=== PATIENT | female | born 1965 | race Caucasian/White ===

== ENCOUNTER → 2017-06-21 11:17 | Outpatient (CLI) | payer OTHER, SELFPAY ==
--- NOTE | 2017-06-21 11:26 | RAD_ITS ---
STUDY: X-RAY CHEST REASON FOR EXAM: Female, 52 years old. Cough TECHNIQUE: PA and lateral views of the chest. COMPARISON: Prior study of 05/06/2013 FINDINGS: The lungs are clear and expanded. There is no demonstrated pleural abnormality. Normal size heart. Normal mediastinum and deysi. Normal visualized pulmonary arteries. Normal visualized aortic arch and descending thoracic aorta. There are diffuse degenerative changes of the visualized thoracic spine. There is a fusion plate overlying the visualized lower cervical region. There is no demonstrated abnormality of the visualized soft tissue structures of the upper abdomen. RAD/Chest PA and Lateral IMPRESSION: Degenerative changes of the thoracic spine. Fusion plate seen overlying the visualized lower cervical region. No acute cardiopulmonary disease process is seen. Electronically Signed: Adam Wong MD at 16:59 EST , Service support ,
== END ==
PROVIDERS: Family Provider Family Medicine; PCP Family Medicine; Visit Provider Family Medicine
DX: J18.9 Pneumonia, unspecified organism (principal)
CPT/HCPCS: 71046

== ENCOUNTER 2018-05-29 09:57 | Inpatient (IN) | payer MEDICAID, SELFPAY ==
[2018-05-29] VITALS (30 sets, daily range): BP systolic 107–158; BP diastolic 67–111; PULSE 47–131; RESP 14–37; TEMP 36.3–36.9; O2SAT 85–99; BMI 42.9; BMI 41.3
--- NOTE | 2018-05-29 10:23 | EKG12_ITS ---
Test Reason : Blood Pressure : / mmHG Vent. Rate : 118 BPM Atrial Rate : 118 BPM P-R Int : 132 ms QRS Dur : 090 ms QT Int : 332 ms P-R-T Axes : 050 044 000 degrees QTc Int : 465 ms Sinus tachycardia Nonspecific ST abnormality Abnormal ECG Confirmed by NICOLE RAMIREZ, ELKIN ([id number]), advertising editor STACI JOSHUA ([id number]) on 06/02/2018 10:29:20 AM Referred By: BRITTANY/ELIAS Confirmed By:ELKIN RIVERA MD
[2018-05-29 10:35] LABS: Absolute Neutrophil Count 4.4 X10^3/uL (2.0-7.7); Basophil# 0.02 X10^3/uL; Basophil% 0.3 % (0-1); Eosinophil# 0.19 X10^3/uL; Eosinophils% 3.1 % (0-5); Hematocrit 38.7 % (37-47); Hemoglobin 11.4 g/dl (12.0-15.0); Lymphocyte % 16.1 % (19-41); Mean Corp Hgb Conc 29.5 g/gl (32-36); Mean Corpuscular Hgb 23.1 pg (27.0-32.0); Mean Corpuscular Volume 78.3 fL (81-99); Mean Platelet Vol. 9.8 fl (6.2-12.0); Monocyte# 0.64 X10^3/uL; Monocyte% 10.3 % (0-10); Neutrophil # 4.36 X10^3/uL (2.7-7.7); POSITIVE COUNT NO; POSITIVE DIFFERENTIAL NO; POSITIVE MORPHOLOGY NO; Platelet Count 259 K/mm3 (150-450); RBC Distribution Width CV 17.2 % (11.6-14.6); Red Blood Count 4.94 M/mm3 (4.2-5.4); White Blood Count 6.2 K/mm3 (4.4-11.0)
[2018-05-29] MEDS: 0.9% Normal Saline 1,000 ML 999 ML IV (10:38)
--- NOTE | 2018-05-29 10:43 | RAD_ITS ---
STUDY: X-RAY CHEST REASON FOR EXAM: Female, 53 years old. Flulike symptoms. Hypoxia. TECHNIQUE: Single AP portable view of the chest. COMPARISON: Comparison is made with prior study dated June 21, 2017. FINDINGS: EKG electrodes are seen. The lungs are clear and expanded. There is no demonstrated pleural abnormality. Normal size heart. Normal mediastinum and deysi. Normal visualized pulmonary arteries. Normal visualized aortic arch and descending thoracic aorta. There are degenerative changes of the visualized thoracic spine. Prior fusion of the lower cervical spine. Normal visualized ribs, clavicles, and shoulders. There is no demonstrated abnormality of the visualized soft tissue structures of the upper abdomen. RAD/Chest 1 View (Portable) IMPRESSION: No acute abnormality is seen. Electronically Signed: Marko Hoffman MD at 11:27 EST , Service support ,
[2018-05-29 10:46] LABS: Partial Thromboplast Time 23.8 Seconds (24.1-36.2); Prothrombin Time (Protime)PT. 12.8 SECONDS (11.7-14.9)
[2018-05-29 10:56] LABS: ALB/GLOB Ratio 0.6 RATIO (0.9-2.4); AST(SGOT) 17 U/L (15-37); Alanine Aminotransfer ALT/SGPT 18 U/L (13-56); Albumin, Serum 2.8 g/dL (3.2-5.0); Alkaline Phosphatase 87 U/L (45-117); Anion Gap 8 (5-15); BUN 9 mg/dL (7-18); BUN/Creat Ratio 10.7 RATIO (10-20); Calcium,Total 8.3 mg/dL (8.5-10.1); Chloride 107 mmol/L (98-107); Creatinine, Serum 0.84 mg/dL (0.55-1.02); EST Glomerular Filtration Rate 75 mL/min (>60); Est Glom Filt Rate - Afr Amer 91 mL/min (>60); Estimated Creatinine Clearance 59.12 ml/min; Globulin 4.6 g/dL (2.2-4.2); Glucose 118 mg/dL (74-106); Potassium 3.2 mmol/L (3.5-5.1); Protein, Total 7.4 g/dL (6.4-8.2); Sodium Level 140 mmol/L (136-145)
[2018-05-29 11:05] LABS: Lactic Acid 1.4 mmol/L (0.4-2.0)
--- NOTE | 2018-05-29 11:17 | CT_ITS ---
STUDY: CTA CHEST REASON FOR EXAM: Female, 53 years old. Cough and hypoxia. Weakness. RADIATION DOSAGE (If Supplied By Facility): CTDIvol = ( 13.28 ) mGy, DLP = ( 644.68 ) mGycm TECHNIQUE: The examination was performed with the intravenous administration of 100mL ml of Isovue 370 contrast material. Post-processing of the angiographic images was performed, with multiplanar reformation and 3D reconstruction. Individualized dose optimization techniques were used for this CT. COMPARISON: Comparison is made with prior chest radiograph done earlier today. FINDINGS: Small bilateral axillary lymph nodes. There are multiple bilateral intraluminal filling defects involving the right and left pulmonary arteries as well as the interlobar arteries as well as multiple peripheral branches in keeping with extensive pulmonary emboli. Normal thoracic aorta and visualized great vessels. There is no demonstrated aortic dissection. Normal heart and pericardium. Normal mediastinum. Normal hilar regions. Normal visualized trachea and bronchi. The lungs are well expanded. Normal pulmonary parenchyma. Normal pleura. Normal chest wall structures. Normal osseous structures. Diffuse fatty infiltration of the liver. Calcified granuloma along the posterior aspect of the right lobe of the liver. Small bilateral hernia. CT/CTA Chest W/WO Contrast IMPRESSION: Extensive bilateral pulmonary embolism. N.B. : The above information has been verbally conveyed by Marko Hoffman MD to Lennox Singer MD, on 05/29/2018 12:55:22 (ET). Electronically Signed: Marko Hoffman MD at 12:57 EST , Service support ,
--- NOTE | 2018-05-29 11:53 | ED.RN ---
pt ambulates to BSC. pt weak, pale, and diaphoretic with ambulation to BSC. pt became nauseated and felt like she was going to passout. this rn called for a second rn. the bed repositioned by [facility] to move pt from BSC to bed. emotional support and cool rags applied to pt head and neck. notified.
--- NOTE | 2018-05-29 12:00 | ED.RN ---
pt to weak to ambulate to BSC. bed moreno only for today.
[2018-05-29 12:10] LABS: Bacteria 0 SEEN /hpf (None Seen); Mucous, Urine 0 SEEN /hpf (<or=2+); White Blood Cells 0 SEEN /hpf (0-5)
[2018-05-29 12:24] LABS: Color, Urine Yellow (Yellow); Glucose, Dipstick Normal (Normal); Ketone-Dipstick 15 mg/dl (Negative); Leukocyte Esterase-Dipstick Negative /ul (Negative); Nitrite-Dipstick Negative (Negative); Occult Blood-Urine 150 /ul (Negative); Protein-Dipstick 30 mg/dl (Negative); Urine Bilirubin Dipstick Negative (Negative); Urine Clarity Sl. Cloudy (Clear); Urine Urobilinogen Normal (Normal)
[2018-05-29 13:00] LABS: Red Blood Cells-Urine 0-5 SEEN /hpf (0-5); Squamous Epithelial Cells - UA 0-5 SEEN /hpf (5-10)
[2018-05-29] MEDS: Heparin Injection (Vial) 5,000 UNIT/ML VIAL 8000 UNIT IV (13:08)
[2018-05-29] MEDS: HEPARIN/D5w 25,000 UNITS 25,000 UNITS/250 ML IV.SOLN. 15 UNITS IV (13:09)
--- NOTE | 2018-05-29 13:14 | ECHOD_ITS ---
Reason For Study: Saddle pulm embolus Procedure This was a 2D Doppler, Color Flow transthoracic echocardiogram. Exam performed portable in ICU/CCU. Left Ventricle Mild concentric left ventricular hypertrophy. The estimated ejection fraction is 75 %. Stage 1 diastolic dysfunction. No regional wall motion abnormalities noted. Right Ventricle Severely dilated right ventricle. RV apical strain possibly c/w acute pulmonary embolism. Mild to moderate global right ventricular systolic dysfunction. Atria Normal left atrium. Normal right atrium. Normal atrial septum. Mitral Valve The mitral valve is structurally normal. No prolapse or stenosis seen. Trivial mitral valve insufficiency. Tricuspid Valve Normal tricuspid valve. Mild (1+) tricuspid valve insufficiency. Right ventricular systolic pressure estimated to be 48 mmHg. Moderate pulmonary hypertension. Aortic Valve Normal aortic valve. Trisinus/trileaflet aortic valve. Pulmonic Valve Normal pulmonic valve. Great Vessels Normal aortic root. Normal arch. Normal inferior vena cava. Inferior vena cava collapse with sniff. Pericardium/Pleural No pericardial effusion. MMode/2D Measurements & Calculations LVIDd: 3.5 cm IVSd: 1.3 cm Ao root diam: 3.6 cm LVIDs: 2.2 cm LVPWd: 1.2 cm RVDd: 3.8 cm FS: 35.2 % LAV(MOD-bp): 19.8 ml LA A4 area: 10.2 cm2 LA dimension(2D): 2.6 cm LAV(MOD-bp) Indexed: 9.9 ml/m2 LAV(MOD-sp2): 20.4 ml LAV(MOD-sp4): 19.2 ml RA A4 area: 14.6 cm2 Doppler Measurements & Calculations MV E max kranthi: 60.9 cm/sec Lat Peak E' Kranthi: 8.0 cm/sec Med Peak E' Kranthi: 5.6 cm/sec MV A max kranthi: 70.0 cm/sec E/E' lat: 7.7 E/E' med: 11.0 MV E/A: 0.87 Ao V2 max: 133.8 cm/sec LV V1 max: 96.1 cm/sec PA V2 max: 71.4 cm/sec Ao max P.2 mmHg LV V1 max P.7 mmHg TR max kranthi: 326.9 cm/sec TR max P.7 mmHg Interpretation Summary The estimated ejection fraction is 75 %. Stage 1 diastolic dysfunction. Severely dilated right ventricle. RV apical strain possibly c/w acute pulmonary embolism. Mild to moderate global right ventricular systolic dysfunction. Trivial mitral valve insufficiency. Mild (1+) tricuspid valve insufficiency. Right ventricular systolic pressure estimated to be 48 mmHg. Moderate pulmonary hypertension. There is no comparison study available. Ordering Physician: Lennox Singer Referring Physician: Chavez Coughlin Performed By: Ana Mccarty RDCS
--- NOTE | 2018-05-29 13:22 | ED.DCSUM_ITS ---
- ER Visit Summary Date of Service: 05/29/18 Chief Complaint: Shortness of breath, dyspnea exertion, cough fever with chills. History of Present Illness: The patient is a 53 F who presents with a history of symptoms that started approximately 1 month ago. She now presents with fever, myalgias, arthralgias and cough. She denies headache, photophobia, neck pain or neck stiffness. She does report palpitations. She denies chest pain. She states she cannot walk from room to room without becoming short of breath. There is no known history of coronary disease. She denies orthopnea, PND or pedal edema. She denies any GI or symptoms. Physical Examination: Physical exam is marked for tachycardia, tachypnea and hypoxia with a pulse ox of 85% on room air. She appears ill. She is pale in appearance. Head is atraumatic normocephalic. Pupils are equal round reactive. Extraocular muscles are intact. Conjunctive is pink. Or dysphasia. Trachea is midline. There is no stridor with auscultation of the neck. Heart is rapid and regular without murmur, gallop or rub. S1 and S2 are normal. Lungs are clear to auscultation with good movement of air bilaterally. Abdomen is soft nontender. There is no CVA tenderness noted. There is no asymmetry, swelling, discoloration, leg vein distention, palpable cords or tenderness along the distribution of the deep venous system. Patient is alert and oriented ?3. Motor is 5 over 5. Sensory is intact. DTRs are symmetric with no clonus or Babinski sign. Cranial 2 through 12 are intact. Cerebellar testing is normal. Test Results: EKG reveals a sinus tachycardia with a ventricular rate of 118. She is nonseptic ST-T wave changes noted. Portable chest x-ray reveals no acute pulmonary process. Cardiac silhouette normal. Mediastinum normal. White count is normal. There is mild anemia with an H&H 11.4 and hematocrit 38. Basic metabolic unremarkable. Coags normal. Lactate normal 1.4. Albumin is low at 2.8. Influenza is negative. Emergency Department Course and Treatment: IV was established. She was placed on oxygen. She was treated for pneumonia with IV antibiotics. Because her chest x-ray was negative a CTA was obtained to determine if she has a pulmonary embolus or a non-visible pneumonia. Patient has significant multilobar bilateral pulmonary embolus with high clot burden. Treatment Plan: CTA to evaluate for pulmonary mass. Nurse informed when she attempted to stand became pale hypotensive and was medically unstable. Disposition: Admit ICU stat echo to evaluate for right heart strain and if patient candidate for IV thrombolytic Impression: 1. Respiratory failure with hypoxia 2. Bilateral significant pulmonary embolus with hemodynamic instability 3. Anemia This note was generated with [employer] dictation software. It may contain incorrect words, spelling, and punctuation that were not noted in review of the chart prior to signing ED Disposition - Plan for ED Patient: Referrals: Chavez Coughlin DO [Primary Care Provider] -
--- NOTE | 2018-05-29 13:25 | HP.PCM_ITS ---
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 SOB - ongoing for months The patient is a 53 year old F with past medical history of anxiety/depression, on Lexapro, menorrhagia secondary to uterine fibroids, on oral contraceptive pills comes in with complaints of shortness of breath ongoing since March, after . She also developed cough that has been ongoing for about 1 week. Admits to some fever and chills. Her cough is nonproductive. Denied any lower extremity swelling. Admits to cramps in the lower extremity. In the ED, her temperature was 98.4F, heart rate was 112, worsened with any mov ement, blood pressure 139/90, respiratory rate was 20, she was 85% on room air. Her hemoglobin was 11.4, WBC count was 6.2, platelet 259, sodium was 140, potassium 3.2, chloride 107, bicarbonate 25, BUN 9, creatinine 0.84, glucose was 118, lactic acid 1.4, troponin was 0.089. EKG showed normal sinus rhythm, tachycardia ,no acute ST changes. Past Medical History Past Medical History (Chronic Problems): Chronic Problems Morbid obesity (Chronic) Dysfunctional or functional uterine hemorrhage (Chronic) Uterine fibroid (Chronic) Allergies Penicillins [PCN] Allergy (Verified 05/29/18 09:59) Hives Home Medications: Ambulatory Orders Medication Instructions Recorded Escitalopram Oxalate 5 mg PO QHS 05/29/18 Naproxen Sodium [Aleve] 440 mg PO PRN PRN 05/29/18 Norgestrel-Ethinyl Estradiol 1 tab PO DAILY 05/29/18 [Cryselle-28 Tablet] Omeprazole [Prilosec] 20 mg PO DAILY 05/29/18 Surgical History: - - C-sections Psychiatric History: No pertinent psych hx [employer] History: dysfunctional uterine bld, uterine fibroids Lives: Spouse/ Significant Other, With Family Smoking Status: Never smoker Tobacco Use: Non-smoker Alcohol: None Drugs: None - *Family History Maternal History Items: No pertinent history Paternal History Items: No pertinent history Review of Systems Constitutional: Reports: Anorexia, Chills, Fever, Malaise, Weakness, Fatigue. Denies: Weight Change Eyes: Denies: Blurred vision, Cataracts, Conjunctivae Inflammation, Pain, Redness HEENT: Denies: Difficulty Hearing, Difficulty Swallowing, Head Aches, Hearing Changes, Nasal bleeding, Nasal Congestion, Sinus Congestion, Sinus Drainage, Sore Throat Cardiovascular: Denies: Chest Pain, Palpitations Respiratory: Denies: Cough, Shortness of breath at rest, Sputum production Gastrointestinal: Denies: Abdominal Pain, Nausea, Vomiting Genitourinary: Denies: Dysuria, Frequency, Incontinence Musculoskeletal: Denies: Joint Pain, Joint stiffness, Joint swelling, Joint Tenderness Skin: Denies: Rash, Wounds Neurological: Denies: Difficulty swallowing, Focal weakness, Numbness, Tingling Psychiatric: Denies: Anxiety, Depression, Homicidal Ideations, Suicidal Ideations Hematologic/ Lymphatic: Denies: Easy Bruising, Easy Bleeding VTE Information - Inpt Only VTE Present on Admission: Yes VTE Pharm Prophylaxis ordered?: Yes Patient Problems: Active and Suspected Problems Pulmonary embolism (Acute) - Physical Exam General: Alert, Oriented x3, Cooperative, - - In mild to moderate respiratory distress, 3 L of oxygen, obese HEENT: Atraumatic, PERRLA, EOMI, Normocephalic Oral: Moist Mucosa Neck: Supple, No JVD, Negative Carotid Bruits Lungs: Clear to auscultation, Normal air movement Cardiovascular: Regular rate, Regular Rhythm, Normal S1, Normal S2, No murmurs Abdomen: Bowel Sounds Present, Soft, Non Tender, Non-Distended, No Hepato- splenomegaly, Obese Extremities: No edema Skin: No rashes, No breakdown Musculoskeletal: No Tenderness to Palpation of Joints or Extremities Lymphatic: No Cervical, Supraclavicular, or Inguinal Adenopathy Neurological: Cranial nerves II-XII grossly intact, Neuro grossly intact Psych/Mental Status: Normal Affect, Appropriate Vital Signs Temp Pulse Resp BP Pulse Ox 97.8 F 111 H 21 H 120/89 H 96 05/29/18 12:00 05/29/18 12:00 05/29/18 12:00 05/29/18 12:00 05/29/18 12:00 Oxygen Flow Rate (L/min) 2 Oxygen Delivery Method Nasal Cannula Weight: 103 kg Body Mass Index (BMI) 42.9 Microbiology Past 72 Hours 05/29/18 10:39 Influenza Types A,B Direct FA (BRIT) - Final Mucosa - Nasopharyngeal Laboratory Tests Past 24 Hrs 05/29/18 05/29/18 05/29/18 10:15 10:15 10:15 WBC 6.2 RBC 4.94 Hgb 11.4 L Hct 38.7 MCV 78.3 L MCH 23.1 L MCHC 29.5 L RDW 17.2 H RDW Differential 49.0 H Plt Count 259 MPV 9.8 Immature Gran % (Auto) 0.200 Neut % (Auto) 70.0 Lymph % (Auto) 16.1 L [place] % (Auto) 10.3 H Eos % (Auto) 3.1 Baso % (Auto) 0.3 Absolute Neuts (auto) 4.4 Absolute Lymphs (auto) 1.00 Total Counted Not Reportable PT 12.8 INR 1.0 APTT 23.8 L Sodium 140 Potassium 3.2 L Chloride 107 Carbon Dioxide 25.0 Anion Gap 8 BUN 9 Creatinine 0.84 Estim Creat Clear Calc 59.12 Est GFR (MDRD) Af Amer 91 Est GFR (MDRD) Non-Af 75 BUN/Creatinine Ratio 10.7 Glucose 118 H Lactic Acid Calcium 8.3 L Total Bilirubin 0.30 AST 17 ALT 18 Alkaline Phosphatase 87 Troponin I B-Natriuretic Peptide Total Protein 7.4 Albumin 2.8 L Globulin 4.6 H Albumin/Globulin Ratio 0.6 L Urine Color Urine Clarity Urine pH Ur Specific [place] Urine Protein Urine Glucose (UA) Urine Ketones Urine Occult Blood Urine Nitrite Urine Bilirubin Urine Urobilinogen Ur Leukocyte Esterase Urine RBC Urine WBC Ur Squamous Epith Cells Urine Bacteria Urine Mucus 05/29/18 05/29/18 05/29/18 10:15 10:15 10:15 WBC RBC Hgb Hct MCV MCH MCHC RDW RDW Differential Plt Count MPV Immature Gran % (Auto) Neut % (Auto) Lymph % (Auto) [place] % (Auto) Eos % (Auto) Baso % (Auto) Absolute Neuts (auto) Absolute Lymphs (auto) Total Counted PT INR APTT Sodium Potassium Chloride Carbon Dioxide Anion Gap BUN Creatinine Estim Creat Clear Calc Est GFR (MDRD) Af Amer Est GFR (MDRD) Non-Af BUN/Creatinine Ratio Glucose Lactic Acid 1.4 Calcium Total Bilirubin AST ALT Alkaline Phosphatase Troponin I Pending B-Natriuretic Peptide Pending Total Protein Albumin Globulin Albumin/Globulin Ratio Urine Color Urine Clarity Urine pH Ur Specific [place] Urine Protein Urine Glucose (UA) Urine Ketones Urine Occult Blood Urine Nitrite Urine Bilirubin Urine Urobilinogen Ur Leukocyte Esterase Urine RBC Urine WBC Ur Squamous Epith Cells Urine Bacteria Urine Mucus 05/29/18 12:00 WBC RBC Hgb Hct MCV MCH MCHC RDW RDW Differential Plt Count MPV Immature Gran % (Auto) Neut % (Auto) Lymph % (Auto) [place] % (Auto) Eos % (Auto) Baso % (Auto) Absolute Neuts (auto) Absolute Lymphs (auto) Total Counted PT INR APTT Sodium Potassium Chloride Carbon Dioxide Anion Gap BUN Creatinine Estim Creat Clear Calc Est GFR (MDRD) Af Amer Est GFR (MDRD) Non-Af BUN/Creatinine Ratio Glucose Lactic Acid Calcium Total Bilirubin AST ALT Alkaline Phosphatase Troponin I B-Natriuretic Peptide Total Protein Albumin Globulin Albumin/Globulin Ratio Urine Color Yellow Urine Clarity Sl. Cloudy Urine pH 8.0 Ur Specific [place] 1.010 Urine Protein 30 H Urine Glucose (UA) Normal Urine Ketones 15 H Urine Occult Blood 150 H Urine Nitrite Negative Urine Bilirubin Negative Urine Urobilinogen Normal Ur Leukocyte Esterase Negative Urine RBC 0-5 SEEN Urine WBC 0 SEEN Ur Squamous Epith Cells 0-5 SEEN Urine Bacteria 0 SEEN Urine Mucus 0 SEEN Assessment/Plan All Active Problems Pulmonary embolism (Acute) Influenza and pneumonia (Acute) 53 year old F with past medical history of anxiety/depression, on Lexapro, menorrhagia secondary to uterine fibroids, on oral contraceptive pills comes in with complaints of shortness of breath ongoing since after [place], nonproductive cough of one-week duration. 1. Acute extensive PE with hypoxia/acute DVT of the right distal femoral, popliteal and gastrocnemius veins Likely etiology for this PE is secondary to hormonal therapy, started on heparin drip, contraceptives have been stopped Stable vitals, EKG shows tachycardia. Doppler ultrasound of the lower extremity showed acute DVT of the right distal femoral vein as well as right popliteal and gastrocnemius veins. No DVT on the left. Plan: Admit to ICU, continue on gentle IV fluids, 2D echo, heparin drip, continue per protocol, maintenance of way supervisor consult, continue to wean off oxygen Patient may likely be discharged home with oxygen looking at the extent of clot burden. Patient may be transitioned to one of the novel anticoagulants later if she continues to remain stable 2. Menorrhagia secondary to uterine fibroids, was on oral contraceptives, stopped, patient is due to her period within a week, Will likely have profuse bleeding considering that she is now on anticoagulation, Discussed with Dr. Barbour, she would be consulted, would consider putting patient on IUD 3. Anxiety/depression, on Lexapro, continue same 4. GERD, on PPI 5. DVT PPx- on Heparin drip 6. GI prophylaxis-on PPI Code Visit Inpatient E&M: 81529 Init Hosp L3
--- NOTE | 2018-05-29 14:54 | VDLE_ITS ---
Reason For Study: PE RIGHT LEFT CFV is compressible, spontaneous, competent CFV is compressible, spontaneous, competent, and demonstrates pulsatile venous flow. and demonstrates pulsatile venous flow. T/P Trunk is compressible. FV is compressible, spontaneous, competent PTV is compressible. and demonstrates pulsatile venous flow. RT PerV is compressible. POP V is compressible, spontaneous, GSV is normal. competent and demonstrates pulsatile venous Prox and Mid FV are compressible, flow. spontaneous, competent and demonstrate T/P Trunk is compressible. pulsatile venous flow. PTV is compressible. Distal FV is dilated and noncompressible with LT PerV is compressible. no flow. GSV is normal. Pop V is dilated and noncompressible with decreasead flow. Gastroc V are dilated and noncompressible. Procedure Exam performed portable in ICU/CCU. The exam was diagnostic. A preliminary report was called and/or faxed to the pt's RN. Interpretation Summary Acute deep venous right distal femoral vein Acute deep venous thormbosis right popliteal and gastrocnemius veins. No evidence for acute deep venous thrombosis left lower extremity. Patent and compressible bilateral great saphenous veins Pulsitile venous flow noted bilaterally consistent with proximal venous hypertension--clinical correlation would be appropriate. Ordering Physician: Modesta Cleaning Performed By: Jw Wahl RVStacey
--- NOTE | 2018-05-29 15:14 | PCM.CON.CC ---
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 on 05/29/2018 secondary to shortness of breath. Patient states her symptoms began approximately 1 month ago with increased shortness of breath on exertion. Patient had denied any headache, photophobia, neck stiffness or chest pain. Patient did have some palpitations, especially with ambulation. Over the last week, patient had subjective fevers, myalgias, arthralgias and a nonproductive cough. Patient denied any lower extremity edema, dysuria, constipation. On the day of presentation, patient was supposed to be seen by her primary care physician. However, this morning she started to have a sensation I was floating out of my body. Patient states that she was unable to rise from a sitting position and was short of breath at rest. On presentation to the emergency room, patient was noted to have a saturation of 85%. Patient was also noted to be tachycardic, tachypneic and pale in appearance. No stridor was noted. Patient did not have any lower extremity edema, but a CTA of the chest showed a saddle pulmonary emboli. Patient was placed on supplemental oxygen, given IV antibiotics for reported pneumonia and initiated on anticoagulation. In the intensive care unit, patient reports subjective improvement in overall condition. Patient remains tachycardic at 118 bpm. Patient states she believes the supplemental oxygen is helping. Patient has no focal neurologic deficits at this time. Patient reports she does have a history of miscarriages in the past. Patient denies a family history of hypercoagulable state. Patient has never had a previous blood clot. Patient is on hormonal therapy secondary to dysfunctional uterine bleeding associated with fibroids. Patient states she has discussed with her air analysis technician about possible hysterectomy. 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 Patient Problems: Active and Suspected Problems Pulmonary embolism (Acute) Objective: CT scan of the chest was personally reviewed showing bilateral pulmonary emboli. There are no emphysematous changes or mediastinal lymphadenopathy appreciated. Patient does have some areas of possible bronchiectasis in the right lower lobe. - Physical Exam General: Alert, Oriented x3, Cooperative, - - Conversational dyspnea. Morbidly obese. HEENT: Atraumatic, PERRLA, EOMI, Normocephalic, - - No scleral icterus or injection noted. Oral: No Gingival or Mucosal Lesions/ Ulcerations, Dry Mucosa Neck: Supple, No Nodes, Trachea Midline, JVD, Right Lungs: No rhonchi, No wheeze, No rales, Diminished, - - Symmetric expansion. No dullness to percussion. Cardiovascular: Normal S1, Normal S2, No murmurs, No rub noted, No Gallop, Tachycardic Abdomen: Bowel Sounds Present, Soft, Non Tender, Non-Distended, Obese Extremities: No clubbing, No cyanosis, No edema, Capillary Refill Less than 3 Seconds Skin: No rashes, No breakdown Musculoskeletal: No Tenderness to Palpation of Joints or Extremities, No Muscle Wasting Lymphatic: No Cervical, Supraclavicular, or Inguinal Adenopathy Neurological: Cranial nerves II-XII grossly intact, Neuro grossly intact, Motor Exam 5/5 strength throughout Psych/Mental Status: Alert and oriented to time, place, person, mood and affect Vital Signs Temp Pulse Resp BP Pulse Ox 36.3 C L 118 H 26 H 134/87 H 99 05/29/18 14:57 05/29/18 15:00 05/29/18 15:00 05/29/18 15:00 05/29/18 15:00 Oxygen Flow Rate (L/min) 5 Oxygen Delivery Method Nasal Cannula Weight: 99.1 kg Body Mass Index (BMI) 41.3 Microbiology Past 72 Hours 05/29/18 10:39 Influenza Types A,B Direct FA (BRIT) - Final Mucosa - Nasopharyngeal Laboratory Tests Past 24 Hrs 05/29/18 05/29/18 05/29/18 10:15 10:15 10:15 WBC 6.2 RBC 4.94 Hgb 11.4 L Hct 38.7 MCV 78.3 L MCH 23.1 L MCHC 29.5 L RDW 17.2 H RDW Differential 49.0 H Plt Count 259 MPV 9.8 Immature Gran % (Auto) 0.200 Neut % (Auto) 70.0 Lymph % (Auto) 16.1 L [place] % (Auto) 10.3 H Eos % (Auto) 3.1 Baso % (Auto) 0.3 Absolute Neuts (auto) 4.4 Absolute Lymphs (auto) 1.00 Total Counted Not Reportable PT 12.8 INR 1.0 APTT 23.8 L Sodium 140 Potassium 3.2 L Chloride 107 Carbon Dioxide 25.0 Anion Gap 8 BUN 9 Creatinine 0.84 Estim Creat Clear Calc 59.12 Est GFR (MDRD) Af Amer 91 Est GFR (MDRD) Non-Af 75 BUN/Creatinine Ratio 10.7 Glucose 118 H Lactic Acid Calcium 8.3 L Total Bilirubin 0.30 AST 17 ALT 18 Alkaline Phosphatase 87 Troponin I B-Natriuretic Peptide Total Protein 7.4 Albumin 2.8 L Globulin 4.6 H Albumin/Globulin Ratio 0.6 L Urine Color Urine Clarity Urine pH Ur Specific [place] Urine Protein Urine Glucose (UA) Urine Ketones Urine Occult Blood Urine Nitrite Urine Bilirubin Urine Urobilinogen Ur Leukocyte Esterase Urine RBC Urine WBC Ur Squamous Epith Cells Urine Bacteria Urine Mucus 05/29/18 05/29/18 05/29/18 10:15 10:15 10:15 WBC RBC Hgb Hct MCV MCH MCHC RDW RDW Differential Plt Count MPV Immature Gran % (Auto) Neut % (Auto) Lymph % (Auto) [place] % (Auto) Eos % (Auto) Baso % (Auto) Absolute Neuts (auto) Absolute Lymphs (auto) Total Counted PT INR APTT Sodium Potassium Chloride Carbon Dioxide Anion Gap BUN Creatinine Estim Creat Clear Calc Est GFR (MDRD) Af Amer Est GFR (MDRD) Non-Af BUN/Creatinine Ratio Glucose Lactic Acid 1.4 Calcium Total Bilirubin AST ALT Alkaline Phosphatase Troponin I 0.089 H B-Natriuretic Peptide Pending Total Protein Albumin Globulin Albumin/Globulin Ratio Urine Color Urine Clarity Urine pH Ur Specific [place] Urine Protein Urine Glucose (UA) Urine Ketones Urine Occult Blood Urine Nitrite Urine Bilirubin Urine Urobilinogen Ur Leukocyte Esterase Urine RBC Urine WBC Ur Squamous Epith Cells Urine Bacteria Urine Mucus 05/29/18 12:00 WBC RBC Hgb Hct MCV MCH MCHC RDW RDW Differential Plt Count MPV Immature Gran % (Auto) Neut % (Auto) Lymph % (Auto) [place] % (Auto) Eos % (Auto) Baso % (Auto) Absolute Neuts (auto) Absolute Lymphs (auto) Total Counted PT INR APTT Sodium Potassium Chloride Carbon Dioxide Anion Gap BUN Creatinine Estim Creat Clear Calc Est GFR (MDRD) Af Amer Est GFR (MDRD) Non-Af BUN/Creatinine Ratio Glucose Lactic Acid Calcium Total Bilirubin AST ALT Alkaline Phosphatase Troponin I B-Natriuretic Peptide Total Protein Albumin Globulin Albumin/Globulin Ratio Urine Color Yellow Urine Clarity Sl. Cloudy Urine pH 8.0 Ur Specific [place] 1.010 Urine Protein 30 H Urine Glucose (UA) Normal Urine Ketones 15 H Urine Occult Blood 150 H Urine Nitrite Negative Urine Bilirubin Negative Urine Urobilinogen Normal Ur Leukocyte Esterase Negative Urine RBC 0-5 SEEN Urine WBC 0 SEEN Ur Squamous Epith Cells 0-5 SEEN Urine Bacteria 0 SEEN Urine Mucus 0 SEEN Clinical Impression(s) from Imaging Studies Chest X-Ray 05/29/18 10:43 IMPRESSION: No acute abnormality is seen. Electronically Signed: Marko Hoffman MD at 11:27 EST , Service support , Chest CTA 05/29/18 11:17 IMPRESSION: Extensive bilateral pulmonary embolism. N.B. : The above information has been verbally conveyed by Marko Hoffman MD to Lennox Singer MD, on 05/29/2018 12:55:22 (ET). Electronically Signed: Marko Hoffman MD at 12:57 EST , Service support , ADDENDUM: 05/29/18 1305 IMPRESSION: Extensive bilateral pulmonary embolism. N.B. : The above information has been verbally conveyed by Marko Hoffman MD to Lennox Singer MD, on 05/29/2018 12:55:22 (ET). Electronically Signed: Marko Hoffman MD at 12:57 EST , Service support , Assessment/Plan Active and Suspected Problems Pulmonary embolism (Acute) RECOMMENDATIONS: 1. Obtain echocardiogram for evaluation of right heart strain 2. Heparin drip per protocol 3. Wean oxygen as tolerated 4. Discontinue hormonal therapy 5. No indication for antibiotic or steroid therapy IMPRESSIONS: 1. Acute cor pulmonale secondary to saddle pulmonary embolism Patient appears to have submassive physiology. Echocardiogram has been ordered. Patient is still significantly tachycardic at this time, but saturating well on 5 L nasal cannula. Patient has been initiated on a heparin drip. Will monitor for any signs or symptoms of bleeding. Hormonal therapy should be discontinued. Possible transition to 10 a inhibitor in the next 24-48 hours. Patient does not have any infiltrates suggestive of infection on CT scan, so antibiotics or steroids are likely not indicated. Patient will likely require a walking oximetry prior to discharge. 2. Uterine fibroids/morbid obesity/history of neck surgery Complicates care, management, recovery and prognosis. We will need to monitor patient closely given history of uterine fibroids. Gynecology has been consulted. Code Visit Inpatient E&M: 58199 Init Hosp L3
--- NOTE | 2018-05-29 15:21 | CON.PCM_ITS ---
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 Patient states her symptoms began approximately 1 month ago with increased shortness of breath on exertion. Patient had denied any headache, photophobia, neck stiffness or chest pain. Patient did have some palpitations, especially with ambulation. Over the last week, patient had subjective fevers, myalgias, arthralgias and a nonproductive cough. Patient denied any lower extremity edema, dysuria, constipation. On the day of presentation, patient was supposed to be seen by her primary care physician. However, this morning she started to have a sensation I was floating out of my body. Patient states that she was unable to rise from a sitting position and was short of breath at rest. On presentation to the emergency room, patient was noted to have a saturation of 85%. Patient was also noted to be tachycardic, tachypneic and pale in appearance. No stridor was noted. Patient did not have any lower extremity edema, but a CTA of the chest showed a saddle pulmonary emboli. Patient was placed on supplemental oxygen, given IV antibiotics for reported pneumonia and initiated on anticoagulation. In the intensive care unit, patient reports subjective improvement in overall condition. Patient remains tachycardic at 118 bpm. Patient states she believes the supplemental oxygen is helping. Patient has no focal neurologic deficits at this time. Patient reports she does have a history of miscarriages in the past. Patient denies a family history of hypercoagulable state. Patient has never had a previous blood clot. Patient is on hormonal therapy secondary to dysfunctional uterine bleeding associated with fibroids. Patient states she has discussed with her restaurant worker about possible hysterectomy. 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 Patient Problems: Active and Suspected Problems Pulmonary embolism (Acute) Objective: CT scan of the chest was personally reviewed showing bilateral pulmonary emboli. There are no emphysematous changes or mediastinal lymphadenopathy appreciated. Patient does have some areas of possible bronchiectasis in the right lower lobe. - Physical Exam General: Alert, Oriented x3, Cooperative, - - Conversational dyspnea. Morbidly obese. HEENT: Atraumatic, PERRLA, EOMI, Normocephalic, - - No scleral icterus or injection noted. Oral: No Gingival or Mucosal Lesions/ Ulcerations, Dry Mucosa Neck: Supple, No Nodes, Trachea Midline, JVD, Right Lungs: No rhonchi, No wheeze, No rales, Diminished, - - Symmetric expansion. No dullness to percussion. Cardiovascular: Normal S1, Normal S2, No murmurs, No rub noted, No Gallop, Tachycardic Abdomen: Bowel Sounds Present, Soft, Non Tender, Non-Distended, Obese Extremities: No clubbing, No cyanosis, No edema, Capillary Refill Less than 3 Seconds Skin: No rashes, No breakdown Musculoskeletal: No Tenderness to Palpation of Joints or Extremities, No Muscle Wasting Lymphatic: No Cervical, Supraclavicular, or Inguinal Adenopathy Neurological: Cranial nerves II-XII grossly intact, Neuro grossly intact, Motor Exam 5/5 strength throughout Psych/Mental Status: Alert and oriented to time, place, person, mood and affect Vital Signs Temp Pulse Resp BP Pulse Ox 36.3 C L 118 H 26 H 134/87 H 99 05/29/18 14:57 05/29/18 15:00 05/29/18 15:00 05/29/18 15:00 05/29/18 15:00 Oxygen Flow Rate (L/min) 5 Oxygen Delivery Method Nasal Cannula Weight: 99.1 kg Body Mass Index (BMI) 41.3 Microbiology Past 72 Hours 05/29/18 10:39 Influenza Types A,B Direct FA (BRIT) - Final Mucosa - Nasopharyngeal Laboratory Tests Past 24 Hrs 05/29/18 05/29/18 05/29/18 10:15 10:15 10:15 WBC 6.2 RBC 4.94 Hgb 11.4 L Hct 38.7 MCV 78.3 L MCH 23.1 L MCHC 29.5 L RDW 17.2 H RDW Differential 49.0 H Plt Count 259 MPV 9.8 Immature Gran % (Auto) 0.200 Neut % (Auto) 70.0 Lymph % (Auto) 16.1 L [place] % (Auto) 10.3 H Eos % (Auto) 3.1 Baso % (Auto) 0.3 Absolute Neuts (auto) 4.4 Absolute Lymphs (auto) 1.00 Total Counted Not Reportable PT 12.8 INR 1.0 APTT 23.8 L Sodium 140 Potassium 3.2 L Chloride 107 Carbon Dioxide 25.0 Anion Gap 8 BUN 9 Creatinine 0.84 Estim Creat Clear Calc 59.12 Est GFR (MDRD) Af Amer 91 Est GFR (MDRD) Non-Af 75 BUN/Creatinine Ratio 10.7 Glucose 118 H Lactic Acid Calcium 8.3 L Total Bilirubin 0.30 AST 17 ALT 18 Alkaline Phosphatase 87 Troponin I B-Natriuretic Peptide Total Protein 7.4 Albumin 2.8 L Globulin 4.6 H Albumin/Globulin Ratio 0.6 L Urine Color Urine Clarity Urine pH Ur Specific [place] Urine Protein Urine Glucose (UA) Urine Ketones Urine Occult Blood Urine Nitrite Urine Bilirubin Urine Urobilinogen Ur Leukocyte Esterase Urine RBC Urine WBC Ur Squamous Epith Cells Urine Bacteria Urine Mucus 05/29/18 05/29/18 05/29/18 10:15 10:15 10:15 WBC RBC Hgb Hct MCV MCH MCHC RDW RDW Differential Plt Count MPV Immature Gran % (Auto) Neut % (Auto) Lymph % (Auto) [place] % (Auto) Eos % (Auto) Baso % (Auto) Absolute Neuts (auto) Absolute Lymphs (auto) Total Counted PT INR APTT Sodium Potassium Chloride Carbon Dioxide Anion Gap BUN Creatinine Estim Creat Clear Calc Est GFR (MDRD) Af Amer Est GFR (MDRD) Non-Af BUN/Creatinine Ratio Glucose Lactic Acid 1.4 Calcium Total Bilirubin AST ALT Alkaline Phosphatase Troponin I 0.089 H B-Natriuretic Peptide Pending Total Protein Albumin Globulin Albumin/Globulin Ratio Urine Color Urine Clarity Urine pH Ur Specific [place] Urine Protein Urine Glucose (UA) Urine Ketones Urine Occult Blood Urine Nitrite Urine Bilirubin Urine Urobilinogen Ur Leukocyte Esterase Urine RBC Urine WBC Ur Squamous Epith Cells Urine Bacteria Urine Mucus 05/29/18 12:00 WBC RBC Hgb Hct MCV MCH MCHC RDW RDW Differential Plt Count MPV Immature Gran % (Auto) Neut % (Auto) Lymph % (Auto) [place] % (Auto) Eos % (Auto) Baso % (Auto) Absolute Neuts (auto) Absolute Lymphs (auto) Total Counted PT INR APTT Sodium Potassium Chloride Carbon Dioxide Anion Gap BUN Creatinine Estim Creat Clear Calc Est GFR (MDRD) Af Amer Est GFR (MDRD) Non-Af BUN/Creatinine Ratio Glucose Lactic Acid Calcium Total Bilirubin AST ALT Alkaline Phosphatase Troponin I B-Natriuretic Peptide Total Protein Albumin Globulin Albumin/Globulin Ratio Urine Color Yellow Urine Clarity Sl. Cloudy Urine pH 8.0 Ur Specific [place] 1.010 Urine Protein 30 H Urine Glucose (UA) Normal Urine Ketones 15 H Urine Occult Blood 150 H Urine Nitrite Negative Urine Bilirubin Negative Urine Urobilinogen Normal Ur Leukocyte Esterase Negative Urine RBC 0-5 SEEN Urine WBC 0 SEEN Ur Squamous Epith Cells 0-5 SEEN Urine Bacteria 0 SEEN Urine Mucus 0 SEEN Clinical Impression(s) from Imaging Studies Chest X-Ray 05/29/18 10:43 IMPRESSION: No acute abnormality is seen. Electronically Signed: Marko Hoffman MD at 11:27 EST , Service support , Chest CTA 05/29/18 11:17 IMPRESSION: Extensive bilateral pulmonary embolism. N.B. : The above information has been verbally conveyed by Marko Hoffman MD to Lennox Singer MD, on 05/29/2018 12:55:22 (ET). Electronically Signed: Marko Hoffman MD at 12:57 EST , Service support , ADDENDUM: 05/29/18 1305 IMPRESSION: Extensive bilateral pulmonary embolism. N.B. : The above information has been verbally conveyed by Marko Hoffman MD to Lennox Singer MD, on 05/29/2018 12:55:22 (ET). Electronically Signed: Marko Hoffman MD at 12:57 EST , Service support , Assessment/Plan Active and Suspected Problems Pulmonary embolism (Acute) RECOMMENDATIONS: 1. Obtain echocardiogram for evaluation of right heart strain 2. Heparin drip per protocol 3. Wean oxygen as tolerated 4. Discontinue hormonal therapy 5. No indication for antibiotic or steroid therapy IMPRESSIONS: 1. Acute cor pulmonale secondary to saddle pulmonary embolism Patient appears to have submassive physiology. Echocardiogram has been ordered. Patient is still significantly tachycardic at this time, but saturating well on 5 L nasal cannula. Patient has been initiated on a heparin drip. Will monitor for any signs or symptoms of bleeding. Hormonal therapy should be discontinued. Possible transition to 10 a inhibitor in the next 24-48 hours. Patient does not have any infiltrates suggestive of infection on CT scan, so antibiotics or steroids are likely not indicated. Patient will likely require a walking oximetry prior to discharge. 2. Uterine fibroids/morbid obesity/history of neck surgery Complicates care, management, recovery and prognosis. We will need to monitor patient closely given history of uterine fibroids. Gynecology has been consulted. Code Visit Inpatient E&M: 99820 Init Hosp L3
--- NOTE | 2018-05-29 15:30 | NURSING ---
VDU in progress
[2018-05-29 16:09] LABS: BNP,B-Type NATRIURETIC PEPTIDE 16.6 pg/mL (0-100)
[2018-05-29] MEDS: 0.9% Normal Saline 1,000 ML 100 ML IV (17:02)
--- NOTE | 2018-05-29 17:10 | EKG12_ITS ---
Test Reason : CHEST PAIN Blood Pressure : / mmHG Vent. Rate : 123 BPM Atrial Rate : 123 BPM P-R Int : 126 ms QRS Dur : 084 ms QT Int : 332 ms P-R-T Axes : 050 046 -11 degrees QTc Int : 475 ms Sinus tachycardia Low voltage QRS ST & T wave abnormality, consider inferior ischemia Abnormal ECG When compared with ECG of 29-MAY-2018 10:34, MANUAL COMPARISON REQUIRED, DATA IS UNCONFIRMED Confirmed by NICOLE RAMIREZ, ELKIN ([id number]), dictionary editor STACI JOSHUA ([id number]) on 06/06/2018 9:45:53 AM Referred By: ALEXEY Confirmed By:ELKIN RIVERA MD
--- NOTE | 2018-05-29 17:15 | NURSING ---
Pt w/ onset of CP describing as sharp pins and needles 8/10 intensity upon laying in trendelenburg position to boost pt in bed. Episode lasted <5 minutes and resolved after sitting up in high fowlers. EKG completed. Dr. Hurst notified of events. Troponins ordered. Pt with unchanged oxygen requirements during event; tachycardic without arrhythmias.
[2018-05-29 19:12] LABS: Partial Thromboplast Time 57.6 Seconds (24.1-36.2)
[2018-05-29] MEDS: Acetaminophen 325 MG Tablet 650 MG PO (21:00)
[2018-05-29] MEDS: 0.9% NaCl Peripheral Flush Adult/Peds IV ×2 (21:01→21:03)
[2018-05-29] MEDS: Escitalopram Oxalate 10 MG Tablet 5 MG PO (21:01)
[2018-05-30] VITALS (33 sets, daily range): BP systolic 61–143; BP diastolic 35–94; PULSE 77–119; RESP 18–33; TEMP 36.9–37.8; O2SAT 90–99
[2018-05-30] MEDS: proMETHazine 25 MG/ML Syringe 6.25 MG IV (00:30)
[2018-05-30] MEDS: 0.9% NaCl Peripheral Flush Adult/Peds IV ×4 (00:41→21:26)
[2018-05-30 01:05] LABS: Partial Thromboplast Time 66.1 Seconds (24.1-36.2)
--- NOTE | 2018-05-30 01:55 | NURSING ---
Pt. calling out that her legs are restless and having pain/cramping in both legs. This RN came out to the desk to page Dr. Waite for orders. Once order received then pt. yelling from room that she is going to vomit. This RN ran in the room, pt. dawkins/ashen in color, diaphoretic, dry heaving and eventually did have small emesis. Pt. very anxious stating that she is dizzy and just doesn't feel right. Dr. Waite repaged to come see pt.
[2018-05-30] MEDS: oxyCODONE 5 MG Tablet PO (02:32)
[2018-05-30] MEDS: proCHLORPERazine 10 MG/2 ML Vial IV (02:32)
[2018-05-30] MEDS: 0.9% Normal Saline 1,000 ML 100 ML IV (02:43)
[2018-05-30 02:46] LABS: Hematocrit 32.6 % (37-47); Hemoglobin 9.7 g/dl (12.0-15.0); Mean Corp Hgb Conc 29.8 g/gl (32-36); Mean Corpuscular Hgb 23.4 pg (27.0-32.0); Mean Corpuscular Volume 78.6 fL (81-99); Mean Platelet Vol. 9.6 fl (6.2-12.0); Platelet Count 252 K/mm3 (150-450); RBC Distribution Width CV 17.4 % (11.6-14.6); RBC Distribution Width SD 49.8 fl (35.1-43.9); Red Blood Count 4.15 M/mm3 (4.2-5.4); White Blood Count 10.2 K/mm3 (4.4-11.0)
[2018-05-30 02:47] LABS: Scan Indicated on CBC? Y/N NO
[2018-05-30 02:56] LABS: International Normalized Ratio 1.1; Prothrombin Time (Protime)PT. 14.2 SECONDS (11.7-14.9)
[2018-05-30 02:58] LABS: Anion Gap 11 (5-15); BUN 8 mg/dL (7-18); BUN/Creat Ratio 10.4 RATIO (10-20); Calcium,Total 7.5 mg/dL (8.5-10.1); Chloride 109 mmol/L (98-107); Creatinine, Serum 0.77 mg/dL (0.55-1.02); EST Glomerular Filtration Rate 84 mL/min (>60); Est Glom Filt Rate - Afr Amer 101 mL/min (>60); Estimated Creatinine Clearance 64.49 ml/min; Glucose 146 mg/dL (74-106); Potassium 2.9 mmol/L (3.5-5.1); Sodium Level 141 mmol/L (136-145)
--- NOTE | 2018-05-30 03:31 | RAD_ITS ---
STUDY: X-RAY - ABDOMEN/PELVIS REASON FOR EXAM: Female, 53 years old. Abdominal pain. TECHNIQUE: Two AP supine views of the abdomen and pelvis. COMPARISON: None. FINDINGS: Normal visualized lung bases. There is a moderate amount of colonic fecal material. The visualized liver, spleen and kidneys are grossly normal in size and morphology. There are calcified phleboliths in the pelvis. A tiny catheter is seen within the mid pelvis. Normal visualized osseous structures. RAD/Abdomen Single View (Portable) IMPRESSION: Moderate amount of fecal material is seen in the colon. Electronically Signed: Marko Hoffman MD at 10:18 EST , Service support ,
[2018-05-30] MEDS: Potassium Chloride 10mEq/100mL 10 MEQ/100 ML IV.SOLN. 100 MEQ IV BOLUS ×4 (04:05→09:24)
--- NOTE | 2018-05-30 04:35 | NURSING ---
Pt. again feels hot, dizzy, is diaphoretic and now hypotensive. Had a small emesis. Dr. Pino paged to come to bedside. Dr. Hurst also called and orders received.
[2018-05-30] MEDS: Lactated Ringers 1,000 ML 999 ML IV (05:00)
[2018-05-30] MEDS: HEPARIN/D5w 25,000 UNITS 25,000 UNITS/250 ML IV.SOLN. 15 UNITS IV ×2 (05:03→22:01)
--- NOTE | 2018-05-30 06:38 | PCM.PN.INT ---
Subjective: Patient with multiple episodes of diaphoresis, abdominal pain and hypotension overnight. These were had resolved spontaneously. KUB was completed overnight. Patient was ordered 1 L of LR with improvement in blood pressure and resolution of abdominal pain. No bleeding has been reported. Patient's oxygenation has remained relatively stable. Objective: KUB shows significant amount of stool and no free air. General: Alert, Oriented x3, Cooperative, No apparent distress, - - Morbidly obese. Speaking in full sentences. HEENT: Atraumatic, PERRLA, EOMI, Normocephalic, - - No scleral icterus or injection noted. Oral: Moist Mucosa, No Gingival or Mucosal Lesions/ Ulcerations Neck: Supple, No JVD, No Nodes, Trachea Midline Lungs: No rhonchi, No wheeze, No rales, Diminished Cardiovascular: Regular Rhythm, Normal S1, Normal S2, No murmurs, No rub noted, No Gallop, Tachycardic Abdomen: Bowel Sounds Present, Soft, Tender - Periumbilical without radiation. No rebound or guarding noted. Extremities: No clubbing, No cyanosis, Edema - Trace lower extremity Skin: No rashes, No breakdown Musculoskeletal: No Tenderness to Palpation of Joints or Extremities Lymphatic: No Cervical, Supraclavicular, or Inguinal Adenopathy Neurological: Cranial nerves II-XII grossly intact, Neuro grossly intact, Motor Exam 5/5 strength throughout Psych/Mental Status: Alert and oriented to time, place, person, mood and affect Vital Signs Temp Pulse Resp BP Pulse Ox 37.3 C 99 24 H 104/74 99 05/30/18 06:00 05/30/18 06:00 05/30/18 06:00 05/30/18 06:00 05/30/18 06:00 Oxygen Flow Rate (L/min) 2 Oxygen Delivery Method Nasal Cannula Weight: 100.5 kg Body Mass Index (BMI) 41.3 Intake and Output for Last 24 Hours 05/28/18 05/29/18 05/30/18 23:59 23:59 23:59 Intake Total 1155 / 1155 1109.3 / 1109.3 Output Total 300 / 300 750 / 750 Balance 855 / 855 359.3 / 359.3 Labs (Last 48 Hours) 05/29/18 05/29/18 05/29/18 10:15 10:15 10:15 WBC 6.2 RBC 4.94 Hgb 11.4 L Hct 38.7 MCV 78.3 L MCH 23.1 L MCHC 29.5 L RDW 17.2 H RDW Differential 49.0 H Plt Count 259 MPV 9.8 Immature Gran % (Auto) 0.200 Neut % (Auto) 70.0 Lymph % (Auto) 16.1 L Ogle % (Auto) 10.3 H Eos % (Auto) 3.1 Baso % (Auto) 0.3 Absolute Neuts (auto) 4.4 Absolute Lymphs (auto) 1.00 Total Counted Not Reportable PT 12.8 INR 1.0 APTT 23.8 L Sodium 140 Potassium 3.2 L Chloride 107 Carbon Dioxide 25.0 Anion Gap 8 BUN 9 Creatinine 0.84 Estim Creat Clear Calc 59.12 Est GFR (MDRD) Af Amer 91 Est GFR (MDRD) Non-Af 75 BUN/Creatinine Ratio 10.7 Glucose 118 H Lactic Acid Calcium 8.3 L Total Bilirubin 0.30 AST 17 ALT 18 Alkaline Phosphatase 87 Troponin I B-Natriuretic Peptide Total Protein 7.4 Albumin 2.8 L Globulin 4.6 H Albumin/Globulin Ratio 0.6 L Urine Color Urine Clarity Urine pH Ur Specific [place] Urine Protein Urine Glucose (UA) Urine Ketones Urine Occult Blood Urine Nitrite Urine Bilirubin Urine Urobilinogen Ur Leukocyte Esterase Urine RBC Urine WBC Ur Squamous Epith Cells Urine Bacteria Urine Mucus 05/29/18 05/29/18 05/29/18 10:15 10:15 10:15 WBC RBC Hgb Hct MCV MCH MCHC RDW RDW Differential Plt Count MPV Immature Gran % (Auto) Neut % (Auto) Lymph % (Auto) Ogle % (Auto) Eos % (Auto) Baso % (Auto) Absolute Neuts (auto) Absolute Lymphs (auto) Total Counted PT INR APTT Sodium Potassium Chloride Carbon Dioxide Anion Gap BUN Creatinine Estim Creat Clear Calc Est GFR (MDRD) Af Amer Est GFR (MDRD) Non-Af BUN/Creatinine Ratio Glucose Lactic Acid 1.4 Calcium Total Bilirubin AST ALT Alkaline Phosphatase Troponin I 0.089 H B-Natriuretic Peptide 16.6 Total Protein Albumin Globulin Albumin/Globulin Ratio Urine Color Urine Clarity Urine pH Ur Specific [place] Urine Protein Urine Glucose (UA) Urine Ketones Urine Occult Blood Urine Nitrite Urine Bilirubin Urine Urobilinogen Ur Leukocyte Esterase Urine RBC Urine WBC Ur Squamous Epith Cells Urine Bacteria Urine Mucus 02/07/19 02/07/19 02/07/19 12:00 17:45 18:50 WBC RBC Hgb Hct MCV MCH MCHC RDW RDW Differential Plt Count MPV Immature Gran % (Auto) Neut % (Auto) Lymph % (Auto) Ogle % (Auto) Eos % (Auto) Baso % (Auto) Absolute Neuts (auto) Absolute Lymphs (auto) Total Counted PT INR APTT 57.6 H Sodium Potassium Chloride Carbon Dioxide Anion Gap BUN Creatinine Estim Creat Clear Calc Est GFR (MDRD) Af Amer Est GFR (MDRD) Non-Af BUN/Creatinine Ratio Glucose Lactic Acid Calcium Total Bilirubin AST ALT Alkaline Phosphatase Troponin I 0.572 H B-Natriuretic Peptide Total Protein Albumin Globulin Albumin/Globulin Ratio Urine Color Yellow Urine Clarity Sl. Cloudy Urine pH 8.0 Ur Specific [place] 1.010 Urine Protein 30 H Urine Glucose (UA) Normal Urine Ketones 15 H Urine Occult Blood 150 H Urine Nitrite Negative Urine Bilirubin Negative Urine Urobilinogen Normal Ur Leukocyte Esterase Negative Urine RBC 0-5 SEEN Urine WBC 0 SEEN Ur Squamous Epith Cells 0-5 SEEN Urine Bacteria 0 SEEN Urine Mucus 0 SEEN 05/29/18 05/30/18 05/30/18 20:55 00:40 00:40 WBC RBC Hgb Hct MCV MCH MCHC RDW RDW Differential Plt Count MPV Immature Gran % (Auto) Neut % (Auto) Lymph % (Auto) Ogle % (Auto) Eos % (Auto) Baso % (Auto) Absolute Neuts (auto) Absolute Lymphs (auto) Total Counted PT INR APTT 66.1 H Sodium Potassium Chloride Carbon Dioxide Anion Gap BUN Creatinine Estim Creat Clear Calc Est GFR (MDRD) Af Amer Est GFR (MDRD) Non-Af BUN/Creatinine Ratio Glucose Lactic Acid Calcium Total Bilirubin AST ALT Alkaline Phosphatase Troponin I 0.486 H 0.288 H B-Natriuretic Peptide Total Protein Albumin Globulin Albumin/Globulin Ratio Urine Color Urine Clarity Urine pH Ur Specific [place] Urine Protein Urine Glucose (UA) Urine Ketones Urine Occult Blood Urine Nitrite Urine Bilirubin Urine Urobilinogen Ur Leukocyte Esterase Urine RBC Urine WBC Ur Squamous Epith Cells Urine Bacteria Urine Mucus 05/30/18 05/30/18 05/30/18 02:30 02:30 02:30 WBC 10.2 RBC 4.15 L Hgb 9.7 L Hct 32.6 L MCV 78.6 L MCH 23.4 L MCHC 29.8 L RDW 17.4 H RDW Differential 49.8 H Plt Count 252 MPV 9.6 Immature Gran % (Auto) Neut % (Auto) Lymph % (Auto) Ogle % (Auto) Eos % (Auto) Baso % (Auto) Absolute Neuts (auto) Absolute Lymphs (auto) Total Counted PT 14.2 INR 1.1 APTT Sodium 141 Potassium 2.9 L Chloride 109 H Carbon Dioxide 21.0 Anion Gap 11 BUN 8 Creatinine 0.77 Estim Creat Clear Calc 64.49 Est GFR (MDRD) Af Amer 101 Est GFR (MDRD) Non-Af 84 BUN/Creatinine Ratio 10.4 Glucose 146 H Lactic Acid Calcium 7.5 L Total Bilirubin AST ALT Alkaline Phosphatase Troponin I B-Natriuretic Peptide Total Protein Albumin Globulin Albumin/Globulin Ratio Urine Color Urine Clarity Urine pH Ur Specific [place] Urine Protein Urine Glucose (UA) Urine Ketones Urine Occult Blood Urine Nitrite Urine Bilirubin Urine Urobilinogen Ur Leukocyte Esterase Urine RBC Urine WBC Ur Squamous Epith Cells Urine Bacteria Urine Mucus 05/30/18 02:30 WBC RBC Hgb Hct MCV MCH MCHC RDW RDW Differential Plt Count MPV Immature Gran % (Auto) Neut % (Auto) Lymph % (Auto) Ogle % (Auto) Eos % (Auto) Baso % (Auto) Absolute Neuts (auto) Absolute Lymphs (auto) Total Counted PT INR APTT Sodium Potassium Chloride Carbon Dioxide Anion Gap BUN Creatinine Estim Creat Clear Calc Est GFR (MDRD) Af Amer Est GFR (MDRD) Non-Af BUN/Creatinine Ratio Glucose Lactic Acid Calcium Total Bilirubin AST ALT Alkaline Phosphatase Troponin I B-Natriuretic Peptide Pending Total Protein Albumin Globulin Albumin/Globulin Ratio Urine Color Urine Clarity Urine pH Ur Specific [place] Urine Protein Urine Glucose (UA) Urine Ketones Urine Occult Blood Urine Nitrite Urine Bilirubin Urine Urobilinogen Ur Leukocyte Esterase Urine RBC Urine WBC Ur Squamous Epith Cells Urine Bacteria Urine Mucus Microbiology 05/29/18 10:39 Mucosa - Nasopharyngeal Influenza Types A,B Direct FA (BRIT) - Final Clinical Impression(s) from Imaging Studies Chest X-Ray 05/29/18 10:43 IMPRESSION: No acute abnormality is seen. Electronically Signed: Marko Hoffman MD at 11:27 EST , Service support , Chest CTA 05/29/18 11:17 IMPRESSION: Extensive bilateral pulmonary embolism. N.B. : The above information has been verbally conveyed by Marko Hoffman MD to Lennox Singer MD, on 05/29/2018 12:55:22 (ET). Electronically Signed: Marko Hoffman MD at 12:57 EST , Service support , ADDENDUM: 05/29/18 1305 IMPRESSION: Extensive bilateral pulmonary embolism. N.B. : The above information has been verbally conveyed by Marko Hoffman MD to Lennox Singer MD, on 05/29/2018 12:55:22 (ET). Electronically Signed: Marko Hoffman MD at 12:57 EST , Service support , Medical Necessity - Tobacco Use Smoking Status: Never smoker Tobacco Use: Non-smoker Assessment/Plan All Active Problems Pulmonary embolism (Acute) Influenza and pneumonia (Acute) RECOMMENDATIONS: 1. Await echocardiogram for evaluation of right heart strain 2. Heparin drip per protocol 3. Wean oxygen as tolerated 4. Fluid boluses as necessary 5. No indication for antibiotic or steroid therapy 6. Initiate TPA if hemodynamic collapse, continue to monitor in intensive care IMPRESSIONS: 1. Acute cor pulmonale secondary to saddle pulmonary embolism Patient appears to have submassive physiology. Echocardiogram has been ordered. Patient's overnight events may be secondary to RV strain. Echocardiogram has not been completed at this time. Some concern the periumbilical pain may be secondary to uterine bleeding with fibroids. No vaginal bleeding has been appreciated, but hemoglobin is down slightly. Continue to monitor in the intensive care unit. Possible need for TPA if patient suffers hemodynamic collapse. 2. Uterine fibroids/morbid obesity/history of neck surgery/hypokalemia/constipation Complicates care, management, recovery and prognosis. We will need to monitor patient closely given history of uterine fibroids. Potassium repletion has been ordered. Stool softener will be ordered. Code Visit Inpatient E&M: 31418 Subs Hosp L3
--- NOTE | 2018-05-30 06:43 | PN_ITS ---
Subjective: Patient with multiple episodes of diaphoresis, abdominal pain and hypotension overnight. These were had resolved spontaneously. KUB was completed overnight. Patient was ordered 1 L of LR with improvement in blood pressure and resolution of abdominal pain. No bleeding has been reported. Patient's oxygenation has remained relatively stable. Objective: KUB shows significant amount of stool and no free air. General: Alert, Oriented x3, Cooperative, No apparent distress, - - Morbidly obese. Speaking in full sentences. HEENT: Atraumatic, PERRLA, EOMI, Normocephalic, - - No scleral icterus or injection noted. Oral: Moist Mucosa, No Gingival or Mucosal Lesions/ Ulcerations Neck: Supple, No JVD, No Nodes, Trachea Midline Lungs: No rhonchi, No wheeze, No rales, Diminished Cardiovascular: Regular Rhythm, Normal S1, Normal S2, No murmurs, No rub noted, No Gallop, Tachycardic Abdomen: Bowel Sounds Present, Soft, Tender - Periumbilical without radiation. No rebound or guarding noted. Extremities: No clubbing, No cyanosis, Edema - Trace lower extremity Skin: No rashes, No breakdown Musculoskeletal: No Tenderness to Palpation of Joints or Extremities Lymphatic: No Cervical, Supraclavicular, or Inguinal Adenopathy Neurological: Cranial nerves II-XII grossly intact, Neuro grossly intact, Motor Exam 5/5 strength throughout Psych/Mental Status: Alert and oriented to time, place, person, mood and affect Vital Signs Temp Pulse Resp BP Pulse Ox 37.3 C 99 24 H 104/74 99 05/30/18 06:00 05/30/18 06:00 05/30/18 06:00 05/30/18 06:00 05/30/18 06:00 Oxygen Flow Rate (L/min) 2 Oxygen Delivery Method Nasal Cannula Weight: 100.5 kg Body Mass Index (BMI) 41.3 Intake and Output for Last 24 Hours 05/28/18 05/29/18 05/30/18 23:59 23:59 23:59 Intake Total 1155 / 1155 1109.3 / 1109.3 Output Total 300 / 300 750 / 750 Balance 855 / 855 359.3 / 359.3 Labs (Last 48 Hours) 05/29/18 05/29/18 05/29/18 10:15 10:15 10:15 WBC 6.2 RBC 4.94 Hgb 11.4 L Hct 38.7 MCV 78.3 L MCH 23.1 L MCHC 29.5 L RDW 17.2 H RDW Differential 49.0 H Plt Count 259 MPV 9.8 Immature Gran % (Auto) 0.200 Neut % (Auto) 70.0 Lymph % (Auto) 16.[address] % (Auto) 10.3 H Eos % (Auto) 3.1 Baso % (Auto) 0.3 Absolute Neuts (auto) 4.4 Absolute Lymphs (auto) 1.00 Total Counted Not Reportable PT 12.8 INR 1.0 APTT 23.8 L Sodium 140 Potassium 3.2 L Chloride 107 Carbon Dioxide 25.0 Anion Gap 8 BUN 9 Creatinine 0.84 Estim Creat Clear Calc 59.12 Est GFR (MDRD) Af Amer 91 Est GFR (MDRD) Non-Af 75 BUN/Creatinine Ratio 10.7 Glucose 118 H Lactic Acid Calcium 8.3 L Total Bilirubin 0.30 AST 17 ALT 18 Alkaline Phosphatase 87 Troponin I B-Natriuretic Peptide Total Protein 7.4 Albumin 2.8 L Globulin 4.6 H Albumin/Globulin Ratio 0.6 L Urine Color Urine Clarity Urine pH Ur Specific [place] Urine Protein Urine Glucose (UA) Urine Ketones Urine Occult Blood Urine Nitrite Urine Bilirubin Urine Urobilinogen Ur Leukocyte Esterase Urine RBC Urine WBC Ur Squamous Epith Cells Urine Bacteria Urine Mucus 05/29/18 05/29/18 05/29/18 10:15 10:15 10:15 WBC RBC Hgb Hct MCV MCH MCHC RDW RDW Differential Plt Count MPV Immature Gran % (Auto) Neut % (Auto) Lymph % (Auto) Lane % (Auto) Eos % (Auto) Baso % (Auto) Absolute Neuts (auto) Absolute Lymphs (auto) Total Counted PT INR APTT Sodium Potassium Chloride Carbon Dioxide Anion Gap BUN Creatinine Estim Creat Clear Calc Est GFR (MDRD) Af Amer Est GFR (MDRD) Non-Af BUN/Creatinine Ratio Glucose Lactic Acid 1.4 Calcium Total Bilirubin AST ALT Alkaline Phosphatase Troponin I 0.089 H B-Natriuretic Peptide 16.6 Total Protein Albumin Globulin Albumin/Globulin Ratio Urine Color Urine Clarity Urine pH Ur Specific [place] Urine Protein Urine Glucose (UA) Urine Ketones Urine Occult Blood Urine Nitrite Urine Bilirubin Urine Urobilinogen Ur Leukocyte Esterase Urine RBC Urine WBC Ur Squamous Epith Cells Urine Bacteria Urine Mucus 02/07/19 02/07/19 02/07/19 12:00 17:45 18:50 WBC RBC Hgb Hct MCV MCH MCHC RDW RDW Differential Plt Count MPV Immature Gran % (Auto) Neut % (Auto) Lymph % (Auto) Lane % (Auto) Eos % (Auto) Baso % (Auto) Absolute Neuts (auto) Absolute Lymphs (auto) Total Counted PT INR APTT 57.6 H Sodium Potassium Chloride Carbon Dioxide Anion Gap BUN Creatinine Estim Creat Clear Calc Est GFR (MDRD) Af Amer Est GFR (MDRD) Non-Af BUN/Creatinine Ratio Glucose Lactic Acid Calcium Total Bilirubin AST ALT Alkaline Phosphatase Troponin I 0.572 H B-Natriuretic Peptide Total Protein Albumin Globulin Albumin/Globulin Ratio Urine Color Yellow Urine Clarity Sl. Cloudy Urine pH 8.0 Ur Specific [place] 1.010 Urine Protein 30 H Urine Glucose (UA) Normal Urine Ketones 15 H Urine Occult Blood 150 H Urine Nitrite Negative Urine Bilirubin Negative Urine Urobilinogen Normal Ur Leukocyte Esterase Negative Urine RBC 0-5 SEEN Urine WBC 0 SEEN Ur Squamous Epith Cells 0-5 SEEN Urine Bacteria 0 SEEN Urine Mucus 0 SEEN 05/29/18 05/30/18 05/30/18 20:55 00:40 00:40 WBC RBC Hgb Hct MCV MCH MCHC RDW RDW Differential Plt Count MPV Immature Gran % (Auto) Neut % (Auto) Lymph % (Auto) Lane % (Auto) Eos % (Auto) Baso % (Auto) Absolute Neuts (auto) Absolute Lymphs (auto) Total Counted PT INR APTT 66.1 H Sodium Potassium Chloride Carbon Dioxide Anion Gap BUN Creatinine Estim Creat Clear Calc Est GFR (MDRD) Af Amer Est GFR (MDRD) Non-Af BUN/Creatinine Ratio Glucose Lactic Acid Calcium Total Bilirubin AST ALT Alkaline Phosphatase Troponin I 0.486 H 0.288 H B-Natriuretic Peptide Total Protein Albumin Globulin Albumin/Globulin Ratio Urine Color Urine Clarity Urine pH Ur Specific [place] Urine Protein Urine Glucose (UA) Urine Ketones Urine Occult Blood Urine Nitrite Urine Bilirubin Urine Urobilinogen Ur Leukocyte Esterase Urine RBC Urine WBC Ur Squamous Epith Cells Urine Bacteria Urine Mucus 05/30/18 05/30/18 05/30/18 02:30 02:30 02:30 WBC 10.2 RBC 4.15 L Hgb 9.7 L Hct 32.6 L MCV 78.6 L MCH 23.4 L MCHC 29.8 L RDW 17.4 H RDW Differential 49.8 H Plt Count 252 MPV 9.6 Immature Gran % (Auto) Neut % (Auto) Lymph % (Auto) Lane % (Auto) Eos % (Auto) Baso % (Auto) Absolute Neuts (auto) Absolute Lymphs (auto) Total Counted PT 14.2 INR 1.1 APTT Sodium 141 Potassium 2.9 L Chloride 109 H Carbon Dioxide 21.0 Anion Gap 11 BUN 8 Creatinine 0.77 Estim Creat Clear Calc 64.49 Est GFR (MDRD) Af Amer 101 Est GFR (MDRD) Non-Af 84 BUN/Creatinine Ratio 10.4 Glucose 146 H Lactic Acid Calcium 7.5 L Total Bilirubin AST ALT Alkaline Phosphatase Troponin I B-Natriuretic Peptide Total Protein Albumin Globulin Albumin/Globulin Ratio Urine Color Urine Clarity Urine pH Ur Specific [place] Urine Protein Urine Glucose (UA) Urine Ketones Urine Occult Blood Urine Nitrite Urine Bilirubin Urine Urobilinogen Ur Leukocyte Esterase Urine RBC Urine WBC Ur Squamous Epith Cells Urine Bacteria Urine Mucus 05/30/18 02:30 WBC RBC Hgb Hct MCV MCH MCHC RDW RDW Differential Plt Count MPV Immature Gran % (Auto) Neut % (Auto) Lymph % (Auto) Lane % (Auto) Eos % (Auto) Baso % (Auto) Absolute Neuts (auto) Absolute Lymphs (auto) Total Counted PT INR APTT Sodium Potassium Chloride Carbon Dioxide Anion Gap BUN Creatinine Estim Creat Clear Calc Est GFR (MDRD) Af Amer Est GFR (MDRD) Non-Af BUN/Creatinine Ratio Glucose Lactic Acid Calcium Total Bilirubin AST ALT Alkaline Phosphatase Troponin I B-Natriuretic Peptide Pending Total Protein Albumin Globulin Albumin/Globulin Ratio Urine Color Urine Clarity Urine pH Ur Specific [place] Urine Protein Urine Glucose (UA) Urine Ketones Urine Occult Blood Urine Nitrite Urine Bilirubin Urine Urobilinogen Ur Leukocyte Esterase Urine RBC Urine WBC Ur Squamous Epith Cells Urine Bacteria Urine Mucus Microbiology 05/29/18 10:39 Mucosa - Nasopharyngeal Influenza Types A,B Direct FA (BRIT) - Final Clinical Impression(s) from Imaging Studies Chest X-Ray 05/29/18 10:43 IMPRESSION: No acute abnormality is seen. Electronically Signed: Marko Hoffman MD at 11:27 EST , Service support , Chest CTA 05/29/18 11:17 IMPRESSION: Extensive bilateral pulmonary embolism. N.B. : The above information has been verbally conveyed by Marko Hoffman MD to Lennox Singer MD, on 05/29/2018 12:55:22 (ET). Electronically Signed: Marko Hoffman MD at 12:57 EST , Service support , ADDENDUM: 05/29/18 1305 IMPRESSION: Extensive bilateral pulmonary embolism. N.B. : The above information has been verbally conveyed by Marko Hoffman MD to Lennox Singer MD, on 05/29/2018 12:55:22 (ET). Electronically Signed: Marko Hoffman MD at 12:57 EST , Service support , Medical Necessity - Tobacco Use Smoking Status: Never smoker Tobacco Use: Non-smoker Assessment/Plan All Active Problems Pulmonary embolism (Acute) Influenza and pneumonia (Acute) RECOMMENDATIONS: 1. Await echocardiogram for evaluation of right heart strain 2. Heparin drip per protocol 3. Wean oxygen as tolerated 4. Fluid boluses as necessary 5. No indication for antibiotic or steroid therapy 6. Initiate TPA if hemodynamic collapse, continue to monitor in intensive care IMPRESSIONS: 1. Acute cor pulmonale secondary to saddle pulmonary embolism Patient appears to have submassive physiology. Echocardiogram has been ordered. Patient's overnight events may be secondary to RV strain. Echocardiogram has not been completed at this time. Some concern the periumbilical pain may be secondary to uterine bleeding with fibroids. No vaginal bleeding has been appreciated, but hemoglobin is down slightly. Continue to monitor in the intensive care unit. Possible need for TPA if patient suffers hemodynamic collapse. 2. Uterine fibroids/morbid obesity/history of neck surgery/hypokalemia/constipation Complicates care, management, recovery and prognosis. We will need to monitor patient closely given history of uterine fibroids. Potassium repletion has been ordered. Stool softener will be ordered. Code Visit Inpatient E&M: 08331 Subs Hosp L3
--- NOTE | 2018-05-30 07:12 | CPS ---
PATIENT WEANED TO 1 LPM.
[2018-05-30 07:18] LABS: Partial Thromboplast Time 61.7 Seconds (24.1-36.2)
--- NOTE | 2018-05-30 08:12 | PCM.CONS.B ---
- Consult Date of Consult: 05/30/18 REASON FOR CONSULT: Uterine fibroids. h/o menorrhagia. Dilma Coleman is a 53 year old female 4 0 3 0 4, admitted through [facility] ED for shortness of breath and dyspnea on exertion, cough, fever and chills. She states a 1 mo h/o evolving symptoms. She was unable to walk from room to room without SOB. She was tachycardic and hypoxic in the ED and studies revealed extensive bilateral pulmonary embolic, and extensive DVT involving R distal femoral vein, popliteal vein, gastrocnemius veins. CXR was negative. She was admitted to the ICU for IV heparin drip and supportive care. She denies vaginal bleeding at present. Had some severe abdominal pain last night and KUB showed stool. She is due to have ECHO today Reports poor sleep last night with having episodes of hot flushes, kicking off covers, then nauseated with hypotension ensuing. Nurse reports patient ashen dawkins with episodes. ALLERGIES: Penicillins and Hives and/or rash MEDICATIONS HISTORY: Current medications 1. Cryselle (28) 0.3 mg-30 mcg tablet, 1 po daily (Discontinued) 2. Lexapro 5 mg po daily 3. Prilosec 20 mg po daily REVIEW OF SYSTEMS: GENERAL - Denies fever, or chills SKIN - Denies rash, new skin lesions, or change in moles EYES - Denies visual changes EARS - Denies difficulty hearing NOSE - Denies nasal congestion or bleeding MOUTH - Denies sore throat or difficulty swallowing NECK - Denies pain or swelling RESPIRATORY - short of breath , for last month or so, worsening CARDIOVASCULAR - palpitations but no chest pain GASTROINTESTINAL - Denies nausea, vomiting, diarrhea, constipation GENITOURINARY - painful menses MUSCULOSKELETAL - muscle achiness NEUROLOGICAL - Denies localized numbness or weakness PSYCHIATRIC - hx of anxiety , depression ENDOCRINE - Denies heat or cold intolerance, weight loss or gain HEMATO-IMMUNOLOGIC - Denies excesive bleeding with cuts PAST HISTORY: Breast/Ovarian/Colon Cancers - Maternal Grandmother had Maternal Grandfather had Breast Cancer and Maternal Grandmother had Maternal Grandfather had Colon Cancer Infections - Chicken pox and TONSILLITIS Illnesses - none Accidents - None History of Abnormal PAPS - Denies Hospitalizations - Childbirth SURGICAL HISTORY: 1. C/S X4 2. T and A, 1981 3. Neck fusion, 2014 MENSTRUAL HISTORY: LMP Known?- DefiniteAmount/Duration - 3 days, Regularity - Regular, Frequency - monthly days, LMP - 11/14/17, Age Onset Menarche - 15 PAST PREGNANCIES: Total Pregnancies - 7; Full Term Pregnancies - 4; Premature - 0; Abortions, Induced - 1; Abortions, Spontaneous - 2; Ectopics - 0; Multiple Births - 0; Living Children - 4 FAMILY HISTORY: Father - Type 2 Diabetes; Father - Age 65, Heart Attack; Mother - Type 2 Diabetes; Mother - Hypertension; Maternal Grandparent - Carcinoma of breast; SOCIAL HISTORY: Alcohol Use - None Smoking - denies smoking Diet - low fat, moderate and balanced diet Lifestyle - high stress lifestyle Exercise - none Seat Belt Use - always Employer - Homemaker, in college Illicit Drug Use - denies use of street drugs Sexual Activity - Spouse-Sig Other Name - KALANI Spouse-Sig Other Occupation - [employer] Children Name(s) - DANNY, WYATT, TRISH, MIKHAIL Control - Vasectomy PHYSICAL EXAMINATION Temp 99.1 degrees BP 109/71 Pulse 100 RR 22 O2 sat on 1 liter N.C. 91%. CONSTITUTIONAL - well nourished, obese, fatigued appearing and O2 nasal canula in place Drowses off with discussion HEENT - Normocephalic, atraumatic, sclerae anicteric. EOMI. NECK - no nuchal rigidity EXTREMITIES - no edema and no deformities NEUROLOGICAL - cranial nerves 2-12 intact PSYCHIATRIC - alert, oriented to time, place, and person and mood appropriate ASSESSMENT: 1. Pulmonary Embolism With Acute Cor Pulmonale 2. Adjustment Disorder With Mixed Anxiety And Depressed Mood 3. Leiomyoma of uterus, unspecified 4. Excessive bleeding in the premenopausal period 5. Dysmenorrhea, Unspecified PLAN BY DIAGNOSIS: 1.Pulmonary Embolism With Acute Cor Pulmonale OCP discontinued. Heparin drip ICU inpatient. halfway anticoagulant planned ECHO as planned and continued management per hospitalists and ICU intensivists 2. Dysmenorrhea, Unspecified, Excessive bleeding in the premenopausal period, Irregular menstruation, unspecified, Leiomyoma of uterus and unspecified Discussed options for therapy with Dilma but discussion is limited by her ability to remain awake and focused for discussion. Advised again that she can no longer continue the OCP due to DVT/PE . She may consider: Mirena IUD (preferred), Aygestin 5 mg po daily, Depo Provera SC dose q 3 months, to avoid IM injection with anticoagulation. Risks of systemic progesterone would be more than risks associated with IUD.-- these side effects include but are not limited to : worsening lipid profile, increased dysphoria and abdominal bloating. Advised an additional option is just observation of cycle. She may already be postmenopausal by her age.. BUT she will likely have at least one withdrawal bleed due to the recent discontinuation of the OCP Blood transfusion may be needed if heavy bleeding, anemia. We have reviewed these options for treatment (as well as hysterectomy) over the last few years at office visits, so this is information she has heard prior to today. She had declined IUD , Depo Provera and Nexplanon with discussions since 2016. Dilma was unable to focus due to current fatigue and medical condition. Dilma may not be able to tolerate an IUD insertion at this stage of hospital stay with pulmonary embolism. Consider insertion either later during this hospital stay or as an outpatient ( Pelvic exam bed would be needed as well as ability to lie flat.) IF she is unable to tolerate IUD insertion now, I would recommend the lower dose Aygestin 5 mg po daily rather than Depo Provera as fewer systemic side effects likely with lower dose progesterone. Advised Dilma that future treatment could still include hysterectomy vs expectant management . Once menopausal, likely fibroids will involute and no longer be an issue. 2. Pulmonary Embolism With Acute Cor Pulmonale OCP discontinued. Heparin drip, ICU inpatient. ad terminal makeup operator anticoagulant planned ECHO as planned and continued management per hospitalists and ICU intensivists 3. Adjustment Disorder With Mixed Anxiety And Depressed Mood Continue Lexapro Will attempt further discussion later in the day. Unable to engage in discussion this am. Fatigue
--- NOTE | 2018-05-30 09:19 | CPS ---
PATIENT INCREASED TO 2 LPM VIA NURSING DUE TO LOW SP02 ON 1LPM.
[2018-05-30 09:36] LABS: BNP,B-Type NATRIURETIC PEPTIDE 199.8 pg/mL (0-100)
--- NOTE | 2018-05-30 10:46 | CASEMGMT ---
RN CM Assessment Presentation: Pulmonary Embolism, hypoxia Intro role of CM and purpose of RN CM assessment to , pt and daughter. 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 They are concerned with weakness and debility because she was inactive prior to admission due to feeling weak and short of breath. RN CM provided emotional support and let them know PT/OT will work with pt when appropriate PCP: Dr. Chavez Coughlin Specialists: Dr. Barbour Preferred Pharmacy: [facility] Insurance: [employer] Prescription Benefit: yes. Per [facility] formulary- Eliquis and Xarelto are both preferred medications. LNOK: . Living Arrangements: Lives in two story home with . Pt is independent, does not require assistance when feeling well. Independent in ADL's. Transportation: Pt drives, but family can assist if needed. DME/HHC: none DC PLAN: Anticipate home. PT/OT evaluations pending. Family is open to Home Care/Outpt PT if recommended. Dona ASTORGAN RN ACM
[2018-05-30] MEDS: Pantoprazole Sodium 20 MG Tablet PO (11:49)
[2018-05-30] MEDS: Senna Tablet 1 TABLET PO ×2 (11:49→21:26)
[2018-05-30 13:22] LABS: Partial Thromboplast Time 71.6 Seconds (24.1-36.2)
--- NOTE | 2018-05-30 14:46 | PCM.PROGNOTE ---
Patient Problems: Active and Suspected Problems Pulmonary embolism (Acute) Subjective: Chief complaint: Follow-up after admission for extensive bilateral pulmonary emboli, acute DVT of the right femoral vein, right popliteal and gastrocnemius vein, menorrhagia, acute blood loss anemia and borderline elevated troponin. Patient seen and examined. No acute events overnight. Her breathing is improving but still labored. Denied any chest pain or palpitation. She is feeling very weak and tired. At this time, she denied any more vaginal bleeding. 100, blood pressure is borderline, pulse ox is 98% on 2 L. - Physical Exam General: Alert, Oriented x3, Cooperative, - - Short of breath. HEENT: Atraumatic, PERRLA, EOMI, Normocephalic Oral: Moist Mucosa, No Gingival or Mucosal Lesions/ Ulcerations Neck: Supple, No JVD, Negative Carotid Bruits, Trachea Midline, Thyroid Normal Size and Texture Lungs: Clear to auscultation, No rhonchi, No wheeze, No rales, Diminished Cardiovascular: Regular rate, Regular Rhythm, Normal S1, Normal S2, PMI Normal, Tachycardic Abdomen: Bowel Sounds Present, Soft, Non Tender, Non-Distended, No Hepato-splenomegaly, Obese Extremities: No clubbing, No cyanosis, No edema Skin: No rashes, No breakdown Lymphatic: No Cervical, Supraclavicular, or Inguinal Adenopathy Neurological: Cranial nerves II-XII grossly intact, Motor Exam 5/5 strength throughout Psych/Mental Status: Normal Affect, Appropriate, Alert and oriented to time, place, person, mood and affect Vital Signs Temp Pulse Resp BP Pulse Ox 99.0 F 100 25 H 106/70 98 05/30/18 12:00 05/30/18 12:00 05/30/18 12:00 05/30/18 12:00 05/30/18 12:00 Oxygen Flow Rate (L/min) 2 Oxygen Delivery Method Nasal Cannula Weight: 221 lb 9.033 oz Body Mass Index (BMI) 41.3 Intake and Output for Last 24 Hours 05/28/18 05/29/18 05/30/18 23:59 23:59 23:59 Intake Total 1155 / 1155 1109.3 / 1109.3 Output Total 300 / 300 750 / 750 Balance 855 / 855 359.3 / 359.3 Microbiology Past 72 Hours 05/29/18 12:00 Urine Culture - Preliminary Urine, Clean Catch Mixed Gram Positive Organisms 05/29/18 10:39 Influenza Types A,B Direct FA (BRIT) - Final Mucosa - Nasopharyngeal Laboratory Tests Past 24 Hrs 05/29/18 05/29/18 05/29/18 10:15 17:45 18:50 WBC RBC Hgb Hct MCV MCH MCHC RDW RDW Differential Plt Count MPV PT INR APTT 57.6 H Sodium Potassium Chloride Carbon Dioxide Anion Gap BUN Creatinine Estim Creat Clear Calc Est GFR (MDRD) Af Amer Est GFR (MDRD) Non-Af BUN/Creatinine Ratio Glucose Calcium Troponin I 0.572 H B-Natriuretic Peptide 16.6 05/29/18 05/30/18 05/30/18 20:55 00:40 00:40 WBC RBC Hgb Hct MCV MCH MCHC RDW RDW Differential Plt Count MPV PT INR APTT 66.1 H Sodium Potassium Chloride Carbon Dioxide Anion Gap BUN Creatinine Estim Creat Clear Calc Est GFR (MDRD) Af Amer Est GFR (MDRD) Non-Af BUN/Creatinine Ratio Glucose Calcium Troponin I 0.486 H 0.288 H B-Natriuretic Peptide 05/30/18 05/30/18 05/30/18 02:30 02:30 02:30 WBC 10.2 RBC 4.15 L Hgb 9.7 L Hct 32.6 L MCV 78.6 L MCH 23.4 L MCHC 29.8 L RDW 17.4 H RDW Differential 49.8 H Plt Count 252 MPV 9.6 PT 14.2 INR 1.1 APTT Sodium 141 Potassium 2.9 L Chloride 109 H Carbon Dioxide 21.0 Anion Gap 11 BUN 8 Creatinine 0.77 Estim Creat Clear Calc 64.49 Est GFR (MDRD) Af Amer 101 Est GFR (MDRD) Non-Af 84 BUN/Creatinine Ratio 10.4 Glucose 146 H Calcium 7.5 L Troponin I B-Natriuretic Peptide 05/30/18 05/30/18 05/30/18 02:30 06:55 12:55 WBC RBC Hgb Hct MCV MCH MCHC RDW RDW Differential Plt Count MPV PT INR APTT 61.7 H 71.6 H Sodium Potassium Chloride Carbon Dioxide Anion Gap BUN Creatinine Estim Creat Clear Calc Est GFR (MDRD) Af Amer Est GFR (MDRD) Non-Af BUN/Creatinine Ratio Glucose Calcium Troponin I B-Natriuretic Peptide 199.8 H Clinical Impression(s) from Imaging Studies Chest X-Ray 05/29/18 10:43 IMPRESSION: No acute abnormality is seen. Electronically Signed: Marko Hoffman MD at 11:27 EST , Service support , Chest CTA 05/29/18 11:17 IMPRESSION: Extensive bilateral pulmonary embolism. N.B. : The above information has been verbally conveyed by Marko Hoffman MD to Lennox Singer MD, on 05/29/2018 12:55:22 (ET). Electronically Signed: Marko Hoffman MD at 12:57 EST , Service support , ADDENDUM: 05/29/18 1305 IMPRESSION: Extensive bilateral pulmonary embolism. N.B. : The above information has been verbally conveyed by Marko Hoffman MD to Lennox Singer MD, on 05/29/2018 12:55:22 (ET). Electronically Signed: Marko Hoffman MD at 12:57 EST , Service support , KUB X-Ray 05/30/18 03:31 IMPRESSION: Moderate amount of fecal material is seen in the colon. Electronically Signed: Marko Hoffman MD at 10:18 EST , Service support , Medical Necessity - Tobacco Use Smoking Status: Never smoker Tobacco Use: Non-smoker Assessment/Plan All Active Problems Pulmonary embolism (Acute) This is a 53 years old female patient presented to the emergency room because of exertional shortness of breath and cough, found to have extensive bilateral pulmonary emboli as well as acute DVT of the right lower extremity, anemia in context of history of dysfunctional uterine bleeding due to fibroids. #1 extensive bilateral pulmonary emboli: CTA chest reviewed. She is on IV heparin drip. This is attributed to hormonal therapy as patient has been on estrogen/progesterone hormonal treatment for dysfunctional uterine bleeding due to fibroids. At this time, patient is slightly tachycardic, blood pressure is borderline, pulse ox is 98% on 2 L. Plan to continue same treatment. #2 acute DVT of the right femoral vein/right popliteal and gastrocnemius vein: Again, she is on IV heparin drip. It is likely due to hormonal therapy as mentioned above. Plan as above. #3 acute blood loss anemia: Secondary to dysfunctional uterine bleeding and hemorrhoids. At this time, patient denied any active bleeding. Today's hemoglobin is 9.7 g considered. Platelet, INR and PT are normal. STAGING TECHNICIAN consulted. #4 dysfunctional uterine bleeding menorrhagia: Patient has been on hormonal therapy, which is held now. No active bleeding at this time. STAGING TECHNICIAN on the case. #5 borderline elevated troponin: Probably due to right heart strain secondary to extensive bilateral PEs. EKG revealed no acute ischemic changes. 2D echocardiogram showed ejection fraction of 75%, moderate pulmonary hypertension. #6 hypokalemia: On replacement, plan to check serum magnesium, repeat BMP tomorrow morning. #7 DVT prophylaxis: SCDs. This note was generated with [employer] dictation software. It may contain incorrect words, spelling, and punctuation that were not noted in checking the note before signing. Code Visit Inpatient E&M: 26666 Subs Hosp L3
--- NOTE | 2018-05-30 14:49 | PN_ITS ---
Patient Problems: Active and Suspected Problems Pulmonary embolism (Acute) Subjective: Chief complaint: Follow-up after admission for extensive bilateral pulmonary emboli, acute DVT of the right femoral vein, right popliteal and gastrocnemius vein, menorrhagia, acute blood loss anemia and borderline elevated troponin. Patient seen and examined. No acute events overnight. Her breathing is improving but still labored. Denied any chest pain or palpitation. She is feeling very weak and tired. At this time, she denied any more vaginal bleeding. 100, blood pressure is borderline, pulse ox is 98% on 2 L. - Physical Exam General: Alert, Oriented x3, Cooperative, - - Short of breath. HEENT: Atraumatic, PERRLA, EOMI, Normocephalic Oral: Moist Mucosa, No Gingival or Mucosal Lesions/ Ulcerations Neck: Supple, No JVD, Negative Carotid Bruits, Trachea Midline, Thyroid Normal Size and Texture Lungs: Clear to auscultation, No rhonchi, No wheeze, No rales, Diminished Cardiovascular: Regular rate, Regular Rhythm, Normal S1, Normal S2, PMI Normal, Tachycardic Abdomen: Bowel Sounds Present, Soft, Non Tender, Non-Distended, No Hepato-sple nomegaly, Obese Extremities: No clubbing, No cyanosis, No edema Skin: No rashes, No breakdown Lymphatic: No Cervical, Supraclavicular, or Inguinal Adenopathy Neurological: Cranial nerves II-XII grossly intact, Motor Exam 5/5 strength throughout Psych/Mental Status: Normal Affect, Appropriate, Alert and oriented to time, place, person, mood and affect Vital Signs Temp Pulse Resp BP Pulse Ox 99.0 F 100 25 H 106/70 98 05/30/18 12:00 05/30/18 12:00 05/30/18 12:00 05/30/18 12:00 05/30/18 12:00 Oxygen Flow Rate (L/min) 2 Oxygen Delivery Method Nasal Cannula Weight: 221 lb 9.033 oz Body Mass Index (BMI) 41.3 Intake and Output for Last 24 Hours 05/28/18 05/29/18 05/30/18 23:59 23:59 23:59 Intake Total 1155 / 1155 1109.3 / 1109.3 Output Total 300 / 300 750 / 750 Balance 855 / 855 359.3 / 359.3 Microbiology Past 72 Hours 05/29/18 12:00 Urine Culture - Preliminary Urine, Clean Catch Mixed Gram Positive Organisms 05/29/18 10:39 Influenza Types A,B Direct FA (BRIT) - Final Mucosa - Nasopharyngeal Laboratory Tests Past 24 Hrs 05/29/18 05/29/18 05/29/18 10:15 17:45 18:50 WBC RBC Hgb Hct MCV MCH MCHC RDW RDW Differential Plt Count MPV PT INR APTT 57.6 H Sodium Potassium Chloride Carbon Dioxide Anion Gap BUN Creatinine Estim Creat Clear Calc Est GFR (MDRD) Af Amer Est GFR (MDRD) Non-Af BUN/Creatinine Ratio Glucose Calcium Troponin I 0.572 H B-Natriuretic Peptide 16.6 05/29/18 05/30/18 05/30/18 20:55 00:40 00:40 WBC RBC Hgb Hct MCV MCH MCHC RDW RDW Differential Plt Count MPV PT INR APTT 66.1 H Sodium Potassium Chloride Carbon Dioxide Anion Gap BUN Creatinine Estim Creat Clear Calc Est GFR (MDRD) Af Amer Est GFR (MDRD) Non-Af BUN/Creatinine Ratio Glucose Calcium Troponin I 0.486 H 0.288 H B-Natriuretic Peptide 05/30/18 05/30/18 05/30/18 02:30 02:30 02:30 WBC 10.2 RBC 4.15 L Hgb 9.7 L Hct 32.6 L MCV 78.6 L MCH 23.4 L MCHC 29.8 L RDW 17.4 H RDW Differential 49.8 H Plt Count 252 MPV 9.6 PT 14.2 INR 1.1 APTT Sodium 141 Potassium 2.9 L Chloride 109 H Carbon Dioxide 21.0 Anion Gap 11 BUN 8 Creatinine 0.77 Estim Creat Clear Calc 64.49 Est GFR (MDRD) Af Amer 101 Est GFR (MDRD) Non-Af 84 BUN/Creatinine Ratio 10.4 Glucose 146 H Calcium 7.5 L Troponin I B-Natriuretic Peptide 05/30/18 05/30/18 05/30/18 02:30 06:55 12:55 WBC RBC Hgb Hct MCV MCH MCHC RDW RDW Differential Plt Count MPV PT INR APTT 61.7 H 71.6 H Sodium Potassium Chloride Carbon Dioxide Anion Gap BUN Creatinine Estim Creat Clear Calc Est GFR (MDRD) Af Amer Est GFR (MDRD) Non-Af BUN/Creatinine Ratio Glucose Calcium Troponin I B-Natriuretic Peptide 199.8 H Clinical Impression(s) from Imaging Studies Chest X-Ray 05/29/18 10:43 IMPRESSION: No acute abnormality is seen. Electronically Signed: Marko Hoffman MD at 11:27 EST , Service support , Chest CTA 05/29/18 11:17 IMPRESSION: Extensive bilateral pulmonary embolism. N.B. : The above information has been verbally conveyed by Marko Hoffman MD to Lennox Singer MD, on 05/29/2018 12:55:22 (ET). Electronically Signed: Marko Hoffman MD at 12:57 EST , Service support , ADDENDUM: 05/29/18 1305 IMPRESSION: Extensive bilateral pulmonary embolism. N.B. : The above information has been verbally conveyed by Marko Hoffman MD to Lennox Singer MD, on 05/29/2018 12:55:22 (ET). Electronically Signed: Marko Hoffman MD at 12:57 EST , Service support , KUB X-Ray 05/30/18 03:31 IMPRESSION: Moderate amount of fecal material is seen in the colon. Electronically Signed: Marko Hoffman MD at 10:18 EST , Service support , Medical Necessity - Tobacco Use Smoking Status: Never smoker Tobacco Use: Non-smoker Assessment/Plan All Active Problems Pulmonary embolism (Acute) This is a 53 years old female patient presented to the emergency room because of exertional shortness of breath and cough, found to have extensive bilateral pulmonary emboli as well as acute DVT of the right lower extremity, anemia in context of history of dysfunctional uterine bleeding due to fibroids. #1 extensive bilateral pulmonary emboli: CTA chest reviewed. She is on IV heparin drip. This is attributed to hormonal therapy as patient has been on estrogen/progesterone hormonal treatment for dysfunctional uterine bleeding due to fibroids. At this time, patient is slightly tachycardic, blood pressure is borderline, pulse ox is 98% on 2 L. Plan to continue same treatment. #2 acute DVT of the right femoral vein/right popliteal and gastrocnemius vein: Again, she is on IV heparin drip. It is likely due to hormonal therapy as mentioned above. Plan as above. #3 acute blood loss anemia: Secondary to dysfunctional uterine bleeding and hemorrhoids. At this time, patient denied any active bleeding. Today's hemoglobin is 9.7 g considered. Platelet, INR and PT are normal. CUSTOMS APPRAISER consulted. #4 dysfunctional uterine bleeding menorrhagia: Patient has been on hormonal therapy, which is held now. No active bleeding at this time. CUSTOMS APPRAISER on the case. #5 borderline elevated troponin: Probably due to right heart strain secondary to extensive bilateral PEs. EKG revealed no acute ischemic changes. 2D echocardiogram showed ejection fraction of 75%, moderate pulmonary hypertension. #6 hypokalemia: On replacement, plan to check serum magnesium, repeat BMP tomorrow morning. #7 DVT prophylaxis: SCDs. This note was generated with [employer] dictation software. It may contain incorrect words, spelling, and punctuation that were not noted in checking the note before signing. Code Visit Inpatient E&M: 89901 Subs Hosp L3
--- NOTE | 2018-05-30 16:49 | PCM.PN.BLA ---
Progress Note CAMPUS AIDE ADDENDUM: Reviewed findings and discussed all with patient, , and daughter. 53 yr old and most likely menopausal by this age as avg age of one year amenorrhea due to menopause is by 51-52 yr old. Fibroids involute with menopause and bleeding due to fibroids normally resolves. She may still be having periods due to OCP use alone. Recommend: expectant management of cycle allowing withdrawal bleed with cessation of OCP. If bleeding is heavy,then consider treatment in this order: 1.) Mirena IUD placement for goal of eventual amenorrhea / very light period by 6 mo (in 90% of women with Mirena). 2.) Aygestin as second choice, 5 mg po daily 3.) SC Depo Provera SC q 3 months as third choice for therapy. Reviewed potential systemic side effects of Aygestin and DepoProvera. Pt and family in agreement with expectant management of bleeding at this point. Advised that bleeding may be a little heavier than usual OCP withdrawal bleed due to anticoagulant. Iron recommended when able to tolerate this. Recommend Dilma follow up in 1-2 wk in CAMPUS AIDE office after dischg from hospital, for reconsideration of all discussed. \\
--- NOTE | 2018-05-30 16:59 | PN_ITS ---
Progress Note PARTS ADMINISTRATOR ADDENDUM: Reviewed findings and discussed all with patient, , and daughter. 53 yr old and most likely menopausal by this age as avg age of one year amenorrhea due to menopause is by 51-52 yr old. Fibroids involute with menopause and bleeding due to fibroids normally resolves. She may still be having periods due to OCP use alone. Recommend: expectant management of cycle allowing withdrawal bleed with cessation of OCP. If bleeding is heavy,then consider treatment in this order: 1.) Mirena IUD placement for goal of eventual amenorrhea / very light period by 6 mo (in 90% of women with Mirena). 2.) Aygestin as second choice, 5 mg po daily 3.) SC Depo Provera SC q 3 months as third choice for therapy. Reviewed potential systemic side effects of Aygestin and DepoProvera. Pt and family in agreement with expectant management of bleeding at this point. Advised that bleeding may be a little heavier than usual OCP withdrawal bleed due to anticoagulant. Iron recommended when able to tolerate this. Recommend Dilma follow up in 1-2 wk in PARTS ADMINISTRATOR office after dischg from hospital, for reconsideration of all discussed. \\
--- NOTE | 2018-05-30 17:07 | CHAPLAIN ---
Type of Pastoral Visit _x__ Initial Visit ___ Follow-up Visit ___ On-call Visit ___ General Patient Visit ___ Spiritual Assessment ___ Family Conference ___ Bereavement ___ Rapid Response ___ Code Blue ___ Other (describe below) Pastoral Care Referral From _x__ Patient _x__ Family ___ Nurse ___ Physician ___ Tire Sorter ___ Surgical Technologist ___ Other (describe below) Sacrament/Intervention _x__ Active listening ___ Anointing ___ Druze ___ Bereavement ___ Communion _x__ Vicki exploration ___ _x__ Life review _x__ Prayer ___ Reconciliation ___ Sacrament of Sick _x__ Supportive presence ___ Wedding ___ Other (describe below) Pastoral Comments family members are with patient; pt had some scary moments she said and is still anxious about getting homework done for her college classes; spiritual support welcomed
[2018-05-30 18:31] LABS: Magnesium 1.5 mg/dL (1.6-2.6)
[2018-05-30] MEDS: CHLORHEXIDINE GLUC 2% CLOTH 1 EACH TOWELETTE TOPICAL (19:41)
[2018-05-30 20:16] LABS: Partial Thromboplast Time 129.5 Seconds (24.1-36.2)
[2018-05-30] MEDS: Escitalopram Oxalate 10 MG Tablet 5 MG PO (21:26)
[2018-05-31] VITALS (21 sets, daily range): BP systolic 104–132; BP diastolic 68–90; PULSE 92–130; RESP 16–25; TEMP 36.5–37.3; O2SAT 90–99
[2018-05-31 05:00] LABS: Absolute Lymphocyte Count 2.27 X10^3/ul (0.83-4.51); Absolute Neutrophil Count 4.4 X10^3/uL (2.0-7.7); Basophil# 0.02 X10^3/uL; Basophil% 0.3 % (0-1); Hematocrit 33.2 % (37-47); Hemoglobin 9.8 g/dl (12.0-15.0); Lymphocyte # 2.27 X10^3/ul (4.0); Lymphocyte % 29.9 % (19-41); Mean Corp Hgb Conc 29.5 g/gl (32-36); Mean Corpuscular Hgb 23.2 pg (27.0-32.0); Mean Corpuscular Volume 78.5 fL (81-99); Mean Platelet Vol. 9.7 fl (6.2-12.0); Monocyte# 0.59 X10^3/uL; Monocyte% 7.8 % (0-10); Neutrophil % 57.9 % (47-70); Platelet Count 272 K/mm3 (150-450); RBC Distribution Width CV 17.8 % (11.6-14.6); RBC Distribution Width SD 50.4 fl (35.1-43.9); Red Blood Count 4.23 M/mm3 (4.2-5.4); White Blood Count 7.6 K/mm3 (4.4-11.0)
[2018-05-31 05:02] LABS: POSITIVE COUNT NO; POSITIVE DIFFERENTIAL NO; POSITIVE MORPHOLOGY NO
[2018-05-31 05:23] LABS: Anion Gap 9 (5-15); BUN 6 mg/dL (7-18); BUN/Creat Ratio 8.2 RATIO (10-20); Calcium,Total 8.2 mg/dL (8.5-10.1); Chloride 110 mmol/L (98-107); Creatinine, Serum 0.73 mg/dL (0.55-1.02); EST Glomerular Filtration Rate 89 mL/min (>60); Est Glom Filt Rate - Afr Amer 107 mL/min (>60); Estimated Creatinine Clearance 68.03 ml/min; Glucose 110 mg/dL (74-106); Partial Thromboplast Time 47.8 Seconds (24.1-36.2); Potassium 3.4 mmol/L (3.5-5.1); Sodium Level 144 mmol/L (136-145)
[2018-05-31] MEDS: Heparin Injection (Vial) 5,000 UNIT/ML VIAL IV (05:34)
[2018-05-31] MEDS: 0.9% NaCl Peripheral Flush Adult/Peds IV (05:34)
--- NOTE | 2018-05-31 06:33 | PCM.PN.INT ---
Subjective: Patient did well overnight. Patient much improved compared to previous subjectively. Patient was able get to the bedside commode and had a large bowel movement overnight, improving her abdominal discomfort. No dizziness or syncope reported with change in body position. No bleeding has been reported. Dr. Barbour is planning on cessation of hormonal therapy. Patient is agreeable. No vaginal bleeding has been noted thus far by the patient. General: Alert, Oriented x3, Cooperative, No apparent distress, Well developed, Well nourished, - - Morbidly obese. Speaking in full sentences. HEENT: Atraumatic, PERRLA, EOMI, Normocephalic, - - No scleral icterus or injection noted. Oral: Moist Mucosa, No Gingival or Mucosal Lesions/ Ulcerations Neck: Supple, No JVD, No Nodes, Trachea Midline Lungs: Clear to auscultation, Normal air movement, No rhonchi, No wheeze, No rales Cardiovascular: Regular rate, Regular Rhythm, Normal S1, Normal S2, No murmurs, No rub noted, No Gallop Abdomen: Bowel Sounds Present, Soft, Non Tender, Non-Distended, Obese Extremities: No clubbing, No cyanosis, Edema - Trace lower extremity Skin: No rashes, No breakdown Musculoskeletal: No Tenderness to Palpation of Joints or Extremities Lymphatic: No Cervical, Supraclavicular, or Inguinal Adenopathy Neurological: Cranial nerves II-XII grossly intact, Neuro grossly intact, Motor Exam 5/5 strength throughout Psych/Mental Status: Alert and oriented to time, place, person, mood and affect Vital Signs Temp Pulse Resp BP Pulse Ox 37.2 C 92 20 H 117/82 H 92 05/31/18 04:00 05/31/18 06:00 05/31/18 06:00 05/31/18 06:00 05/31/18 06:00 Oxygen Flow Rate (L/min) 1 Oxygen Delivery Method Nasal Cannula Weight: 99.8 kg Body Mass Index (BMI) 41.3 Intake and Output for Last 24 Hours 05/29/18 05/30/18 05/31/18 23:59 23:59 23:59 Intake Total 1155 / 1155 5847.5 / 5847.5 195 / 195 Output Total 300 / 300 3150 / 3150 1250 / 1250 Balance 855 / 855 2697.5 / 2697.5 -1055 / -1055 Labs (Last 48 Hours) 05/29/18 05/29/18 05/29/18 10:15 10:15 10:15 WBC 6.2 RBC 4.94 Hgb 11.4 L Hct 38.7 MCV 78.3 L MCH 23.1 L MCHC 29.5 L RDW 17.2 H RDW Differential 49.0 H Plt Count 259 MPV 9.8 Immature Gran % (Auto) 0.200 Neut % (Auto) 70.0 Lymph % (Auto) 16.1 L Grainger % (Auto) 10.3 H Eos % (Auto) 3.1 Baso % (Auto) 0.3 Absolute Neuts (auto) 4.4 Absolute Lymphs (auto) 1.00 Total Counted Not Reportable PT 12.8 INR 1.0 APTT 23.8 L Sodium 140 Potassium 3.2 L Chloride 107 Carbon Dioxide 25.0 Anion Gap 8 BUN 9 Creatinine 0.84 Estim Creat Clear Calc 59.12 Est GFR (MDRD) Af Amer 91 Est GFR (MDRD) Non-Af 75 BUN/Creatinine Ratio 10.7 Glucose 118 H Lactic Acid Calcium 8.3 L Magnesium Total Bilirubin 0.30 AST 17 ALT 18 Alkaline Phosphatase 87 Troponin I B-Natriuretic Peptide Total Protein 7.4 Albumin 2.8 L Globulin 4.6 H Albumin/Globulin Ratio 0.6 L Urine Color Urine Clarity Urine pH Ur Specific Deridder Urine Protein Urine Glucose (UA) Urine Ketones Urine Occult Blood Urine Nitrite Urine Bilirubin Urine Urobilinogen Ur Leukocyte Esterase Urine RBC Urine WBC Ur Squamous Epith Cells Urine Bacteria Urine Mucus 05/29/18 05/29/18 05/29/18 10:15 10:15 10:15 WBC RBC Hgb Hct MCV MCH MCHC RDW RDW Differential Plt Count MPV Immature Gran % (Auto) Neut % (Auto) Lymph % (Auto) Grainger % (Auto) Eos % (Auto) Baso % (Auto) Absolute Neuts (auto) Absolute Lymphs (auto) Total Counted PT INR APTT Sodium Potassium Chloride Carbon Dioxide Anion Gap BUN Creatinine Estim Creat Clear Calc Est GFR (MDRD) Af Amer Est GFR (MDRD) Non-Af BUN/Creatinine Ratio Glucose Lactic Acid 1.4 Calcium Magnesium Total Bilirubin AST ALT Alkaline Phosphatase Troponin I 0.089 H B-Natriuretic Peptide 16.6 Total Protein Albumin Globulin Albumin/Globulin Ratio Urine Color Urine Clarity Urine pH Ur Specific Deridder Urine Protein Urine Glucose (UA) Urine Ketones Urine Occult Blood Urine Nitrite Urine Bilirubin Urine Urobilinogen Ur Leukocyte Esterase Urine RBC Urine WBC Ur Squamous Epith Cells Urine Bacteria Urine Mucus 05/29/18 05/29/18 05/29/18 12:00 17:45 18:50 WBC RBC Hgb Hct MCV MCH MCHC RDW RDW Differential Plt Count MPV Immature Gran % (Auto) Neut % (Auto) Lymph % (Auto) Grainger % (Auto) Eos % (Auto) Baso % (Auto) Absolute Neuts (auto) Absolute Lymphs (auto) Total Counted PT INR APTT 57.6 H Sodium Potassium Chloride Carbon Dioxide Anion Gap BUN Creatinine Estim Creat Clear Calc Est GFR (MDRD) Af Amer Est GFR (MDRD) Non-Af BUN/Creatinine Ratio Glucose Lactic Acid Calcium Magnesium Total Bilirubin AST ALT Alkaline Phosphatase Troponin I 0.572 H B-Natriuretic Peptide Total Protein Albumin Globulin Albumin/Globulin Ratio Urine Color Yellow Urine Clarity Sl. Cloudy Urine pH 8.0 Ur Specific [place] 1.010 Urine Protein 30 H Urine Glucose (UA) Normal Urine Ketones 15 H Urine Occult Blood 150 H Urine Nitrite Negative Urine Bilirubin Negative Urine Urobilinogen Normal Ur Leukocyte Esterase Negative Urine RBC 0-5 SEEN Urine WBC 0 SEEN Ur Squamous Epith Cells 0-5 SEEN Urine Bacteria 0 SEEN Urine Mucus 0 SEEN 05/29/18 05/30/18 05/30/18 20:55 00:40 00:40 WBC RBC Hgb Hct MCV MCH MCHC RDW RDW Differential Plt Count MPV Immature Gran % (Auto) Neut % (Auto) Lymph % (Auto) Grainger % (Auto) Eos % (Auto) Baso % (Auto) Absolute Neuts (auto) Absolute Lymphs (auto) Total Counted PT INR APTT 66.1 H Sodium Potassium Chloride Carbon Dioxide Anion Gap BUN Creatinine Estim Creat Clear Calc Est GFR (MDRD) Af Amer Est GFR (MDRD) Non-Af BUN/Creatinine Ratio Glucose Lactic Acid Calcium Magnesium Total Bilirubin AST ALT Alkaline Phosphatase Troponin I 0.486 H 0.288 H B-Natriuretic Peptide Total Protein Albumin Globulin Albumin/Globulin Ratio Urine Color Urine Clarity Urine pH Ur Specific Deridder Urine Protein Urine Glucose (UA) Urine Ketones Urine Occult Blood Urine Nitrite Urine Bilirubin Urine Urobilinogen Ur Leukocyte Esterase Urine RBC Urine WBC Ur Squamous Epith Cells Urine Bacteria Urine Mucus 05/30/18 05/30/18 05/30/18 02:03 02:30 02:30 WBC 10.2 RBC 4.15 L Hgb 9.7 L Hct 32.6 L MCV 78.6 L MCH 23.4 L MCHC 29.8 L RDW 17.4 H RDW Differential 49.8 H Plt Count 252 MPV 9.6 Immature Gran % (Auto) Neut % (Auto) Lymph % (Auto) Grainger % (Auto) Eos % (Auto) Baso % (Auto) Absolute Neuts (auto) Absolute Lymphs (auto) Total Counted PT 14.2 INR 1.1 APTT Sodium Potassium Chloride Carbon Dioxide Anion Gap BUN Creatinine Estim Creat Clear Calc Est GFR (MDRD) Af Amer Est GFR (MDRD) Non-Af BUN/Creatinine Ratio Glucose Lactic Acid Calcium Magnesium 1.5 L Total Bilirubin AST ALT Alkaline Phosphatase Troponin I B-Natriuretic Peptide Total Protein Albumin Globulin Albumin/Globulin Ratio Urine Color Urine Clarity Urine pH Ur Specific Deridder Urine Protein Urine Glucose (UA) Urine Ketones Urine Occult Blood Urine Nitrite Urine Bilirubin Urine Urobilinogen Ur Leukocyte Esterase Urine RBC Urine WBC Ur Squamous Epith Cells Urine Bacteria Urine Mucus 05/30/18 05/30/18 05/30/18 02:30 02:30 06:55 WBC RBC Hgb Hct MCV MCH MCHC RDW RDW Differential Plt Count MPV Immature Gran % (Auto) Neut % (Auto) Lymph % (Auto) Grainger % (Auto) Eos % (Auto) Baso % (Auto) Absolute Neuts (auto) Absolute Lymphs (auto) Total Counted PT INR APTT 61.7 H Sodium 141 Potassium 2.9 L Chloride 109 H Carbon Dioxide 21.0 Anion Gap 11 BUN 8 Creatinine 0.77 Estim Creat Clear Calc 64.49 Est GFR (MDRD) Af Amer 101 Est GFR (MDRD) Non-Af 84 BUN/Creatinine Ratio 10.4 Glucose 146 H Lactic Acid Calcium 7.5 L Magnesium Total Bilirubin AST ALT Alkaline Phosphatase Troponin I B-Natriuretic Peptide 199.8 H Total Protein Albumin Globulin Albumin/Globulin Ratio Urine Color Urine Clarity Urine pH Ur Specific Deridder Urine Protein Urine Glucose (UA) Urine Ketones Urine Occult Blood Urine Nitrite Urine Bilirubin Urine Urobilinogen Ur Leukocyte Esterase Urine RBC Urine WBC Ur Squamous Epith Cells Urine Bacteria Urine Mucus 05/30/18 05/30/18 05/30/18 12:55 19:40 20:30 WBC RBC Hgb Hct MCV MCH MCHC RDW RDW Differential Plt Count MPV Immature Gran % (Auto) Neut % (Auto) Lymph % (Auto) Grainger % (Auto) Eos % (Auto) Baso % (Auto) Absolute Neuts (auto) Absolute Lymphs (auto) Total Counted PT INR APTT 71.6 H 129.5 H* 66.0 H Sodium Potassium Chloride Carbon Dioxide Anion Gap BUN Creatinine Estim Creat Clear Calc Est GFR (MDRD) Af Amer Est GFR (MDRD) Non-Af BUN/Creatinine Ratio Glucose Lactic Acid Calcium Magnesium Total Bilirubin AST ALT Alkaline Phosphatase Troponin I B-Natriuretic Peptide Total Protein Albumin Globulin Albumin/Globulin Ratio Urine Color Urine Clarity Urine pH Ur Specific Deridder Urine Protein Urine Glucose (UA) Urine Ketones Urine Occult Blood Urine Nitrite Urine Bilirubin Urine Urobilinogen Ur Leukocyte Esterase Urine RBC Urine WBC Ur Squamous Epith Cells Urine Bacteria Urine Mucus 05/31/18 05/31/18 05/31/18 04:50 04:50 04:50 WBC 7.6 RBC 4.23 Hgb 9.8 L Hct 33.2 L MCV 78.5 L MCH 23.2 L MCHC 29.5 L RDW 17.8 H RDW Differential 50.4 H Plt Count 272 MPV 9.7 Immature Gran % (Auto) 0.100 Neut % (Auto) 57.9 Lymph % (Auto) 29.9 Grainger % (Auto) 7.8 Eos % (Auto) 4.0 Baso % (Auto) 0.3 Absolute Neuts (auto) 4.4 Absolute Lymphs (auto) 2.27 Total Counted Not Reportable PT INR APTT 47.8 H Sodium 144 Potassium 3.4 L Chloride 110 H Carbon Dioxide 25.0 Anion Gap 9 BUN 6 L Creatinine 0.73 Estim Creat Clear Calc 68.03 Est GFR (MDRD) Af Amer 107 Est GFR (MDRD) Non-Af 89 BUN/Creatinine Ratio 8.2 L Glucose 110 H Lactic Acid Calcium 8.2 L Magnesium Total Bilirubin AST ALT Alkaline Phosphatase Troponin I B-Natriuretic Peptide Total Protein Albumin Globulin Albumin/Globulin Ratio Urine Color Urine Clarity Urine pH Ur Specific Deridder Urine Protein Urine Glucose (UA) Urine Ketones Urine Occult Blood Urine Nitrite Urine Bilirubin Urine Urobilinogen Ur Leukocyte Esterase Urine RBC Urine WBC Ur Squamous Epith Cells Urine Bacteria Urine Mucus Microbiology 05/29/18 12:00 Urine, Clean Catch Urine Culture - Preliminary Mixed Gram Positive Organisms 05/29/18 10:39 Mucosa - Nasopharyngeal Influenza Types A,B Direct FA (BRIT) - Final Clinical Impression(s) from Imaging Studies KUB X-Ray 05/30/18 03:31 IMPRESSION: Moderate amount of fecal material is seen in the colon. Electronically Signed: Marko Hoffman MD at 10:18 EST , Service support , Medical Necessity - Tobacco Use Smoking Status: Never smoker Tobacco Use: Non-smoker Assessment/Plan All Active Problems Pulmonary embolism (Acute) RECOMMENDATIONS: 1. Increase activity as tolerated 2. Heparin drip per protocol for now 3. Wean oxygen as tolerated 4. Okay to leave the intensive care unit from my perspective 5. No indication for antibiotic or steroid therapy IMPRESSIONS: 1. Acute cor pulmonale secondary to saddle pulmonary embolism Patient appears to have presented with submassive physiology. Patient is much improved at this time. Still requiring minimal nasal cannula oxygen to maintain saturations. She can likely leave the intensive care unit. Gynecology plan was reviewed. Patient is not started any vaginal bleeding. Patient will likely be transition to a 10 a inhibitor prior to discharge. Reasonable to continue heparin drip until that time given vaginal bleeding may be significant. 2. Uterine fibroids/morbid obesity/history of neck surgery/hypokalemia/constipation Complicates care, management, recovery and prognosis. We will need to monitor patient closely given history of uterine fibroids. Potassium repletion has been ordered. Stool softener will be ordered. Code Visit Inpatient E&M: 45302 Subs Hosp L2
[2018-05-31] MEDS: Senna Tablet 1 TABLET PO ×2 (08:39→22:14)
[2018-05-31] MEDS: Pantoprazole Sodium 20 MG Tablet PO (08:39)
--- NOTE | 2018-05-31 09:00 | PCM.PROGNOTE ---
Patient Problems: Active and Suspected Problems Pulmonary embolism (Acute) Subjective: Chief complaint: Follow-up after admission for extensive bilateral pulmonary emboli, acute DVT of the right femoral vein, right popliteal and gastrocnemius vein, menorrhagia, acute blood loss anemia and borderline elevated troponin. Patient seen and examined. No acute events overnight. She feels significantly better, eating her breakfast. Shortness of breath improved. She was able to get out of bed. Denied dizziness, lightheadedness, syncope or presyncope upon ambulation. She has no active vaginal bleeding. She is afebrile, heart rate has been around 100, blood pressure stable, pulse ox is 93% on 1 L. - Physical Exam General: Alert, Oriented x3, Cooperative, No apparent distress HEENT: Atraumatic, PERRLA, EOMI, Normocephalic Oral: Moist Mucosa, No Gingival or Mucosal Lesions/ Ulcerations Neck: Supple, No JVD, Negative Carotid Bruits, Trachea Midline, Thyroid Normal Size and Texture Lungs: Clear to auscultation, No rhonchi, No wheeze, No rales, Diminished Cardiovascular: Regular rate, Regular Rhythm, Normal S1, Normal S2, PMI Normal, Tachycardic Abdomen: Bowel Sounds Present, Soft, Non Tender, Non-Distended, No Hepato-splenomegaly Extremities: No clubbing, No cyanosis, No edema Skin: No rashes, No breakdown Lymphatic: No Cervical, Supraclavicular, or Inguinal Adenopathy Neurological: Cranial nerves II-XII grossly intact, Neuro grossly intact Psych/Mental Status: Normal Affect, Appropriate, Alert and oriented to time, place, person, mood and affect Vital Signs Temp Pulse Resp BP Pulse Ox 97.7 F L 96 25 H 132/90 H 93 05/31/18 08:00 05/31/18 08:00 05/31/18 08:00 05/31/18 08:00 05/31/18 08:00 Oxygen Flow Rate (L/min) 1 Oxygen Delivery Method Nasal Cannula Weight: 220 lb 0.341 oz Body Mass Index (BMI) 41.3 Intake and Output for Last 24 Hours 05/29/18 05/30/18 05/31/18 23:59 23:59 23:59 Intake Total 1155 / 1155 5847.5 / 5847.5 195 / 195 Output Total 300 / 300 3150 / 3150 1250 / 1250 Balance 855 / 855 2697.5 / 2697.5 -1055 / -1055 Microbiology Past 72 Hours 05/29/18 12:00 Urine Culture - Final Urine, Clean Catch Mixed Gram Positive Organisms 05/29/18 10:39 Influenza Types A,B Direct FA (BRIT) - Final Mucosa - Nasopharyngeal Laboratory Tests Past 24 Hrs 05/30/18 05/30/18 05/30/18 02:03 02:30 12:55 WBC RBC Hgb Hct MCV MCH MCHC RDW RDW Differential Plt Count MPV Immature Gran % (Auto) Neut % (Auto) Lymph % (Auto) [place] % (Auto) Eos % (Auto) Baso % (Auto) Absolute Neuts (auto) Absolute Lymphs (auto) Total Counted APTT 71.6 H Sodium Potassium Chloride Carbon Dioxide Anion Gap BUN Creatinine Estim Creat Clear Calc Est GFR (MDRD) Af Amer Est GFR (MDRD) Non-Af BUN/Creatinine Ratio Glucose Calcium Magnesium 1.5 L B-Natriuretic Peptide 199.8 H 05/30/18 05/30/18 05/31/18 19:40 20:30 04:50 WBC 7.6 RBC 4.23 Hgb 9.8 L Hct 33.2 L MCV 78.5 L MCH 23.2 L MCHC 29.5 L RDW 17.8 H RDW Differential 50.4 H Plt Count 272 MPV 9.7 Immature Gran % (Auto) 0.100 Neut % (Auto) 57.9 Lymph % (Auto) 29.9 [place] % (Auto) 7.8 Eos % (Auto) 4.0 Baso % (Auto) 0.3 Absolute Neuts (auto) 4.4 Absolute Lymphs (auto) 2.27 Total Counted Not Reportable APTT 129.5 H* 66.0 H Sodium Potassium Chloride Carbon Dioxide Anion Gap BUN Creatinine Estim Creat Clear Calc Est GFR (MDRD) Af Amer Est GFR (MDRD) Non-Af BUN/Creatinine Ratio Glucose Calcium Magnesium B-Natriuretic Peptide 05/31/18 05/31/18 04:50 04:50 WBC RBC Hgb Hct MCV MCH MCHC RDW RDW Differential Plt Count MPV Immature Gran % (Auto) Neut % (Auto) Lymph % (Auto) [place] % (Auto) Eos % (Auto) Baso % (Auto) Absolute Neuts (auto) Absolute Lymphs (auto) Total Counted APTT 47.8 H Sodium 144 Potassium 3.4 L Chloride 110 H Carbon Dioxide 25.0 Anion Gap 9 BUN 6 L Creatinine 0.73 Estim Creat Clear Calc 68.03 Est GFR (MDRD) Af Amer 107 Est GFR (MDRD) Non-Af 89 BUN/Creatinine Ratio 8.2 L Glucose 110 H Calcium 8.2 L Magnesium B-Natriuretic Peptide Medical Necessity - Tobacco Use Smoking Status: Never smoker Tobacco Use: Non-smoker Assessment/Plan All Active Problems Pulmonary embolism (Acute) This is a 53 years old female patient presented to the emergency room because of exertional shortness of breath and cough, found to have extensive bilateral pulmonary emboli as well as acute DVT of the right lower extremity, anemia in context of history of dysfunctional uterine bleeding due to fibroids. #1 extensive bilateral pulmonary emboli: CTA chest reviewed. Remained on IV heparin drip. Symptomatically, she is improving. She is less tachycardic, blood pressure stable, oxygen requirement has been decreasing. This is attributed to hormonal therapy as patient has been on estrogen/progesterone hormonal treatment for dysfunctional uterine bleeding due to fibroids. Plan: Continue same treatment, transfer to PCU. #2 acute DVT of the right femoral vein/right popliteal and gastrocnemius vein: Again, she is on IV heparin drip. It is likely due to hormonal therapy as mentioned above. Plan as above. #3 acute blood loss anemia: Secondary to dysfunctional uterine bleeding and menorrhagia. At this time, patient denied any active bleeding. Today's hemoglobin is 9.8 grams per deciliter. Platelet, INR and PT are normal. ATTACHER on the case. #4 dysfunctional uterine bleeding menorrhagia: Patient has been on hormonal therapy, which is held now. No active bleeding at this time. ATTACHER on the case. #5 borderline elevated troponin: Probably due to right heart strain secondary to extensive bilateral PEs. EKG revealed no acute ischemic changes. 2D echocardiogram showed ejection fraction of 75%, moderate pulmonary hypertension. #6 hypokalemia: On replacement, today's potassium is 3.4, plan to continue replacement. #7 DVT prophylaxis: IV heparin drip. This note was generated with [employer] software. It may contain incorrect words, spelling, and punctuation that were not noted in checking the note before signing. Code Visit Inpatient E&M: 07772 Subs Hosp L2
--- NOTE | 2018-05-31 09:03 | PN_ITS ---
Patient Problems: Active and Suspected Problems Pulmonary embolism (Acute) Subjective: Chief complaint: Follow-up after admission for extensive bilateral pulmonary emboli, acute DVT of the right femoral vein, right popliteal and gastrocnemius vein, menorrhagia, acute blood loss anemia and borderline elevated troponin. Patient seen and examined. No acute events overnight. She feels significantly better, eating her breakfast. Shortness of breath improved. She was able to get out of bed. Denied dizziness, lightheadedness, syncope or presyncope upon ambulation. She has no active vaginal bleeding. She is afebrile, heart rate has been around 100, blood pressure stable, pulse ox is 93% on 1 L. - Physical Exam General: Alert, Oriented x3, Cooperative, No apparent distress HEENT: Atraumatic, PERRLA, EOMI, Normocephalic Oral: Moist Mucosa, No Gingival or Mucosal Lesions/ Ulcerations Neck: Supple, No JVD, Negative Carotid Bruits, Trachea Midline, Thyroid Normal Size and Texture Lungs: Clear to auscultation, No rhonchi, No wheeze, No rales, Diminished Cardiovascular: Regular rate, Regular Rhythm, Normal S1, Normal S2, PMI Normal, Tachycardic Abdomen: Bowel Sounds Present, Soft, Non Tender, Non-Distended, No Hepato- splenomegaly Extremities: No clubbing, No cyanosis, No edema Skin: No rashes, No breakdown Lymphatic: No Cervical, Supraclavicular, or Inguinal Adenopathy Neurological: Cranial nerves II-XII grossly intact, Neuro grossly intact Psych/Mental Status: Normal Affect, Appropriate, Alert and oriented to time, place, person, mood and affect Vital Signs Temp Pulse Resp BP Pulse Ox 97.7 F L 96 25 H 132/90 H 93 05/31/18 08:00 05/31/18 08:00 05/31/18 08:00 05/31/18 08:00 05/31/18 08:00 Oxygen Flow Rate (L/min) 1 Oxygen Delivery Method Nasal Cannula Weight: 220 lb 0.341 oz Body Mass Index (BMI) 41.3 Intake and Output for Last 24 Hours 05/29/18 05/30/18 05/31/18 23:59 23:59 23:59 Intake Total 1155 / 1155 5847.5 / 5847.5 195 / 195 Output Total 300 / 300 3150 / 3150 1250 / 1250 Balance 855 / 855 2697.5 / 2697.5 -1055 / -1055 Microbiology Past 72 Hours 05/29/18 12:00 Urine Culture - Final Urine, Clean Catch Mixed Gram Positive Organisms 05/29/18 10:39 Influenza Types A,B Direct FA (BRIT) - Final Mucosa - Nasopharyngeal Laboratory Tests Past 24 Hrs 05/30/18 05/30/18 05/30/18 02:03 02:30 12:55 WBC RBC Hgb Hct MCV MCH MCHC RDW RDW Differential Plt Count MPV Immature Gran % (Auto) Neut % (Auto) Lymph % (Auto) [place] % (Auto) Eos % (Auto) Baso % (Auto) Absolute Neuts (auto) Absolute Lymphs (auto) Total Counted APTT 71.6 H Sodium Potassium Chloride Carbon Dioxide Anion Gap BUN Creatinine Estim Creat Clear Calc Est GFR (MDRD) Af Amer Est GFR (MDRD) Non-Af BUN/Creatinine Ratio Glucose Calcium Magnesium 1.5 L B-Natriuretic Peptide 199.8 H 05/30/18 05/30/18 05/31/18 19:40 20:30 04:50 WBC 7.6 RBC 4.23 Hgb 9.8 L Hct 33.2 L MCV 78.5 L MCH 23.2 L MCHC 29.5 L RDW 17.8 H RDW Differential 50.4 H Plt Count 272 MPV 9.7 Immature Gran % (Auto) 0.100 Neut % (Auto) 57.9 Lymph % (Auto) 29.9 [place] % (Auto) 7.8 Eos % (Auto) 4.0 Baso % (Auto) 0.3 Absolute Neuts (auto) 4.4 Absolute Lymphs (auto) 2.27 Total Counted Not Reportable APTT 129.5 H* 66.0 H Sodium Potassium Chloride Carbon Dioxide Anion Gap BUN Creatinine Estim Creat Clear Calc Est GFR (MDRD) Af Amer Est GFR (MDRD) Non-Af BUN/Creatinine Ratio Glucose Calcium Magnesium B-Natriuretic Peptide 05/31/18 05/31/18 04:50 04:50 WBC RBC Hgb Hct MCV MCH MCHC RDW RDW Differential Plt Count MPV Immature Gran % (Auto) Neut % (Auto) Lymph % (Auto) [place] % (Auto) Eos % (Auto) Baso % (Auto) Absolute Neuts (auto) Absolute Lymphs (auto) Total Counted APTT 47.8 H Sodium 144 Potassium 3.4 L Chloride 110 H Carbon Dioxide 25.0 Anion Gap 9 BUN 6 L Creatinine 0.73 Estim Creat Clear Calc 68.03 Est GFR (MDRD) Af Amer 107 Est GFR (MDRD) Non-Af 89 BUN/Creatinine Ratio 8.2 L Glucose 110 H Calcium 8.2 L Magnesium B-Natriuretic Peptide Medical Necessity - Tobacco Use Smoking Status: Never smoker Tobacco Use: Non-smoker Assessment/Plan All Active Problems Pulmonary embolism (Acute) This is a 53 years old female patient presented to the emergency room because of exertional shortness of breath and cough, found to have extensive bilateral pulm onary emboli as well as acute DVT of the right lower extremity, anemia in context of history of dysfunctional uterine bleeding due to fibroids. #1 extensive bilateral pulmonary emboli: CTA chest reviewed. Remained on IV heparin drip. Symptomatically, she is improving. She is less tachycardic, blood pressure stable, oxygen requirement has been decreasing. This is attributed to hormonal therapy as patient has been on estrogen/progesterone hormonal treatment for dysfunctional uterine bleeding due to fibroids. Plan: Continue same treatment, transfer to PCU. #2 acute DVT of the right femoral vein/right popliteal and gastrocnemius vein: Again, she is on IV heparin drip. It is likely due to hormonal therapy as mentioned above. Plan as above. #3 acute blood loss anemia: Secondary to dysfunctional uterine bleeding and menorrhagia. At this time, patient denied any active bleeding. Today's hemoglobin is 9.8 grams per deciliter. Platelet, INR and PT are normal. DOCUMENT CONTROL ASSOCIATE on the case. #4 dysfunctional uterine bleeding menorrhagia: Patient has been on hormonal therapy, which is held now. No active bleeding at this time. DOCUMENT CONTROL ASSOCIATE on the case. #5 borderline elevated troponin: Probably due to right heart strain secondary to extensive bilateral PEs. EKG revealed no acute ischemic changes. 2D echocardiogram showed ejection fraction of 75%, moderate pulmonary hypertension. #6 hypokalemia: On replacement, today's potassium is 3.4, plan to continue replacement. #7 DVT prophylaxis: IV heparin drip. This note was generated with [employer] dictation software. It may contain incorrect words, spelling, and punctuation that were not noted in checking the note before signing. Code Visit Inpatient E&M: 23484 Subs Hosp L2
--- NOTE | 2018-05-31 10:31 | CM.UR ---
Participated in interdisciplinary rounds. Plan is to transfer out of ICU today. Will continue to wean oxygen and the vet will be transitioned to Eliquis the day of discharge. Anticipating dc for Saturday. asked for the coupon for he anastasia. Explained there usually is no charge under [employer]. States that she is losing the [employer] at the end of the month. Explained I would come back and discussed options after rounds. Returned immediately after rounds to discuss with patient and . States he is researching purchasing health insurance on their own. 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 States he has called a couple companies and is asking for a website to compare plans. Instructed on [employer] is a [employer] website that should have a lot of plans to look at. States he is finding a lot of inexpensive plans however they are not giving him anything in writing to the jj. Encouraged him to evaluate their needs and what each plan offers. they have teen children active in sports. Also gave them the eliquis 30 day free supply coupon --explaining they can use that no matter what. Then also gave them the $10 copay card explaining that is if they get a commercial insurance. Also instructed that even with insurance he should still check into discount drug cards--sometimes they can be cheaper than the insurance co-pays. Also circled the number to the Eliquis insurance coverage line and explained he can call them to discuss help paying for the medication--if he has time with no insurance or co-pay is high. Verb understanding and appreciative of information. Arsen Rodrigez RN, CCM.
[2018-05-31 12:02] LABS: Partial Thromboplast Time 60.6 Seconds (24.1-36.2)
[2018-05-31] MEDS: HEPARIN/D5w 25,000 UNITS 25,000 UNITS/250 ML IV.SOLN. 15 UNITS IV (15:59)
[2018-05-31] MEDS: Magnesium Oxide 400 MG Tablet PO (16:00)
--- NOTE | 2018-05-31 20:15 | EKG12_ITS ---
Test Reason : T WAVE INVERSION Blood Pressure : / mmHG Vent. Rate : 100 BPM Atrial Rate : 100 BPM P-R Int : 122 ms QRS Dur : 092 ms QT Int : 358 ms P-R-T Axes : 055 042 008 degrees QTc Int : 461 ms Sinus rhythm with occasional Premature ventricular complexes Otherwise normal ECG When compared with ECG of 29-MAY-2018 17:10, MANUAL COMPARISON REQUIRED, DATA IS UNCONFIRMED Confirmed by NICOLE RAMIREZ, ELKIN ([id number]), staff editor STACI JOSHUA ([id number]) on 06/05/2018 8:57:52 AM Referred By: MACARIO Confirmed By:ELKIN RIVERA MD
[2018-05-31] MEDS: Escitalopram Oxalate 10 MG Tablet 5 MG PO (22:14)
[2018-05-31] MEDS: Ibuprofen 600 MG Tablet PO (22:14)
[2018-06-01] VITALS (7 sets, daily range): BP systolic 123–130; BP diastolic 60–74; PULSE 95–101; RESP 18; TEMP 36.6–37; O2SAT 92–98
[2018-06-01] MEDS: oxyCODONE 5 MG Tablet PO (01:19)
[2018-06-01 05:24] LABS: Potassium 3.4 mmol/L (3.5-5.1)
[2018-06-01 05:38] LABS: Hemoglobin 10.3 g/dl (12.0-15.0); Mean Corp Hgb Conc 29.4 g/gl (32-36); Mean Corpuscular Hgb 23.2 pg (27.0-32.0); Mean Corpuscular Volume 78.8 fL (81-99); Mean Platelet Vol. 10.1 fl (6.2-12.0); Platelet Count 293 K/mm3 (150-450); RBC Distribution Width CV 17.5 % (11.6-14.6); RBC Distribution Width SD 49.8 fl (35.1-43.9); Red Blood Count 4.44 M/mm3 (4.2-5.4); White Blood Count 10.3 K/mm3 (4.4-11.0)
[2018-06-01 05:47] LABS: Partial Thromboplast Time 57.5 Seconds (24.1-36.2)
[2018-06-01 05:52] LABS: Scan Indicated on CBC? Y/N NO
--- NOTE | 2018-06-01 08:16 | PCM.PROGNOTE ---
Patient Problems: Active and Suspected Problems Pulmonary embolism (Acute) Subjective: Patient did well overnight. Patient has been moved to room air and reports subjective improvement in overall condition. Patient does report the onset of some back spasms leading to leg pain that she associates with being in the chair most of the day. Patient has been able to walk to the bathroom with little difficulty. No bleeding complications have been reported. - Physical Exam General: Alert, Oriented x3, Cooperative, No apparent distress, Well developed, Well nourished, - - No scleral icterus or injection noted. HEENT: Atraumatic, PERRLA, EOMI, Normocephalic, - - No scleral icterus or injection noted Oral: Moist Mucosa, No Gingival or Mucosal Lesions/ Ulcerations Neck: Supple, No JVD, No Nodes, Trachea Midline Lungs: Clear to auscultation, Normal air movement, No rhonchi, No wheeze, No rales, - - Symmetric expansion. No dullness to percussion. Cardiovascular: Normal S1, Normal S2, No murmurs, No rub noted, No Gallop, Tachycardic Abdomen: Bowel Sounds Present, Soft, Non Tender, Non-Distended, Obese Extremities: No clubbing, No cyanosis, No edema Skin: No rashes, No breakdown, - - Mild bruising noted at previous IV sites Musculoskeletal: No Tenderness to Palpation of Joints or Extremities Lymphatic: No Cervical, Supraclavicular, or Inguinal Adenopathy Neurological: Cranial nerves II-XII grossly intact, Neuro grossly intact, Motor Exam 5/5 strength throughout Psych/Mental Status: Alert and oriented to time, place, person, mood and affect Vital Signs Temp Pulse Resp BP Pulse Ox 36.6 C 96 18 125/60 H 98 06/01/18 06:46 06/01/18 06:54 06/01/18 06:46 06/01/18 06:46 06/01/18 06:46 Oxygen Flow Rate (L/min) 1 Oxygen Delivery Method Room Air Weight: 99.2 kg Body Mass Index (BMI) 41.3 Intake and Output for Last 24 Hours 05/30/18 05/31/18 06/01/18 23:59 23:59 23:59 Intake Total 5847.5 / 5847.5 1525 / 1525 797 / 797 Output Total 3150 / 3150 2250 / 2250 Balance 2697.5 / 2697.5 -725 / -725 797 / 797 Microbiology Past 72 Hours 05/29/18 10:15 Blood Culture - Preliminary Blood Culture (Wb) - Anticubital Left No growth in 48 hours. 05/29/18 10:40 Blood Culture - Preliminary Blood Culture (Wb) - Right Hand No growth in 48 hours. 05/29/18 12:00 Urine Culture - Final Urine, Clean Catch Mixed Gram Positive Organisms 05/29/18 10:39 Influenza Types A,B Direct FA (BRIT) - Final Mucosa - Nasopharyngeal Laboratory Tests Past 24 Hrs 05/31/18 05/31/18 06/01/18 11:30 17:29 04:45 WBC 10.3 RBC 4.44 Hgb 10.3 L Hct 35.0 L MCV 78.8 L MCH 23.2 L MCHC 29.4 L RDW 17.5 H RDW Differential 49.8 H Plt Count 293 MPV 10.1 APTT 60.6 H 55.0 H Potassium 06/01/18 06/01/18 04:45 04:45 WBC RBC Hgb Hct MCV MCH MCHC RDW RDW Differential Plt Count MPV APTT 57.5 H Potassium 3.4 L Medical Necessity - Tobacco Use Smoking Status: Never smoker Tobacco Use: Non-smoker Assessment/Plan All Active Problems Pulmonary embolism (Acute) RECOMMENDATIONS: 1. Increase activity as tolerated 2. Heparin drip per protocol for now 3. Obtain walking oximetry prior to discharge 4. Okay to discharge if able to tolerate room air with ambulation 5. Follow-up in my office in 2 weeks with nurse practitioner, repeat echocardiogram in 4-6 weeks IMPRESSIONS: 1. Acute cor pulmonale secondary to saddle pulmonary embolism Patient appears to have presented with submassive physiology. Patient is much improved at this time. Patient has not required supplemental oxygen overnight. Patient should have a walking oximetry. If able to tolerate room air with ambulation, likely okay to discharge from my perspective. Patient should follow-up in our office in 2 weeks with nurse practitioner. Anticipate transition to Eliquis therapy with 6 months of therapy. Patient will require repeat echocardiogram in 4-6 weeks to ensure RV has returned to normal function. 2. Uterine fibroids/morbid obesity/history of neck surgery/hypokalemia/constipation Complicates care, management, recovery and prognosis. We will need to monitor patient closely given history of uterine fibroids. Gynecology is following and aware. Patient has not initiated menstruation at this time. Code Visit Inpatient E&M: 97056 Subs Hosp L2
[2018-06-01] MEDS: Magnesium Oxide 400 MG Tablet PO (08:20)
[2018-06-01] MEDS: Senna Tablet 1 TABLET PO (08:20)
[2018-06-01] MEDS: Pantoprazole Sodium 20 MG Tablet PO (08:21)
[2018-06-01] MEDS: Acetaminophen 325 MG Tablet 650 MG PO (08:23)
--- NOTE | 2018-06-01 10:29 | DCINST_ITS ---
- Discharge Diagnoses Current Active Problems: Current Active and Chronic Problems Pulmonary embolism (Acute) Morbid obesity (Chronic) Dysfunctional or functional uterine hemorrhage (Chronic) Uterine fibroid (Chronic) You will use the following diet at home:: Regular Your food should be the consistency of: Regular Discharge Activity: Return to Normal Activity Weight Bearing Status: Weight bearing as tolerated Call your doctor if you observe: Fever of 101 or Higher, Shortness of breath, Dizziness, Fainting spells, Chest pain, Increased palpitations (irregular heartbeat), Uncontrolled pain Instructions: Discharge Instructions for Pulmonary Embolism, Apixaban Oral tablet Allergies/Adverse Reactions: Allergies Penicillins [PCN] Allergy (Verified 05/29/18 09:59) Hives Medications to take at Discharge Escitalopram Oxalate 5 mg PO QHS 05/29/18 Omeprazole [Prilosec] 20 mg PO DAILY 05/29/18 Apixaban [Eliquis] 5 mg PO BID #90 tablet 06/01/18 The following prescriptions were given: Apixaban [Eliquis] 5 mg PO BID #90 tablet Primary Care Physician: Chavez Coughlin DO [Primary Care Provider] - Please follow up with your Primary Care Physician in: 1 week. Test Results: Test results from this visit will be discussed in further detail at your follow- up appointment, if applicable. Please Follow Up With: Alice Barbour MD When: please call her office.
[2018-06-01] MEDS: APIXABAN 5 MG TABLET PO (10:52)
--- NOTE | 2018-06-01 11:42 | PCM.DC.SUM ---
Discharge Date and Diagnosis Date of Admission: 05/29/18 Date of Discharge: 06/01/18 - Primary Discharge Diagnosis #1 acute extensive bilateral pulmonary emboli. #2 acute DVT of the right femoral vein/right popliteal and right gastrocnemius vein. #3 acute blood loss anemia. #4 indeterminate troponin/right heart strain. #5 moderate pulmonary hypertension. #6 dysfunctional uterine bleeding/menorrhagia. - Secondary Discharge Diagnosis Chronic Problems Morbid obesity (Chronic) Dysfunctional or functional uterine hemorrhage (Chronic) Uterine fibroid (Chronic) Hospital Course and Treatment Imaging Results: Clinical Impression(s) from Imaging Studies Chest X-Ray 05/29/18 10:43 IMPRESSION: No acute abnormality is seen. Electronically Signed: Marko Hoffman MD at 11:27 EST , Service support , Chest CTA 05/29/18 11:17 IMPRESSION: Extensive bilateral pulmonary embolism. N.B. : The above information has been verbally conveyed by Marko Hoffman MD to Lennox Singer MD, on 05/29/2018 12:55:22 (ET). Electronically Signed: Marko Hoffman MD at 12:57 EST , Service support , ADDENDUM: 05/29/18 1305 IMPRESSION: Extensive bilateral pulmonary embolism. N.B. : The above information has been verbally conveyed by Marko Hoffman MD to Lennox Singer MD, on 05/29/2018 12:55:22 (ET). Electronically Signed: Marko Hoffman MD at 12:57 EST , Service support , KUB X-Ray 05/30/18 03:31 IMPRESSION: Moderate amount of fecal material is seen in the colon. Electronically Signed: Marko Hoffman MD at 10:18 EST , Service support , Dr. Hurst, critical care. Dr. Barbour, [employer]. Operations: None Procedures: 2-D Echocardiogram, EKG Summary of Care Provided: Patient seen and examined on the day of discharge and appeared to be stable to be discharged home. She denied any more shortness of breath. She ambulated and her pulse ox remained above 90% with ambulation on room air. Her other vital signs were stable. This is a 53 years old female patient presented to the emergency room because of exertional shortness of breath and cough, found to have extensive bilateral pulmonary emboli as well as acute DVT of the right lower extremity, anemia in context of history of dysfunctional uterine bleeding due to fibroids. #1 extensive bilateral pulmonary emboli: Initially, she was admitted to ICU, treated with IV heparin drip. This acute PE and DVT attributed to estrogen/progesterone pulmonary treatment patient was on for chronic dysfunctional uterine bleeding due to fibroids. Initially, patient was hypoxic and tachycardic. With treatment, her symptoms improved, and heart rate stabilized and her pulse ox improved and she was able to maintain her pulse ox on room air afterwards. Because of history of dysfunctional uterine bleeding, [employer] consulted who recommended continuation of hormonal therapy at this time. Later, patient was transferred to PCU and she was started on Eliquis 5 mg p.o. twice daily on the day of discharge, she received 1 dose of Eliquis and then she was discharged home. #2 acute DVT of the right femoral vein/right popliteal and gastrocnemius vein: Again, treated with IV heparin drip as above. Discharged on Eliquis 5 mg p.o. twice daily without loading dose. #3 acute blood loss anemia: Secondary to dysfunctional uterine bleeding and menorrhagia. Patient had no active bleeding during this hospital stay. Her hemoglobin stayed above 9 g/dL and discharge hemoglobin was 10.3 g/dL. No blood transfusion given to the patient. #4 dysfunctional uterine bleeding menorrhagia: She had no active bleeding at this time. Will be going consulted and recommended to discontinue estrogen/progesterone hormonal therapy. #5 borderline elevated troponin: Probably due to right heart strain secondary to extensive bilateral PEs. EKG revealed no acute ischemic changes. 2D echocardiogram showed ejection fraction of 75%, moderate pulmonary hypertension. Patient discharged home in a stable medical condition, discharged on Eliquis 5 mill grams p.o. twice daily, recommended follow-up with PCP in 1 week and follow-up with [employer] according to their recommendation. This note was generated with [employer] dictation software. It may contain incorrect words, spelling, and punctuation that were not noted in checking the note before signing. - Physical Exam General: Alert, Oriented x3, Cooperative, No apparent distress HEENT: Atraumatic, PERRLA, EOMI, Normocephalic Oral: Moist Mucosa, No Gingival or Mucosal Lesions/ Ulcerations Neck: Supple, No JVD, Negative Carotid Bruits, Trachea Midline, Thyroid Normal Size and Texture Lungs: Clear to auscultation, No rhonchi, No wheeze, No rales, Diminished Cardiovascular: Regular rate, Regular Rhythm, Normal S1, Normal S2, PMI Normal Abdomen: Bowel Sounds Present, Soft, Non Tender, Non-Distended, No Hepato-splenomegaly Extremities: No clubbing, No cyanosis, No edema Skin: No rashes, No breakdown Lymphatic: No Cervical, Supraclavicular, or Inguinal Adenopathy Neurological: Cranial nerves II-XII grossly intact, Neuro grossly intact Psych/Mental Status: Normal Affect, Appropriate Vital Signs Temp Pulse Resp BP Pulse Ox 98.2 F 101 H 18 123/74 H 93 06/01/18 10:33 06/01/18 10:33 06/01/18 10:33 06/01/18 10:33 06/01/18 10:33 Oxygen Flow Rate (L/min) 1 Oxygen Delivery Method Room Air Weight: 218 lb 11.177 oz Body Mass Index (BMI) 41.3 Intake and Output for Last 24 Hours 05/30/18 05/31/18 06/01/18 23:59 23:59 23:59 Intake Total 5847.5 / 5847.5 1525 / 1525 797 / 797 Output Total 3150 / 3150 2250 / 2250 Balance 2697.5 / 2697.5 -725 / -725 797 / 797 Microbiology Past 72 Hours 05/29/18 10:15 Blood Culture - Preliminary Blood Culture (Wb) - Anticubital Left No growth in 48 hours. 05/29/18 10:40 Blood Culture - Preliminary Blood Culture (Wb) - Right Hand No growth in 48 hours. 05/29/18 12:00 Urine Culture - Final Urine, Clean Catch Mixed Gram Positive Organisms 05/29/18 10:39 Influenza Types A,B Direct FA (BRIT) - Final Mucosa - Nasopharyngeal Laboratory Tests Past 24 Hrs 05/31/18 05/31/18 06/01/18 11:30 17:29 04:45 WBC 10.3 RBC 4.44 Hgb 10.3 L Hct 35.0 L MCV 78.8 L MCH 23.2 L MCHC 29.4 L RDW 17.5 H RDW Differential 49.8 H Plt Count 293 MPV 10.1 APTT 60.6 H 55.0 H Potassium 06/01/18 06/01/18 04:45 04:45 WBC RBC Hgb Hct MCV MCH MCHC RDW RDW Differential Plt Count MPV APTT 57.5 H Potassium 3.4 L Discharge Activity: Return to Normal Activity Weight Bearing Status: Weight bearing as tolerated Call your doctor if you observe: Fever of 101 or Higher, Shortness of breath, Dizziness, Fainting spells, Chest pain, Increased palpitations (irregular heartbeat), Uncontrolled pain Home Medications: Medications to take at Discharge Escitalopram Oxalate 5 mg PO QHS 05/29/18 Omeprazole [Prilosec] 20 mg PO DAILY 05/29/18 Apixaban [Eliquis] 5 mg PO BID #90 tablet 06/01/18 Following Prescrptions Were Given to Patient: Apixaban [Eliquis] 5 mg PO BID #90 tablet Primary Care Physician: Chavez Coughlin DO [Primary Care Provider] - Please follow up with your Primary Care Physician in: 1 week. Please Follow Up With: Alice Barbour MD When: please call her office. Please Follow Up With: Chavez Coughlin DO Patient Instructions: Apixaban Oral tablet, Discharge Instructions for Pulmonary Embolism Disposition: Home Minutes spent on discharge:: 32 Patient Condition:: Stable Medical Necessity - Tobacco Use Smoking Status: Never smoker Tobacco Use: Non-smoker Meaningful Use Info Meaningful Use Diagnoses (Choose all that apply): None applicable Code Visit Inpatient E&M: 10932 Disch Hosp
== END 2018-06-01 11:40 | disposition home or self-care (01) | DRG 134 ==
LOC: ED 10:48 → ICU 13:31 → PCU 05-31 16:14
PROVIDERS: Family Medicine; Hospitalist; Internal Medicine Critical Care Medicine; Admitting Provider Internal Medicine; Emergency Provider Emergency Medicine; Family Provider Family Medicine; PCP Family Medicine; Visit Provider Hospitalist
DX: I26.02 Saddle embolus of pulmonary artery with acute cor pulmonale (principal); I27.20 Pulmonary hypertension, unspecified; I82.411 Acute embolism and thrombosis of right femoral vein; I82.431 Acute embolism and thrombosis of right popliteal vein; I82.4Z1 Acute embolism and thrombosis of unspecified deep veins of right distal lower extremity; D62 Acute posthemorrhagic anemia; N93.8 Other specified abnormal uterine and vaginal bleeding; N92.0 Excessive and frequent menstruation with regular cycle; E66.01 Morbid (severe) obesity due to excess calories; Z68.41 Body mass index [BMI] 40.0-44.9, adult; D25.9 Leiomyoma of uterus, unspecified; I51.89 Other ill-defined heart diseases; E87.6 Hypokalemia
CPT/HCPCS: 36415; 71045; 71275; 74018; 80048; 80053; 81001; 83605; 83735; 83880; 84132; 84484; 85025; 85027; 85610; 85730; 87040; 87086; 87088; 87804; 93005; 93306; 93970; 97110; 97161; 97166; 97802; 99251; 99285; J7030; J7120; Q9967; A4216; G0463

== ENCOUNTER 2018-06-08 18:33 | Emergency (ER) | payer MEDICAID, SELFPAY ==
[2018-05-29 14:59] VITALS: BMI 41.3
[2018-06-08 18:36] VITALS: BP 140/75; PULSE 84; RESP 16; TEMP 36.4; O2SAT 97; BMI 42.2
--- NOTE | 2018-06-08 18:49 | CT_ITS ---
STUDY: CT BRAIN WITHOUT CONTRAST REASON FOR EXAM: Female, 53 years old. Trauma. RADIATION DOSAGE (If Supplied By Facility): CTDIvol = ( 44.99 ) mGy, DLP = ( 796.11 ) mGycm TECHNIQUE: Transaxial CT imaging of the brain was performed without administration of intravenous contrast material. Individualized dose optimization techniques were used for this CT. COMPARISON: None. FINDINGS: Normal soft tissue structures. Normal calvarium. Normal size ventricles and extra-axial spaces for the patient's age. Normal white matter tracts of the cerebral hemispheres. Normal basal ganglia and thalami. Normal brainstem. Normal cerebellum. There is no intracranial hemorrhage. There are no findings of an acute ischemic infarction. Normal visualized paranasal sinuses. CT/Brain/Head without Contrast IMPRESSION: Normal unenhanced CT scan of the brain. Electronically Signed: Patrick Lewis MD at 20:02 EST , Service support ,
--- NOTE | 2018-06-08 20:14 | ED.VISSUMM ---
- ER Visit Summary Date of Service: 06/08/18 Chief Complaint: Head injury History of Present Illness: The patient is a 53 F recently started on Eliquis for a PE. Patient was getting in a car tonight and hit the left quaker of her head on the car frame. She denies loss of consciousness or vision change. She is a mild headache. She states she was told to be checked any time she hits her head and is on the blood thinner. Physical Examination: Vital signs unremarkable. Patient sitting in a bedside chair no acute distress. Head neck examination does reveal slight tenderness to the left quaker area. No large hematomas. No C-spine tenderness. Heart is regular rate and rhythm. Lung sounds clear. Neuro exam is normal. Test Results: CT head is unremarkable. Emergency Department Course and Treatment: Test results discussed with patient. She is comfortable with outpatient follow-up with her doctor as needed. Treatment Plan: [] Disposition: Discharge Impression: Closed head injury This note was generated with [employer] dictation software. It may contain incorrect words, spelling, and punctuation that were not noted in review of the chart prior to signing ED Disposition - Plan for ED Patient: Disposition: Home or Assisted Living Instructions: ED Head Injury Closed Referrals: Chavez Coughlin, [Primary Care Provider] - As Needed
--- NOTE | 2018-06-08 20:14 | ED.DEP ---
ED Disposition - Plan for ED Patient: Disposition: Home or Assisted Living Instructions: ED Head Injury Closed Referrals: Chavez Coughlin DO [Primary Care Provider] - As Needed
[2018-06-08 20:22] VITALS: RESP 18
== END 2018-06-08 20:23 | disposition home or self-care (01) ==
PROVIDERS: Emergency Provider Emergency Medicine; Family Provider Family Medicine; PCP Family Medicine
DX: S09.90XA Unspecified injury of head, initial encounter (principal); W22.09XA Striking against other stationary object, initial encounter; Y93.9 Activity, unspecified; Y92.810 Car as the place of occurrence of the external cause; Y99.9 Unspecified external cause status; K21.9 Gastro-esophageal reflux disease without esophagitis; Z79.01 Long term (current) use of anticoagulants; Z79.899 Other long term (current) drug therapy; Z86.711 Personal history of pulmonary embolism
CPT/HCPCS: 70450; 99282

== ENCOUNTER → 2018-06-09 14:37 | Outpatient (CLI) | payer MEDICAID, SELFPAY ==
[2018-06-08 18:36] VITALS: BMI 42.2
[2018-06-09 17:53] LABS: Absolute Lymphocyte Count 2.34 X10^3/ul (0.83-4.51); Absolute Neutrophil Count 4.7 X10^3/uL (2.0-7.7); Basophil# 0.04 X10^3/uL; Basophil% 0.5 % (0-1); Eosinophil# 0.21 X10^3/uL; Eosinophils% 2.7 % (0-5); Hematocrit 36.6 % (37-47); Hemoglobin 10.4 g/dl (12.0-15.0); Lymphocyte # 2.34 X10^3/ul (4.0); Mean Corp Hgb Conc 28.4 g/gl (32-36); Mean Corpuscular Volume 80.8 fL (81-99); Mean Platelet Vol. 9.9 fl (6.2-12.0); Monocyte# 0.47 X10^3/uL; Neutrophil # 4.72 X10^3/uL (2.7-7.7); Neutrophil % 60.4 % (47-70); Platelet Count 544 K/mm3 (150-450); RBC Distribution Width SD 50.5 fl (35.1-43.9); Red Blood Count 4.53 M/mm3 (4.2-5.4); White Blood Count 7.8 K/mm3 (4.4-11.0)
[2018-06-09 17:57] LABS: POSITIVE COUNT NO; POSITIVE DIFFERENTIAL NO; POSITIVE MORPHOLOGY NO
[2018-06-09 18:03] LABS: Anion Gap 7 (5-15); BUN 13 mg/dL (7-18); Calcium,Total 8.7 mg/dL (8.5-10.1); Chloride 107 mmol/L (98-107); Creatinine, Serum 0.86 mg/dL (0.55-1.02); EST Glomerular Filtration Rate 73 mL/min (>60); Est Glom Filt Rate - Afr Amer 89 mL/min (>60); Glucose 94 mg/dL (74-106); Magnesium 2.1 mg/dL (1.6-2.6); Potassium 3.4 mmol/L (3.5-5.1); Sodium Level 142 mmol/L (136-145)
== END ==
PROVIDERS: Family Provider Family Medicine; PCP Family Medicine; Visit Provider Family Medicine
DX: Z00.00 Encounter for general adult medical examination without abnormal findings (principal); R73.9 Hyperglycemia, unspecified; R53.83 Other fatigue; E66.01 Morbid (severe) obesity due to excess calories
CPT/HCPCS: 36415; 80048; 83735; 85025

== ENCOUNTER → 2018-08-01 12:21 | Outpatient (CLI) | payer MEDICAID, SELFPAY ==
[2018-07-17 10:05] VITALS: BMI 42.2
[2018-08-01 12:30] VITALS: PULSE 103; PULSE 109; PULSE 118; PULSE 122; PULSE 124; PULSE 125; PULSE 93; O2SAT 93; O2SAT 94; O2SAT 98
--- NOTE | 2018-08-02 08:16 | WT_ITS ---
PSN 6 Minute Walk Test - 6 Minute Walk Test 6 Minute Walk Test: 6 Minute Walk Test PSN:6-Minute Walk Test Start: 08/01/18 12:50 Freq: Status: Active Protocol: [id number].6MINW Document 08/01/18 12:30 [facility] (Rec: 08/01/18 12:54 [facility] [id number]) 6 Minute Walk Test Date Performed 08/01/18 Time Performed 12:30 Height 5 ft 1 in Weight: 230 lb Weight in Pounds 230.[address]: Jeanette Yusuf Assistive device used: None Pre-test Oxygen Delivery Method Room Air Pulse Ox (%) 98 Pulse Rate (60-100 beats/min) 103 H Dyspnea Ebenezer Scale (0-10) 0 Exertion Ebenezer Scale (6-20) 6 1st minute Oxygen Delivery Method Room Air Pulse Ox (%) 94 Pulse Rate (60-100 beats/min) 118 H Number of Rests Taken 0 2nd minute Oxygen Delivery Method Room Air Pulse Ox (%) 93 Pulse Rate (60-100 beats/min) 122 H Number of Rests Taken 0 3rd minute Oxygen Delivery Method Room Air Pulse Ox (%) 93 Pulse Rate (60-100 beats/min) 124 H Number of Rests Taken 0 4th minute Oxygen Delivery Method Room Air Pulse Ox (%) 94 Pulse Rate (60-100 beats/min) 124 H Number of Rests Taken 0 5th minute Oxygen Delivery Method Room Air Pulse Ox (%) 94 Pulse Rate (60-100 beats/min) 109 H Number of Rests Taken 0 6th minute Oxygen Delivery Method Room Air Pulse Ox (%) 93 Pulse Rate (60-100 beats/min) 125 H Number of Rests Taken 0 Reported Symptoms Increased Work of Breathing Post-test Oxygen Delivery Method Room Air Pulse Ox (%) 94 Pulse Rate (60-100 beats/min) 93 Dyspnea Ebenezer Scale (0-10) 1 Exertion Ebenezer Scale (6-20) 12 Number of Rests Taken 0 Full Laps Walked 18 Partial Lap, Number of Tiles Walked 30 Total Distance Walked (ft) 1092 - Interpretation Interpretation: The patient ambulated 1092 feet over the course of 6 minutes beginning on room air without assistive devices or breaks. Pretesting oxygen saturation was noted to be 98% on room air. With ambulation, the kim oxygen saturation was 93%. This represents a significant exertional oxygen desaturation. - Recommendations Recommendations: There is no indication for the use of supplemental oxygen at this time. However, close interval follow-up is recommended, given the degree of oxygen desaturation noted during this study.
== END ==
PROVIDERS: Family Provider Family Medicine; PCP Family Medicine; Referring Provider Nurse Practitioner Acute Care; Visit Provider Nurse Practitioner Acute Care
DX: I26.99 Other pulmonary embolism without acute cor pulmonale (principal)
CPT/HCPCS: 94618

== ENCOUNTER → 2018-08-08 12:55 | Outpatient (CLI) | payer MEDICAID, SELFPAY ==
[2018-07-17 10:05] VITALS: BMI 42.2
--- NOTE | 2018-08-08 14:19 | PFTCOMP_ITS ---
COMPLETE PULMONARY FUNCTION TEST INTERPRETATION Brief HPI: Patient is a 53 year old female, currently under the care of myself, who presents to [facility] for complete pulmonary function tests secondary to diagnosis of pulmonary embolism. Respiratory therapist reports good effort and reproducible results. Interpretation: Forced expiration spirometry shows no large airways obstructive ventilatory defect with an FEV1 of 85% predicted. There is no significant bronchodilator r esponse by strict ATS criteria. Spirograms are of good quality and plateau normally. The respiratory flow volume loop shows a normal pattern. Lung volumes by body plethysmography show a normal total lung capacity at 3.63 L, 83% predicted. All other lung volumes are within normal limits. Diffusion capacity by carbon monoxide is decreased at 67% predicted. The airway resistance is normal. No previous pulmonary function tests were available for review. Impression: Isolated reduction in diffusion capacity consistent with a pulmonary vascular disorder.
== END ==
PROVIDERS: Family Provider Family Medicine; PCP Family Medicine; Referring Provider Nurse Practitioner Acute Care; Visit Provider Nurse Practitioner Acute Care
DX: I26.99 Other pulmonary embolism without acute cor pulmonale (principal)
CPT/HCPCS: 94060; 94726; 94729

== ENCOUNTER → 2018-09-10 10:32 | Outpatient (CLI) | payer OTHER, MEDICAID, SELFPAY ==
[2018-07-17 10:05] VITALS: BMI 42.2
[2018-09-10 12:32] LABS: Absolute Neutrophil Count 3.3 X10^3/uL (2.0-7.7); Basophil# 0.02 X10^3/uL; Basophil% 0.4 % (0-1); Eosinophil# 0.14 X10^3/uL; Eosinophils% 2.7 % (0-5); Hematocrit 34.4 % (37-47); Hemoglobin 9.8 g/dl (12.0-15.0); Lymphocyte % 21.6 % (19-41); Mean Corp Hgb Conc 28.5 g/gl (32-36); Mean Corpuscular Hgb 22.4 pg (27.0-32.0); Mean Corpuscular Volume 78.7 fL (81-99); Monocyte# 0.56 X10^3/uL; Neutrophil # 3.27 X10^3/uL (2.7-7.7); Neutrophil % 64.1 % (47-70); Platelet Count 370 K/mm3 (150-450); RBC Distribution Width CV 17.4 % (11.6-14.6); RBC Distribution Width SD 48.6 fl (35.1-43.9); Red Blood Count 4.37 M/mm3 (4.2-5.4); White Blood Count 5.1 K/mm3 (4.4-11.0)
[2018-09-10 12:41] LABS: Erythrocyte Sedimentation Rate 41 mm/hr (0-30)
[2018-09-10 12:48] LABS: POSITIVE COUNT NO; POSITIVE DIFFERENTIAL NO; POSITIVE MORPHOLOGY NO
[2018-09-10 12:59] LABS: Vitamin B12 934 pg/mL (211-911); Vitamin D,25 Hydroxy 28.2 ng/mL (29.95-100.01)
[2018-09-10 14:54] LABS: ALB/GLOB Ratio 0.7 RATIO (0.9-2.4); AST(SGOT) 35 U/L (15-37); Alanine Aminotransfer ALT/SGPT 49 U/L (13-56); Albumin, Serum 3.2 g/dL (3.2-5.0); Alkaline Phosphatase 111 U/L (45-117); Anion Gap 5 (5-15); BUN 12 mg/dL (7-18); Calcium,Total 8.8 mg/dL (8.5-10.1); Chloride 106 mmol/L (98-107); EST Glomerular Filtration Rate 80 mL/min (>60); Est Glom Filt Rate - Afr Amer 97 mL/min (>60); Estradiol 18.6 pg/mL; Ferritin 8 ng/mL (8-252); Globulin 4.3 g/dL (2.2-4.2); Glucose 107 mg/dL (74-106); Iron 33 ug/dL (50-170); Potassium 3.5 mmol/L (3.5-5.1); Protein, Total 7.5 g/dL (6.4-8.2); Sodium Level 141 mmol/L (136-145); T4 Free Direct 0.87 ng/dL (0.76-1.46); Thyroid Stim Hormone (TSH) 2.37 uIU/mL (0.358-3.74)
[2018-09-11 15:33] LABS: ANTINUCLEAR ANTIBODIES DIRECT Negative (Negative)
[2018-09-15 00:07] LABS: DHEA Sulfate 134.5 ug/dL (41.2-243.7); Testosterone, % Free 2.62 % (0.50-2.80); Testosterone, Free 0.47 ng/dL (0.10-0.85); Testosterone, Total 18 ng/dL (3-41)
[2018-09-15 10:00] LABS: Renin, Plasma 1.496 ng/mL/hr (0.167-5.380)
== END ==
PROVIDERS: Family Provider Family Medicine; PCP Family Medicine; Visit Provider Family Medicine
DX: D50.9 Iron deficiency anemia, unspecified (principal); E87.6 Hypokalemia; R53.83 Other fatigue; N94.6 Dysmenorrhea, unspecified; R63.5 Abnormal weight gain; M79.10 Myalgia, unspecified site; E55.9 Vitamin D deficiency, unspecified
CPT/HCPCS: 36415; 80053; 82088; 82306; 82533; 82607; 82627; 82670; 82728; 83540; 84244; 84402; 84403; 84439; 84443; 85025; 85652; 86038; 86140; 86225; 86235; 82626

== ENCOUNTER → 2018-10-17 10:10 | Outpatient (CLI) | payer MEDICAID, SELFPAY ==
[2018-07-17 10:05] VITALS: BMI 42.2
--- NOTE | 2018-10-17 10:13 | ECHOCS_ITS ---
Reason For Study: PHTN Procedure This was a 2D Doppler, Color Flow transthoracic echocardiogram. The study was technically difficult. Contrast injection was performed. Exam performed in department. Left Ventricle Normal LV size. Left ventricular systolic function is normal. The estimated ejection fraction is 65 %. Transmitral doppler flow suggestive of impaired relaxation of left ventricle. No regional wall motion abnormalities noted. Right Ventricle Moderately dilated right ventricle. Mild global right ventricular systolic dysfunction. Atria The left atrium is mildly enlarged. Normal right atrium. No doppler evidence for ASD. Mitral Valve There is no mitral annular calcification. Normal mitral valve. Trivial mitral valve insufficiency. Tricuspid Valve Normal tricuspid valve. Mild tricuspid valve insufficiency. Right ventricular systolic pressure estimated to be 31 mmHg. Aortic Valve The aortic valve is not well visualized. Pulmonic Valve The pulmonic valve is not well visualized. Great Vessels Normal sized aortic root. Pericardium/Pleural No pericardial effusion. Medication 22 gauge I.V. with prn adaptor inserted into right arm. Diluted definity 3ml given slow IV push to enhance endocardial definition. MMode/2D Measurements & Calculations LVIDd: 4.0 cm IVSd: 1.4 cm Ao root diam: 3.2 cm LVIDs: 2.5 cm LVPWd: 1.1 cm LA dimension: 3.8 cm FS: 36.5 % LAV(MOD-bp): 53.9 ml LA A4 area: 18.9 cm2 RA A4 area: 10.3 cm2 LAV(MOD-bp) Indexed: 26.9 ml/m2 LAV(MOD-sp2): 44.6 ml LAV(MOD-sp4): 59.3 ml Time Measurements MV dec time: 0.17 sec Doppler Measurements & Calculations MV E max kranthi: 67.2 cm/sec Lat Peak E' Kranthi: 8.8 cm/sec Med Peak E' Kranthi: 5.5 cm/sec MV A max kranthi: 82.8 cm/sec E/E' lat: 7.7 E/E' med: 12.3 MV E/A: 0.81 MV V2 max: 83.8 cm/sec MV P1/2t max kranthi: 69.5 cm/sec Ao V2 max: 127.6 cm/sec MV max P.8 mmHg MV P1/2t: 74.9 msec Ao max P.5 mmHg MV V2 mean: 49.2 cm/sec MV dec slope: 271.8 cm/sec2 MV mean P.1 mmHg MV V2 VTI: 20.2 cm MVA(P1/2t): 2.9 cm2 LV V1 max: 105.1 cm/sec PA V2 max: 76.1 cm/sec TR max kranthi: 241.7 cm/sec LV V1 max P.4 mmHg TR max P.4 mmHg Interpretation Summary The study was technically difficult. Contrast injection was performed. Left ventricular systolic function is normal. The estimated ejection fraction is 65 %. Moderately dilated right ventricle. Mild global right ventricular systolic dysfunction. The left atrium is mildly enlarged. Trivial mitral valve insufficiency. Mild tricuspid valve insufficiency. Right ventricular systolic pressure estimated to be 31 mmHg. Ordering Physician: Jeanette Yusuf Referring Physician: Jeanette Yusuf Performed By: Petey Wilkins RCS
== END ==
PROVIDERS: Family Provider Family Medicine; PCP Family Medicine; Referring Provider Nurse Practitioner Acute Care; Visit Provider Nurse Practitioner Acute Care
DX: I26.99 Other pulmonary embolism without acute cor pulmonale (principal)
CPT/HCPCS: 93306; Q9957; A4216; C8929

== ENCOUNTER → 2018-10-20 10:36 | Outpatient (CLI) | payer MEDICAID, SELFPAY ==
[2018-07-17 10:05] VITALS: BMI 42.2
[2018-10-20 12:10] LABS: Absolute Lymphocyte Count 1.27 X10^3/ul (0.83-4.51); Absolute Neutrophil Count 3.9 X10^3/uL (2.0-7.7); Basophil# 0.02 X10^3/uL; Basophil% 0.3 % (0-1); Eosinophil# 0.13 X10^3/uL; Eosinophils% 2.2 % (0-5); Hematocrit 40.9 % (37-47); Hemoglobin 12.2 g/dl (12.0-15.0); Lymphocyte # 1.27 X10^3/ul (4.0); Lymphocyte % 21.3 % (19-41); Mean Corp Hgb Conc 29.8 g/gl (32-36); Mean Corpuscular Hgb 25.6 pg (27.0-32.0); Mean Corpuscular Volume 85.7 fL (81-99); Mean Platelet Vol. 10.5 fl (6.2-12.0); Monocyte# 0.65 X10^3/uL; Monocyte% 10.9 % (0-10); Neutrophil # 3.89 X10^3/uL (2.7-7.7); Neutrophil % 65.1 % (47-70); Platelet Count 341 K/mm3 (150-450); RBC Distribution Width CV 21.5 % (11.6-14.6); RBC Distribution Width SD 67.6 fl (35.1-43.9); Red Blood Count 4.77 M/mm3 (4.2-5.4)
[2018-10-20 12:11] LABS: Differential Indicated SCAN CRITERIA MET; POSITIVE COUNT NO; POSITIVE DIFFERENTIAL NO; POSITIVE MORPHOLOGY YES
[2018-10-20 12:24] LABS: Ferritin 13 ng/mL (8-252); Iron 153 ug/dL (50-170)
[2018-10-20 12:47] LABS: Anisocytosis 2+; Platelet Estimate ADEQUATE (ADEQ); Red Cell Morphology N CHROM NORMAL (NORM C&C)
== END ==
PROVIDERS: Family Provider Family Medicine; PCP Family Medicine; Visit Provider Family Medicine
DX: D50.9 Iron deficiency anemia, unspecified (principal)
CPT/HCPCS: 36415; 82728; 83540; 85025

== ENCOUNTER → 2018-11-17 13:21 | Outpatient (CLI) | payer MEDICAID, SELFPAY ==
[2018-07-17 10:05] VITALS: BMI 42.2
[2018-11-17 16:26] LABS: Follicle Stimulating Hormone 7.6 mIU/mL
[2018-11-17 16:33] LABS: Hematocrit 42.6 % (37-47); Hemoglobin 13.2 g/dL (12.0-15.0); Mean Corpuscular Hgb 27.9 pg (27.0-32.0); Mean Corpuscular Volume 90.1 fL (81-99); Mean Platelet Vol. 10.4 fl (6.2-12.0); POSITIVE MORPHOLOGY YES; Platelet Count 310 K/mm3 (150-450); RBC Distribution Width SD 65.8 fl (35.1-43.9); Red Blood Count 4.73 M/mm3 (4.2-5.4)
[2018-11-17 17:37] LABS: Scan Indicated on CBC? Y/N YES- FLAGS NOTED
[2018-11-17 18:34] LABS: White Blood Count 6.8 K/mm3 (4.4-11.0)
== END ==
PROVIDERS: Visit Provider Obstetrics & Gynecology
DX: N92.4 Excessive bleeding in the premenopausal period (principal); N92.6 Irregular menstruation, unspecified
CPT/HCPCS: 36415; 83001; 85027

== ENCOUNTER → 2018-12-05 20:41 | Outpatient (CLI) | payer MEDICAID, SELFPAY ==
[2018-07-17 10:05] VITALS: BMI 42.2
== END ==
PROVIDERS: Family Provider Family Medicine; PCP Family Medicine; Referring Provider Internal Medicine Critical Care Medicine; Visit Provider Internal Medicine Critical Care Medicine
DX: G47.10 Hypersomnia, unspecified (principal); I27.20 Pulmonary hypertension, unspecified
CPT/HCPCS: 95810

== ENCOUNTER → 2019-01-13 12:34 | Outpatient (CLI) | payer MEDICAID, SELFPAY ==
[2019-01-13 11:42] VITALS: BMI 42.2
[2019-01-13 12:58] LABS: Absolute Lymphocyte Count 1.62 X10^3/uL (0.83-4.51); Absolute Neutrophil Count 4.1 X10^3/uL (2.0-7.7); Basophil# 0.04 X10^3/uL; Basophil% 0.6 % (0-1); Eosinophil# 0.16 X10^3/uL; Eosinophils% 2.4 % (0-5); Hematocrit 44.2 % (37-47); Hemoglobin 14.2 g/dL (12.0-15.0); Lymphocyte # 1.62 X10^3/ul (4.0); Lymphocyte % 23.8 % (19-41); Mean Corp Hgb Conc 32.1 g/dL (32-36); Mean Corpuscular Volume 93.2 fL (81-99); Mean Platelet Vol. 9.6 fl (6.2-12.0); Monocyte# 0.83 X10^3/uL; Monocyte% 12.2 % (0-10); NRBC Flagged by Analyzer 0 % (0-5); Neutrophil # 4.12 X10^3/uL (2.7-7.7); Neutrophil % 60.6 % (47-70); Platelet Count 349 K/mm3 (150-450); RBC Distribution Width CV 14.2 % (11.6-14.6); RBC Distribution Width SD 47.9 fl (35.1-43.9); Red Blood Count 4.74 M/mm3 (4.2-5.4); White Blood Count 6.8 K/mm3 (4.4-11.0)
[2019-01-13 13:11] LABS: International Normalized Ratio 1.1; Partial Thromboplast Time 31.5 Seconds (24.1-36.2); Prothrombin Time (Protime)PT. 13.9 SECONDS (11.7-14.9)
[2019-01-13 13:20] LABS: Thyroid Stim Hormone (TSH) 2.92 uIU/mL (0.358-3.74)
== END ==
PROVIDERS: Family Provider Family Medicine; PCP Family Medicine; Referring Provider Obstetrics & Gynecology; Visit Provider Obstetrics & Gynecology
DX: D25.9 Leiomyoma of uterus, unspecified (principal); N93.8 Other specified abnormal uterine and vaginal bleeding
CPT/HCPCS: 36415; 84443; 85025; 85610; 85730

== ENCOUNTER → 2019-01-23 20:21 | Outpatient (CLI) | payer MEDICAID, SELFPAY ==
[2018-07-17 10:05] VITALS: BMI 42.2
[2019-01-13 11:42] VITALS: BMI 42.2
== END ==
PROVIDERS: Family Provider Family Medicine; PCP Family Medicine; Referring Provider Nurse Practitioner Acute Care; Visit Provider Nurse Practitioner Acute Care
DX: G47.33 Obstructive sleep apnea (adult) (pediatric) (principal)
CPT/HCPCS: 95811

== ENCOUNTER → 2019-02-12 15:32 | Outpatient (CLI) | payer MEDICAID, SELFPAY ==
[2019-01-13 11:42] VITALS: BMI 42.2
== END ==
PROVIDERS: Family Provider Family Medicine; PCP Family Medicine; Referring Provider Nurse Practitioner Acute Care; Visit Provider Nurse Practitioner Acute Care
DX: G47.33 Obstructive sleep apnea (adult) (pediatric) (principal)

== ENCOUNTER → 2019-02-13 14:10 | Outpatient (CLI) | payer MEDICAID, SELFPAY ==
--- NOTE | 2019-02-13 | EMB_PTH ---
PATIENT: FRANCIS ROSALES LOC: [facility] U#:[id number] AGE/SX: 59/F ROOM: RE02/13/[address]: Dr. Danni Lynn MD : 1965 BED: DIS: SPEC #: [id number] RECD: 02/13/19 14:09 STATUS: JUNIOR JEAN #: [id number] WILLIAM: 02/13/19 00:[address]: Danni Lynn DEPT: SURGICAL PATHOLOGY RECD BY: Cheryl Chirinos ENTERED: 02/13/19 14:28 SP TYPE: ENDOM BX/C TERRI DR: Dr. Chavez Coughlin, DO Tissues: Endometrium, NOS Procedures: Surgery Specimen Level IV HEADER OPERATION: Endometrial biopsy PRE-OP DIAGNOSIS: Dysfunctional or functional uterine hemorrhage TISSUE SUBMITTED: Endometrial biopsy MICROSCOPIC DIAGNOSIS Endometrium, biopsy: Scant fragments of transition endometrium. Rare fragments of benign endocervix with squamous metaplasia. AM:mark 10/28/19 COMMENT Case has been reviewed in consultation with Dr. Clay who concurs with the above diagnosis. IDC:SJ MICROSCOPIC DESCRIPTION Slides are reviewed. GROSS DESCRIPTION Received is one container labeled with the patient's name and not further designated. The specimen consists of multiple irregular fragments of penny mucoid tissue that in aggregate measure 2 x 1 x 0.1 cm. The specimen is totally submitted in one cassette. / JORGE:mark 02/13/19 TC:5 CPT: 65596
[2019-02-13 08:33] VITALS: BMI 46.5
== END ==
PROVIDERS: Family Provider Family Medicine; PCP Family Medicine; Referring Provider Obstetrics & Gynecology; Visit Provider Obstetrics & Gynecology
DX: N93.8 Other specified abnormal uterine and vaginal bleeding (principal)
CPT/HCPCS: 88305

== ENCOUNTER 2019-03-24 09:48 | Day surgery (SDC) | payer MEDICAID, SELFPAY ==
[2019-01-13 11:42] VITALS: BMI 42.2
[2019-03-16 14:28] VITALS: BMI 46.6
--- NOTE | 2019-03-23 08:47 | EKG12_ITS ---
Test Reason : PRE OP Blood Pressure : / mmHG Vent. Rate : 073 BPM Atrial Rate : 073 BPM P-R Int : 142 ms QRS Dur : 098 ms QT Int : 396 ms P-R-T Axes : 049 039 021 degrees QTc Int : 436 ms Normal sinus rhythm Normal ECG Confirmed by ELKIN RIVERA MD ([id number]), editorial writer DARIANA CONNELL ([id number]) on 03/24/2019 2:47:45 PM Referred By: Danni Lynn Confirmed By:ELKIN RIVERA MD
--- NOTE | 2019-03-23 18:06 | HP.PCM_ITS ---
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 medical clearance 03/03/19- OK for surgery (5) delivery delivered Status: Resolved Comment: X4 History and Physical Date of Admission: 03/24/19 Intake Vital Signs 03/16/19 Body Mass Index (BMI) 46.6 03/16/19 Height 5 ft 1 in 03/16/19 Weight: 251 lb 6 oz 03/16/19 Body Mass Index (BMI) 47.5 03/16/19 Blood Pressure 128/83 H Intake Visit Reasons: DOROTHY BOYKIN BS Cysto [place] Required: No Is patient in pain?: No Allergies Penicillins [PCN] Allergy (Verified 03/16/19 14:27) Hives Medications Escitalopram Oxalate 5 mg PO QHS 05/29/18 [History Confirmed 03/16/19] Omeprazole [Prilosec] 20 mg PO DAILY 05/29/18 [History Confirmed 03/16/19] Apixaban [Eliquis] 5 mg PO BID #90 tab 06/01/18 [Rx Confirmed 03/16/19] Gabapentin [Neurontin] 300 mg PO BID PRN PRN 06/08/18 [History Confirmed 03/16/19] fexofenadine 180 mg tablet 180 mg PO DAILY 07/17/18 [History Confirmed 03/16/19] ferrous gluconate 324 mg (38 mg iron) tablet 324 mg PO ONCE #60 tab 11/17/18 [History Confirmed 03/16/19] Post menopausal: No Patient : No : No PFSH Medical History Pneumonia (Acute) Morbid obesity (Chronic) Dysfunctional or functional uterine hemorrhage (Chronic) Uterine fibroid (Chronic) Pulmonary embolism (Resolved) Surgical History delivery delivered (Resolved) Neck Fusion (Resolved) Family History Father Myocardial infarction Mother Diabetes Diverticula of colon Social History (Updated 03/16/19 @ 14:57 by Danni Lynn MD) Smoking Status: Never smoker alcohol intake: never substance use type: does not use caffeine: Yes what type of physical activity do you participate in: walking seatbelt use: always do you feel safe at home: Yes additional social history: [place]- unemployed Patient goes to school for social work HPI DOROTHY MARTÍNEZ BS Cysto: Details: FRANCIS ROSALES is a 53 year old who presents for preoperative evaluaiton. she has had heavy periods and has uterine fibroids. Female Reproductive History Menopausal Symptoms: No night sweats Pregancy History 7 Elective abortions Hx Para 4 Spontaneous abortions Hx # Term Pregnancies Ectopic pregnancies Hx # Pregnancies Multiple births # of living children Past Pregnancies Del. Date Name GA/Weeks Outcome Route Bth Weight Gen Labor Lgth Anesthesia Del Locatn Provider FOB Unknown 1990 Petey live - full term C-sec tion Unknown 1992 Iván live - full term C-se ction Unknown 1999 Asa Unknown 2001 Dalton live - full term C-sect ion ROS Const Constitutional: Denies fatigue, night sweats, weight gain or weight loss ENT ENT: Reports system reviewed and no additional complaints, except as docu Cardio Card: Denies chest pain Resp Resp: Denies cough or dyspnea GI GI: Reports as per HPI; denies abdominal pain, constipation, nausea or vomiting : Denies nipple discharge, urinary frequency, urinary incontinence, urinary hesitancy, urinary urgency, vaginal discharge, vaginal dryness, vaginal odor or vaginal itching Musc Musc: Denies joint pain, back pain or muscle weakness Skin Skin/Breast: Denies hair loss, change in hair, dry skin, breast lump, breast pain, breast skin changes or nipple discharge Neuro Neuro: Reports system reviewed and no additional complaints, except as docu Psych Psych: Reports system reviewed and no additional complaints, except as docu Endo Endo: Denies cold intolerance, excessive sweating, heat intolerance or increased thirst Nicho/Lymph Hematologic/Lymphatic: Denies easy bleeding, Denies easy bruising, Denies enlarged lymph nodes Exam Const General: cooperative, healthy appearing, comfortable, no acute distress, well developed Orientation: alert HENMT Head: normal to inspection, normocephalic Ears: hearing grossly normal bilaterally, external ears normal Nose: external nose normal, nares normal Face and sinus: normal facial exam Neck Neck: normal visual inspection, no lymphadenopathy Thyroid: thyroid normal Chest Chest palpation & inspection: normal inspection of the chest Resp Effort & Inspection: normal respiratory effort Cardio Rate: regular rate Rhythm: regular rhythm GI Inspection: normal to inspection, non-distended Palpation: soft, no hepatosplenomegaly Musc Other: gross motor intact no deficits, full bilateral strength Skin General: no rashes or lesions noted Neuro General: alert, awake, moves all extremities, no focal motor deficits Motor: muscle tone normal throughout Extrem General: normal to inspection, no pedal edema Psych Appearance: grossly normal Mental Status: mental status grossly normal Affect: normal affect Speech and Movement: speech and movement normal Assessment & Plan Problems 1. History of pulmonary embolism Z86.711 stop eliquis 3 days prior, lovenox in preop, and resume eliquis postop 2. Dysfunctional or functional uterine hemorrhage N93.8 emb done 3. Uterine fibroid D25.9 causing anemia- needs surgical removal plan [facility] cysto after medical clearance, prefer beginning of march Plan After discussing the patient's diagnosis and treatment plan options, patient wishes to proceed with surgical management. I have discussed with the patient the risks, benefits, and alternatives of the procedure which include but are not limited to risks of anesthesia, bleeding, infection, possible damage to bowel, bladder, or surrounding vasculature which could lead to additional surgery to evaluate any complications. Patient agrees to procedure and wishes to proceed. ACOG/uptodate references given for additional information regarding procedure. Coding Level of Care Code No Charge Diagnoses History of pulmonary embolism Z86.711 Dysfunctional or functional uterine hemorrhage N93.8 Uterine fibroid D25.9 UPDATE- I have seen the patient and performed any clinically relevant updates to the history and physical exam. Danni Lynn MD
[2019-03-24] VITALS (13 sets, daily range): BP systolic 102–127; BP diastolic 49–81; PULSE 72–98; RESP 16–18; TEMP 35.7–36.6; O2SAT 93–100; BMI 46.4
[2019-03-24 10:31] LABS: Bedside Glucose 84 mg/dL (70-110)
[2019-03-24 10:39] LABS: Hemoglobin 13.6 g/dL (12.0-15.0); Mean Corp Hgb Conc 33.2 g/dL (32-36); Mean Corpuscular Hgb 30.7 pg (27.0-32.0); Mean Corpuscular Volume 92.6 fL (81-99); Mean Platelet Vol. 9.8 fl (6.2-12.0); Platelet Count 291 K/mm3 (150-450); RBC Distribution Width CV 12.9 % (11.6-14.6); RBC Distribution Width SD 43.7 fl (35.1-43.9); Red Blood Count 4.43 M/mm3 (4.2-5.4); White Blood Count 8.3 K/mm3 (4.4-11.0)
[2019-03-24 10:39] LABS: Internal QC Validated? YES +Cl - CLEAR BKGD; Pregnancy, Urine Negative Negative
[2019-03-24] MEDS: dexAMETHasone 10 MG/ML Vial 8 MG IV (10:39)
[2019-03-24] MEDS: Magnesium Sulfate 4gm/100mL 4 GM/100 ML IV.SOLN. IV (10:45)
[2019-03-24] MEDS: Phenazopyridine 95 MG Tablet 190 MG PO (10:47)
[2019-03-24 10:48] LABS: Anion Gap 5 (5-15); BUN 12 mg/dL (7-18); BUN/Creat Ratio 12.7 RATIO (10-20); Calcium,Total 8.8 mg/dL (8.5-10.1); Chloride 107 mmol/L (98-107); Creatinine, Serum 0.94 mg/dL (0.55-1.02); EST Glomerular Filtration Rate 66 mL/min (>60); Est Glom Filt Rate - Afr Amer 80 mL/min (>60); Estimated Creatinine Clearance 52.83 ml/min; Glucose 92 mg/dL (74-106); Potassium 3.6 mmol/L (3.5-5.1); Sodium Level 139 mmol/L (136-145)
[2019-03-24] MEDS: Celecoxib 200 MG Capsule 400 MG PO (10:49)
[2019-03-24] MEDS: Acetaminophen 500 MG Tablet 1000 MG PO ×2 (10:49→16:18)
[2019-03-24] MEDS: Enoxaparin 40 MG/0.4 ML Syringe SC (10:50)
[2019-03-24] MEDS: Gabapentin 600 MG Tablet PO (10:50)
[2019-03-24 10:56] LABS: Partial Thromboplast Time 26.9 Seconds (24.1-36.2); Prothrombin Time (Protime)PT. 12.7 SECONDS (11.7-14.9)
[2019-03-24] MEDS: Cefazolin 2 GM in 0.9% Normal Saline 100 ML IV (11:10)
--- NOTE | 2019-03-24 11:24 | PCM.OPRPT ---
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 medical clearance 03/03/19- OK for surgery Report of Operation Date of Procedure: 03/24/19 Pre-Operative Diagnosis: aub uterine fibroid Post-Operative Diagnosis: aub enlarged uterus extensive scar tissue Surgery/Procedure Performed:: [facility] bs cysto Description of Surgical Findings:: vesicouterine and omental to uterine adhesions well service floor worker: Shirin Palma Type of Anesthesia:: General Special Medications: donya floseal Specimen's removed: uterus tubes Drains: avilez Estimated Blood Loss (mL): 150 Fluids Replaced: crystalloid Description of Procedure: Patient received preoperative antibiotics and SCDs were on preoperatively. Patient was taken back to the operating room and placed in the dorsal lithotomy position. General anesthesia was induced and patient was prepped and draped in normal sterile fashion. Uterine manipulator was placed inside the uterus and Avilez catheter placed in the bladder. The umbilicus was grasped with towel clamps and an intraumbilical incision was made after injecting with quarter percent Marcaine and a Veress needle entered into the abdomen confirmed to be intra-abdominal with a low opening pressure. Abdomen was insufflated with CO2 gas and the Veress needle removed and the 5 mm trocar was placed under direct visualization without complication. Right and left lower quadrants were transilluminated and injected with quarter percent Marcaine and 5 mm ports placed under direct visualization. Pelvis was well visualized see operative findings for additional information. Omental to anterior abdominal wall and uterine and vesico-adhesions were taken down with the LigaSure device. Bilateral fallopian tubes were identified and transected with the LigaSure device across the mesosalpinx to the level of the utero-ovarian ligament which was also transected with the LigaSure device. The broad ligament was opened up by transecting the round ligament bilaterally and skeletonizing the uterine vessels bilaterally and creating a bladder flap using the LigaSure device. This required extensive dissection both with hydrodissection and with the LigaSure device. Multiple layers of scar tissue from previous cesareans were encountered but taken down without complication. the uterine arteries were transected bilaterally with good visualization of the bladder and the ureters were seen to be inferior lateral to the operative area. Attention was then paid to the vaginal portion of the procedure and the cervix was grasped with Xin clamps and circumferentially injected with dilute vasopressin. A circumferential incision was made and the vaginal mucosa was mobilized off posteriorly and the cul-de-sac entered into sharply and a longneck speculum placed. The anterior cul-de-sac was then identified and entered into sharply. The uterosacral ligaments were clamped cut and suture ligated with 0 Monocryl bilaterally followed by the cardinal ligaments which were clamped cut and suture ligated bilaterally with 0 Monocryl. The uterus serially descended and was removed without difficulty with minimal morcellation. Pelvic sidewall pedicles were checked and noted to have excellent hemostasis. The vaginal mucosa was reapproximated incorporating the posterior peritoneum. This was reapproximated using 0 Vicryl [id number] sutures. Excellent hemostasis was noted. The cystoscopy was then performed and bilateral ureteral strong spray was noted and the bladder was noted to have no abnormality or lesions seen. Avilez catheter was replaced and then attention paid to the abdominal portion of the procedure again. The pelvis and cul-de-sac was well visualized and no significant active bleeding noted but some raw areas were seen on the peritoneum and therefore Donya was applied. Some bleeding was noted through the Donya at the right angle and therefore the area was cauterized with the LigaSure device and then FloSeal was applied. Pressure was taken down and the areas visualized and noted of excellent hemostasis. All ports were removed under direct visualization without complication and the abdomen was desufflated of air. The instruments removed from the abdomen and the vagina vaginal sweep was negative. Port sites on the abdomen were closed with 4-0 Monocryl interrupted sutures and Steri's and windows were applied. She was awoken and taken recovery in stable condition. Grafts/Implants Used: none - Complications none - Admit VTE Documentation VTE Present on Admission: No VTE Mechan Device Prophylaxis: SCD's VTE Pharm Prophylaxis ordered?: Yes Multi Select Codes - Urinary/Genital Urinary/Genital CPT Codes: 98833 Cystoscopy, 54346 LAV[facility]+BS/O <250gr Uterus
--- NOTE | 2019-03-24 11:30 | HYST_PTH ---
PATIENT: FRANCIS ROSALES LOC: [facility] [place] U#:[id number] AGE/SX: 53/F ROOM: RE03/24/[address]: Dr. Danni Lynn MD : 1965 BED: DIS: 03/25/2019 SPEC #: [id number] RECD: 03/24/19 15:03 STATUS: JUNIOR JEAN #: [id number] WILLIAM: 03/24/19 11:[address]: Danni Lynn DEPT: SURGICAL PATHOLOGY RECD BY: Konstantin Barroso ENTERED: 03/25/19 13:25 SP TYPE: HYSTERECT OTHR DR: Dr. Chavez Coughlin, DO Tissues: Uterus, NOS Procedures: Surgery Specimen Level V HEADER OPERATION: ERAS, hysterectomy, [facility], bilateral salpingectomy, cysto PRE-OP DIAGNOSIS: Dysfunctional or functional uterine hemorrhage, Uterine fibroid TISSUE SUBMITTED: Uterus, cervix, bilateral fallopian tubes MICROSCOPIC DIAGNOSIS Uterus, cervix and bilateral fallopian tubes, vaginal hysterectomy and bilateral salpingectomy: Cervix - mild chronic inflammation. Endometrium - mildly disordered proliferative endometrium. Myometrium - adenomyosis. Bilateral fallopian tubes - no pathologic diagnosis. JORGE:mark 03/26/19 MICROSCOPIC DESCRIPTION Slides are reviewed. GROSS DESCRIPTION Received in fixative is one container labeled with the patient's name and designated uterus, cervix and bilateral fallopian tubes. The specimen consists of a hysterectomy specimen, previously partially bisected anterior posteriorly and consisting of uterus with cervix and attached bilateral fallopian tubes. The uterus with cervix weighs 183 gm and measures 12 x 7 x 6 cm. The serosal surface is penny, glistening. The ectocervical mucosa is unremarkable. The external os is slit-like in contour. The endocervical canal measures 4 cm in length and the endocervical mucosa is unremarkable. The triangular endometrial cavity measures 6 cm in length and 3 cm in width. The endometrium is congested without any mass lesion and measures 0.1 cm in thickness. Sections of the uterine wall do not reveal any mass lesion and measures up to 3.5 cm in thickness. The right fallopian tube measures 6 cm in length and 0.5 cm in diameter. The fimbrial end is identified. Sections reveal unremarkable cut surfaces. The left fallopian tube is similar appearance to right and measures 6.5 cm in length and 0.5 cm in diameter. Instrument Room Technician sections are submitted in eight cassettes as follows: 1 - anterior cervix, 2 - posterior cervix, 3 & 4 - anterior uterine wall, 5 & 6 - posterior uterine wall, 7 - right fallopian tube, 8 - left fallopian tube. / JORGE:mark 03/25/19 TC:5 CPT: 98015
--- NOTE | 2019-03-24 11:31 | DCINST_ITS ---
Discharge Diet: No Restrictions Discharge Activity: Return to Normal Activity, May Not Drive, May Shower May resume sexual activity in: 6-8 weeks Call your doctor if your incision/area has: Continuous Slow Oozing, Sudden Increased Bleeding, Increased Pain/ Swelling, Increased Redness, Foul Smelling Discharge Call your doctor if you observe: Fever of 101 or Higher, Inability to urinate, Inability to have a bowel movement, Using more than one pad per hour Allergies/Adverse Reactions: Allergies Penicillins [PCN] Allergy (Verified 03/24/19 10:22) Hives Medications to take at Discharge Escitalopram Oxalate 5 mg PO QHS 05/29/18 Omeprazole [Prilosec] 20 mg PO DAILY 05/29/18 Apixaban [Eliquis] 5 mg PO BID #90 tab 06/01/18 Gabapentin [Neurontin] 300 mg PO BID PRN PRN 06/08/18 fexofenadine 180 mg tablet 180 mg PO DAILY 07/17/18 ferrous gluconate 324 mg (38 mg iron) tablet 324 mg PO ONCE #60 tab 11/17/18 Naproxen [Naprosyn] 250 - 500 mg PO Q8H PRN PRN #30 tab 03/24/19 Oxycodone HCl/Acetaminophen [Percocet 5-325] 1 - 2 tablet PO Q6H PRN PRN 7 Days #15 tablet 03/24/19 The following prescriptions were given: Naproxen [Naprosyn] 250 - 500 mg PO Q8H PRN PRN #30 tab PRN Reason: MILD PAIN Transmission Status: Pending to [facility] Oxycodone HCl/Acetaminophen [Percocet 5-325] 1 - 2 tablet PO Q6H PRN PRN 7 Days #15 tablet PRN Reason: Pain Transmission Status: Sent to [facility] Orders to be completed after discharge: Type & Screen Time Frame: 03/17/19, Facility: [facility], Location: Laboratory 12 Lead EKG [CVS] Time Frame: 03/17/19, Facility: [facility], Location: Cardiovascular Services Basic Metabolic Profile (BMP) Time Frame: 03/17/19, Facility: [facility], Location: Laboratory CBC-Complete Blood Cnt No Diff Time Frame: 03/17/19, Facility: [facility], Location: Laboratory Partial Thromboplast Time Time Frame: 03/17/19, Facility: [facility], Location: Laboratory Prothrombin Time w/INR Time Frame: 03/17/19, Facility: [facility], Location: Laboratory Primary Care Physician: Chavez Coughlin DO [Primary Care Provider] - Test Results: Test results from this visit will be discussed in further detail at your follow- up appointment, if applicable. Please Follow Up With: Danni Lynn MD - [phone]
[2019-03-24] MEDS: Vasopressin 20 UNITS/ML Vial (12:30)
[2019-03-24] MEDS: Bupivacaine 0.25% 30 ML Vial OPERA.SITE (12:45)
[2019-03-24] MEDS: Ondansetron 4 MG/2 ML Vial IV (14:13)
[2019-03-24] MEDS: Lactated Ringers 1,000 ML 40 ML IV (14:15)
[2019-03-24] MEDS: Lactated Ringers 1,000 ML 70 ML IV ×2 (14:16→15:29)
[2019-03-24] MEDS: Ketorolac 30 MG/ML Syringe IV ×2 (15:05→18:47)
[2019-03-24] MEDS: oxyCODONE 5 MG Tablet PO ×2 (16:18→20:54)
[2019-03-24] MEDS: Phenazopyridine 95 MG Tablet PO ×2 (18:43→20:54)
[2019-03-24] MEDS: Docusate Sodium 100 MG Capsule PO (20:54)
[2019-03-24] MEDS: Escitalopram Oxalate 10 MG Tablet 5 MG PO (20:54)
--- NOTE | 2019-03-24 21:30 | SLEEP ---
Pt having difficulty with keeping a seal on current PAP mask, Refitted pt with New full face mask that maintains seal.
[2019-03-25] VITALS: BP 104/62; PULSE 94; RESP 18; TEMP 36.7; O2SAT 94
[2019-03-25] MEDS: Acetaminophen 500 MG Tablet 1000 MG PO ×2 (00:07→05:52)
[2019-03-25] MEDS: Ketorolac 30 MG/ML Syringe IV ×2 (00:09→05:52)
[2019-03-25] MEDS: Lactated Ringers 1,000 ML 70 ML IV (04:09)
[2019-03-25] MEDS: Phenazopyridine 95 MG Tablet PO (05:52)
[2019-03-25] MEDS: oxyCODONE 5 MG Tablet PO (06:26)
[2019-03-25 06:35] VITALS: BP 104/54; PULSE 96; RESP 18; TEMP 36.4; O2SAT 97
[2019-03-25 06:54] LABS: Hematocrit 37.9 % (37-47); Hemoglobin 12.2 g/dL (12.0-15.0); Mean Corp Hgb Conc 32.2 g/dL (32-36); Mean Corpuscular Hgb 30.5 pg (27.0-32.0); Mean Corpuscular Volume 94.8 fL (81-99); Platelet Count 311 K/mm3 (150-450); RBC Distribution Width CV 12.8 % (11.6-14.6); RBC Distribution Width SD 44.4 fl (35.1-43.9); White Blood Count 15.5 K/mm3 (4.4-11.0)
[2019-03-25 07:38] VITALS: O2SAT 91
--- NOTE | 2019-03-25 08:13 | PCM.PROGNOTE ---
Subjective: Doing well. No CP, SOB. Tolerating PO intake. Has voided QS. Ambulating. - Physical Exam Vitals/I&O's: Vital Signs Temp Pulse Resp BP Pulse Ox 97.6 F L 96 18 104/54 L 97 03/25/19 06:35 03/25/19 06:35 03/25/19 06:35 03/25/19 06:35 03/25/19 06:35 Oxygen Flow Rate (L/min) 6 Oxygen Delivery Method Room Air Weight: 245 lb 9.519 oz Body Mass Index (BMI) 46.4 Intake and Output for Last 24 Hours 03/23/19 03/24/19 03/25/19 23:59 23:59 23:59 Intake Total 2411.14 / 3491.14 1966.67 / 1965.67 Output Total 1350 / 1350 850 / 850 Balance 1061.14 / 2141.14 1116.67 / 1116.67 General: Oriented x3 Abdomen: Soft, Non-Distended, - - Dressings dry and intact. Minimal tenderness with exam. Laboratory Results 03/24/19 10:00: Urine Test Negative 03/24/19 10:24: WBC 8.3, RBC 4.43, Hgb 13.6, Hct 41.0, MCV 92.6, MCH 30.7, MCHC 33.2, RDW Std Deviation 43.7, RDW Coeff of Mansi 12.9, Plt Count 291, MPV 9.8 03/24/19 10:24: Sodium 139, Potassium 3.6, Chloride 107, Carbon Dioxide 27.0, Anion Gap 5, BUN 12, Creatinine 0.94, Estim Creat Clear Calc 52.83, Est GFR (MDRD) Af Amer 80, Est GFR (MDRD) Non-Af 66, BUN/Creatinine Ratio 12.7, Glucose 92, Calcium 8.8 03/24/19 10:24: PT 12.7, INR 1.0, APTT 26.9 03/24/19 10:24: Blood Type A NEGATIVE, Antibody Screen NEGATIVE 03/24/19 10:26: POC Glucose 84 03/25/19 06:18: WBC 15.5 H, RBC 4.00 L, Hgb 12.2, Hct 37.9, MCV 94.8, MCH 30.5, MCHC 32.2, RDW Std Deviation 44.4 H, RDW Coeff of Mansi 12.8, Plt Count 311, MPV 10.0 Current Medications Acetaminophen (Tylenol) 1,000 mg PO Q6 [facility] Last Admin: 03/25/19 05:52 Dose: 1,000 mg Documented by: Apixaban (Eliquis) 5 mg PO BID [facility] Docusate Sodium (Colace) 100 mg PO BID [facility] Last Admin: 03/24/19 20:54 Dose: 100 mg Documented by: Escitalopram Oxalate (Lexapro) 5 mg PO QHS [facility] Last Admin: 03/24/19 20:54 Dose: 5 mg Documented by: Ferrous Gluconate (Ferrous Gluconate) 324 mg PO DAILY@1200 DESHAWN Gabapentin (Neurontin) 300 mg PO BID PRN PRN PRN Reason: Pain Score 1-10/10 Lactated Ringer's () 1,000 mls @ 70 mls/hr IV .[id number] [facility] Stop: 03/25/19 14:06 Last Admin: 03/25/19 04:09 Dose: 70 mls/hr Documented by: Ketorolac Tromethamine (Toradol) 30 mg IV Q6 [facility] Stop: 03/25/19 18:01 Last Admin: 03/25/19 05:52 Dose: 30 mg Documented by: Loratadine (Claritin) 10 mg PO DAILY [facility] Magnesium Oxide (Mag-Ox 400) 400 mg PO DAILY PRN PRN PRN Reason: Constipation Nutritional Formula (Lactose Free) (Ensure Enlive) 120 ml PO TIDCM [facility] Ondansetron HCl (Zofran Odt) 4 mg PO Q6H PRN PRN PRN Reason: NAUSEA Oxycodone HCl (Oxyir) 5 - 10 mg PO Q4H PRN PRN PRN Reason: Pain Score 4-10/10 Last Admin: 03/25/19 06:26 Dose: 10 mg Documented by: Pantoprazole Sodium (Protonix) 20 mg PO DAILY [facility] Phenazopyridine HCl (Azo Standard) 95 mg PO TID [facility] Stop: 03/26/19 06:01 Last Admin: 03/25/19 05:52 Dose: 95 mg Documented by: Sodium Chloride () 10 - 40 ml IV UD PRN PRN Reason: SALINE FLUSH Medical Necessity - Tobacco Use Smoking Status: Never smoker Tobacco Use: Non-smoker Assessment/Plan All Active Problems (Last Updated 03/18/19 @ 11:53 by Alice Braun) History of pulmonary embolism (Acute) TODD (obstructive sleep apnea) (Acute) delivery delivered (Resolved) Neck Fusion (Resolved) Pneumonia (Acute) Pulmonary embolism (Resolved) Pulmonary embolism (Resolved) Pulmonary hypertension (Resolved) LAVH BS cysto POD#1 Routine postop LAV care RTO 2 and 6 wk postop appt Home today May resume anastasia
[2019-03-25 09:09] VITALS: BP 102/53; PULSE 93; RESP 18; TEMP 36.7; O2SAT 94
== END 2019-03-25 10:11 | disposition home or self-care (01) ==
LOC: SDC 09:48 → AC 09:49 → MS3 14:07
PROVIDERS: Family Provider Family Medicine; PCP Family Medicine; Referring Provider Obstetrics & Gynecology; Visit Provider Obstetrics & Gynecology
PROC: 0UT9FZZ Resection of Uterus, Via Natural or Artificial Opening With Percutaneous Endoscopic Assistance (ICD-10-PCS; CPT 58552; principal; 2019-03-24 11:15)
DX: D25.9 Leiomyoma of uterus, unspecified (principal); N72 Inflammatory disease of cervix uteri; N80.0 Endometriosis of uterus; D64.9 Anemia, unspecified; N93.8 Other specified abnormal uterine and vaginal bleeding; G47.33 Obstructive sleep apnea (adult) (pediatric); K21.9 Gastro-esophageal reflux disease without esophagitis; F41.9 Anxiety disorder, unspecified; E66.01 Morbid (severe) obesity due to excess calories; Z68.42 Body mass index [BMI] 45.0-49.9, adult; Z79.01 Long term (current) use of anticoagulants; Z79.899 Other long term (current) drug therapy; Z88.0 Allergy status to penicillin; Z86.711 Personal history of pulmonary embolism; Z86.718 Personal history of other venous thrombosis and embolism
CPT/HCPCS: 00940; 58552; 36415; 80048; 81025; 82962; 85027; 85610; 85730; 86850; 86900; 86901; 88307; 93005; 94762; J7120; J2405

== ENCOUNTER → 2019-05-12 12:43 | Outpatient (CLI) | payer MEDICAID, SELFPAY ==
[2019-05-05 13:53] VITALS: BMI 46.4
--- NOTE | 2019-05-12 12:44 | BI_ITS ---
MAMMOGRAPHY - BILATERAL SCREENING REASON FOR EXAM: Female, 53 years old. Routine annual screening examination. PERTINENT HISTORY: Grandmother with breast cancer. Aunt with breast cancer. TECHNIQUE: Digital bilateral breast vira (3D mammographic acquisition) in the CC and MLO projections. 2-D mediolateral oblique (MLO) and craniocaudad (CC) views of both breasts were obtained. CAD: Full Field Digital Mammography with Computer Added Detection was performed. COMPARISON: Comparison is made with prior study dated September 26, 2016. FINDINGS: Breast Composition: There are scattered areas of fibroglandular density. There are no dominant masses or suspicious calcifications. Stable small benign appearing bilateral axillary lymph nodes. No other significant abnormalities are identified. There has been no significant change since the prior study. BI/SCREEN MAMM (CAD) W/VIRA BILAT IMPRESSION: Stable bilateral screening mammogram. Yearly follow-up mammogram recommended. (A) ASSESSMENT CATEGORY: BIRADS Category 2: Benign. A letter regarding these results will be sent to the patient by the facility within 30 days. Approximately 10% of breast cancers are not detected by mammography. A normal mammogram should not delay biopsy of a clinically suspicious abnormality. [id number] Electronically Signed: Marko Hoffman, at 14:51 EST , Service support ,
== END ==
PROVIDERS: PCP Family Medicine; Referring Provider Nurse Practitioner Women's Health; Visit Provider Nurse Practitioner Women's Health
DX: Z12.31 Encounter for screening mammogram for malignant neoplasm of breast (principal); Z80.3 Family history of malignant neoplasm of breast
CPT/HCPCS: 77063; 77067

== ENCOUNTER → 2019-11-11 11:04 | Outpatient (CLI) | payer MEDICAID, SELFPAY ==
[2019-11-11 10:52] VITALS: BMI 49.1
[2019-11-13 12:57] LABS: 17-Hydroxyprogesterone < 10 ng/dL (.)
[2019-11-15 04:44] LABS: Testosterone Free 1.2 pg/mL (0.0-4.2)
== END ==
PROVIDERS: PCP Family Medicine; Referring Provider Obstetrics & Gynecology; Visit Provider Obstetrics & Gynecology
DX: L68.0 Hirsutism (principal); N91.1 Secondary amenorrhea
CPT/HCPCS: 36415; 82627; 83498; 84402; 82626

== ENCOUNTER 2020-01-18 12:20 | Emergency (ER) | payer MEDICAID, SELFPAY ==
[2019-12-08 07:56] VITALS: BMI 47.7
[2020-01-18 12:20] VITALS: BP 136/77; PULSE 72; RESP 15; TEMP 36.5; O2SAT 96; BMI 45.3
--- NOTE | 2020-01-18 13:52 | ED.RN ---
Pt left without being seen
== END 2020-01-18 13:53 | disposition left against medical advice (07) ==
LOC: ED 13:41
PROVIDERS: Emergency Provider Emergency Medicine; PCP Family Medicine
DX: S09.90XA Unspecified injury of head, initial encounter (principal); Z53.21 Procedure and treatment not carried out due to patient leaving prior to being seen by health care provider; X58.XXXA Exposure to other specified factors, initial encounter; Y93.9 Activity, unspecified; Y92.9 Unspecified place or not applicable; Y99.9 Unspecified external cause status

== ENCOUNTER → 2020-05-25 12:32 | Outpatient (CLI) | payer BC, MEDICAID, SELFPAY ==
[2020-05-16 08:59] VITALS: BMI 48.7
[2020-05-18 11:07] VITALS: BMI 48.3
--- NOTE | 2020-05-25 12:23 | BI_ITS ---
MAMMOGRAPHY - BILATERAL SCREENING REASON FOR EXAM: Female, 55 years old. Routine annual screening examination. PERTINENT HISTORY: Grandmother with breast cancer. Aunt with breast cancer. TECHNIQUE: Digital bilateral breast vira (3D mammographic acquisition) in the CC and MLO projections. 2-D mediolateral oblique (MLO) and craniocaudad (CC) views of both breasts were obtained. CAD: Full Field Digital Mammography with Computer Added Detection was performed. COMPARISON: Comparison is made with prior study dated 11/10/2019 and 09/26/2016. FINDINGS: Breast Composition: There are scattered areas of fibroglandular density. There are no dominant masses or suspicious calcifications. Stable small benign-appearing bilateral axillary lymph nodes. No other significant abnormalities are identified. There has been no significant change since the prior study. BI/SCRN MAMM (CAD)W/VIRA BILAT IMPRESSION: Stable bilateral screening mammogram. Yearly follow-up mammogram recommended. (A) ASSESSMENT CATEGORY: BIRADS Category 2: Benign. A letter regarding these results will be sent to the patient by the facility within 30 days. Approximately 10% of breast cancers are not detected by mammography. A normal mammogram should not delay biopsy of a clinically suspicious abnormality. [id number] Electronically Signed: Marko Hoffman MD at 13:05 EST , Service support ,
== END ==
PROVIDERS: PCP Family Medicine; Referring Provider Obstetrics & Gynecology; Visit Provider Obstetrics & Gynecology
DX: Z12.31 Encounter for screening mammogram for malignant neoplasm of breast (principal)
CPT/HCPCS: 77063; 77067

== ENCOUNTER → 2020-05-31 11:00 | Outpatient (CLI) | payer BC, MEDICAID, SELFPAY ==
[2020-05-18 11:07] VITALS: BMI 48.3
== END ==
PROVIDERS: PCP Family Medicine; Visit Provider Internal Medicine Critical Care Medicine
DX: Z45.89 Encounter for adjustment and management of other implanted devices (principal)
CPT/HCPCS: 98960; G0463

== ENCOUNTER → 2020-10-17 13:56 | Outpatient (CLI) | payer MEDICAID, SELFPAY ==
[2020-05-18 11:07] VITALS: BMI 48.3
[2020-10-17 15:56] LABS: Erythrocyte Sedimentation Rate 21 mm/hr (0-30)
[2020-10-17 15:58] LABS: ALB/GLOB Ratio 0.7 RATIO (0.9-2.4); AST(SGOT) 30 U/L (15-37); Alanine Aminotransfer ALT/SGPT 49 U/L (13-56); Albumin, Serum 3.2 g/dL (3.2-5.0); Alkaline Phosphatase 138 U/L (45-117); Anion Gap 7 (5-15); BUN 8 mg/dL (7-18); BUN/Creat Ratio 8.1 RATIO (10-20); Chloride 103 mmol/L (98-107); Creatinine, Serum 0.99 mg/dL (0.55-1.02); EST Glomerular Filtration Rate 62 mL/min (>60); Est Glom Filt Rate - Afr Amer 75 mL/min (>60); Globulin 4.3 g/dL (2.2-4.2); Glucose 218 mg/dL (74-106); Potassium 3.5 mmol/L (3.5-5.1); Protein, Total 7.5 g/dL (6.4-8.2); Rheumatoid Factor < 10.0 IU/mL (<15); Sodium Level 140 mmol/L (136-145); Thyroid Stim Hormone (TSH) 2.65 uIU/mL (0.358-3.74)
[2020-10-20 13:30] LABS: CCP IgG Antibodies 6 units (0-19)
== END ==
PROVIDERS: PCP Family Medicine; Referring Provider Family Medicine; Visit Provider Family Medicine
DX: M25.531 Pain in right wrist (principal); M25.532 Pain in left wrist; R60.9 Edema, unspecified
CPT/HCPCS: 36415; 80053; 84443; 85652; 86140; 86200; 86431

== ENCOUNTER 2020-10-22 14:18 | Emergency (ER) | payer MEDICAID, SELFPAY ==
[2020-05-18 11:07] VITALS: BMI 48.3
[2020-10-22 14:19] VITALS: BP 125/66; PULSE 74; RESP 20; TEMP 37.2; O2SAT 97; BMI 51.5
[2020-10-22 14:30] VITALS: TEMP 36.9
--- NOTE | 2020-10-22 14:36 | RAD_ITS ---
STUDY: X-RAY CHEST REASON FOR EXAM: Female, 55 years old. cough TECHNIQUE: PA and lateral views of the chest. COMPARISON: 05/29/2018 FINDINGS: The lungs are clear and expanded. There is no demonstrated pleural abnormality. Normal size heart. Normal mediastinum and deysi. Normal visualized pulmonary arteries. There is atherosclerotic tortuosity of the aortic arch and descending thoracic aorta. There are diffuse degenerative changes of the visualized thoracic spine. Fusion hardware of the lower cervical spine. There is no demonstrated abnormality of the visualized soft tissue structures of the upper abdomen. RAD/Chest PA and Lateral IMPRESSION: Stable, nonacute x-ray examination of the chest. Electronically Signed: Hussein Vance MD ([place]) at 14:55 EDT , Service support ,
--- NOTE | 2020-10-22 14:37 | EX.ED.VIS.UR ---
HPI HPI - URI History of Present Illness Chief Complaint: Cold Sx Informant: patient and spouse/S.O. Onset/Context/Timing Onset: Days Context: Gradual Onset Timing: Continuous Current Severity: Mild Maximum Severity: Mild Associated Symptoms Associated Symptoms: Positive for Nasal Congestion, Myalgias and Nonproductive cough; Negative for Headache, Sinus Pressure, Nausea, Vomiting, Diarrhea, Shortness of Breath and Hemoptysis Narrative Narrative: Middle-aged female Saturday started having sore throat nasal congestion. Sore throat is resolved. Now she has a nonproductive cough. Family member had similar symptoms last week. She denies any shortness of breath. She denies any fever or chills. She denies any nausea, vomiting or diarrhea. No hemoptysis. Prior similar symptoms: Yes Recent Illness/Hospitalization: No ROS ROS ED ROS Narrative As detailed already. Review of Systems ROS Unobtainable: Denies due to encephalopathy Constitutional Constitutional ED: Denies chills or fever(s) Eyes Eyes: Denies change in vision ENT ENT ED: Reports sore throat; Denies ear pain Cardiovascular Cardiovascular: Denies chest pain or palpitations Respiratory/Chest Respiratory/Chest: Reports cough; Denies dyspnea, dyspnea on exertion or sputum Gastrointestinal Gastrointestinal: Denies abdominal pain, diarrhea, nausea or vomiting Genitourinary Genitourinary ED: Denies dysuria Musculoskeletal Musculoskeletal: Denies myalgias Integumentary Denies rash Neurologic Neurologic: Denies headache(s) Psychiatric Psychiatric: Denies depression Endocrine Endocrinology: Denies polyuria Hematologic/Lymphatic Hematologic/Lymphatic: Denies easy bruising Allergic/Immunologic Allergic/Immunologic ED: Denies urticaria PFSH PFS Medical History (Updated 10/22/20 @ 14:[address] Manav Gee MD) Dysfunctional or functional uterine hemorrhage Morbid obesity Pneumonia Pulmonary embolism Uterine fibroid Home Medications omeprazole 20 mg PO DAILY 05/29/18 [History Last Taken 03/24/19] gabapentin 300 mg PO BID PRN PRN 06/08/18 [History Last Taken Unknown] fexofenadine 180 mg tablet 180 mg PO DAILY 07/17/18 [History Last Taken Unknown] escitalopram oxalate 20 mg tablet 20 mg PO DAILY #30 tablet 07/18/20 [Rx Last Taken Unknown] hydrocodone-homatropine [Hycodan] 5 ml PO Q4H PRN 4 Days #5 ml 10/22/20 [Rx Last Taken Unknown] Allergy/AdvReac Type Severity Reaction Status Date / Time Penicillins [PCN] Allergy Hives Verified 10/22/20 14:18 Family History Father Myocardial infarction Mother Diabetes Diverticula of colon Surgical History delivery delivered Neck Fusion S/P laparoscopic assisted vaginal hysterectomy (LAVH) (~03/24/19) Social History Smoking Status: Never smoker alcohol intake: never substance use type: does not use caffeine: Yes what type of physical activity do you participate in: walking seatbelt use: always do you feel safe at home: Yes additional social history: [place]- unemployed Patient goes to school for social work EXAM Physical Exam Narrative Exam Narrative: Well-appearing middle-aged female. No acute distress. Vital signs stable afebrile. Pulse ox 97% on room air no signs hypoxia. HEENT exam unremarkable. Lungs clear to auscultation bilaterally. Dry cough. No rales, rhonchi nor wheezing. Heart regular rhythm no murmur. Abdomen soft nontender. Moving all 4 extremities. Nontender no edema. Otherwise unremarkable. Const Vital Signs: 10/22/20 14:19 10/22/20 14:29 10/22/20 14:30 Temperature 99 F 98.4 F Temperature Source Temporal Oral Pulse Rate 74 Respiratory Rate 20 H Respiratory Effort Normal Respiratory Depth Normal Respiratory Pattern Normal Blood Pressure 125/66 H Blood Pressure Mean 85 Pulse Ox 97 Oxygen Delivery Method Room Air HEENT Reports TM's clear and moist mucous membranes normocephalic and atraumatic Face and Sinus: Negative for sinus tenderness or facial tenderness External Ear: external ears normal, mastoids normal and no preauricular adenopathy; Negative for preauricular adenopathy External Auditory Canal: EAC's normal Tympanic Membrane ED: Yes TM's clear and TM's normal bilaterally Tympanic Membrane: TM's normal bilaterally Eyes PERRL and EOMs intact bilaterally Neck no lymphadenopathy, supple, no meningeal signs and no JVD General: Negative for anterior neck swelling Resp normal respiratory effort and clear to auscultation bilaterally Auscultation: Negative for rales, rhonchi or wheezes Cardio S1 normal heart sound, S2 normal heart sound and no murmurs Rate: regular rate Rhythm: regular rhythm GI non-tender, non-distended and no masses Auscultation: normoactive bowel sounds Palpation: soft; Negative for tender Back/Spine no CVA tenderness and normal ROM Extremity normal to inspection and full ROM General Extremety ED: Negative for cyanosis or tenderness General Extremity: Negative for cyanosis Neuro oriented x3 and CN's II-XII intact bilaterally Sensorium / Orientation: alert, oriented to person, oriented to place, oriented to time and orientation impaired Motor Exam: strength 5/5 throughout Psych mental status grossly normal Skin Lesions: no lesions Rashes: no rashes MDM MDM MDM Narrative Medical decision making narrative: Clinically and historically patient has a viral syndrome. She has not had a Covid vaccination but did not want Covid testing today when offered. She did want a chest x-ray which is being obtained. Clinically I do not hear pneumonia. I think this is a viral URI. Radiography Diagnostic Testing: Radiology Impression Chest X-Ray 10/22/20 14:36 IMPRESSION: Stable, nonacute x-ray examination of the chest. Electronically Signed: Hussein Vance MD ([place]) at 14:55 EDT , Service support , Chest x-ray AP and lateral 2 views interpreted by myself and radiologist shows no acute abnormality. No infiltrate. Discussed and went over the x-ray with the patient. Discharge Plan Triage Chief Complaint: Cold Sx ED Provider: Manav Gee Dx/Rx/DC Orders Clinical Impression: Upper respiratory infection, viral Instructions: ED URI, Viral, No Abx (Adult) Prescriptions: New hydrocodone-homatropine [Hycodan] 5-1.5 mg/5 mL (5 mL) syrup 5 ml PO Q4H PRN (Reason: cough) 4 Days Qty: 5 RF: 0 No Action fexofenadine [Margie Allergy] 180 mg tablet 180 mg PO DAILY RF: 0 omeprazole 20 MG capsule 20 mg PO DAILY RF: 0 gabapentin 300 MG capsule 300 mg PO BID PRN PRN (Reason: Pain) RF: 0 escitalopram oxalate 20 mg tablet 20 mg PO DAILY Qty: 30 RF: 12 Primary Care Provider: Chavez Coughlin Referrals: Chavez Coughlin DO [Primary Care Provider] - 1 Week if not improving Activity Restrictions/Additional Instructions: Symptomatic treatment. Tylenol and Motrin for any body aches. Plenty of fluids and rest. Follow-up with your doctor if not improving. The Hycodan cough syrup as needed. Do not drive or drink alcohol with it. Disposition Disposition: Home, Self Care
== END 2020-10-22 15:08 | disposition home or self-care (01) ==
LOC: ED 15:06
PROVIDERS: Emergency Provider Emergency Medicine; PCP Family Medicine
DX: J06.9 Acute upper respiratory infection, unspecified (principal); E66.01 Morbid (severe) obesity due to excess calories; Z79.899 Other long term (current) drug therapy; Z86.711 Personal history of pulmonary embolism; Z87.01 Personal history of pneumonia (recurrent)
CPT/HCPCS: 71046; 99283

== ENCOUNTER → 2020-11-09 09:55 | Outpatient (CLI) | payer MEDICAID, SELFPAY ==
[2020-11-09 09:55] VITALS: BMI 48.3
== END ==
PROVIDERS: PCP Family Medicine; Referring Provider Family Medicine; Visit Provider Family Medicine
DX: R73.9 Hyperglycemia, unspecified (principal)
CPT/HCPCS: 36415; 82533

== ENCOUNTER 2020-12-13 13:00 | Outpatient (RCR) | payer MEDICAID, SELFPAY ==
[2020-11-09 09:55] VITALS: BMI 48.3
== END 2020-12-13 23:59 | disposition home or self-care (01) ==
LOC: DC 13:00
PROVIDERS: PCP Family Medicine; Visit Provider Family Medicine
DX: E11.9 Type 2 diabetes mellitus without complications (principal)
CPT/HCPCS: 97802; G0108

== ENCOUNTER 2020-12-17 22:07 | Inpatient (IN) | payer MEDICAID, SELFPAY ==
[2020-12-17 22:07] VITALS: BP 89/72; PULSE 84; RESP 22; TEMP 36.9; O2SAT 90; O2SAT 94; BMI 49.6
[2020-12-17 22:10] VITALS: BP 89/72; PULSE 84; RESP 22; TEMP 36.9; O2SAT 94
--- NOTE | 2020-12-17 22:20 | EKG12_ITS ---
Test Reason : SOB Blood Pressure : / mmHG Vent. Rate : 083 BPM Atrial Rate : 083 BPM P-R Int : 130 ms QRS Dur : 092 ms QT Int : 374 ms P-R-T Axes : 050 040 023 degrees QTc Int : 439 ms Normal sinus rhythm Low voltage QRS Borderline ECG Confirmed by NICOLE RAMIREZ, ELKIN ([id number]), film or videotape editor BALDEMAR WOODSON ([id number]) on 12/20/2020 9:37:24 AM Referred By: JIMENEZ Confirmed By:ELKIN RIVERA MD
[2020-12-17 22:39] VITALS: O2SAT 95
[2020-12-17 22:52] VITALS: PULSE 91; RESP 22
--- NOTE | 2020-12-17 22:58 | EDS_ITS ---
HPI History of Present Illness Chief Complaint: Shortness of Breath Informant: patient and family Narrative Narrative: Patient is a 55-year-old female with history of obstructive sleep apnea, COPD, obesity, double pneumonia, diet-controlled diabetes mellitus and PE (not currently on anticoagulation) presenting with worsening shortness of breath. Patient's was diagnosed and admitted for hypoxia related with Covid today. Patient states has been having symptoms for the past 3 days. She had fever as high as 101 as well as cough. She had diarrhea the first day of her symptoms but that is resolved. She notes she has had some urinary symptoms. She developed a headache today. She is mildly short of breath. Her cough is been nonproductive. Patient has had Tylenol at 630. No other complaints at this time. She has not had her Covid vaccine. [facility] Medical History (Updated 12/18/20 @ 04:[address] Brenda Rahman DO) COPD exacerbation Diabetes mellitus type II, controlled Dysfunctional or functional uterine hemorrhage Morbid obesity TODD (obstructive sleep apnea) Pneumonia Pulmonary embolism Uterine fibroid Home Medications omeprazole 20 mg PO DAILY 05/29/18 [History Last Taken 03/24/19] fexofenadine 180 mg tablet 180 mg PO DAILY 07/17/18 [History Last Taken Unknown] escitalopram oxalate 20 mg tablet 20 mg PO DAILY #30 tablet 07/18/20 [Rx Last Taken Unknown] hydrocodone-homatropine [Hycodan] 5 ml PO Q4H PRN 4 Days #5 ml 10/22/20 [Rx Last Taken Unknown] Allergy/AdvReac Type Severity Reaction Status Date / Time Penicillins [PCN] Allergy Hives Verified 12/17/20 22:10 Family History Father Myocardial infarction Mother Diabetes Diverticula of colon Surgical History delivery delivered Neck Fusion S/P laparoscopic assisted vaginal hysterectomy (LAVH) (~03/24/19) Social History (Updated 12/18/20 @ 02:[address] Jacy Pedroza MD) household members: spouse Smoking Status: Never smoker alcohol intake: never substance use type: does not use caffeine: Yes what type of physical activity do you participate in: walking seatbelt use: always do you feel safe at home: Yes additional social history: [place]- unemployed Patient goes to school for social work ROS ROS ED Constitutional Constitutional ED: Reports chills and fever(s) Eyes Eyes: Denies blurry vision or change in vision ENT ENT ED: Denies ear pain, rhinorrhea or sore throat Cardiovascular Cardiovascular: Denies chest pain or palpitations Respiratory/Chest Respiratory/Chest: Reports cough and dyspnea Gastrointestinal Gastrointestinal: Reports diarrhea; Denies abdominal pain, nausea or vomiting Genitourinary Genitourinary ED: Reports dysuria and urinary frequency; Denies hematuria Musculoskeletal Musculoskeletal: Reports myalgias; Denies arthralgias Integumentary Denies rash Neurologic Neurologic: Reports headache(s); Denies weakness Psychiatric Psychiatric: Denies anxiety or depression EXAM Physical Exam Const Vital Signs: 12/17/20 22:07 12/17/20 22:10 12/17/20 22:39 Temperature 98.5 F 98.5 F Temperature Source Temporal Temporal Pulse Rate 84 84 Respiratory Rate 22 H 22 H Respiratory Effort Normal Non-Labored Respiratory Depth Normal Respiratory Pattern Normal Blood Pressure 89/72 L 89/72 L Blood Pressure Mean 77 77 Pulse Ox 94 94 Oxygen Delivery Method Room Air Room Air Room Air Oxygen Flow Rate (L/min) 12/17/20 22:52 12/17/20 23:18 12/18/20 00:10 Temperature 98.9 F Temperature Source Temporal Pulse Rate 91 91 87 Respiratory Rate 22 H 22 H 20 H Respiratory Effort Respiratory Depth Respiratory Pattern Tachypnea Blood Pressure 137/74 H Blood Pressure Mean 95 Pulse Ox 89 96 Oxygen Delivery Method Room Air Nasal Cannula Oxygen Flow Rate (L/min) 2 12/18/20 00:32 Temperature Temperature Source Pulse Rate Respiratory Rate Respiratory Effort Respiratory Depth Respiratory Pattern Blood Pressure Blood Pressure Mean Pulse Ox 95 Oxygen Delivery Method Nasal Cannula Oxygen Flow Rate (L/min) 2 Positive well nourished, well developed and obese General Appearance ED: well developed Nutritional Appearance: obese HEENT Reports dry mucous membranes Mouth ED: Yes dry mucous membranes Mouth: dry mucous membranes Eyes PERRL and EOMs intact bilaterally Neck no lymphadenopathy, supple, no meningeal signs and no JVD Chest Wall inspection of chest normal Resp normal respiratory effort Resp Narrative: Persistent bronchial cough on exam Auscultation: rhonchi and diminished lung sounds bilateral lower; Negative for rales or wheezes Cardio regular rate, regular rhythm and no murmurs GI normal to inspection, nondistended, normoactive bowel sounds Palpation: soft Neuro oriented x3 and CN's II-XII intact bilaterally Sensorium / Orientation: alert Motor Exam: Negative for general weakness Psych mental status grossly normal Skin no rashes or lesions noted and no wounds MDM MDM MDM Narrative Medical decision making narrative: Patient evaluated for worsening shortness of breath. Patient appears ill but nontoxic. She is 90-92% on room air at rest however with ambulation she drops to 85%. She is placed on supplemental oxygen. She has test positive for COVID-19 infection. She has elevated D-dimer and CTA obtained which does not show any acute PE but does show multifocal infiltrate consistent with a viral pneumonia. Patient's inflammatory markers are elevated. Urinalysis reviewed after patient went to the floor and is consistent with i nfection. Urine cultures added on. Admitting physician notified of results. Lab Data Attestation: I reviewed the patient's lab results. Labs: Laboratory Results - last 24 hr 12/17/20 12/17/20 12/17/20 22:30 22:30 22:30 WBC RBC Hgb Hct MCV MCH MCHC RDW Std Deviation RDW Coeff of Mansi Plt Count MPV Immature Gran % (Auto) Neut % (Auto) Lymph % (Auto) [place] % (Auto) Eos % (Auto) Baso % (Auto) Absolute Neuts (auto) Absolute Lymphs (auto) Nucleated RBC % Fibrinogen Cancelled D-Dimer Quant (PE/DVT) Cancelled Sodium 137 Potassium 3.8 Chloride 104 Carbon Dioxide 26.0 Anion Gap 7 BUN 12 Creatinine 0.84 Estim Creat Clear Calc 57.77 Est GFR (MDRD) Af Amer 91 Est GFR (MDRD) Non-Af 75 BUN/Creatinine Ratio 14.3 Glucose 150 H Lactic Acid Calcium 8.6 Ferritin Total Bilirubin 0.20 AST 100 H ALT 101 H Alkaline Phosphatase 111 Lactate Dehydrogenase 376 H Troponin I High Sens 8 C-React Prot Ext Range B-Natriuretic Peptide 7.9 Total Protein 7.2 Albumin 2.8 L Globulin 4.4 H Albumin/Globulin Ratio 0.6 L Procalcitonin Urine Color Urine Clarity Urine pH Ur Specific Pedro Urine Protein Urine Glucose (UA) Urine Ketones Urine Occult Blood Urine Nitrite Urine Bilirubin Urine Urobilinogen Ur Leukocyte Esterase Urine RBC Urine WBC Ur Squamous Epith Cells Ur Renal Epithelial Cell Urine Bacteria Urine Mucus 12/17/20 12/17/20 12/17/20 22:30 22:30 22:30 WBC 4.2 L RBC 4.76 Hgb 14.1 Hct 43.1 MCV 90.5 MCH 29.6 MCHC 32.7 RDW Std Deviation 46.5 H RDW Coeff of Mansi 13.9 Plt Count 194 MPV 10.0 Immature Gran % (Auto) 0.500 Neut % (Auto) 66.0 Lymph % (Auto) 25.5 [place] % (Auto) 7.3 Eos % (Auto) 0.2 Baso % (Auto) 0.5 Absolute Neuts (auto) 2.8 Absolute Lymphs (auto) 1.08 Nucleated RBC % 0 Fibrinogen D-Dimer Quant (PE/DVT) Sodium Potassium Chloride Carbon Dioxide Anion Gap BUN Creatinine Estim Creat Clear Calc Est GFR (MDRD) Af Amer Est GFR (MDRD) Non-Af BUN/Creatinine Ratio Glucose Lactic Acid Cancelled Calcium Ferritin Total Bilirubin AST ALT Alkaline Phosphatase Lactate Dehydrogenase Troponin I High Sens C-React Prot Ext Range B-Natriuretic Peptide Total Protein Albumin Globulin Albumin/Globulin Ratio Procalcitonin 0.26 H Urine Color Urine Clarity Urine pH Ur Specific Pedro Urine Protein Urine Glucose (UA) Urine Ketones Urine Occult Blood Urine Nitrite Urine Bilirubin Urine Urobilinogen Ur Leukocyte Esterase Urine RBC Urine WBC Ur Squamous Epith Cells Ur Renal Epithelial Cell Urine Bacteria Urine Mucus 12/17/20 12/17/20 12/18/20 23:20 23:20 00:17 WBC RBC Hgb Hct MCV MCH MCHC RDW Std Deviation RDW Coeff of Mansi Plt Count MPV Immature Gran % (Auto) Neut % (Auto) Lymph % (Auto) [place] % (Auto) Eos % (Auto) Baso % (Auto) Absolute Neuts (auto) Absolute Lymphs (auto) Nucleated RBC % Fibrinogen 419 D-Dimer Quant (PE/DVT) 1.13 H* Sodium Potassium Chloride Carbon Dioxide Anion Gap BUN Creatinine Estim Creat Clear Calc Est GFR (MDRD) Af Amer Est GFR (MDRD) Non-Af BUN/Creatinine Ratio Glucose Lactic Acid 0.9 Calcium Ferritin 161 Total Bilirubin AST ALT Alkaline Phosphatase Lactate Dehydrogenase Troponin I High Sens C-React Prot Ext Range 80.40 H B-Natriuretic Peptide Total Protein Albumin Globulin Albumin/Globulin Ratio Procalcitonin Urine Color Urine Clarity Urine pH Ur Specific Pedro Urine Protein Urine Glucose (UA) Urine Ketones Urine Occult Blood Urine Nitrite Urine Bilirubin Urine Urobilinogen Ur Leukocyte Esterase Urine RBC Urine WBC Ur Squamous Epith Cells Ur Renal Epithelial Cell Urine Bacteria Urine Mucus 12/18/20 00:28 WBC RBC Hgb Hct MCV MCH MCHC RDW Std Deviation RDW Coeff of Mansi Plt Count MPV Immature Gran % (Auto) Neut % (Auto) Lymph % (Auto) [place] % (Auto) Eos % (Auto) Baso % (Auto) Absolute Neuts (auto) Absolute Lymphs (auto) Nucleated RBC % Fibrinogen D-Dimer Quant (PE/DVT) Sodium Potassium Chloride Carbon Dioxide Anion Gap BUN Creatinine Estim Creat Clear Calc Est GFR (MDRD) Af Amer Est GFR (MDRD) Non-Af BUN/Creatinine Ratio Glucose Lactic Acid Calcium Ferritin Total Bilirubin AST ALT Alkaline Phosphatase Lactate Dehydrogenase Troponin I High Sens C-React Prot Ext Range B-Natriuretic Peptide Total Protein Albumin Globulin Albumin/Globulin Ratio Procalcitonin Urine Color Yellow Urine Clarity Sl. Cloudy Urine pH 6.0 Ur Specific Pedro 1.015 Urine Protein 15 H Urine Glucose (UA) Normal Urine Ketones 5 H Urine Occult Blood 150 H Urine Nitrite Negative Urine Bilirubin Negative Urine Urobilinogen Normal Ur Leukocyte Esterase 500 H Urine RBC 5-10 SEEN Urine WBC 50-100 SEEN Ur Squamous Epith Cells 5-10 SEEN Ur Renal Epithelial Cell 0-5 SEEN Urine Bacteria 2+ Urine Mucus 0 SEEN Radiography Chest X-Ray - ED: 1 View, Read by ED Physician, Read by Radiologist, Right Infiltrate and Left Infiltrate Diagnostic Testing: Radiology Impression Chest X-Ray 12/17/20 23:00 IMPRESSION: Bilateral pulmonary infiltrate. at 2320 Reported and signed by: Chavez Savage MD Electronically Signed: Chavez Savage MD at 23:18 EDT Tel , Service support , Chest CTA 12/18/20 00:34 IMPRESSION: 1. Patchy bilateral pulmonary infiltrate compatible with clinical history of COVID pneumonia. 2. Chronic residual nonocclusive remnant of pulmonary embolus within left pulmonary artery but no acute pulmonary embolus identified. Mild pulmonary arterial hypertension again suggested. 3. Hepatic steatosis and small hiatal hernia also noted. Individualized dose optimization techniques were used for this CT. at 0238 Reported and signed by: Chavez Savage MD Electronically Signed: Chavez Savage MD at 2:37 EDT Tel , Service support , Rhythm Strip Rhythm Strip: Sinus Rhythm Rate: 83 Ectopy: None EKG Initial EKG: Attestation: I personally reviewed and interpreted this EKG as follows: Interpretation: Sinus Rhythm Comments: Normal sinus rhythm at a rate of 83 Normal axis Normal intervals Normal ST segments Discharge Plan Dx/Rx/DC Orders Clinical Impression: Hypoxia, Pneumonia due to COVID-19 virus Disposition Disposition: Acute Care Hospital [facility] Discharge Date/Time: 12/18/20 02:15
[2020-12-17 22:59] LABS: Absolute Lymphocyte Count 1.08 X10^3/uL (0.83-4.51); Absolute Neutrophil Count 2.8 X10^3/uL (2.0-7.7); Basophil# 0.02 X10^3/uL; Basophil% 0.5 % (0-1); Eosinophil# 0.01 X10^3/uL; Eosinophils% 0.2 % (0-5); Hematocrit 43.1 % (37-47); Hemoglobin 14.1 g/dL (12.0-15.0); Lymphocyte # 1.08 X10^3/ul (0.83-4.51); Lymphocyte % 25.5 % (19-41); Mean Corp Hgb Conc 32.7 g/dL (32-36); Mean Corpuscular Hgb 29.6 pg (27.0-32.0); Mean Corpuscular Volume 90.5 fL (81-99); Monocyte# 0.31 X10^3/uL; Monocyte% 7.3 % (0-10); NRBC Flagged by Analyzer 0 % (0-5); Neutrophil # 2.79 X10^3/uL (2.7-7.7); Platelet Count 194 K/mm3 (150-450); RBC Distribution Width CV 13.9 % (11.6-14.6); RBC Distribution Width SD 46.5 fl (35.1-43.9); Red Blood Count 4.76 M/mm3 (4.2-5.4); White Blood Count 4.2 K/mm3 (4.4-11.0)
--- NOTE | 2020-12-17 23:00 | RAD_ITS ---
HISTORY: cough EXAMINATION/TECHNIQUE: XR Chest 1 View portable AP view COMPARISON: Two-view chest x-ray from 10/22/20 FINDINGS: LINES/DEVICES: cook manager leads. LUNGS: No overt pulmonary edema. Hazy bilateral mid lung and basilar pulmonary opacities. No sizable pleural effusion. No pneumothorax detected. MEDIASTINUM AND CARDIOVASCULAR STRUCTURES: Heart size within normal limits for imaging technique. Central airways and mediastinal contour are unremarkable. BONES AND SOFT TISSUES: Cervical spinal fusion hardware noted. RAD/Chest 1 View (Portable) IMPRESSION: Bilateral pulmonary infiltrate. at 2320 Reported and signed by: Chavez Savage MD Electronically Signed: Chavez Savage MD at 23:18 EDT Tel , Service support ,
[2020-12-17 23:08] LABS: ALB/GLOB Ratio 0.6 RATIO (0.9-2.4); AST(SGOT) 100 U/L (15-37); Alanine Aminotransfer ALT/SGPT 101 U/L (13-56); Albumin, Serum 2.8 g/dL (3.2-5.0); Alkaline Phosphatase 111 U/L (45-117); Anion Gap 7 (5-15); BUN 12 mg/dL (7-18); BUN/Creat Ratio 14.3 RATIO (10-20); Calcium,Total 8.6 mg/dL (8.5-10.1); Chloride 104 mmol/L (98-107); Creatinine, Serum 0.84 mg/dL (0.55-1.02); EST Glomerular Filtration Rate 75 mL/min (>60); Est Glom Filt Rate - Afr Amer 91 mL/min (>60); Estimated Creatinine Clearance 57.77 ml/min; Globulin 4.4 g/dL (2.2-4.2); Glucose 150 mg/dL (74-106); LDH 376 U/L (84-246); Potassium 3.8 mmol/L (3.5-5.1); Protein, Total 7.2 g/dL (6.4-8.2); Sodium Level 137 mmol/L (136-145); Troponin-I HS 8 pg/mL (3.0-54.0)
[2020-12-17 23:17] LABS: Procalcitonin 0.26 ng/mL (0.00-0.09)
[2020-12-17 23:18] VITALS: PULSE 91; RESP 22; O2SAT 89
[2020-12-17 23:35] LABS: BNP,B-Type NATRIURETIC PEPTIDE 7.9 pg/mL (0-100)
[2020-12-18] VITALS (18 sets, daily range): BP systolic 107–137; BP diastolic 54–74; PULSE 78–93; RESP 12–24; TEMP 36.7–38.3; O2SAT 85–97; BMI 51.4
--- NOTE | 2020-12-18 00:34 | CT_ITS ---
HISTORY: hypoxia, + covid, elevate ddimer EXAMINATION: CTA Chest W/ Contrast Injection (and W/O Contrast Images if performed) TECHNIQUE: Helically acquired images were obtained of the chest following IV contrast as per pulmonary angiogram protocol with MIP and MPR reconstructions. A radiation dose optimization technique was used for this scan. IV Contrast dosage and agent: 100mL [id number] COMPARISON: CTA chest from 05/29/18 FINDINGS: No acute pulmonary arterial filling defects identified. Small residual nonocclusive linear web eccentrically located within bifurcation of left pulmonary artery (series 2 axial image 110). Bilateral occlusive pulmonary emboli present on prior exam. Main pulmonary artery remains slightly enlarged but there is no evidence of right heart strain. Heart size stable. No significant pericardial effusion. No thoracic aortic aneurysm or dissection. Great vessels are patent. No pathologically enlarged mediastinal lymph nodes. Unremarkable thyroid gland. Multifocal patchy bilateral consolidation and groundglass pulmonary opacities with superimposed dependent atelectasis. Airways are patent. No pneumothorax or significant pleural effusion. Mildly elevated right hemidiaphragm. Partially imaged fatty liver. Small hiatal hernia. Mild degenerative changes along spine. Lower cervical anterior spinal fusion hardware noted. CT/CTA Chest W/WO Contrast IMPRESSION: 1. Patchy bilateral pulmonary infiltrate compatible with clinical history of COVID pneumonia. 2. Chronic residual nonocclusive remnant of pulmonary embolus within left pulmonary artery but no acute pulmonary embolus identified. Mild pulmonary arterial hypertension again suggested. 3. Hepatic steatosis and small hiatal hernia also noted. Individualized dose optimization techniques were used for this CT. at 0238 Reported and signed by: Chavez Savage MD Electronically Signed: Chavez Savage MD at 2:37 EDT Tel , Service support ,
[2020-12-18 00:39] LABS: Mucous, Urine 0 SEEN /hpf (<or=2+)
[2020-12-18] MEDS: dexAMETHasone 4 MG Tablet 6 MG PO (00:43)
[2020-12-18 00:53] LABS: Color, Urine Yellow (Yellow); Glucose, Dipstick Normal (Normal); Ketone-Dipstick 5 mg/dl (Negative); Leukocyte Esterase-Dipstick 500 /ul (Negative); Nitrite-Dipstick Negative (Negative); Occult Blood-Urine 150 /ul (Negative); Protein-Dipstick 15 mg/dl (Negative); Specific Gravity, Urine 1.015 (1.002-1.030); Urine Bilirubin Dipstick Negative (Negative); Urine Clarity Sl. Cloudy (Clear); Urine Urobilinogen Normal (Normal)
[2020-12-18 00:54] LABS: D-Dimer Quantitative (DVT/PE) 1.13 FEU/ug/m (0.27-0.49)
--- NOTE | 2020-12-18 00:54 | HP.PCM.HOS_ITS ---
HPI - General General Date of Admission: 12/18/20 Date of Service: 12/18/20 Chief Complaint: Dyspnea, cough, worsening, COVID exposure. HPI Narrative The patient is a 55 y/o F w/ PMHx: GERD, Morbid Obesity, Hx PE, TODD, Anxiety and Depression, Allergic Rhinitis, COPD not on any routine inhalers, recently diagnosed Diabetes mellitus type II currently attempting diet/lifestyle changes who presents to the [facility] ED on 12/17/20 with history of 3 days of fever, chills, headaches, sore throat, body aches, abdominal cramping with loose stools, cough and dyspnea with COVID exposure from her spouse who is hospitalized. Patient's was hospitalized on 12/17/2020 secondary to confusion, weakness, dyspnea with poor oral intake with + COVID testing. Both patient and her spouse did not have the vaccination stating that it had not yet been FDA approved. She also notes that her older son present had symptoms starting 2 weeks prior and has im proved but her younger son currently had recent onset of symptoms. Work-up in the ED included T 98.5, heart 84, BP initially 89/72, respiratory rate 22, 90- 94% on room air initially however decreased to 89% on room air, CBC with WC 4.2, hemoglobin 14.1, platelet 194 without marked shift, CMP with glucose 150, AST/ALT 100/101, LDH 376, high-sensitivity troponin 8, procalcitonin 0.26, BNP 7.9, chest x-ray with bilateral pulmonary infiltrates, rapid Covid antigen positive, blood culture pending per ED. In the ED patient ministered albuterol inhaler as well as decadron 6 mg IV x 1. Coags pending per ED physician and CTPA. [facility] Medical History (Updated 12/18/20 @ 02:[address] Jacy Pedroza MD) COPD exacerbation Diabetes mellitus type II, controlled Dysfunctional or functional uterine hemorrhage Morbid obesity TODD (obstructive sleep apnea) Pneumonia Pulmonary embolism Uterine fibroid Home Medications omeprazole 20 mg PO DAILY 05/29/18 [History Last Taken 03/24/19] gabapentin 300 mg PO BID PRN PRN 06/08/18 [History Last Taken Unknown] fexofenadine 180 mg tablet 180 mg PO DAILY 07/17/18 [History Last Taken Unknown] escitalopram oxalate 20 mg tablet 20 mg PO DAILY #30 tablet 07/18/20 [Rx Last Taken Unknown] hydrocodone-homatropine [Hycodan] 5 ml PO Q4H PRN 4 Days #5 ml 10/22/20 [Rx Last Taken Unknown] azelastine 205.5 mcg (0.15 %) nasal spray 1 spray INTRANASAL BID #30 ml 10/27/20 [Rx Last Taken Unknown] fluticasone propionate 50 mcg/actuation nasal spray,suspension 1 spray IN TRANASAL BID #16 g 10/27/20 [Rx Last Taken Unknown] Allergy/AdvReac Type Severity Reaction Status Date / Time Penicillins [PCN] Allergy Hives Verified 12/17/20 22:10 Family History Father Myocardial infarction Mother Diabetes Diverticula of colon Surgical History delivery delivered Neck Fusion S/P laparoscopic assisted vaginal hysterectomy (LAVH) (~03/24/19) Social History (Updated 12/18/20 @ 02:[address] Jacy Pedroza MD) household members: spouse Smoking Status: Never smoker alcohol intake: never substance use type: does not use caffeine: Yes what type of physical activity do you participate in: walking seatbelt use: always do you feel safe at home: Yes additional social history: Cabrera- unemployed Patient goes to school for social work ROS ROS Narrative Admission Review of Systems: CONSTITUTIONAL: No weight loss, + fever, chills, weakness or fatigue. HEENT: + CISNEROS, sore throat, congestoin. Eyes: No visual loss, blurred vision, double vision or yellow sclerae. Ears, Nose, Throat: No hearing loss, sneezing. SKIN: No rash or itching, lesions, wounds. CARDIOVASCULAR: + chest pain, No palpitations, edema, orthopnea, syncopal events. RESPIRATORY: + shortness of breath, cough without marked sputum, No wheezing, hemoptysis. GASTROINTESTINAL: + anorexia, diarrhea, abdominal pain, No nausea, vomiting, melena, BRBPR. GENITOURINARY: No dysuria, frequency, urgency or retention. NEUROLOGICAL: + headache, No dizziness, syncope, paralysis, ataxia, numbness or tingling in the extremities, focal weakness, change in bowel or bladder control, seizure. MUSCULOSKELETAL: + muscle, back pain, joint pain or stiffness. HEMATOLOGIC: No anemia, bleeding or bruising. LYMPHATICS: No enlarged nodes. No history of splenectomy. PSYCHIATRIC: + history of depression or anxiety. ENDOCRINOLOGIC: No reports of sweating, cold or heat intolerance. No polyuria or polydipsia. ALLERGIES: No history of asthma, hives, eczema or rhinitis. Vital Signs Vital Signs Vital Signs: 12/17/20 22:07 12/17/20 22:10 12/17/20 22:39 Temperature 98.5 F 98.5 F Temperature Source Temporal Temporal Pulse Rate 84 84 Respiratory Rate 22 H 22 H Respiratory Effort Normal Non-Labored Respiratory Depth Normal Respiratory Pattern Normal Blood Pressure 89/72 L 89/72 L Blood Pressure Mean 77 77 Pulse Ox 94 94 Oxygen Delivery Method Room Air Room Air Room Air Oxygen Flow Rate (L/min) 12/17/20 22:52 12/17/20 23:18 12/18/20 00:10 Temperature 98.9 F Temperature Source Temporal Pulse Rate 91 91 87 Respiratory Rate 22 H 22 H 20 H Respiratory Effort Respiratory Depth Respiratory Pattern Tachypnea Blood Pressure 137/74 H Blood Pressure Mean 95 Pulse Ox 89 96 Oxygen Delivery Method Room Air Nasal Cannula Oxygen Flow Rate (L/min) 2 12/18/20 00:32 Temperature Temperature Source Pulse Rate Respiratory Rate Respiratory Effort Respiratory Depth Respiratory Pattern Blood Pressure Blood Pressure Mean Pulse Ox 95 Oxygen Delivery Method Nasal Cannula Oxygen Flow Rate (L/min) 2 Weight Weight: 263 lb Body Mass Index (BMI) 49.6 Physical Exam Narrative Physical Examination: General: Awake, alert, oriented x 3 and cooperative, seated upright in the ED bed, fatigued and ill-appearing. Skin: Normal color, normal turgor, no icterus, no cyanosis. HEENT: AT/NC, EOMI, PERRLA, dry MM, no carotid bruits or JVD noted. Lungs: Severely diffusely diminished, greater bases, coughing elicited with deep inspiratory effort attempts, no evidence of respiratory distress, no rales, ronchi or wheezing. Heart: Regular rate and rhythm; no gallop, rub audible. Abdomen: Soft, morbidly obese, NTTP, unable to discern distention given habitus, distant mildly hyperactive BS, no obvious HSM; however, habitus makes examination difficult. Extremities: No cyanosis, clubbing, or edema. Neurological: Patient awake, alert, oriented x 3, cognitive function intact; pupils equally reactive to light and accommodation, cranial nerves II-XII grossly normal, moving all 4 extremities, no focal deficits, strength severely global degree secondary to acute presentation. Psychiatric: Affect appears fatigued, ill-appearing, no acute evidence of depressive or anxiety feelings. Results Lab / Micro Data Result Diagrams: 12/17/20 22:30 12/17/20 22:30 Labs: Laboratory Results - last 24 hr 12/17/20 22:30: Fibrinogen Cancelled, D-Dimer Quant (PE/DVT) Cancelled 12/17/20 22:30: B-Natriuretic Peptide 7.9 12/17/20 22:30: Sodium 137, Potassium 3.8, Chloride 104, Carbon Dioxide 26.0, Anion Gap 7, BUN 12, Creatinine 0.84, Estim Creat Clear Calc 57.77, Est GFR (MDRD) Af Amer 91, Est GFR (MDRD) Non-Af 75, BUN/Creatinine Ratio 14.3, Glucose 150 H, Calcium 8.6, Total Bilirubin 0.20, AST 100 H, ALT 101 H, Alkaline Phosphatase 111, Lactate Dehydrogenase 376 H, Troponin I High Sens 8, Total Protein 7.2, Albumin 2.8 L, Globulin 4.4 H, Albumin/Globulin Ratio 0.6 L 12/17/20 22:30: Procalcitonin 0.26 H 12/17/20 22:30: WBC 4.2 L, RBC 4.76, Hgb 14.1, Hct 43.1, MCV 90.5, MCH 29.6, MCHC 32.7, RDW Std Deviation 46.5 H, RDW Coeff of Mansi 13.9, Plt Count 194, MPV 10.0, Immature Gran % (Auto) 0.500, Neut % (Auto) 66.0, Lymph % (Auto) 25.5, [place] % (Auto) 7.3, Eos % (Auto) 0.2, Baso % (Auto) 0.5, Absolute Neuts (auto) 2.8, Absolute Lymphs (auto) 1.08, Nucleated RBC % 0 12/17/20 22:30: Lactic Acid Cancelled Micro: Microbiology 12/17/20 22:40 Interface Orders SARS-CoV-2 Antigen (Rapid) - Final SARS-CoV-2 (COVID 19) Rhythm Strip Rhythm Strip: Sinus Rhythm Rate: 83 Ectopy: None Radiology Impression Chest X-Ray 12/17/20 23:00 IMPRESSION: Bilateral pulmonary infiltrate. at 2320 Reported and signed by: Chavez Savage MD Electronically Signed: Chavez Savage MD at 23:18 EDT Tel , Service support , Assessment & Plan Assessment/Plan (1) Pneumonia due to COVID-19 virus: (2) Hypoxia: PLAN: The patient is a 55 y/o F w/ PMHx: GERD, Morbid Obesity, Hx PE, TODD, Anxiety and Depression, Allergic Rhinitis, COPD not on any routine inhalers, recently diagnosed Diabetes mellitus type II currently attempting diet/lifestyle changes who presents to the [facility] ED on 12/17/20 with history of 3 days of fever, chills, headaches, sore throat, body aches, abdominal cramping with loose stools, cough and dyspnea with COVID exposure from her spouse who is lacii tez. 1. Acute Hypoxia secondary to Acute Bilateral Pneumonia secondary to Acute Viral Syndrome, COVID-19 with associated hypotension: Will admit to the PCU given concurrent hypotension, maintain on telemetry, maintain under COVID precautions, will maintain on oxygen with wean as tolerated to room air, PRN albuterol, HOB, IS parameters w/ pending sputum cultures, respiratory viral panel and urine antigens, will obtain CRP, Ferritin in addition to ED work-up already obtained, continue supportive care including q 2 hour turning including prone given no prone bed availability and judicious hydration, closely monitor for worsening status for ARDS and multiorgan failure, will consult Infectious disease, will initiate and continue IV decadron x 10 doses. Unfortunately remdesivir stock unavailable. 2. Leukopenia: Secondary to #1, CBC with WBC 4.2 however no marked shift or lymphopenia, neutropenia, will trend CBC. 3. Elevated LFTs: Secondary to #1, AST/ALT 100/101, will continue to treat as noted above and trend CMP. 4. Diabetes mellitus type II: Patient recently diagnosed and attempting lifestyle/diet changes, not on any regimen, ADA diet, accu checks w/ ISS. 5. Anxiety and depression: We will continue patient home escitalopram regimen. 6. Allergic rhinitis: We will continue patient home fluticasone, fexofenadine and azelastine home regimen. 7. Morbid Obesity: Weight loss and lifestyle changes encouraged. 8. GERD: We will continue patient home PPI. 9. Chronic COPD: Patient notes history, not on any routine inhalers, denies tobacco use history, will encourage head of bed, I-S, as needed albuterol. 10. TODD: CPAP nightly. 11. DVT prophylaxis: SCDs, Lovenox. 12. CODE status: Patient does not have healthcare power of deputy attorney general or living will in place. Given Covid status with notable hypoxia and bilateral pneumonia, discussed CODE status at length including difference between FULL code, DNR-CCA and DNR-CC status. Following discussions about the differences in these status, requested Full Code status. Discussed air Vo usage as well as BiPAP usage prio r to intubation and patient is amenable. Advanced Care Planning Face to Face Time: 16 minutes. Charges/Coding Visit Charges Inpatient E&M: 90676 Init Hosp L3 Procedures Hospitalists Procedures: 26318 Advncd Care Plan 30 Min
[2020-12-18 00:55] LABS: Lactic Acid 0.9 mmol/L (0.4-1.9)
[2020-12-18 00:57] LABS: Fibrinogen 419 mg/dl (203-444)
[2020-12-18 01:01] LABS: Bacteria 2+ /hpf (None Seen); Red Blood Cells-Urine 5-10 SEEN /hpf (0-5); Renal Epithelial Cells 0-5 SEEN /hpf (0-5); Squamous Epithelial Cells - UA 5-10 SEEN /hpf (5-10); White Blood Cells 50-100 SEEN /hpf (0-5)
[2020-12-18 01:26] LABS: Ferritin 161 ng/mL (8-252)
[2020-12-18] MEDS: 0.9% Normal Saline 1,000 ML 100 ML IV (02:20)
--- NOTE | 2020-12-18 02:57 | PCS.PANDOC ---
PANDEMIC DOCUMENTATION INITIATED: Date: 12/05/2020 Time: 190
[2020-12-18] MEDS: Acetaminophen 325 MG Tablet 650 MG PO (03:48)
[2020-12-18] MEDS: Insulin Lispro 100 UNIT/ML INSULN.PEN SC ×4 (06:43→21:12)
[2020-12-18 06:50] LABS: Bedside Glucose 251 mg/dL (70-110)
[2020-12-18 07:03] LABS: Absolute Lymphocyte Count 0.49 X10^3/uL (0.83-4.51); Basophil# 0.02 X10^3/uL; Basophil% 0.4 % (0-1); Hematocrit 43.9 % (37-47); Lymphocyte # 0.49 X10^3/ul (0.83-4.51); Lymphocyte % 10.5 % (19-41); Mean Corp Hgb Conc 31.9 g/dL (32-36); Mean Corpuscular Hgb 29.5 pg (27.0-32.0); Mean Corpuscular Volume 92.6 fL (81-99); Mean Platelet Vol. 10.1 fl (6.2-12.0); Monocyte# 0.12 X10^3/uL; Monocyte% 2.6 % (0-10); NRBC Flagged by Analyzer 0 % (0-5); Neutrophil # 4.02 X10^3/uL (2.7-7.7); Neutrophil % 85.9 % (47-70); POSITIVE DIFFERENTIAL YES; Platelet Count 192 K/mm3 (150-450); RBC Distribution Width CV 13.8 % (11.6-14.6); RBC Distribution Width SD 47.5 fl (35.1-43.9); Red Blood Count 4.74 M/mm3 (4.2-5.4); White Blood Count 4.7 K/mm3 (4.4-11.0)
[2020-12-18 07:05] LABS: Differential Indicated SCAN CRITERIA MET
[2020-12-18 07:41] LABS: ALB/GLOB Ratio 0.7 RATIO (0.9-2.4); AST(SGOT) 128 U/L (15-37); Alanine Aminotransfer ALT/SGPT 115 U/L (13-56); Albumin, Serum 2.9 g/dL (3.2-5.0); Alkaline Phosphatase 114 U/L (45-117); Anion Gap 6 (5-15); BUN 10 mg/dL (7-18); BUN/Creat Ratio 12.3 RATIO (10-20); Calcium,Total 8.4 mg/dL (8.5-10.1); Chloride 105 mmol/L (98-107); Creatinine, Serum 0.82 mg/dL (0.55-1.02); EST Glomerular Filtration Rate 78 mL/min (>60); Est Glom Filt Rate - Afr Amer 94 mL/min (>60); Estimated Creatinine Clearance 59.18 ml/min; Globulin 4.4 g/dL (2.2-4.2); Glucose 238 mg/dL (74-106); Potassium 3.8 mmol/L (3.5-5.1); Protein, Total 7.3 g/dL (6.4-8.2); Sodium Level 138 mmol/L (136-145)
[2020-12-18 07:52] LABS: Hemoglobin A1c 7.1 % (3.8-5.6)
[2020-12-18] MEDS: Azelastine HCl NASAL.SRY 1 SPRAY NASAL ×2 (10:38→21:11)
[2020-12-18] MEDS: Fluticasone 0.05% 1 SPRAY NASAL.SRY NASAL ×2 (10:40→21:11)
[2020-12-18] MEDS: Pantoprazole Sodium 20 MG Tablet PO (10:40)
[2020-12-18] MEDS: Loratadine 10 MG Tablet PO (10:40)
[2020-12-18] MEDS: Escitalopram Oxalate 20 MG Tablet PO (10:41)
[2020-12-18] MEDS: Enoxaparin 40 MG/0.4 ML Syringe SC (10:41)
[2020-12-18] MEDS: dexAMETHasone 2 MG TABLET 6 MG PO (11:45)
[2020-12-18 12:06] LABS: Bedside Glucose 301 mg/dL (70-110)
--- NOTE | 2020-12-18 13:39 | PCM.HOSP.N ---
Hospitalist Note Mrs. Coleman is a 55-year-old white female presented to the emergency department on 12/17/2020 and was admitted early in the a.m. on 12/18/2020 with a chief complaint of a 3-day history of fever, chills, headaches, sore throat, body aches, abdominal cramping with diarrhea, cough and dyspnea who has had known Covid exposure from her spouse who is currently hospitalized in the intensive care unit. She is not currently vaccinated. In the emergency department her oxygen saturations were 89% on room air and improved to 90 to 94% with 1 to 2 L. Her CBC was unremarkable. She had mild transaminitis with an elevated LDH. Her troponin was negative on admission. Her chest x-ray showed bilateral pulmonary infiltrates consistent with Covid pneumonia. Her rapid Covid test was positive. She was given Decadron 6 mg in the emergency department and admitted to the PCU for further care. This morning her vital signs have remained stable and she has been able to be weaned to 1 L nasal cannula. Her current oxygen saturations are 94% on this 1 L. Upon exam she does note significant dyspnea with exertion but states she does not have much trouble breathing at rest. Her D-dimer was mildly elevated just greater than 1 so a CTA of her chest was performed and showed patchy bilateral infiltrates with chronic residual nonocclusive remnant of a PE in the left pulmonary artery but no acute PE was identified, a small hiatal hernia, and hepatic steatosis. We will start her on Eliquis 10 mg twice daily given the fact that she has old nonocclusive clot and this could be contributing and make her at risk for further DVT/PE. Continue Decadron. There is currently no remdesivir available. Wean oxygen as able. If the patient remains stable we may be able to discharge her with supplemental oxygen in the next 24 to 48 hours. Discharge diagnoses: Mild hypoxia secondary to COVID-19 pneumonia COVID-19 pneumonia Chronic pulmonary embolus Transaminitis Morbid obesity Hepatic steatosis Hiatal hernia GERD Depression Anxiety Allergic rhinitis DM-2
[2020-12-18] MEDS: APIXABAN 5 MG TABLET 10 MG PO ×2 (15:44→21:13)
[2020-12-18 17:15] LABS: Bedside Glucose 279 mg/dL (70-110)
[2020-12-18 21:50] LABS: Bedside Glucose 298 mg/dL (70-110)
[2020-12-19] VITALS (13 sets, daily range): BP systolic 101–128; BP diastolic 52–76; PULSE 67–88; RESP 12–35; TEMP 36.6–37.6; O2SAT 85–94
[2020-12-19 06:31] LABS: Absolute Lymphocyte Count 0.82 X10^3/uL (0.83-4.51); Absolute Neutrophil Count 4.6 X10^3/uL (2.0-7.7); Basophil# 0.01 X10^3/uL; Basophil% 0.2 % (0-1); Hematocrit 44.8 % (37-47); Hemoglobin 13.9 g/dL (12.0-15.0); Lymphocyte # 0.82 X10^3/ul (0.83-4.51); Lymphocyte % 13.9 % (19-41); Mean Corpuscular Hgb 29.3 pg (27.0-32.0); Mean Corpuscular Volume 94.5 fL (81-99); Mean Platelet Vol. 10.2 fl (6.2-12.0); Monocyte# 0.47 X10^3/uL; NRBC Flagged by Analyzer 0 % (0-5); Neutrophil # 4.59 X10^3/uL (2.7-7.7); Neutrophil % 77.6 % (47-70); Platelet Count 241 K/mm3 (150-450); RBC Distribution Width CV 13.8 % (11.6-14.6); RBC Distribution Width SD 48.5 fl (35.1-43.9); Red Blood Count 4.74 M/mm3 (4.2-5.4); White Blood Count 5.9 K/mm3 (4.4-11.0)
[2020-12-19] MEDS: Insulin Lispro 100 UNIT/ML INSULN.PEN SC ×4 (06:33→21:20)
[2020-12-19 06:41] LABS: Bedside Glucose 203 mg/dL (70-110)
[2020-12-19 07:03] LABS: ALB/GLOB Ratio 0.7 RATIO (0.9-2.4); AST(SGOT) 80 U/L (15-37); Alanine Aminotransfer ALT/SGPT 101 U/L (13-56); Albumin, Serum 2.8 g/dL (3.2-5.0); Alkaline Phosphatase 107 U/L (45-117); Anion Gap 5 (5-15); BUN 14 mg/dL (7-18); BUN/Creat Ratio 16.7 RATIO (10-20); Calcium,Total 8.9 mg/dL (8.5-10.1); Chloride 106 mmol/L (98-107); Creatinine, Serum 0.84 mg/dL (0.55-1.02); EST Glomerular Filtration Rate 75 mL/min (>60); Est Glom Filt Rate - Afr Amer 91 mL/min (>60); Estimated Creatinine Clearance 57.77 ml/min; Globulin 4.3 g/dL (2.2-4.2); Glucose 253 mg/dL (74-106); Protein, Total 7.1 g/dL (6.4-8.2); Sodium Level 139 mmol/L (136-145)
[2020-12-19] MEDS: Azelastine HCl NASAL.SRY 1 SPRAY NASAL ×2 (09:40→21:23)
[2020-12-19] MEDS: Loratadine 10 MG Tablet PO (09:41)
[2020-12-19] MEDS: APIXABAN 5 MG TABLET 10 MG PO ×2 (09:41→21:24)
[2020-12-19] MEDS: Pantoprazole Sodium 20 MG Tablet PO (09:41)
[2020-12-19] MEDS: Escitalopram Oxalate 20 MG Tablet PO (09:41)
[2020-12-19] MEDS: Fluticasone 0.05% 1 SPRAY NASAL.SRY NASAL ×2 (09:42→21:23)
[2020-12-19] MEDS: dexAMETHasone 2 MG TABLET 6 MG PO (09:42)
[2020-12-19] MEDS: Acetaminophen 325 MG Tablet 650 MG PO ×2 (10:19→17:59)
--- NOTE | 2020-12-19 10:32 | CASEMGMT ---
LORENA BANDA assessment: Face to Face with patient for initial transition planning/care coordination assessment. RN VERONIKA introduced self and role at [facility], pt voices understanding and consents to assessment. Pt is on 1-2L at rest and needed 5L w/ exertion. Pt is A/Ox4 and answers all questions appropriately. Pt states her is also admitted in the ICU for COVID. Care providers, pharmacy, and demographics verified. Presentation: Pt w/ cough/SOB/fever, recent COVID exposure Admitting dx: COVID pna, hypoxia PCP: Madyson Specialists: vishal Hurst Preferred Pharmacy: [facility] Insurance: ELICIA [place] Prescription Benefit: [place] ELICIA Living Will/HPOA: Pt states does not have LW/HPOA and declines AD info. LNOK: Cabrera Coleman, ; Petey Cano, daughter Living Arrangements: Pt states lives with in 2 story home and states no concerns at home. Pt states is normally independent with ADL's. Pt states no concerns getting groceries/supplies once home. Transportation: Pt states drives self and states no transportation concerns. DME/HHC: Pt states has the following DME: walker, BSC, and cpap thru [employer]. Pt states no preference for DME company, if qualifies for home oxygen and pt is aware that [employer] does not supply oxygen. Pt states no hx of HHC or SNF in the past. Pt states no concerns with going home at time of discharge. Pt is unemployed. Pt states no hx of smoking cigarettes or drinking ETOH. Pt states no further concerns/needs. CM to follow for home oxygen testing, PT/OT evals, and any further discharge planning/needs. Advised pt to ask for CM if any further questions/concerns/needs arise, voices understanding. Pt Goal: Home Plan: Home, pending home oxygen testing/PT/OT evals. S[place]en LORENA BANDA
--- NOTE | 2020-12-19 11:38 | PCM.PN.HOSP ---
Subjective Subjective Patient states she is feeling poorly today. Has been room air with sats of approximately 92% at rest but needed 5 L with ambulation at this point. She complains of poor appetite with poor p.o. intake and severe shortness of breath with exertion. Objective Data Objective Data Vital Signs: Vital Signs Temp Pulse Resp BP Pulse Ox 99.7 F H 81 18 128/76 H 92 12/19/20 09:10 12/19/20 11:00 12/19/20 09:10 12/19/20 09:10 12/19/20 09:10 Oxygen Flow Rate (L/min) [ 5 AMBULATING with Oxygen #2] Oxygen Flow Rate (L/min) [ 3 AMBULATING with Oxygen #1] Oxygen Flow Rate (L/min) [ 0 AMBULATING on Room Air] Oxygen Flow Rate (L/min) [At 0 REST on Room Air] Oxygen Flow Rate (L/min) 1 Oxygen Delivery Method Room Air Weight: 125.1 kg Body Mass Index (BMI) 51.4 Intake & Output: Intake and Output for Last 24 Hours 12/17/20 12/18/20 12/19/20 23:59 23:59 23:59 Intake Total 1730 / 1730 0 / 0 Output Total 0 / 0 Balance 1730 / 1730 0 / 0 Lab / Micro Data Result Diagrams: 12/19/20 05:40 12/19/20 05:40 Labs: Laboratory Results - last 24 hr 12/18/20 11:44: POC Glucose 301 H 12/18/20 16:46: POC Glucose 279 H 12/18/20 21:07: POC Glucose 298 H 12/19/20 05:40: WBC 5.9, RBC 4.74, Hgb 13.9, Hct 44.8, MCV 94.5, MCH 29.3, MCHC 31.0 L, RDW Std Deviation 48.5 H, RDW Coeff of Mansi 13.8, Plt Count 241, MPV 10.2, Immature Gran % (Auto) 0.300, Neut % (Auto) 77.6 H, Lymph % (Auto) 13.9 L, [place] % (Auto) 8.0, Eos % (Auto) 0.0, Baso % (Auto) 0.2, Absolute Neuts (auto) 4.6, Absolute Lymphs (auto) 0.82 L, Nucleated RBC % 0 12/19/20 05:40: Sodium 139, Potassium 4.0, Chloride 106, Carbon Dioxide 28.0, Anion Gap 5, BUN 14, Creatinine 0.84, Estim Creat Clear Calc 57.77, Est GFR (MDRD) Af Amer 91, Est GFR (MDRD) Non-Af 75, BUN/Creatinine Ratio 16.7, Glucose 253 H, Calcium 8.9, Total Bilirubin 0.30, AST 80 H, ALT 101 H, Alkaline Phosphatase 107, Total Protein 7.1, Albumin 2.8 L, Globulin 4.3 H, Albumin/Globulin Ratio 0.7 L 12/19/20 06:32: POC Glucose 203 H Micro: Microbiology 12/18/20 00:28 Urine, Random Urine Culture - Final Mixed Gram Pos & Gram Neg Org 12/18/20 03:35 Mucosa - Nose Respiratory Panel (PCR) - Final 12/18/20 00:28 Urine, Clean Catch Legionella Antigen - Final 12/18/20 00:28 Urine, Clean Catch Streptococcus pneumoniae Antigen (M - Final 12/17/20 22:40 Interface Orders SARS-CoV-2 Antigen (Rapid) - Final SARS-CoV-2 (COVID 19) Rhythm Strip Rhythm Strip: Sinus Rhythm Rate: 83 Ectopy: None Physical Exam Const alert and oriented x3 Constitutional Narrative: Morbidly obese white female lying in bed in a dark room, appears as if she does not feel well, currently on 1 L nasal cannula with an SPO2 of 94%, nontoxic Exam Limitations: no limitations Nutritional Appearance: morbidly obese HEENT head/scalp atraumatic and moist oral mucous membranes HEENT Narrative: No thrush noted on exam Head and Scalp: normocephalic Resp normal respiratory effort, no retractions, no use of accessory muscles and clear to auscultation bilaterally Resp Narrative: Diminished diffusely but clear, distant lung sounds secondary to body habitus Auscultation: Negative for crackles, rales, rhonchi or wheezes Cardio regular rate, regular rhythm, S1 normal heart sound, S2 normal heart sound, no murmurs, no rub, no gallops, no clicks and no JVD GI normal to inspection, nondistended, normoactive bowel sounds, soft to palpation, non-tender and non-distended Extremity no clubbing, cyanosis or edema Peripheral Pulses: Yes pulses 2+ throughout Neuro oriented x3, moves all extremities and no focal motor deficits Sensorium / Orientation: awake and alert Speech: speech normal Psych Psych Narrative: Affect flat, mood depressed Mood & Affect: depressed Assessment & Plan Assessment/Plan (1) Pneumonia due to COVID-19 virus: (2) Hypoxia: (3) Transaminitis: (4) Pulmonary embolus: PLAN: Acute respiratory insufficiency secondary to COVID-19 pneumonia -Patient is currently only requiring 1 to 2 L at rest but up to 5 L with exertion to maintain oxygen saturation greater than 90% -Start remdesivir today as supplies have been reestablished--> day 1 of 5 -Continue Decadron day 2 of 10 -Supportive care -Mobility -Incentive spirometer -Patient is aware that she is still at risk for decompensation -Symptoms started 12/14/2020--> will need quarantine until 01/03/2021 DM-2 -Patient is on a diet control and lifestyle change regimen at home -Sugars are markedly elevated with Decadron -Start Lantus 15 units nightly -Continue Accu-Cheks -Continue SSI History of pulmonary embolism -CTA done yesterday shows no acute PE but shows small residual nonocclusive pulmonary embolism in the left bifurcation of the pulmonary artery with bilateral occlusive pulmonary emboli present on previous exam from 05/29/2018 -With residual clot left and increased risk factors for clot formation with COVID-[address] on full dose Eliquis 10 mg twice daily for 7 days and then Eliquis 5 mg twice daily -Patient was not fully anticoagulated on admission -Need to consider at least 3 months treatment with Eliquis after discharge given history of PE with residual clot on CT and COVID-19 infection Transaminitis -Relatively stable -Suspect related to COVID-19 pneumonia -Patient also has hepatic steatosis GERD/hiatal hernia -Continue PPI Depression/anxiety -Continue home medications Allergic rhinitis -Continue home medications DVT prophylaxis -Full anticoagulation with Eliquis CODE STATUS -Full code Charges/Coding Visit Charges Inpatient E&M: 65472 Subs Hosp L2
[2020-12-19 12:36] LABS: Bedside Glucose 215 mg/dL (70-110)
[2020-12-19 17:16] LABS: Bedside Glucose 328 mg/dL (70-110)
[2020-12-19 21:55] LABS: Bedside Glucose 251 mg/dL (70-110)
[2020-12-20] VITALS (13 sets, daily range): BP systolic 101–115; BP diastolic 51–72; PULSE 59–85; RESP 12–34; TEMP 36.6–37.4; O2SAT 20–94
[2020-12-20 06:46] LABS: Bedside Glucose 147 mg/dL (70-110)
[2020-12-20 07:51] LABS: Mean Corp Hgb Conc 31.1 g/dL (32-36); Mean Corpuscular Hgb 29.4 pg (27.0-32.0); Mean Corpuscular Volume 94.5 fL (81-99); Mean Platelet Vol. 10.2 fl (6.2-12.0); Platelet Count 240 K/mm3 (150-450); Red Blood Count 4.76 M/mm3 (4.2-5.4); White Blood Count 6.4 K/mm3 (4.4-11.0)
[2020-12-20 08:17] LABS: ALB/GLOB Ratio 0.7 RATIO (0.9-2.4); AST(SGOT) 76 U/L (15-37); Alanine Aminotransfer ALT/SGPT 97 U/L (13-56); Albumin, Serum 2.9 g/dL (3.2-5.0); Alkaline Phosphatase 103 U/L (45-117); Anion Gap 5 (5-15); BUN 16 mg/dL (7-18); BUN/Creat Ratio 18.8 RATIO (10-20); Calcium,Total 8.9 mg/dL (8.5-10.1); Chloride 104 mmol/L (98-107); Creatinine, Serum 0.85 mg/dL (0.55-1.02); EST Glomerular Filtration Rate 74 mL/min (>60); Est Glom Filt Rate - Afr Amer 90 mL/min (>60); Estimated Creatinine Clearance 57.09 ml/min; Globulin 4.3 g/dL (2.2-4.2); Glucose 156 mg/dL (74-106); Potassium 3.8 mmol/L (3.5-5.1); Protein, Total 7.2 g/dL (6.4-8.2); Sodium Level 140 mmol/L (136-145)
[2020-12-20] MEDS: Azelastine HCl NASAL.SRY 1 SPRAY NASAL ×2 (09:44→22:01)
[2020-12-20] MEDS: Escitalopram Oxalate 20 MG Tablet PO (09:48)
[2020-12-20] MEDS: APIXABAN 5 MG TABLET 10 MG PO ×2 (09:48→22:01)
[2020-12-20] MEDS: Loratadine 10 MG Tablet PO (09:48)
[2020-12-20] MEDS: Pantoprazole Sodium 20 MG Tablet PO (09:48)
[2020-12-20] MEDS: dexAMETHasone 2 MG TABLET 6 MG PO (09:49)
[2020-12-20] MEDS: Fluticasone 0.05% 1 SPRAY NASAL.SRY NASAL ×2 (09:51→22:00)
[2020-12-20] MEDS: 0.9% Saline Lock 10 ML Syringe IV (10:32)
[2020-12-20] MEDS: Acetaminophen 325 MG Tablet 650 MG PO ×2 (10:32→22:31)
[2020-12-20] MEDS: Insulin Lispro 100 UNIT/ML INSULN.PEN SC ×3 (12:06→22:02)
[2020-12-20 12:21] LABS: Bedside Glucose 217 mg/dL (70-110)
--- NOTE | 2020-12-20 16:22 | CHAPLAIN ---
Type of Pastoral Visit ___ Initial Visit ___ Follow-up Visit ___ On-call Visit ___ General Patient Visit ___ Spiritual Assessment ___ Family Conference ___ Bereavement ___ Rapid Response ___ Code Blue _x__ Other (describe below) Pastoral Care Referral From ___ Patient _x__ Family ___ Nurse ___ Physician ___ Search And Rescue Officer ___ Elevator Troubleshooter ___ Other (describe below) Sacrament/Intervention _x__ Active listening ___ Anointing ___ Druze ___ Bereavement ___ Communion ___ Vicki exploration ___ ___ Life review _x__ Prayer ___ Reconciliation ___ Sacrament of Sick _x__ Supportive presence ___ Wedding ___ Other (describe below) Pastoral Comments phone call into isolation room; pt is able to answer the phone and talk briefly; pt spouse is also in hospital in ICU on a ventilator; family member requested prayer for patient and possibly Mosque music to be played; pt is welcoming of prayer support; pt states that quiet is probably better than music right now;
[2020-12-20 17:30] LABS: Bedside Glucose 289 mg/dL (70-110)
--- NOTE | 2020-12-20 17:31 | PCM.PN.HOSP ---
Subjective Subjective Currently requiring 5 L nasal cannula to maintain oxygen saturations. She states that she otherwise feels like she is breathing okay Objective Data Objective Data Vital Signs: Vital Signs Temp Pulse Resp BP Pulse Ox 98.4 F 71 18 110/72 94 12/20/20 15:15 12/20/20 15:15 12/20/20 15:15 12/20/20 15:15 12/20/20 15:15 Oxygen Flow Rate (L/min) [ 5 AMBULATING with Oxygen #2] Oxygen Flow Rate (L/min) [ 3 AMBULATING with Oxygen #1] Oxygen Flow Rate (L/min) [ 0 AMBULATING on Room Air] Oxygen Flow Rate (L/min) [At 0 REST on Room Air] Oxygen Flow Rate (L/min) 5 Oxygen Delivery Method Nasal Cannula Weight: 273 lb 9.498 oz Body Mass Index (BMI) 51.4 Intake & Output: Intake and Output for Last 24 Hours 12/19/20 12/20/20 12/21/20 03:59 03:59 03:59 Intake Total 1730 / 1730 1170 / 1170 730 / 730 Output Total 0 / 0 Balance 1730 / 1730 1170 / 1170 730 / 730 Lab / Micro Data Result Diagrams: 12/20/20 07:00 12/20/20 07:00 Labs: Laboratory Results - last 24 hr 12/19/20 21:20: POC Glucose 251 H 12/20/20 06:39: POC Glucose 147 H 12/20/20 07:00: WBC 6.4, RBC 4.76, Hgb 14.0, Hct 45.0, MCV 94.5, MCH 29.4, MCHC 31.1 L, RDW Std Deviation 49.0 H, RDW Coeff of Mansi 14.0, Plt Count 240, MPV 10.2 12/20/20 07:00: Sodium 140, Potassium 3.8, Chloride 104, Carbon Dioxide 31.0, Anion Gap 5, BUN 16, Creatinine 0.85, Estim Creat Clear Calc 57.09, Est GFR (MDRD) Af Amer 90, Est GFR (MDRD) Non-Af 74, BUN/Creatinine Ratio 18.8, Glucose 156 H, Calcium 8.9, Total Bilirubin 0.40, AST 76 H, ALT 97 H, Alkaline Phosphatase 103, Total Protein 7.2, Albumin 2.9 L, Globulin 4.3 H, Albumin/Globulin Ratio 0.7 L 12/20/20 12:05: POC Glucose 217 H 12/20/20 16:52: POC Glucose 289 H Micro: Microbiology 12/17/20 00:28 Blood Culture (Wb) - Right Hand Blood Culture - Preliminary No growth in 48 hours. 12/17/20 22:30 Blood Culture (Wb) - Left Hand Blood Culture - Preliminary No growth in 48 hours. 12/18/20 00:28 Urine, Random Urine Culture - Final Mixed Gram Pos & Gram Neg Org 12/18/20 03:35 Mucosa - Nose Respiratory Panel (PCR) - Final 12/18/20 00:28 Urine, Clean Catch Legionella Antigen - Final 12/18/20 00:28 Urine, Clean Catch Streptococcus pneumoniae Antigen (M - Final 12/17/20 22:40 Interface Orders SARS-CoV-2 Antigen (Rapid) - Final SARS-CoV-2 (COVID 19) Rhythm Strip Rhythm Strip: Sinus Rhythm Rate: 83 Ectopy: None Physical Exam Const alert, oriented x3 and no apparent distress General Appearance: cooperative HEENT normocephalic and moist oral mucous membranes Eyes PERRL, EOMs intact bilaterally and conjunctivae normal Neck supple and no JVD Resp normal respiratory effort, no retractions, no use of accessory muscles and clear to auscultation bilaterally Auscultation: diminished lung sounds; Negative for crackles, rales, rhonchi or wheezes Cardio regular rate, regular rhythm, S1 normal heart sound, S2 normal heart sound and no murmurs GI soft to palpation, non-tender and non-distended; Negative for hepatosplenomegaly Extremity no clubbing, cyanosis or edema Skin no rashes or lesions noted Neuro no focal motor deficits and no sensory deficits noted Psych affect normal Appearance: appropriate Assessment & Plan Assessment/Plan (1) Pneumonia due to COVID-19 virus: (2) Hypoxia: (3) Transaminitis: (4) Pulmonary embolus: PLAN: 1. Acute respiratory insufficiency secondary to COVID-19 pneumonia/recent pulmonary embolism/transit adenitis -Continue with remdesivir and Decadron -She is now up to 5L nasal cannula at rest, will obtain a pulmonology consult if she has a continued rise in her oxygen status -Continue with Eliquis for residual PEs, no acute PEs on CTA during this admission -LFTs are improving 2. DM2 -We will adjust insulin as necessary secondary to Decadron -Accu-Cheks AC at bedtime, continue with SSI's 3. GERD/hiatal hernia -Stable -Continue PPI 4. Depression/anxiety -Stable -Continue with home meds DVT: Eliquis Charges/Coding Visit Charges Inpatient E&M: 64740 Subs Hosp L2
[2020-12-20 22:21] LABS: Bedside Glucose 261 mg/dL (70-110)
--- NOTE | 2020-12-20 22:54 | CPS ---
This RT increased BiPap settings to match pt's home setting of 18/14 cmH2O. Pt stated this was more comfortable for her.
[2020-12-21] VITALS (19 sets, daily range): BP systolic 97–129; BP diastolic 47–68; PULSE 48–74; RESP 12–34; TEMP 36.2–36.9; O2SAT 81–96
[2020-12-21] MEDS: Insulin Lispro 100 UNIT/ML INSULN.PEN SC ×4 (06:12→21:32)
[2020-12-21 06:17] LABS: Hematocrit 44.2 % (37-47); Hemoglobin 13.7 g/dL (12.0-15.0); Mean Corpuscular Hgb 29.3 pg (27.0-32.0); Mean Corpuscular Volume 94.6 fL (81-99); Mean Platelet Vol. 10.1 fl (6.2-12.0); Platelet Count 239 K/mm3 (150-450); RBC Distribution Width SD 49.5 fl (35.1-43.9); Red Blood Count 4.67 M/mm3 (4.2-5.4)
[2020-12-21 06:25] LABS: Bedside Glucose 180 mg/dL (70-110)
[2020-12-21 06:45] LABS: ALB/GLOB Ratio 0.6 RATIO (0.9-2.4); AST(SGOT) 66 U/L (15-37); Alanine Aminotransfer ALT/SGPT 84 U/L (13-56); Albumin, Serum 2.7 g/dL (3.2-5.0); Alkaline Phosphatase 98 U/L (45-117); Anion Gap 5 (5-15); BUN 19 mg/dL (7-18); BUN/Creat Ratio 23.2 RATIO (10-20); Calcium,Total 8.8 mg/dL (8.5-10.1); Chloride 105 mmol/L (98-107); Creatinine, Serum 0.82 mg/dL (0.55-1.02); EST Glomerular Filtration Rate 77 mL/min (>60); Est Glom Filt Rate - Afr Amer 93 mL/min (>60); Estimated Creatinine Clearance 59.18 ml/min; Globulin 4.3 g/dL (2.2-4.2); Glucose 191 mg/dL (74-106); Potassium 3.7 mmol/L (3.5-5.1); Sodium Level 141 mmol/L (136-145)
[2020-12-21] MEDS: Fluticasone 0.05% 1 SPRAY NASAL.SRY NASAL ×2 (10:26→21:31)
[2020-12-21] MEDS: Azelastine HCl NASAL.SRY 1 SPRAY NASAL ×2 (10:26→21:30)
[2020-12-21] MEDS: 0.9% Saline Lock 10 ML Syringe IV ×2 (10:28→17:53)
[2020-12-21] MEDS: Escitalopram Oxalate 20 MG Tablet PO (10:28)
[2020-12-21] MEDS: Pantoprazole Sodium 20 MG Tablet PO (10:28)
[2020-12-21] MEDS: APIXABAN 5 MG TABLET 10 MG PO ×2 (10:28→21:31)
[2020-12-21] MEDS: Loratadine 10 MG Tablet PO (10:28)
[2020-12-21] MEDS: dexAMETHasone 2 MG TABLET 6 MG PO (10:28)
[2020-12-21] MEDS: Acetaminophen 325 MG Tablet 650 MG PO ×2 (10:54→16:58)
[2020-12-21] MEDS: guaiFENesin 10 ML UDC (200MG/10ML) 20 ML PO ×2 (10:54→16:58)
[2020-12-21 11:16] LABS: Bedside Glucose 305 mg/dL (70-110)
--- NOTE | 2020-12-21 16:39 | PCM.PN.HOSP ---
Subjective Subjective Doing well, states that she has a little bit improvement in her breathing though she is still requiring 5 L nasal cannula at rest we will plan for an ambulatory pulse ox today Objective Data Objective Data Vital Signs: Vital Signs Temp Pulse Resp BP Pulse Ox 98.5 F 70 20 H 129/68 H 92 12/21/20 16:10 12/21/20 16:10 12/21/20 16:10 12/21/20 16:10 12/21/20 16:10 Oxygen Flow Rate (L/min) [ 5 AMBULATING with Oxygen #2] Oxygen Flow Rate (L/min) [ 3 AMBULATING with Oxygen #1] Oxygen Flow Rate (L/min) [ 0 AMBULATING on Room Air] Oxygen Flow Rate (L/min) [At 0 REST on Room Air] Oxygen Flow Rate (L/min) 5 Oxygen Delivery Method Nasal Cannula Weight: 265 lb 10.512 oz Body Mass Index (BMI) 51.4 Intake & Output: Intake and Output for Last 24 Hours 12/20/20 12/21/20 12/22/20 03:59 03:59 03:59 Intake Total 1170 / 1170 730 / 730 850 / 850 Output Total 0 / 0 Balance 1170 / 1170 730 / 730 850 / 850 Lab / Micro Data Result Diagrams: 12/21/20 05:38 12/21/20 05:38 Labs: Laboratory Results - last 24 hr 12/20/20 16:52: POC Glucose 289 H 12/20/20 21:58: POC Glucose 261 H 12/21/20 05:38: WBC 5.0, RBC 4.67, Hgb 13.7, Hct 44.2, MCV 94.6, MCH 29.3, MCHC 31.0 L, RDW Std Deviation 49.5 H, RDW Coeff of Mansi 14.0, Plt Count 239, MPV 10.1 12/21/20 05:38: Sodium 141, Potassium 3.7, Chloride 105, Carbon Dioxide 31.0, Anion Gap 5, BUN 19 H, Creatinine 0.82, Estim Creat Clear Calc 59.18, Est GFR (MDRD) Af Amer 93, Est GFR (MDRD) Non-Af 77, BUN/Creatinine Ratio 23.2 H, Glucose 191 H, Calcium 8.8, Total Bilirubin 0.30, AST 66 H, ALT 84 H, Alkaline Phosphatase 98, Total Protein 7.0, Albumin 2.7 L, Globulin 4.3 H, Albumin/Globulin Ratio 0.6 L 12/21/20 06:10: POC Glucose 180 H 12/21/20 10:57: POC Glucose 305 H Micro: Microbiology 12/21/20 10:40 Sputum, Expectorated/Coughed Gram Stain - Final 12/17/20 00:28 Blood Culture (Wb) - Right Hand Blood Culture - Preliminary No growth in 48 hours. 12/17/20 22:30 Blood Culture (Wb) - Left Hand Blood Culture - Preliminary No growth in 48 hours. 12/18/20 00:28 Urine, Random Urine Culture - Final Mixed Gram Pos & Gram Neg Org 12/18/20 03:35 Mucosa - Nose Respiratory Panel (PCR) - Final 12/18/20 00:28 Urine, Clean Catch Legionella Antigen - Final 12/18/20 00:28 Urine, Clean Catch Streptococcus pneumoniae Antigen (M - Final 12/17/20 22:40 Interface Orders SARS-CoV-2 Antigen (Rapid) - Final SARS-CoV-2 (COVID 19) Rhythm Strip Rhythm Strip: Sinus Rhythm Rate: 83 Ectopy: None Physical Exam Const alert, oriented x3 and no apparent distress General Appearance: cooperative HEENT normocephalic and moist oral mucous membranes Eyes PERRL, EOMs intact bilaterally and conjunctivae normal Neck supple and no JVD Resp normal respiratory effort, no retractions and no use of accessory muscles Auscultation: crackles and diminished lung sounds; Negative for rales, rhonchi or wheezes Cardio regular rate, regular rhythm, S1 normal heart sound, S2 normal heart sound and no murmurs GI soft to palpation, non-tender and non-distended; Negative for hepatosplenomegaly Extremity no clubbing, cyanosis or edema Skin no rashes or lesions noted Neuro no focal motor deficits and no sensory deficits noted Psych affect normal Appearance: appropriate Assessment & Plan Assessment/Plan (1) Pneumonia due to COVID-19 virus: (2) Hypoxia: (3) Transaminitis: (4) Pulmonary embolus: PLAN: 1. Acute respiratory failure secondary to COVID-19 pneumonia/recent pulmonary embolism/transaminitis -Continue with remdesivir and Decadron -She is now up to 5L nasal cannula at rest, obtain ambulatory pulse ox and since she has bibasilar crackles, will add a dose of Lasix this evening -Continue with Eliquis for residual PEs, no acute PEs on CTA during this admission -LFTs are improving 2. DM2 -We will adjust insulin as necessary secondary to Decadron -Accu-Cheks AC at bedtime, continue with SSI's 3. GERD/hiatal hernia -Stable -Continue PPI 4. Depression/anxiety -Stable -Continue with home meds DVT: Eliquis Charges/Coding Visit Charges Inpatient E&M: 31526 Subs Hosp L2
[2020-12-21 17:11] LABS: Bedside Glucose 330 mg/dL (70-110)
[2020-12-21] MEDS: Furosemide 20 MG/2 ML VIAL IV (17:53)
[2020-12-21 22:06] LABS: Bedside Glucose 320 mg/dL (70-110)
[2020-12-22] VITALS (19 sets, daily range): BP systolic 98–126; BP diastolic 55–68; PULSE 51–73; RESP 12–26; TEMP 36.4–37; O2SAT 92–97
--- NOTE | 2020-12-22 05:36 | CPS ---
Around 11 pm when placing in bipap pt was coughing ans coughing, settings on bipap were turned down 16/12 pt tolerated better, did not cough. Will be passing on in report to not increase settings for now due to increased cough with increase in pressure.
[2020-12-22] MEDS: Insulin Lispro 100 UNIT/ML INSULN.PEN SC ×3 (06:25→20:33)
[2020-12-22 06:55] LABS: Bedside Glucose 220 mg/dL (70-110)
[2020-12-22 07:49] LABS: Hematocrit 47.1 % (37-47); Hemoglobin 14.7 g/dL (12.0-15.0); Mean Corp Hgb Conc 31.2 g/dL (32-36); Mean Corpuscular Hgb 29.3 pg (27.0-32.0); Mean Platelet Vol. 10.3 fl (6.2-12.0); Platelet Count 284 K/mm3 (150-450); RBC Distribution Width CV 13.7 % (11.6-14.6); RBC Distribution Width SD 47.7 fl (35.1-43.9); Red Blood Count 5.01 M/mm3 (4.2-5.4); White Blood Count 4.8 K/mm3 (4.4-11.0)
[2020-12-22 08:19] LABS: ALB/GLOB Ratio 0.6 RATIO (0.9-2.4); AST(SGOT) 56 U/L (15-37); Alanine Aminotransfer ALT/SGPT 80 U/L (13-56); Albumin, Serum 2.8 g/dL (3.2-5.0); Alkaline Phosphatase 101 U/L (45-117); Anion Gap 3 (5-15); BUN 21 mg/dL (7-18); BUN/Creat Ratio 23.8 RATIO (10-20); Calcium,Total 8.8 mg/dL (8.5-10.1); Chloride 104 mmol/L (98-107); Creatinine, Serum 0.88 mg/dL (0.55-1.02); EST Glomerular Filtration Rate 71 mL/min (>60); Est Glom Filt Rate - Afr Amer 86 mL/min (>60); Estimated Creatinine Clearance 55.15 ml/min; Globulin 4.7 g/dL (2.2-4.2); Glucose 196 mg/dL (74-106); Potassium 3.5 mmol/L (3.5-5.1); Protein, Total 7.5 g/dL (6.4-8.2); Sodium Level 138 mmol/L (136-145)
[2020-12-22] MEDS: dexAMETHasone 2 MG TABLET 6 MG PO (09:58)
[2020-12-22] MEDS: Pantoprazole Sodium 20 MG Tablet PO (09:58)
[2020-12-22] MEDS: Loratadine 10 MG Tablet PO (09:58)
[2020-12-22] MEDS: Escitalopram Oxalate 20 MG Tablet PO (09:58)
[2020-12-22] MEDS: APIXABAN 5 MG TABLET 10 MG PO ×2 (09:58→20:34)
[2020-12-22] MEDS: Azelastine HCl NASAL.SRY 1 SPRAY NASAL ×2 (10:02→20:34)
[2020-12-22] MEDS: Fluticasone 0.05% 1 SPRAY NASAL.SRY NASAL ×2 (10:02→20:35)
[2020-12-22] MEDS: 0.9% Saline Lock 10 ML Syringe IV ×2 (10:05→17:22)
[2020-12-22] MEDS: Acetaminophen 325 MG Tablet 650 MG PO (12:15)
[2020-12-22 12:41] LABS: Bedside Glucose 161 mg/dL (70-110)
--- NOTE | 2020-12-22 14:23 | PCM.PN.HOSP ---
Subjective Subjective No issues overnight, was tolerating the BiPAP however this morning had to go off to AirVo. She does not think that the Lasix yesterday helped that she does have any crackles on exam today. Objective Data Objective Data Vital Signs: Vital Signs Temp Pulse Resp BP Pulse Ox 97.8 F 65 17 126/57 H 94 12/22/20 08:10 12/22/20 13:18 12/22/20 13:18 12/22/20 08:10 12/22/20 13:18 Oxygen Flow Rate (L/min) [ 5 AMBULATING with Oxygen #2] Oxygen Flow Rate (L/min) [ 4 AMBULATING with Oxygen #1] Oxygen Flow Rate (L/min) [ 0 AMBULATING on Room Air] Oxygen Flow Rate (L/min) [At 0 REST on Room Air] Oxygen Flow Rate (L/min) 15 Oxygen Delivery Method Airvo Weight: 265 lb 10.512 oz Body Mass Index (BMI) 51.4 Intake & Output: Intake and Output for Last 24 Hours 12/21/20 12/22/20 12/23/20 03:59 03:59 03:59 Intake Total 730 / 730 1450 / 1450 310 / 310 Output Total 900 / 900 1150 / 1150 Balance 730 / 730 550 / 550 -840 / -840 Lab / Micro Data Result Diagrams: 12/22/20 07:05 12/22/20 07:05 Labs: Laboratory Results - last 24 hr 12/21/20 16:56: POC Glucose 330 H 12/21/20 21:29: POC Glucose 320 H 12/22/20 06:22: POC Glucose 220 H 12/22/20 07:05: WBC 4.8, RBC 5.01, Hgb 14.7, Hct 47.1 H, MCV 94.0, MCH 29.3, MCHC 31.2 L, RDW Std Deviation 47.7 H, RDW Coeff of Mansi 13.7, Plt Count 284, MPV 10.3 12/22/20 07:05: Sodium 138, Potassium 3.5, Chloride 104, Carbon Dioxide 31.0, Anion Gap 3 L, BUN 21 H, Creatinine 0.88, Estim Creat Clear Calc 55.15, Est GFR (MDRD) Af Amer 86, Est GFR (MDRD) Non-Af 71, BUN/Creatinine Ratio 23.8 H, Glucose 196 H, Calcium 8.8, Total Bilirubin 0.40, AST 56 H, ALT 80 H, Alkaline Phosphatase 101, Total Protein 7.5, Albumin 2.8 L, Globulin 4.7 H, Albumin/Globulin Ratio 0.6 L 12/22/20 12:12: POC Glucose 161 H Micro: Microbiology 12/21/20 10:40 Sputum, Expectorated/Coughed Gram Stain - Final 12/21/20 10:40 Sputum, Expectorated/Coughed Respiratory Culture - Preliminary Staphylococcus aureus 12/17/20 00:28 Blood Culture (Wb) - Right Hand Blood Culture - Preliminary No growth in 48 hours. 12/17/20 22:30 Blood Culture (Wb) - Left Hand Blood Culture - Preliminary No growth in 48 hours. 12/18/20 00:28 Urine, Random Urine Culture - Final Mixed Gram Pos & Gram Neg Org 12/18/20 03:35 Mucosa - Nose Respiratory Panel (PCR) - Final 12/18/20 00:28 Urine, Clean Catch Legionella Antigen - Final 12/18/20 00:28 Urine, Clean Catch Streptococcus pneumoniae Antigen (M - Final 12/17/20 22:40 Interface Orders SARS-CoV-2 Antigen (Rapid) - Final SARS-CoV-2 (COVID 19) Rhythm Strip Rhythm Strip: Sinus Rhythm Rate: 83 Ectopy: None Physical Exam Const alert, oriented x3 and no apparent distress General Appearance: cooperative HEENT normocephalic and moist oral mucous membranes Eyes PERRL, EOMs intact bilaterally and conjunctivae normal Neck supple and no JVD Resp normal respiratory effort, no retractions, no use of accessory muscles and clear to auscultation bilaterally Auscultation: diminished lung sounds; Negative for crackles, rales, rhonchi or wheezes Cardio regular rate, regular rhythm, S1 normal heart sound, S2 normal heart sound and no murmurs GI soft to palpation, non-tender and non-distended; Negative for hepatosplenomegaly Extremity no clubbing, cyanosis or edema Skin no rashes or lesions noted Neuro no focal motor deficits and no sensory deficits noted Psych affect normal Appearance: appropriate Assessment & Plan Assessment/Plan (1) Pneumonia due to COVID-19 virus: (2) Hypoxia: (3) Transaminitis: (4) Pulmonary embolus: PLAN: 1. Acute respiratory failure secondary to COVID-19 pneumonia/recent pulmonary embolism/transaminitis -Continue with remdesivir and Decadron -Crackles have resolved however she does not feel she is breathing better and she is currently on air Vo 65% FiO2. Consulted pulmonology for evaluation and assistance -Continue with Eliquis for residual PEs, no acute PEs on CTA during this admission -LFTs are improving 2. DM2 -We will adjust insulin as necessary secondary to Decadron -Accu-Cheks AC at bedtime, continue with SSI's 3. GERD/hiatal hernia -Stable -Continue PPI 4. Depression/anxiety -Stable -Continue with home meds DVT: Eliquis Charges/Coding Visit Charges Inpatient E&M: 17764 Subs Hosp L2
--- NOTE | 2020-12-22 14:58 | EX.PCM.CONCC ---
Assessment & Plan Assessment/Plan (1) Acute respiratory failure with hypoxia: (2) Pneumonia due to COVID-19 virus: (3) History of pulmonary embolism: (4) Morbid obesity: PLAN: RECOMMENDATIONS: 1. Initiate vancomycin pending culture results 2. Complete remdesivir and Decadron therapy 3. Monitor closely for complications of Decadron 4. BiPAP should be 18/14 centimeters of water minimal, EPAP 14 if using AVAPS 5. Wean oxygen as tolerated 6. Agree with intermittent Lasix as labs allow 7. Continue with full anticoagulation IMPRESSIONS: 1. Acute hypoxic respiratory failure secondary to COVID-19 and staph aureus pneumonia Patient is appropriately on remdesivir and Decadron therapy. Patient is still requiring 65% FiO2 to maintain saturations. Patient is now growing staph aureus from her sputum. This should be treated given the severity of her illness. Patient will be initiated on vancomycin initially, but if found to have MSSA, this can be narrowed. Patient should be on full anticoagulation for now. Evaluation for CTEPH as an outpatient may be indicated. Patient does have high BiPAP settings at baseline for obstructive sleep apnea. Patient will need an EPAP of at least 14 cm of water to avoid obstruction and the recruitment. Recommend aggressive pulmonary toileting. 2. Diabetes mellitus type 2 Patient currently on Decadron therapy secondary to problem #1. We will have to increase basal insulin as necessary. Continue with sliding scale insulin. 3. Morbid obesity/depression/anxiety/GERD/hiatal hernia/transaminitis Complicates care, management, recovery and prognosis. Patient is on a PPI. Okay to continue with baseline depression/anxiety medications. Patient has stated that she is a full code and willing to be intubated if necessary. HPI Consult Data Date of Consult: 12/22/20 HPI Narrative HPI Narrative: FRANCIS ROSALES is a 55 F, with past medical history listed below and well-known to me from the outpatient office, who presented to [facility] on 12/17/2020 secondary to progressive shortness of breath. Patient's had recently been diagnosed with hypoxia related to COVID-19 and she stated that she had been having symptoms for the previous 3 days. Patient had reported a fever as high as 101.0 ?F and a cough. Patient did have diarrhea initially, but this had resolved spontaneously. Patient had had some dysuria and reported mild shortness of breath and headache on the day of presentation. Cough is described as nonproductive. Patient did not have her COVID-19 vaccination. In the ER, patient was afebrile, but tachypneic at 22 breaths/min with a blood pressure of 89/72. Patient was saturating on room air initially, but eventually required 2 L nasal cannula to maintain saturations. Initial laboratory data showed a slightly elevated glucose of 150 with elevated AST and ALT. LDH was elevated at 376 with a normal BNP. Patient did have lymphopenia with a white blood cell count of 4.2 and a pro calcitonin of 0.26. D-dimer was elevated at 1.13 and CRP was elevated at 80.4. UA did show 2+ bacteria with white blood cells and leukocyte esterase. Chest x-ray showed bilateral infiltrates and this subsequently was followed up by a CTA showing bilateral groundglass opacities and a chronic nonocclusive pulmonary embolism within the left pulmonary artery, hepatic steatosis and hiatal hernia. EKG was sinus rhythm. Patient was admitted to the floor for further evaluation. Over the course of the hospitalization, patient has started to get progressively more hypoxic. Patient is currently requiring Airvo to maintain saturations. Patient has not required supplemental oxygen previously. Patient is also reporting an overwhelming sense of fatigue without focal neurologic deficits. Patient has had a cough that is productive of pale yellow sputum. Patient is normally seen in our office for obstructive sleep apnea. Patient is compliant with therapy at 18/14 centimeters of water, but has had issues with significant leak in the past. Patient does have a previous pulmonary function test showing an isolated reduction in DLCO. Review of systems otherwise negative from a constitutional, HEENT, respiratory, cardiovascular, GI, genitourinary, musculoskeletal, skin, neurologic, psychiatric and hematologic system unless stated above. [facility] Medical History (Updated 12/22/20 @ 15:[address] Jose Hurst MD) COPD exacerbation Diabetes mellitus type II, controlled Dysfunctional or functional uterine hemorrhage Morbid obesity TODD (obstructive sleep apnea) Pneumonia Pulmonary embolism Uterine fibroid Home Medications omeprazole 20 mg PO DAILY 05/29/18 [History Last Taken 03/24/19] fexofenadine 180 mg tablet 180 mg PO DAILY 07/17/18 [History Last Taken Unknown] escitalopram oxalate 20 mg tablet 20 mg PO DAILY #30 tablet 07/18/20 [Rx Last Taken Unknown] hydrocodone-homatropine [Hycodan] 5 ml PO Q4H PRN 4 Days #5 ml 10/22/20 [Rx Last Taken Unknown] Allergy/AdvReac Type Severity Reaction Status Date / Time Penicillins [PCN] Allergy Hives Verified 12/17/20 22:10 Family History Father Myocardial infarction Mother Diabetes Diverticula of colon Surgical History delivery delivered Neck Fusion S/P laparoscopic assisted vaginal hysterectomy (LAVH) (~03/24/19) Social History (Updated 12/18/20 @ 02:[address] Jacy Pedroza MD) household members: spouse Smoking Status: Never smoker alcohol intake: never substance use type: does not use caffeine: Yes what type of physical activity do you participate in: walking seatbelt use: always do you feel safe at home: Yes additional social history: [place]- unemployed Patient goes to school for social work ROS ROS Narrative See HPI Physical Exam Const alert and oriented x3 Constitutional Narrative: On Airvo General Appearance: cooperative, well developed and ill appearing Positive for acutely Nutritional Appearance: morbidly obese HEENT normocephalic, head/scalp atraumatic and moist oral mucous membranes Eyes PERRL and EOMs intact bilaterally Neck full ROM and no lymphadenopathy Chest inspection of chest normal Chest: symmetrical chest wall rise; Negative for crepitus Resp Resp Narrative: Conversational dyspnea noted Effort and Inspection: symmetric chest movement Auscultation: diminished lung sounds; Negative for rales, rhonchi or wheezes Percussion: Negative for dullness Cardio regular rate, regular rhythm, S1 normal heart sound, S2 normal heart sound, no murmurs, no rub and no gallops GI normal to inspection, nondistended, normoactive bowel sounds no CVA tenderness Extremity General Extremity: edema bilateral (1+) lower extremity; Negative for clubbing or cyanosis Skin no rashes or lesions noted Neuro oriented x3, CN's II-XII intact bilaterally, moves all extremities and no focal motor deficits Psych cooperative and affect normal Lab / Micro Data Result Diagrams: 12/22/20 07:05 12/22/20 07:05 Labs: Laboratory Results - last 24 hr 12/21/20 16:56: POC Glucose 330 H 12/21/20 21:29: POC Glucose 320 H 12/22/20 06:22: POC Glucose 220 H 12/22/20 07:05: WBC 4.8, RBC 5.01, Hgb 14.7, Hct 47.1 H, MCV 94.0, MCH 29.3, MCHC 31.2 L, RDW Std Deviation 47.7 H, RDW Coeff of Mansi 13.7, Plt Count 284, MPV 10.3 12/22/20 07:05: Sodium 138, Potassium 3.5, Chloride 104, Carbon Dioxide 31.0, Anion Gap 3 L, BUN 21 H, Creatinine 0.88, Estim Creat Clear Calc 55.15, Est GFR (MDRD) Af Amer 86, Est GFR (MDRD) Non-Af 71, BUN/Creatinine Ratio 23.8 H, Glucose 196 H, Calcium 8.8, Total Bilirubin 0.40, AST 56 H, ALT 80 H, Alkaline Phosphatase 101, Total Protein 7.5, Albumin 2.8 L, Globulin 4.7 H, Albumin/Globulin Ratio 0.6 L 12/22/20 12:12: POC Glucose 161 H Micro: Microbiology 12/21/20 10:40 Sputum, Expectorated/Coughed Gram Stain - Final 12/21/20 10:40 Sputum, Expectorated/Coughed Respiratory Culture - Preliminary Staphylococcus aureus Rhythm Strip Rhythm Strip: Sinus Rhythm Rate: 83 Ectopy: None Charges/Coding Visit Charges Inpatient E&M: 83652 Init Hosp L3
--- NOTE | 2020-12-22 15:46 | PCM.RX.CS ---
Consult Pharmacy has been consulted to manage selected antiobiotic: Vancomycin Type of Consult: New start Suspected Infection: Pneumonia Labs: Sodium 138 mmol/L (136-145) 12/22/20 07:05 Potassium 3.5 mmol/L (3.5-5.1) 12/22/20 07:05 Chloride 104 mmol/L (98-107) 12/22/20 07:05 Carbon Dioxide 31.0 mmol/L (21.0-32.0) 12/22/20 07:05 Anion Gap 3 (5-15) L 12/22/20 07:05 BUN 21 mg/dL (7-18) H 12/22/20 07:05 Creatinine 0.88 mg/dL (0.55-1.02) 12/22/20 07:05 Est GFR (MDRD) Af Amer 86 mL/min (>60) 12/22/20 07:05 Est GFR (MDRD) Non-Af 71 mL/min (>60) 12/22/20 07:05 BUN/Creatinine Ratio 23.8 RATIO (10-20) H 12/22/20 07:05 Glucose 196 mg/dL (74-106) H 12/22/20 07:05 Microbiology: Microbiology 12/21/20 10:40 Sputum, Expectorated/Coughed Gram Stain - Final 12/21/20 10:40 Sputum, Expectorated/Coughed Respiratory Culture - Preliminary Staphylococcus aureus 12/17/20 00:28 Blood Culture (Wb) - Right Hand Blood Culture - Preliminary No growth in 48 hours. 12/17/20 22:30 Blood Culture (Wb) - Left Hand Blood Culture - Preliminary No growth in 48 hours. 12/18/20 00:28 Urine, Random Urine Culture - Final Mixed Gram Pos & Gram Neg Org 12/18/20 03:35 Mucosa - Nose Respiratory Panel (PCR) - Final 12/18/20 00:28 Urine, Clean Catch Legionella Antigen - Final 12/18/20 00:28 Urine, Clean Catch Streptococcus pneumoniae Antigen (M - Final 12/17/20 22:40 Interface Orders SARS-CoV-2 Antigen (Rapid) - Final SARS-CoV-2 (COVID 19) Estimated Creatinine Clearance: 89mls/min Goal Trough: 15-20 mcg/mL Pharmacy Plan for Drug Dosing: NEW START IV VANCOMYCIN Consulting Physician: Dr. Hurst Indication: Pneumonia Goal Trough: 15-20 SrCr: 0.88 CrCl: 88.7mls/min (using an adjusted body weight of 77kg) Comments: pt to receive a 2000mg (25mg/kg) x1 loading dose on 12/22/20 Vancomcyin Dose: based on pts weight and renal function, recommend an initial dose of 2000mg IV q12h starting 12/23/20 at 0400. trough before the 4th total dose Pending Level: 12/24/20 at 0330 Pharmacy Service will continue to monitor and adjust dosing as required. Follow-Up Labs: Trough Vancomycin - 12/24/20 at 0330
[2020-12-22 16:26] LABS: Bedside Glucose 358 mg/dL (70-110)
[2020-12-22 20:46] LABS: Bedside Glucose 375 mg/dL (70-110)
[2020-12-22] MEDS: LORazepam 0.5 MG Tablet PO (22:45)
[2020-12-23] VITALS (15 sets, daily range): BP systolic 91–124; BP diastolic 48–71; PULSE 53–81; RESP 12–36; TEMP 36.8–37.1; O2SAT 85–96
[2020-12-23] MEDS: LORazepam 0.5 MG Tablet PO ×2 (04:59→21:07)
[2020-12-23 05:54] LABS: Hematocrit 44.6 % (37-47); Hemoglobin 14.4 g/dL (12.0-15.0); Mean Corp Hgb Conc 32.3 g/dL (32-36); Mean Corpuscular Volume 92.9 fL (81-99); Platelet Count 302 K/mm3 (150-450); RBC Distribution Width CV 13.4 % (11.6-14.6); RBC Distribution Width SD 46.3 fl (35.1-43.9); White Blood Count 8.4 K/mm3 (4.4-11.0)
[2020-12-23] MEDS: Insulin Lispro 100 UNIT/ML INSULN.PEN SC ×4 (06:33→20:49)
[2020-12-23 06:55] LABS: Bedside Glucose 197 mg/dL (70-110)
[2020-12-23 08:49] LABS: BUN 19 mg/dL (7-18); Glucose 201 mg/dL (74-106)
[2020-12-23 08:50] LABS: ALB/GLOB Ratio 0.4 RATIO (0.9-2.4); AST(SGOT) 49 U/L (15-37); Alanine Aminotransfer ALT/SGPT 68 U/L (13-56); Albumin, Serum 1.9 g/dL (3.2-5.0); Alkaline Phosphatase 94 U/L (45-117); BUN/Creat Ratio 25.7 RATIO (10-20); Calcium,Total 8.2 mg/dL (8.5-10.1); Creatinine, Serum 0.74 mg/dL (0.55-1.02); EST Glomerular Filtration Rate 87 mL/min (>60); Est Glom Filt Rate - Afr Amer 105 mL/min (>60); Estimated Creatinine Clearance 65.58 ml/min; Protein, Total 6.9 g/dL (6.4-8.2)
[2020-12-23 08:51] LABS: Anion Gap 5 (5-15); Chloride 108 mmol/L (98-107); Sodium Level 136 mmol/L (136-145)
[2020-12-23] MEDS: Escitalopram Oxalate 20 MG Tablet PO (09:13)
[2020-12-23] MEDS: APIXABAN 5 MG TABLET 10 MG PO ×2 (09:13→20:50)
[2020-12-23] MEDS: Loratadine 10 MG Tablet PO (09:13)
[2020-12-23] MEDS: dexAMETHasone 2 MG TABLET 6 MG PO (09:13)
[2020-12-23] MEDS: Pantoprazole Sodium 20 MG Tablet PO (09:13)
[2020-12-23] MEDS: Azelastine HCl NASAL.SRY 1 SPRAY NASAL ×2 (09:14→20:50)
[2020-12-23] MEDS: Fluticasone 0.05% 1 SPRAY NASAL.SRY NASAL ×2 (09:14→20:50)
[2020-12-23] MEDS: Senna/Docusate Sodium 1 Tablet 2 TABLET PO (09:42)
--- NOTE | 2020-12-23 11:34 | PN.CC_ITS ---
Assessment & Plan Assessment/Plan (1) Acute respiratory failure with hypoxia: (2) Pneumonia due to COVID-19 virus: (3) History of pulmonary embolism: (4) Morbid obesity: PLAN: RECOMMENDATIONS: 1. Continue vancomycin pending culture results 2. Patient should complete remdesivir today. Continue Decadron therapy for total of 10 days 3. Monitor closely for complications of Decadron. Lantus orders given 4. BiPAP should be 18/14 centimeters of water minimal, EPAP 14 if using AVAPS 5. Wean oxygen as tolerated 6. Agree with intermittent Lasix as labs allow 7. Continue with full anticoagulation IMPRESSIONS: 1. Acute hypoxic respiratory failure secondary to COVID-19 and staph aureus pneumonia Patient is appropriately on remdesivir and Decadron therapy. Patient is still requiring 65% FiO2 to maintain saturations. Patient is now growing staph aureus from her sputum. This should be treated given the severity of her illness. Patient will be initiated on vancomycin initially, but if found to have MSSA, this can be narrowed. Patient should be on full anticoagulation for now. Evaluation for CTEPH as an outpatient may be indicated. Patient does have high BiPAP settings at baseline for obstructive sleep apnea. Patient will need an EPAP of at least 14 cm of water to avoid obstruction and the recruitment. R ecommend aggressive pulmonary toileting. Aggressive pulmonary recruitment measures 2. Diabetes mellitus type 2 Patient currently on Decadron therapy secondary to problem #1. Increase basal insulin. Continue with sliding scale insulin. 3. Morbid obesity/depression/anxiety/GERD/hiatal hernia/transaminitis Complicates care, management, recovery and prognosis. Patient is on a PPI. Okay to continue with baseline depression/anxiety medications. Patient has stated that she is a full code and willing to be intubated if necessary. Subjective Subjective Patient did okay overnight. Patient continues to report overwhelming fatigue. Patient has had a cough that is intermittently productive. Patient is denying any chest pain at this time. No nausea, vomiting or diarrhea has been reported. Objective Data Objective Data Vital Signs: Vital Signs Temp Pulse Resp BP Pulse Ox 37.0 C 62 17 97/53 L 96 12/23/20 09:46 12/23/20 09:46 12/23/20 09:46 12/23/20 09:46 12/23/20 09:46 Oxygen Flow Rate (L/min) [ 5 AMBULATING with Oxygen #2] Oxygen Flow Rate (L/min) [ 4 AMBULATING with Oxygen #1] Oxygen Flow Rate (L/min) [ 0 AMBULATING on Room Air] Oxygen Flow Rate (L/min) [At 0 REST on Room Air] Oxygen Flow Rate (L/min) 60 Oxygen Delivery Method Airvo Weight: 120.5 kg Body Mass Index (BMI) 51.4 Intake & Output: Intake and Output for Last 24 Hours 12/21/20 12/22/20 12/23/20 23:59 23:59 23:59 Intake Total 1450 / 1450 970 / 1090 780 / 780 Output Total 900 / 900 1150 / 1700 1100 / 1100 Balance 550 / 550 -180 / -610 -320 / -320 Lab / Micro Data Result Diagrams: 12/23/20 05:10 12/23/20 07:24 Labs: Laboratory Results - last 24 hr 12/22/20 12:12: POC Glucose 161 H 12/22/20 16:13: POC Glucose 358 H 12/22/20 20:31: POC Glucose 375 H 12/23/20 05:10: WBC 8.4, RBC 4.80, Hgb 14.4, Hct 44.6, MCV 92.9, MCH 30.0, MCHC 32.3, RDW Std Deviation 46.3 H, RDW Coeff of Mansi 13.4, Plt Count 302, MPV 10.0 12/23/20 05:10: Sodium Cancelled, Potassium Cancelled, Chloride Cancelled, Carbon Dioxide Cancelled, Anion Gap Cancelled, BUN Cancelled, Creatinine Cancelled, Estim Creat Clear Calc Cancelled, Est GFR (MDRD) Af Amer Cancelled, Est GFR (MDRD) Non-Af Cancelled, BUN/Creatinine Ratio Cancelled, Glucose Cancelled, Calcium Cancelled, Total Bilirubin Cancelled, AST Cancelled, ALT Cancelled, Alkaline Phosphatase Cancelled, Total Protein Cancelled, Albumin Cancelled, Globulin Cancelled, Albumin/Globulin Ratio Cancelled 12/23/20 06:29: POC Glucose 197 H 12/23/20 07:24: Sodium 136, Potassium 4.0, Chloride 108 H, Carbon Dioxide 23.0, Anion Gap 5, BUN 19 H, Creatinine 0.74, Estim Creat Clear Calc 65.58, Est GFR (MDRD) Af Amer 105, Est GFR (MDRD) Non-Af 87, BUN/Creatinine Ratio 25.7 H, Glucose 201 H, Calcium 8.2 L, Total Bilirubin 0.40, AST 49 H, ALT 68 H, Alkaline Phosphatase 94, Total Protein 6.9, Albumin 1.9 L, Globulin 5.0 H, Albumin/Globu ruth Ratio 0.4 L Micro: Microbiology 12/17/20 22:30 Blood Culture (Wb) - Left Hand Blood Culture - Preliminary No growth in 48 hours. 12/17/20 00:28 Blood Culture (Wb) - Right Hand Blood Culture - Final No growth in 5 days. 12/21/20 10:40 Sputum, Expectorated/Coughed Gram Stain - Final 12/21/20 10:40 Sputum, Expectorated/Coughed Respiratory Culture - Preliminary Staphylococcus aureus 12/18/20 00:28 Urine, Random Urine Culture - Final Mixed Gram Pos & Gram Neg Org 12/18/20 03:35 Mucosa - Nose Respiratory Panel (PCR) - Final 12/18/20 00:28 Urine, Clean Catch Legionella Antigen - Final 12/18/20 00:28 Urine, Clean Catch Streptococcus pneumoniae Antigen (M - Final 12/17/20 22:40 Interface Orders SARS-CoV-2 Antigen (Rapid) - Final SARS-CoV-2 (COVID 19) Rhythm Strip Rhythm Strip: Sinus Rhythm Rate: 83 Ectopy: None Physical Exam Const alert and oriented x3 Constitutional Narrative: On Airvo General Appearance: cooperative, well developed and ill appearing Positive for acutely Nutritional Appearance: morbidly obese HEENT normocephalic, head/scalp atraumatic and moist oral mucous membranes Eyes PERRL and EOMs intact bilaterally Neck full ROM and no lymphadenopathy Chest inspection of chest normal Chest: symmetrical chest wall rise; Negative for crepitus Resp Resp Narrative: Conversational dyspnea noted Effort and Inspection: symmetric chest movement Auscultation: diminished lung sounds; Negative for rales, rhonchi or wheezes Percussion: Negative for dullness Cardio regular rate, regular rhythm, S1 normal heart sound, S2 normal heart sound, no murmurs, no rub and no gallops GI normal to inspection, nondistended, normoactive bowel sounds no CVA tenderness Extremity General Extremity: edema bilateral (1+) lower extremity; Negative for clubbing or cyanosis Skin no rashes or lesions noted Neuro oriented x3, CN's II-XII intact bilaterally, moves all extremities and no focal motor deficits Psych cooperative and affect normal Charges/Coding Visit Charges Inpatient E&M: 18716 Subs Hosp L3
[2020-12-23 12:00] LABS: Bedside Glucose 198 mg/dL (70-110)
--- NOTE | 2020-12-23 13:28 | CASEMGMT ---
Green sheet left on chart for home oxygen. CM to follow PT/OT. SStmichael RN CM
--- NOTE | 2020-12-23 15:13 | PCM.PN.HOSP ---
Subjective Subjective Feels unchanged today. Still has to be on air Vo and FiO2 of 60%. We will continue with steroids, she has completed remdesivir. Sputum culture did come back positive for staph Objective Data Objective Data Vital Signs: Vital Signs Temp Pulse Resp BP Pulse Ox 98.7 F 66 18 114/63 96 12/23/20 15:09 12/23/20 15:09 12/23/20 15:09 12/23/20 15:12/23/20 15:09 Oxygen Flow Rate (L/min) [ 5 AMBULATING with Oxygen #2] Oxygen Flow Rate (L/min) [ 4 AMBULATING with Oxygen #1] Oxygen Flow Rate (L/min) [ 0 AMBULATING on Room Air] Oxygen Flow Rate (L/min) [At 0 REST on Room Air] Oxygen Flow Rate (L/min) 60 Oxygen Delivery Method Airvo Weight: 265 lb 10.512 oz Body Mass Index (BMI) 51.4 Intake & Output: Intake and Output for Last 24 Hours 12/22/20 12/23/20 12/24/20 03:59 03:59 03:59 Intake Total 1450 / 1450 1090 / 1090 1030 / 1030 Output Total 900 / 900 1700 / 1700 750 / 750 Balance 550 / 550 -610 / -610 280 / 280 Lab / Micro Data Result Diagrams: 12/23/20 05:10 12/23/20 07:24 Labs: Laboratory Results - last 24 hr 12/22/20 16:13: POC Glucose 358 H 12/22/20 20:31: POC Glucose 375 H 12/23/20 05:10: WBC 8.4, RBC 4.80, Hgb 14.4, Hct 44.6, MCV 92.9, MCH 30.0, MCHC 32.3, RDW Std Deviation 46.3 H, RDW Coeff of Mansi 13.4, Plt Count 302, MPV 10.0 12/23/20 05:10: Sodium Cancelled, Potassium Cancelled, Chloride Cancelled, Carbon Dioxide Cancelled, Anion Gap Cancelled, BUN Cancelled, Creatinine Cancelled, Estim Creat Clear Calc Cancelled, Est GFR (MDRD) Af Amer Cancelled, Est GFR (MDRD) Non-Af Cancelled, BUN/Creatinine Ratio Cancelled, Glucose Cancelled, Calcium Cancelled, Total Bilirubin Cancelled, AST Cancelled, ALT Cancelled, Alkaline Phosphatase Cancelled, Total Protein Cancelled, Albumin Cancelled, Globulin Cancelled, Albumin/Globulin Ratio Cancelled 12/23/20 06:29: POC Glucose 197 H 12/23/20 07:24: Sodium 136, Potassium 4.0, Chloride 108 H, Carbon Dioxide 23.0, Anion Gap 5, BUN 19 H, Creatinine 0.74, Estim Creat Clear Calc 65.58, Est GFR (MDRD) Af Amer 105, Est GFR (MDRD) Non-Af 87, BUN/Creatinine Ratio 25.7 H, Glucose 201 H, Calcium 8.2 L, Total Bilirubin 0.40, AST 49 H, ALT 68 H, Alkaline Phosphatase 94, Total Protein 6.9, Albumin 1.9 L, Globulin 5.0 H, Albumin/Globulin Ratio 0.4 L 12/23/20 11:49: POC Glucose 198 H Micro: Microbiology 12/17/20 22:30 Blood Culture (Wb) - Left Hand Blood Culture - Final No growth in 5 days. 12/17/20 00:28 Blood Culture (Wb) - Right Hand Blood Culture - Final No growth in 5 days. 12/21/20 10:40 Sputum, Expectorated/Coughed Gram Stain - Final 12/21/20 10:40 Sputum, Expectorated/Coughed Respiratory Culture - Preliminary Staphylococcus aureus 12/18/20 00:28 Urine, Random Urine Culture - Final Mixed Gram Pos & Gram Neg Org 12/18/20 03:35 Mucosa - Nose Respiratory Panel (PCR) - Final 12/18/20 00:28 Urine, Clean Catch Legionella Antigen - Final 12/18/20 00:28 Urine, Clean Catch Streptococcus pneumoniae Antigen (M - Final 12/17/20 22:40 Interface Orders SARS-CoV-2 Antigen (Rapid) - Final SARS-CoV-2 (COVID 19) Rhythm Strip Rhythm Strip: Sinus Rhythm Rate: 83 Ectopy: None Physical Exam Const alert, oriented x3 and no apparent distress General Appearance: cooperative HEENT normocephalic and moist oral mucous membranes Eyes PERRL, EOMs intact bilaterally and conjunctivae normal Neck supple and no JVD Resp normal respiratory effort, no retractions, no use of accessory muscles and clear to auscultation bilaterally Auscultation: diminished lung sounds; Negative for crackles, rales, rhonchi or wheezes Cardio regular rate, regular rhythm, S1 normal heart sound, S2 normal heart sound and no murmurs GI soft to palpation, non-tender and non-distended; Negative for hepatosplenomegaly Extremity no clubbing, cyanosis or edema Skin no rashes or lesions noted Neuro no focal motor deficits and no sensory deficits noted Psych Mood & Affect: flat affect Assessment & Plan Assessment/Plan (1) Pneumonia due to COVID-19 virus: (2) Hypoxia: (3) Transaminitis: (4) Pulmonary embolus: PLAN: 1. Acute hypoxic respiratory failure secondary to COVID-19 pneumonia/recent pulmonary embolism/transaminitis/staphylococcal pneumonia -Continue Decadron, completed remdesivir -Appreciate pulmonology assistance -Continue with Eliquis for residual PEs, no acute PEs on CTA during this admission -Based on the staph in her sputum culture, she was started on vancomycin today, will follow up sensitivities -LFTs are improving 2. DM2 -We will adjust insulin as necessary secondary to Decadron -Accu-Cheks AC at bedtime, continue with SSI's 3. GERD/hiatal hernia -Stable -Continue PPI 4. Depression/anxiety -Stable -Continue with home meds DVT: Eliquis Charges/Coding Visit Charges Inpatient E&M: 07520 Subs Hosp L2
[2020-12-23] MEDS: 0.9% Saline Lock 10 ML Syringe IV (16:51)
[2020-12-23 17:06] LABS: Bedside Glucose 277 mg/dL (70-110)
[2020-12-23] MEDS: BENZOCAINE/MENTHOL 1 LOZENGE MUCOUS MEM (20:50)
[2020-12-23] MEDS: guaiFENesin 10 ML UDC (200MG/10ML) 20 ML PO (20:50)
[2020-12-23 22:10] LABS: Bedside Glucose 315 mg/dL (70-110)
[2020-12-24] VITALS (30 sets, daily range): BP systolic 93–132; BP diastolic 46–72; PULSE 56–88; RESP 12–40; TEMP 36.5–37.1; O2SAT 86–100
[2020-12-24 04:03] LABS: Hemoglobin 13.7 g/dL (12.0-15.0); Mean Corp Hgb Conc 31.9 g/dL (32-36); Mean Corpuscular Hgb 29.3 pg (27.0-32.0); Mean Corpuscular Volume 91.9 fL (81-99); Mean Platelet Vol. 9.7 fl (6.2-12.0); Platelet Count 359 K/mm3 (150-450); RBC Distribution Width CV 13.3 % (11.6-14.6); RBC Distribution Width SD 45.2 fl (35.1-43.9); Red Blood Count 4.68 M/mm3 (4.2-5.4); White Blood Count 7.4 K/mm3 (4.4-11.0)
[2020-12-24 04:23] LABS: ALB/GLOB Ratio 0.5 RATIO (0.9-2.4); AST(SGOT) 40 U/L (15-37); Alanine Aminotransfer ALT/SGPT 61 U/L (13-56); Albumin, Serum 2.5 g/dL (3.2-5.0); Alkaline Phosphatase 97 U/L (45-117); Anion Gap 4 (5-15); BUN 15 mg/dL (7-18); BUN/Creat Ratio 20.2 RATIO (10-20); Calcium,Total 8.4 mg/dL (8.5-10.1); Chloride 105 mmol/L (98-107); Creatinine, Serum 0.74 mg/dL (0.55-1.02); EST Glomerular Filtration Rate 86 mL/min (>60); Est Glom Filt Rate - Afr Amer 104 mL/min (>60); Estimated Creatinine Clearance 65.58 ml/min; Globulin 4.6 g/dL (2.2-4.2); Glucose 184 mg/dL (74-106); Potassium 3.5 mmol/L (3.5-5.1); Protein, Total 7.1 g/dL (6.4-8.2); Sodium Level 140 mmol/L (136-145)
--- NOTE | 2020-12-24 04:58 | NURSING ---
Called lab regarding vanc trough not resulting and vanc due at 0400. [address], the machine is not working properly right now. Will call w/ results. LORENA Payne.
[2020-12-24 05:06] LABS: Vancomycin, Trough Level 15.1 ug/mL (5.0-15.0)
[2020-12-24] MEDS: 0.9% Saline Lock 10 ML Syringe IV ×2 (05:30→09:18)
--- NOTE | 2020-12-24 06:16 | PCM.RX.CS ---
Consult Pharmacy has been consulted to manage selected antiobiotic: Vancomycin Type of Consult: Follow-up Suspected Infection: Pneumonia Prior Doses of Antibiotics Received/Current Regimen: Medications Vancomycin HCl 2,000 mg/ (Sodium Chloride) 540 mls @ 250 mls/hr IV Q12H DESHAWN Last Admin: 12/24/20 05:30 Dose: 250 mls/hr Labs: Sodium 140 mmol/L (136-145) 12/24/20 03:46 Potassium 3.5 mmol/L (3.5-5.1) 12/24/20 03:46 Chloride 105 mmol/L (98-107) 12/24/20 03:46 Carbon Dioxide 31.0 mmol/L (21.0-32.0) 12/24/20 03:46 Anion Gap 4 (5-15) L 12/24/20 03:46 BUN 15 mg/dL (7-18) 12/24/20 03:46 Creatinine 0.74 mg/dL (0.55-1.02) 12/24/20 03:46 Est GFR (MDRD) Af Amer 104 mL/min (>60) 12/24/20 03:46 Est GFR (MDRD) Non-Af 86 mL/min (>60) 12/24/20 03:46 BUN/Creatinine Ratio 20.2 RATIO (10-20) H 12/24/20 03:46 Glucose 184 mg/dL (74-106) H 12/24/20 03:46 Vancomycin Trough 15.1 ug/mL (5.0-15.0) H 12/24/20 03:46 Microbiology: Microbiology 12/17/20 22:30 Blood Culture (Wb) - Left Hand Blood Culture - Final No growth in 5 days. 12/17/20 00:28 Blood Culture (Wb) - Right Hand Blood Culture - Final No growth in 5 days. 12/21/20 10:40 Sputum, Expectorated/Coughed Gram Stain - Final 12/21/20 10:40 Sputum, Expectorated/Coughed Respiratory Culture - Preliminary Staphylococcus aureus 12/18/20 00:28 Urine, Random Urine Culture - Final Mixed Gram Pos & Gram Neg Org 12/18/20 03:35 Mucosa - Nose Respiratory Panel (PCR) - Final 12/18/20 00:28 Urine, Clean Catch Legionella Antigen - Final 12/18/20 00:28 Urine, Clean Catch Streptococcus pneumoniae Antigen (M - Final 12/17/20 22:40 Interface Orders SARS-CoV-2 Antigen (Rapid) - Final SARS-CoV-2 (COVID 19) Weight used for dosin.3 kg Estimated Creatinine Clearance: 66 Goal Trough: 15-20 mcg/mL Pharmacy Plan for Drug Dosing: Vancomycin trough level of 15.1 was within target range. Will continue current dosing and re-draw a trough on 12/26/20. Pharmacy Service will continue to monitor and adjust dosing as required. Follow-Up Labs: Trough Vancomycin Labs to be done on [date and time ordered]: 12/26/20 @[id number]
[2020-12-24 06:46] LABS: Bedside Glucose 138 mg/dL (70-110)
--- NOTE | 2020-12-24 08:47 | PN.CC_ITS ---
Assessment & Plan Assessment/Plan (1) Acute respiratory failure with hypoxia: (2) Pneumonia due to COVID-19 virus: (3) History of pulmonary embolism: (4) Morbid obesity: PLAN: RECOMMENDATIONS: 1. Continue vancomycin pending culture results 2. Patient should complete remdesivir today. Continue Decadron therapy for total of 10 days 3. Monitor closely for complications of Decadron. Lantus orders given 4. BiPAP should be 18/14 centimeters of water minimal, EPAP 14 if using AVAPS 5. Wean oxygen as tolerated 6. Agree with intermittent Lasix as labs allow 7. Continue with full anticoagulation IMPRESSIONS: 1. Acute hypoxic respiratory failure secondary to COVID-19 and staph aureus pneumonia Patient is appropriately on remdesivir and Decadron therapy. Patient is still requiring 65% FiO2 to maintain saturations. Patient is now growing staph aureus from her sputum. This should be treated given the severity of her illness. Patient will be initiated on vancomycin initially, but if found to have MSSA, this can be narrowed. Patient should be on full anticoagulation for now. Evaluation for CTEPH as an outpatient may be indicated. Patient does have high BiPAP settings at baseline for obstructive sleep apnea. Patient will need an EPAP of at least 14 cm of water to avoid obstruction and the recruitment. R ecommend aggressive pulmonary toileting. We will challenge with diuretics today. 2. Diabetes mellitus type 2 Patient currently on Decadron therapy secondary to problem #1. Increase basal insulin. Continue with sliding scale insulin. 3. Morbid obesity/depression/anxiety/GERD/hiatal hernia/transaminitis Complicates care, management, recovery and prognosis. Patient is on a PPI. Okay to continue with baseline depression/anxiety medications. Patient has stated that she is a full code and willing to be intubated if necessary. Subjective Subjective Patient did okay overnight. Patient able to tolerate BiPAP with sleep. Patient not reporting any chest pain this morning. Patient continues to have a productive cough. Objective Data Objective Data Vital Signs: Vital Signs Temp Pulse Resp BP Pulse Ox 36.7 C 60 31 H 108/60 97 12/24/20 08:00 12/24/20 08:00 12/24/20 08:00 12/24/20 08:00 12/24/20 08:00 Oxygen Flow Rate (L/min) [ 5 AMBULATING with Oxygen #2] Oxygen Flow Rate (L/min) [ 4 AMBULATING with Oxygen #1] Oxygen Flow Rate (L/min) [ 0 AMBULATING on Room Air] Oxygen Flow Rate (L/min) [At 0 REST on Room Air] Oxygen Flow Rate (L/min) 60 Oxygen Delivery Method Bi-pap Weight: 122.3 kg Body Mass Index (BMI) 51.4 Intake & Output: Intake and Output for Last 24 Hours 12/22/20 12/23/20 12/24/20 23:59 23:59 23:59 Intake Total 970 / 1090 1690 / 1930 780 / 780 Output Total 1150 / 1700 1300 / 1300 0 / 0 Balance -180 / -610 390 / 630 780 / 780 Lab / Micro Data Result Diagrams: 12/24/20 03:46 12/24/20 03:46 Labs: Laboratory Results - last 24 hr 12/23/20 07:24: Sodium 136, Potassium 4.0, Chloride 108 H, Carbon Dioxide 23.0, Anion Gap 5, BUN 19 H, Creatinine 0.74, Estim Creat Clear Calc 65.58, Est GFR (MDRD) Af Amer 105, Est GFR (MDRD) Non-Af 87, BUN/Creatinine Ratio 25.7 H, Glucose 201 H, Calcium 8.2 L, Total Bilirubin 0.40, AST 49 H, ALT 68 H, Alkaline Phosphatase 94, Total Protein 6.9, Albumin 1.9 L, Globulin 5.0 H, Albumin/Globulin Ratio 0.4 L 12/23/20 11:49: POC Glucose 198 H 12/23/20 16:49: POC Glucose 277 H 12/23/20 20:46: POC Glucose 315 H 12/24/20 03:46: WBC 7.4, RBC 4.68, Hgb 13.7, Hct 43.0, MCV 91.9, MCH 29.3, MCHC 31.9 L, RDW Std Deviation 45.2 H, RDW Coeff of Mansi 13.3, Plt Count 359, MPV 9.7 12/24/20 03:46: Sodium 140, Potassium 3.5, Chloride 105, Carbon Dioxide 31.0, Anion Gap 4 L, BUN 15, Creatinine 0.74, Estim Creat Clear Calc 65.58, Est GFR (MDRD) Af Amer 104, Est GFR (MDRD) Non-Af 86, BUN/Creatinine Ratio 20.2 H, Glucose 184 H, Calcium 8.4 L, Total Bilirubin 0.40, AST 40 H, ALT 61 H, Alkaline Phosphatase 97, Total Protein 7.1, Albumin 2.5 L, Globulin 4.6 H, Albumin/Globulin Ratio 0.5 L 12/24/20 03:46: Vancomycin Trough 15.1 H 12/24/20 06:39: POC Glucose 138 H Micro: Microbiology 12/17/20 22:30 Blood Culture (Wb) - Left Hand Blood Culture - Final No growth in 5 days. 12/17/20 00:28 Blood Culture (Wb) - Right Hand Blood Culture - Final No growth in 5 days. 12/21/20 10:40 Sputum, Expectorated/Coughed Gram Stain - Final 12/21/20 10:40 Sputum, Expectorated/Coughed Respiratory Culture - Preliminary Staphylococcus aureus 12/18/20 00:28 Urine, Random Urine Culture - Final Mixed Gram Pos & Gram Neg Org 12/18/20 03:35 Mucosa - Nose Respiratory Panel (PCR) - Final 12/18/20 00:28 Urine, Clean Catch Legionella Antigen - Final 12/18/20 00:28 Urine, Clean Catch Streptococcus pneumoniae Antigen (M - Final 12/17/20 22:40 Interface Orders SARS-CoV-2 Antigen (Rapid) - Final SARS-CoV-2 (COVID 19) Rhythm Strip Rhythm Strip: Sinus Rhythm Rate: 83 Ectopy: None Physical Exam Const alert and oriented x3 Constitutional Narrative: On BiPAP General Appearance: cooperative, well developed and ill appearing Positive for acutely Nutritional Appearance: morbidly obese HEENT normocephalic, head/scalp atraumatic and moist oral mucous membranes Eyes PERRL and EOMs intact bilaterally Neck full ROM and no lymphadenopathy Chest inspection of chest normal Chest: symmetrical chest wall rise; Negative for crepitus Resp Effort and Inspection: symmetric chest movement Auscultation: diminished lung sounds; Negative for rales, rhonchi or wheezes Percussion: Negative for dullness Cardio regular rate, regular rhythm, S1 normal heart sound, S2 normal heart sound, no murmurs, no rub and no gallops GI normal to inspection, nondistended, normoactive bowel sounds no CVA tenderness Extremity General Extremity: edema bilateral (1+) lower extremity; Negative for clubbing or cyanosis Skin no rashes or lesions noted Neuro oriented x3, CN's II-XII intact bilaterally, moves all extremities and no focal motor deficits Psych cooperative and affect normal Charges/Coding Visit Charges Inpatient E&M: 47468 Subs Hosp L3
[2020-12-24] MEDS: Escitalopram Oxalate 20 MG Tablet PO (09:16)
[2020-12-24] MEDS: Furosemide 40 MG/4 ML Vial IV (09:16)
[2020-12-24] MEDS: APIXABAN 5 MG TABLET 10 MG PO ×2 (09:16→21:07)
[2020-12-24] MEDS: dexAMETHasone 2 MG TABLET 6 MG PO (09:16)
[2020-12-24] MEDS: Pantoprazole Sodium 20 MG Tablet PO (09:17)
[2020-12-24] MEDS: LORazepam 0.5 MG Tablet PO ×2 (09:17→21:07)
[2020-12-24] MEDS: Azelastine HCl NASAL.SRY 1 SPRAY NASAL ×2 (09:17→21:07)
[2020-12-24] MEDS: Loratadine 10 MG Tablet PO (09:17)
[2020-12-24] MEDS: Fluticasone 0.05% 1 SPRAY NASAL.SRY NASAL ×2 (09:17→21:07)
[2020-12-24] MEDS: Insulin Lispro 100 UNIT/ML INSULN.PEN SC ×3 (12:02→21:10)
[2020-12-24 12:16] LABS: Bedside Glucose 251 mg/dL (70-110)
--- NOTE | 2020-12-24 14:26 | PCM.PN.HOSP ---
Subjective Subjective About the same today. Maintaining her oxygen saturations on air Vo. Did reinforce with her BiPAP when she sleeps and if she feels able to do even attempt proning Objective Data Objective Data Vital Signs: Vital Signs Temp Pulse Resp BP Pulse Ox 98.6 F 73 27 H 103/47 L 90 12/24/20 14:00 12/24/20 14:00 12/24/20 14:00 12/24/20 14:00 12/24/20 14:00 Oxygen Flow Rate (L/min) [ 5 AMBULATING with Oxygen #2] Oxygen Flow Rate (L/min) [ 4 AMBULATING with Oxygen #1] Oxygen Flow Rate (L/min) [ 0 AMBULATING on Room Air] Oxygen Flow Rate (L/min) [At 0 REST on Room Air] Oxygen Flow Rate (L/min) 60 Oxygen Delivery Method Airvo Weight: 269 lb 10.005 oz Body Mass Index (BMI) 51.4 Intake & Output: Intake and Output for Last 24 Hours 12/23/20 12/24/20 12/25/20 03:59 03:59 03:59 Intake Total 1090 / 1090 1810 / 1810 660 / 660 Output Total 1700 / 1700 750 / 750 1750 / 1750 Balance -610 / -610 1060 / 1060 -1090 / -1090 Lab / Micro Data Result Diagrams: 12/24/20 03:46 12/24/20 03:46 Labs: Laboratory Results - last 24 hr 12/23/20 16:49: POC Glucose 277 H 12/23/20 20:46: POC Glucose 315 H 12/24/20 03:46: WBC 7.4, RBC 4.68, Hgb 13.7, Hct 43.0, MCV 91.9, MCH 29.3, MCHC 31.9 L, RDW Std Deviation 45.2 H, RDW Coeff of Mansi 13.3, Plt Count 359, MPV 9.7 12/24/20 03:46: Sodium 140, Potassium 3.5, Chloride 105, Carbon Dioxide 31.0, Anion Gap 4 L, BUN 15, Creatinine 0.74, Estim Creat Clear Calc 65.58, Est GFR (MDRD) Af Amer 104, Est GFR (MDRD) Non-Af 86, BUN/Creatinine Ratio 20.2 H, Glucose 184 H, Calcium 8.4 L, Total Bilirubin 0.40, AST 40 H, ALT 61 H, Alkaline Phosphatase 97, Total Protein 7.1, Albumin 2.5 L, Globulin 4.6 H, Albumin/Globulin Ratio 0.5 L 12/24/20 03:46: Vancomycin Trough 15.1 H 12/24/20 06:39: POC Glucose 138 H 12/24/20 12:01: POC Glucose 251 H Micro: Microbiology 12/21/20 10:40 Sputum, Expectorated/Coughed Gram Stain - Final 12/21/20 10:40 Sputum, Expectorated/Coughed Respiratory Culture - Preliminary Staphylococcus aureus Presumptive C albicans Streptococcus agalactiae (B) 12/17/20 22:30 Blood Culture (Wb) - Left Hand Blood Culture - Final No growth in 5 days. 12/17/20 00:28 Blood Culture (Wb) - Right Hand Blood Culture - Final No growth in 5 days. 12/18/20 00:28 Urine, Random Urine Culture - Final Mixed Gram Pos & Gram Neg Org 12/18/20 03:35 Mucosa - Nose Respiratory Panel (PCR) - Final 12/18/20 00:28 Urine, Clean Catch Legionella Antigen - Final 12/18/20 00:28 Urine, Clean Catch Streptococcus pneumoniae Antigen (M - Final 12/17/20 22:40 Interface Orders SARS-CoV-2 Antigen (Rapid) - Final SARS-CoV-2 (COVID 19) Rhythm Strip Rhythm Strip: Sinus Rhythm Rate: 83 Ectopy: None Physical Exam Const alert, oriented x3 and no apparent distress General Appearance: cooperative HEENT normocephalic and moist oral mucous membranes Eyes PERRL, EOMs intact bilaterally and conjunctivae normal Neck supple and no JVD Resp normal respiratory effort, no retractions, no use of accessory muscles and clear to auscultation bilaterally Auscultation: diminished lung sounds; Negative for crackles, rales, rhonchi or wheezes Cardio regular rate, regular rhythm, S1 normal heart sound, S2 normal heart sound and no murmurs GI soft to palpation, non-tender and non-distended; Negative for hepatosplenomegaly Extremity no clubbing, cyanosis or edema Skin no rashes or lesions noted Neuro no focal motor deficits and no sensory deficits noted Psych affect normal Appearance: appropriate Mood & Affect: flat affect Assessment & Plan Assessment/Plan (1) Pneumonia due to COVID-19 virus: (2) Hypoxia: (3) Transaminitis: (4) Pulmonary embolus: PLAN: 1. Acute hypoxic respiratory failure secondary to COVID-19 pneumonia/recent pulmonary embolism/transaminitis/staphylococcal pneumonia -Continue Decadron, completed remdesivir -Appreciate pulmonology assistance -Continue with Eliquis for residual PEs, no acute PEs on CTA during this admission -She has MSSA and strep agalactiae therefore will narrow vancomycin to Rocephin -LFTs are improving 2. DM2 -We will adjust insulin as necessary secondary to Decadron -Accu-Cheks AC at bedtime, continue with SSI's 3. GERD/hiatal hernia -Stable -Continue PPI 4. Depression/anxiety -Stable -Continue with home meds DVT: Eliquis Charges/Coding Visit Charges Inpatient E&M: 86794 Subs Hosp L2
[2020-12-24 17:36] LABS: Bedside Glucose 250 mg/dL (70-110)
[2020-12-24] MEDS: guaiFENesin 10 ML UDC (200MG/10ML) 20 ML PO (21:06)
[2020-12-24 21:25] LABS: Bedside Glucose 276 mg/dL (70-110)
[2020-12-25] VITALS (35 sets, daily range): BP systolic 86–135; BP diastolic 46–74; PULSE 49–78; RESP 12–44; TEMP 36.4–36.7; O2SAT 88–98
--- NOTE | 2020-12-25 01:28 | CPS ---
Patient changed to AVAPS BiPAP mode for decreased pulse ox on BiPAP with observed low tidal volumes. Oxygenation improved after change and increase to 80% FiO2.
[2020-12-25] MEDS: LORazepam 0.5 MG Tablet PO ×2 (04:09→22:16)
[2020-12-25 06:56] LABS: Bedside Glucose 133 mg/dL (70-110)
[2020-12-25 08:26] LABS: Allen Test Positive; Base Excess 5 mmol/L (-2 to +2); Bicarbonate 29.1 mmol/L (22-26); Blood Gas Specimen Type ART; FI02 85; O2 Delivery Device BiPAP; PO2 90 mmHG (75-100); RR 12; SITE L Radial; SO2 97 % (95-99); Total Carbon Dioxide 31 mmol/L; Vt 400; pH 7.43 (7.35-7.45)
[2020-12-25 08:48] LABS: Basophil# 0.04 X10^3/uL; Basophil% 0.4 % (0-1); Eosinophil# 0.02 X10^3/uL; Eosinophils% 0.2 % (0-5); Hematocrit 45.5 % (37-47); Hemoglobin 14.8 g/dL (12.0-15.0); Lymphocyte % 13.9 % (19-41); Mean Corp Hgb Conc 32.5 g/dL (32-36); Mean Corpuscular Hgb 30.1 pg (27.0-32.0); Mean Corpuscular Volume 92.5 fL (81-99); Mean Platelet Vol. 9.8 fl (6.2-12.0); Monocyte# 0.49 X10^3/uL; Monocyte% 4.9 % (0-10); NRBC Flagged by Analyzer 0 % (0-5); Neutrophil # 7.97 X10^3/uL (2.7-7.7); Neutrophil % 79.1 % (47-70); POSITIVE MORPHOLOGY YES; Platelet Count 474 K/mm3 (150-450); RBC Distribution Width CV 13.4 % (11.6-14.6); RBC Distribution Width SD 45.8 fl (35.1-43.9); Red Blood Count 4.92 M/mm3 (4.2-5.4); White Blood Count 10.1 K/mm3 (4.4-11.0)
[2020-12-25 08:50] LABS: Differential Indicated SCAN CRITERIA MET
[2020-12-25 09:01] LABS: ALB/GLOB Ratio 0.5 RATIO (0.9-2.4); AST(SGOT) 57 U/L (15-37); Alanine Aminotransfer ALT/SGPT 71 U/L (13-56); Albumin, Serum 2.6 g/dL (3.2-5.0); Alkaline Phosphatase 105 U/L (45-117); Anion Gap 3 (5-15); BUN 18 mg/dL (7-18); BUN/Creat Ratio 20.4 RATIO (10-20); Calcium,Total 8.7 mg/dL (8.5-10.1); Chloride 106 mmol/L (98-107); Creatinine, Serum 0.88 mg/dL (0.55-1.02); EST Glomerular Filtration Rate 71 mL/min (>60); Est Glom Filt Rate - Afr Amer 86 mL/min (>60); Estimated Creatinine Clearance 55.15 ml/min; Globulin 4.9 g/dL (2.2-4.2); Glucose 132 mg/dL (74-106); Magnesium 2.2 mg/dL (1.6-2.6); Protein, Total 7.5 g/dL (6.4-8.2); Sodium Level 141 mmol/L (136-145)
--- NOTE | 2020-12-25 10:43 | PCM.PN.INT ---
Assessment & Plan Assessment/Plan (1) Acute respiratory failure with hypoxia: (2) Pneumonia due to COVID-19 virus: (3) History of pulmonary embolism: (4) Morbid obesity: PLAN: RECOMMENDATIONS: 1. Consider transition to MSSA coverage 2. Completed remdesivir. Continue Decadron therapy for total of 10 days 3. Monitor closely for complications of Decadron. Lantus orders given 4. BiPAP should be 18/14 centimeters of water minimal, EPAP 14 if using AVAPS 5. Transfer to intensive care unit 6. Agree with intermittent Lasix as labs allow 7. Continue with full anticoagulation IMPRESSIONS: 1. Acute hypoxic respiratory failure secondary to COVID-19 and staph aureus pneumonia Patient is appropriately on remdesivir and Decadron therapy. Patient is still requiring 65% FiO2 to maintain saturations. Patient is now growing staph aureus from her sputum. This should be treated given the severity of her illness. Patient will be initiated on vancomycin initially, but if found to have MSSA, this can be narrowed. Patient should be on full anticoagulation for now. Evaluation for CTEPH as an outpatient may be indicated. Patient does have high BiPAP settings at baseline for obstructive sleep apnea. Patient will need an EPAP of at least 14 cm of water to avoid obstruction and the recruitment. Recommend aggressive pulmonary toileting. Patient is a full code and appears to have deteriorated from a respiratory standpoint. Patient is not showing signs of respiratory muscle fatigue, but does have tachypnea despite supportive measures. Will transfer to the intensive care unit for closer monitoring. Cannot exclude intubation in the next 24 to 48 hours. We will hold on Lasix for today, but patient is overall positive for the hospitalization. 2. Diabetes mellitus type 2 Patient currently on Decadron therapy secondary to problem #1. Increase basal insulin. Continue with sliding scale insulin. 3. Morbid obesity/depression/anxiety/GERD/hiatal hernia/transaminitis Complicates care, management, recovery and prognosis. Patient is on a PPI. Okay to continue with baseline depression/anxiety medications. Patient has stated that she is a full code and willing to be intubated if necessary. TIME: 32 minutes of critical care time spent addressing patient's acute hypoxic respiratory failure, diabetes mellitus, review of all data and collaboration with care team (8 AM to 10:45 AM) Subjective Subjective Patient did okay overnight, but oxygen requirements did increase significantly. Patient was found breathing 30-40 times a minute on BiPAP therapy and reporting increased dyspnea. No chest pain or palpitations were reported. Objective Data Objective Data Given tachypnea and increased oxygen requirements, an ABG was obtained. Findings were acceptable, but given respiratory effort, patient was transferred to the intensive care unit for closer monitoring. Vital Signs: Vital Signs Temp Pulse Resp BP Pulse Ox 36.4 C L 59 L 40 H 87/54 L 91 12/25/20 04:00 12/25/20 10:30 12/25/20 10:30 12/25/20 10:30 12/25/20 10:30 Oxygen Flow Rate (L/min) [ 5 AMBULATING with Oxygen #2] Oxygen Flow Rate (L/min) [ 4 AMBULATING with Oxygen #1] Oxygen Flow Rate (L/min) [ 0 AMBULATING on Room Air] Oxygen Flow Rate (L/min) [At 0 REST on Room Air] Oxygen Flow Rate (L/min) 60 Oxygen Delivery Method Airvo Weight: 121.2 kg Body Mass Index (BMI) 51.4 Intake & Output: Intake and Output for Last 24 Hours 12/23/20 12/24/20 12/25/20 23:59 23:59 23:59 Intake Total 1690 / 1930 1680 / 1920 840 / 840 Output Total 1300 / 1300 2400 / 2950 750 / 750 Balance 390 / 630 -720 / -1030 90 / 90 Lab / Micro Data Result Diagrams: 12/25/20 08:10 12/25/20 08:10 Labs: Laboratory Results - last 24 hr 12/24/20 12:01: POC Glucose 251 H 12/24/20 16:53: POC Glucose 250 H 12/24/20 21:09: POC Glucose 276 H 12/25/20 06:46: POC Glucose 133 H 12/25/20 08:10: WBC 10.1, RBC 4.92, Hgb 14.8, Hct 45.5, MCV 92.5, MCH 30.1, MCHC 32.5, RDW Std Deviation 45.8 H, RDW Coeff of Mansi 13.4, Plt Count 474 H, MPV 9.8, Immature Gran % (Auto) 1.500 H, Neut % (Auto) 79.1 H, Lymph % (Auto) 13.9 L, [place] % (Auto) 4.9, Eos % (Auto) 0.2, Baso % (Auto) 0.4, Absolute Neuts (auto) 8.0 H, Absolute Lymphs (auto) 1.40, Nucleated RBC % 0 12/25/20 08:10: Sodium 141, Potassium 4.0, Chloride 106, Carbon Dioxide 32.0, Anion Gap 3 L, BUN 18, Creatinine 0.88, Estim Creat Clear Calc 55.15, Est GFR (MDRD) Af Amer 86, Est GFR (MDRD) Non-Af 71, BUN/Creatinine Ratio 20.4 H, Glucose 132 H, Calcium 8.7, Phosphorus 3.0, Magnesium 2.2, Total Bilirubin 0.60, AST 57 H, ALT 71 H, Alkaline Phosphatase 105, Total Protein 7.5, Albumin 2.6 L, Globulin 4.9 H, Albumin/Globulin Ratio 0.5 L Micro: Microbiology 12/21/20 10:40 Sputum, Expectorated/Coughed Gram Stain - Final 12/21/20 10:40 Sputum, Expectorated/Coughed Respiratory Culture - Final Staphylococcus aureus Presumptive C albicans Streptococcus agalactiae (B) 12/17/20 22:30 Blood Culture (Wb) - Left Hand Blood Culture - Final No growth in 5 days. 12/17/20 00:28 Blood Culture (Wb) - Right Hand Blood Culture - Final No growth in 5 days. 12/18/20 00:28 Urine, Random Urine Culture - Final Mixed Gram Pos & Gram Neg Org 12/18/20 03:35 Mucosa - Nose Respiratory Panel (PCR) - Final 12/18/20 00:28 Urine, Clean Catch Legionella Antigen - Final 12/18/20 00:28 Urine, Clean Catch Streptococcus pneumoniae Antigen (M - Final 12/17/20 22:40 Interface Orders SARS-CoV-2 Antigen (Rapid) - Final SARS-CoV-2 (COVID 19) ABG Data ABG results: ABG 12/25/20 08:19 Specimen Type ART Sample Site L Radial pH 7.43 Bicarbonate Actual 29.1 H Total CO2 31 Base Excess 5 H O2 Saturation 97 O2 % 85 ABG pCO2 44.0 ABG pO2 90 Lexx Test Positive Respiration Rate 12 O2 Delivery Device BiPAP Tidal Volume 400 Clinical Comments Rhythm Strip Rhythm Strip: Sinus Rhythm Rate: 83 Ectopy: None Physical Exam Const alert and oriented x3 Constitutional Narrative: On BiPAP General Appearance: cooperative, well developed and ill appearing Positive for acutely Nutritional Appearance: morbidly obese HEENT normocephalic, head/scalp atraumatic and moist oral mucous membranes Eyes PERRL and EOMs intact bilaterally Neck full ROM and no lymphadenopathy Chest inspection of chest normal Chest: symmetrical chest wall rise; Negative for crepitus Resp Resp Narrative: Little conversational effort Effort and Inspection: symmetric chest movement Auscultation: diminished lung sounds; Negative for rales, rhonchi or wheezes Percussion: Negative for dullness Cardio regular rate, regular rhythm, S1 normal heart sound, S2 normal heart sound, no murmurs, no rub and no gallops GI normal to inspection, nondistended, normoactive bowel sounds no CVA tenderness Extremity General Extremity: edema bilateral (1+) lower extremity; Negative for clubbing or cyanosis Skin no rashes or lesions noted Neuro oriented x3, CN's II-XII intact bilaterally, moves all extremities and no focal motor deficits Psych cooperative and affect normal Charges/Coding Procedures Hospitalists Procedures: 66117 Critial Care 1st Hr
[2020-12-25] MEDS: dexAMETHasone 2 MG TABLET 6 MG PO (11:12)
[2020-12-25] MEDS: APIXABAN 5 MG TABLET 10 MG PO (11:12)
[2020-12-25] MEDS: Escitalopram Oxalate 20 MG Tablet PO (11:13)
[2020-12-25] MEDS: Pantoprazole Sodium 20 MG Tablet PO (11:13)
[2020-12-25] MEDS: Ceftriaxone 1 GM/50 ML BAG IV (12:05)
[2020-12-25 12:40] LABS: Bedside Glucose 109 mg/dL (70-110)
--- NOTE | 2020-12-25 13:03 | PN.HOSP_ITS ---
Subjective Subjective She is decompensated overnight, on BiPAP she is requiring an FiO2 of over 80, and she has been more tachypneic plan will be to transfer to the ICU for closer monitoring. Objective Data Objective Data Vital Signs: Vital Signs Temp Pulse Resp BP Pulse Ox 97.6 F L 58 L 22 H 117/57 L 98 12/25/20 04:00 12/25/20 12:00 12/25/20 12:00 12/25/20 12:00 12/25/20 12:00 Oxygen Flow Rate (L/min) [ 5 AMBULATING with Oxygen #2] Oxygen Flow Rate (L/min) [ 4 AMBULATING with Oxygen #1] Oxygen Flow Rate (L/min) [ 0 AMBULATING on Room Air] Oxygen Flow Rate (L/min) [At 0 REST on Room Air] Oxygen Flow Rate (L/min) 60 Oxygen Delivery Method Bi-pap Weight: 267 lb 3.204 oz Body Mass Index (BMI) 51.4 Intake & Output: Intake and Output for Last 24 Hours 12/24/20 12/25/20 12/26/20 03:59 03:59 03:59 Intake Total 1810 / 1810 1680 / 1680 650 / 650 Output Total 750 / 750 2950 / 2950 200 / 200 Balance 1060 / 1060 -1270 / -1270 450 / 450 Lab / Micro Data Result Diagrams: 12/25/20 08:10 12/25/20 08:10 Labs: Laboratory Results - last 24 hr 12/24/20 16:53: POC Glucose 250 H 12/24/20 21:09: POC Glucose 276 H 12/25/20 06:46: POC Glucose 133 H 12/25/20 08:10: WBC 10.1, RBC 4.92, Hgb 14.8, Hct 45.5, MCV 92.5, MCH 30.1, MCHC 32.5, RDW Std Deviation 45.8 H, RDW Coeff of Mansi 13.4, Plt Count 474 H, MPV 9.8, Immature Gran % (Auto) 1.500 H, Neut % (Auto) 79.1 H, Lymph % (Auto) 13.9 L, [place] % (Auto) 4.9, Eos % (Auto) 0.2, Baso % (Auto) 0.4, Absolute Neuts (auto) 8.0 H, Absolute Lymphs (auto) 1.40, Nucleated RBC % 0 12/25/20 08:10: Sodium 141, Potassium 4.0, Chloride 106, Carbon Dioxide 32.0, Anion Gap 3 L, BUN 18, Creatinine 0.88, Estim Creat Clear Calc 55.15, Est GFR ( MDRD) Af Amer 86, Est GFR (MDRD) Non-Af 71, BUN/Creatinine Ratio 20.4 H, Glucose 132 H, Calcium 8.7, Phosphorus 3.0, Magnesium 2.2, Total Bilirubin 0.60, AST 57 H, ALT 71 H, Alkaline Phosphatase 105, Total Protein 7.5, Albumin 2.6 L, Globulin 4.9 H, Albumin/Globulin Ratio 0.5 L 12/25/20 12:32: POC Glucose 109 Micro: Microbiology 12/21/20 10:40 Sputum, Expectorated/Coughed Gram Stain - Final 12/21/20 10:40 Sputum, Expectorated/Coughed Respiratory Culture - Final Staphylococcus aureus Presumptive C albicans Streptococcus agalactiae (B) 12/17/20 22:30 Blood Culture (Wb) - Left Hand Blood Culture - Final No growth in 5 days. 12/17/20 00:28 Blood Culture (Wb) - Right Hand Blood Culture - Final No growth in 5 days. 12/18/20 00:28 Urine, Random Urine Culture - Final Mixed Gram Pos & Gram Neg Org 12/18/20 03:35 Mucosa - Nose Respiratory Panel (PCR) - Final 12/18/20 00:28 Urine, Clean Catch Legionella Antigen - Final 12/18/20 00:28 Urine, Clean Catch Streptococcus pneumoniae Antigen (M - Final 12/17/20 22:40 Interface Orders SARS-CoV-2 Antigen (Rapid) - Final SARS-CoV-2 (COVID 19) ABG Data ABG results: ABG 12/25/20 08:19 Specimen Type ART Sample Site L Radial pH 7.43 Bicarbonate Actual 29.1 H Total CO2 31 Base Excess 5 H O2 Saturation 97 O2 % 85 ABG pCO2 44.0 ABG pO2 90 Lexx Test Positive Respiration Rate 12 O2 Delivery Device BiPAP Tidal Volume 400 Clinical Comments Rhythm Strip Rhythm Strip: Sinus Rhythm Rate: 83 Ectopy: None Physical Exam Const alert and oriented x3 General Appearance: cooperative and in distress Positive for mild HEENT normocephalic and moist oral mucous membranes Eyes PERRL, EOMs intact bilaterally and conjunctivae normal Neck supple and no JVD Resp normal respiratory effort, no retractions, no use of accessory muscles and clear to auscultation bilaterally Auscultation: diminished lung sounds; Negative for crackles, rales, rhonchi or wheezes Cardio regular rate, regular rhythm, S1 normal heart sound, S2 normal heart sound and no murmurs GI soft to palpation, non-tender and non-distended; Negative for hepatosplenomegaly Extremity no clubbing, cyanosis or edema Skin no rashes or lesions noted Neuro no focal motor deficits and no sensory deficits noted Psych Mood & Affect: flat affect Assessment & Plan Assessment/Plan (1) Pneumonia due to COVID-19 virus: (2) Hypoxia: (3) Transaminitis: (4) Pulmonary embolus: PLAN: 1. Acute hypoxic respiratory failure secondary to COVID-19 pneumonia/recent pulmonary embolism/transaminitis/staphylococcal pneumonia -Continue Decadron, completed remdesivir -Appreciate pulmonology assistance -Continue with Eliquis for residual PEs, no acute PEs on CTA during this admission -She has MSSA and strep agalactiae therefore will narrow vancomycin to Rocephin -Given her increased respiratory distress, with FiO2's of 85% and tachypnea will transfer to the ICU closer monitoring will have repeat discussions on whether or not she would like to be intubated. 2. DM2 -We will adjust insulin as necessary secondary to Decadron -Accu-Cheks AC at bedtime, continue with SSI's 3. GERD/hiatal hernia -Stable -Continue PPI 4. Depression/anxiety -Stable -Continue with home meds DVT: Eliquis Charges/Coding Visit Charges Inpatient E&M: 11820 Subs Hosp L2
[2020-12-25] MEDS: CHLORHEXIDINE GLUC 2% CLOTH 1 EACH TOWELETTE TOPICAL (20:00)
[2020-12-25 20:50] LABS: Bedside Glucose 146 mg/dL (70-110)
[2020-12-25] MEDS: Insulin Lispro 100 UNIT/ML INSULN.PEN SC (22:13)
[2020-12-25] MEDS: guaiFENesin 10 ML UDC (200MG/10ML) 20 ML PO (22:16)
[2020-12-25] MEDS: Azelastine HCl NASAL.SRY 1 SPRAY NASAL (22:17)
[2020-12-25] MEDS: Acetaminophen 325 MG Tablet 650 MG PO (22:17)
[2020-12-25] MEDS: Fluticasone 0.05% 1 SPRAY NASAL.SRY NASAL (22:17)
[2020-12-25] MEDS: 0.9% Saline Lock 10 ML Syringe IV (22:18)
[2020-12-26] VITALS (38 sets, daily range): BP systolic 89–127; BP diastolic 54–78; PULSE 59–88; RESP 12–40; TEMP 35.8–36.8; O2SAT 90–97
[2020-12-26 02:46] LABS: Bedside Glucose 164 mg/dL (70-110)
[2020-12-26] MEDS: 0.9% Saline Lock 10 ML Syringe IV (03:56)
[2020-12-26 04:36] LABS: Absolute Neutrophil Count 7.2 X10^3/uL (2.0-7.7); Basophil# 0.02 X10^3/uL; Basophil% 0.2 % (0-1); Eosinophil# 0.11 X10^3/uL; Eosinophils% 1.2 % (0-5); Hematocrit 42.7 % (37-47); Lymphocyte % 11.2 % (19-41); Mean Corp Hgb Conc 32.8 g/dL (32-36); Mean Corpuscular Hgb 30.1 pg (27.0-32.0); Mean Corpuscular Volume 91.8 fL (81-99); Mean Platelet Vol. 9.7 fl (6.2-12.0); Monocyte# 0.54 X10^3/uL; NRBC Flagged by Analyzer 0 % (0-5); Neutrophil # 7.17 X10^3/uL (2.7-7.7); Neutrophil % 80.1 % (47-70); Platelet Count 427 K/mm3 (150-450); RBC Distribution Width CV 13.6 % (11.6-14.6); RBC Distribution Width SD 46.3 fl (35.1-43.9); Red Blood Count 4.65 M/mm3 (4.2-5.4)
[2020-12-26 05:04] LABS: Anion Gap 7 (5-15); BUN 18 mg/dL (7-18); Calcium,Total 8.4 mg/dL (8.5-10.1); Chloride 103 mmol/L (98-107); Creatinine, Serum 0.82 mg/dL (0.55-1.02); EST Glomerular Filtration Rate 77 mL/min (>60); Est Glom Filt Rate - Afr Amer 94 mL/min (>60); Estimated Creatinine Clearance 59.18 ml/min; Glucose 124 mg/dL (74-106); Potassium 3.3 mmol/L (3.5-5.1); Sodium Level 139 mmol/L (136-145)
--- NOTE | 2020-12-26 07:03 | PN.CC_ITS ---
Assessment & Plan Assessment/Plan (1) Acute respiratory failure with hypoxia: (2) Pneumonia due to COVID-19 virus: (3) History of pulmonary embolism: (4) Morbid obesity: PLAN: RECOMMENDATIONS: 1. Anticipate 10 days of total antibiotics 2. Completed remdesivir. Continue Decadron therapy for total of 10 days 3. Monitor closely for complications of Decadron. Lantus orders given 4. BiPAP should be 18/14 centimeters of water minimal, EPAP 14 if using AVAPS 5. Increase activity as tolerated 6. Agree with intermittent Lasix as labs allow 7. Continue with full anticoagulation IMPRESSIONS: 1. Acute hypoxic respiratory failure secondary to COVID-19 and staph aureus pneumonia Patient is appropriately on remdesivir and Decadron therapy. Patient is still requiring 65% FiO2 to maintain saturations. Patient is now growing staph aureus from her sputum. This should be treated given the severity of her illness. Patient will be initiated on vancomycin initially, but if found to have MSSA, this can be narrowed. Patient should be on full anticoagulation for now. Evaluation for CTEPH as an outpatient may be indicated. Patient does have high BiPAP settings at baseline for obstructive sleep apnea. Patient will need an EPAP of at least 14 cm of water to avoid obstruction and the recruitment. Recommend aggressive pulmonary toileting. Patient is a full code and appears to have deteriorated from a respiratory standpoint. Patient is not showing signs of respiratory muscle fatigue, but does have tachypnea despite supportive measures. Patient appears to be stabilizing from a respiratory standpoint. We will continue to diurese as tolerated 2. Diabetes mellitus type 2 Patient currently on Decadron therapy secondary to problem #1. Continue basal insulin. Continue with sliding scale insulin. Blood sugars appear to be relatively controlled. 3. Morbid obesity/depression/anxiety/GERD/hiatal hernia/transaminitis Complicates care, management, recovery and prognosis. Patient is on a PPI. Okay to continue with baseline depression/anxiety medications. Patient has stated that she is a full code and willing to be intubated if necessary. Subjective Subjective Patient did okay overnight. No acute issues were reported. Patient was as high as 85% on FiO2 with BiPAP, but has improved throughout the evening. Patient continues to report significant fatigue. Patient has had a nonproductive cough. Patient was able to tolerate Airvo yesterday. Objective Data Objective Data Vital Signs: Vital Signs Temp Pulse Resp BP Pulse Ox 35.8 C L 72 32 H 113/67 91 12/26/20 04:00 12/26/20 07:00 12/26/20 07:00 12/26/20 07:00 12/26/20 07:00 Oxygen Flow Rate (L/min) [ 5 AMBULATING with Oxygen #2] Oxygen Flow Rate (L/min) [ 4 AMBULATING with Oxygen #1] Oxygen Flow Rate (L/min) [ 0 AMBULATING on Room Air] Oxygen Flow Rate (L/min) [At 0 REST on Room Air] Oxygen Flow Rate (L/min) 85 Oxygen Delivery Method Bi-pap Weight: 121.2 kg Body Mass Index (BMI) 51.4 Intake & Output: Intake and Output for Last 24 Hours 12/24/20 12/25/20 12/26/20 23:59 23:59 23:59 Intake Total 1680 / 1920 890 / 1130 240 / 240 Output Total 2400 / 2950 950 / 950 Balance -720 / -1030 -60 / 180 240 / 240 Lab / Micro Data Result Diagrams: 12/26/20 04:00 12/26/20 04:00 Labs: Laboratory Results - last 24 hr 12/25/20 08:10: WBC 10.1, RBC 4.92, Hgb 14.8, Hct 45.5, MCV 92.5, MCH 30.1, MCHC 32.5, RDW Std Deviation 45.8 H, RDW Coeff of Mansi 13.4, Plt Count 474 H, MPV 9.8, Immature Gran % (Auto) 1.500 H, Neut % (Auto) 79.1 H, Lymph % (Auto) 13.9 L, [place] % (Auto) 4.9, Eos % (Auto) 0.2, Baso % (Auto) 0.4, Absolute Neuts (auto) 8.0 H, Absolute Lymphs (auto) 1.40, Nucleated RBC % 0 12/25/20 08:10: Sodium 141, Potassium 4.0, Chloride 106, Carbon Dioxide 32.0, Anion Gap 3 L, BUN 18, Creatinine 0.88, Estim Creat Clear Calc 55.15, Est GFR (MDRD) Af Amer 86, Est GFR (MDRD) Non-Af 71, BUN/Creatinine Ratio 20.4 H, Glucose 132 H, Calcium 8.7, Phosphorus 3.0, Magnesium 2.2, Total Bilirubin 0.60, AST 57 H, ALT 71 H, Alkaline Phosphatase 105, Total Protein 7.5, Albumin 2.6 L, Globulin 4.9 H, Albumin/Globulin Ratio 0.5 L 12/25/20 12:32: POC Glucose 109 12/25/20 16:25: POC Glucose 146 H 12/25/20 22:11: POC Glucose 164 H 12/26/20 04:00: WBC 9.0, RBC 4.65, Hgb 14.0, Hct 42.7, MCV 91.8, MCH 30.1, MCHC 32.8, RDW Std Deviation 46.3 H, RDW Coeff of Mansi 13.6, Plt Count 427, MPV 9.7, Immature Gran % (Auto) 1.300 H, Neut % (Auto) 80.1 H, Lymph % (Auto) 11.2 L, [place] % (Auto) 6.0, Eos % (Auto) 1.2, Baso % (Auto) 0.2, Absolute Neuts (auto) 7.2, Absolute Lymphs (auto) 1.00, Nucleated RBC % 0 12/26/20 04:00: Sodium 139, Potassium 3.3 L, Chloride 103, Carbon Dioxide 29.0, Anion Gap 7, BUN 18, Creatinine 0.82, Estim Creat Clear Calc 59.18, Est GFR (MDRD) Af Amer 94, Est GFR (MDRD) Non-Af 77, BUN/Creatinine Ratio 22.0 H, Glucose 124 H, Calcium 8.4 L Micro: Microbiology 12/21/20 10:40 Sputum, Expectorated/Coughed Gram Stain - Final 12/21/20 10:40 Sputum, Expectorated/Coughed Respiratory Culture - Final Staphylococcus aureus Presumptive C albicans Streptococcus agalactiae (B) 12/17/20 22:30 Blood Culture (Wb) - Left Hand Blood Culture - Final No growth in 5 days. 12/17/20 00:28 Blood Culture (Wb) - Right Hand Blood Culture - Final No growth in 5 days. 12/18/20 00:28 Urine, Random Urine Culture - Final Mixed Gram Pos & Gram Neg Org 12/18/20 03:35 Mucosa - Nose Respiratory Panel (PCR) - Final 12/18/20 00:28 Urine, Clean Catch Legionella Antigen - Final 12/18/20 00:28 Urine, Clean Catch Streptococcus pneumoniae Antigen (M - Final 12/17/20 22:40 Interface Orders SARS-CoV-2 Antigen (Rapid) - Final SARS-CoV-2 (COVID 19) ABG Data ABG results: ABG 12/25/20 08:19 Specimen Type ART Sample Site L Radial pH 7.43 Bicarbonate Actual 29.1 H Total CO2 31 Base Excess 5 H O2 Saturation 97 O2 % 85 ABG pCO2 44.0 ABG pO2 90 Lexx Test Positive Respiration Rate 12 O2 Delivery Device BiPAP Tidal Volume 400 Clinical Comments Rhythm Strip Rhythm Strip: Sinus Rhythm Rate: 83 Ectopy: None Physical Exam Const alert and oriented x3 Constitutional Narrative: On BiPAP General Appearance: cooperative, well developed and ill appearing Positive for acutely Nutritional Appearance: morbidly obese HEENT normocephalic, head/scalp atraumatic and moist oral mucous membranes Eyes PERRL and EOMs intact bilaterally Neck full ROM and no lymphadenopathy Chest inspection of chest normal Chest: symmetrical chest wall rise; Negative for crepitus Resp Resp Narrative: Little conversational effort Effort and Inspection: symmetric chest movement Auscultation: diminished lung sounds; Negative for rales, rhonchi or wheezes Percussion: Negative for dullness Cardio regular rate, regular rhythm, S1 normal heart sound, S2 normal heart sound, no murmurs, no rub and no gallops GI normal to inspection, nondistended, normoactive bowel sounds no CVA tenderness Extremity General Extremity: edema bilateral (1+) lower extremity; Negative for clubbing or cyanosis Skin no rashes or lesions noted Neuro oriented x3, CN's II-XII intact bilaterally, moves all extremities and no focal motor deficits Psych cooperative and affect normal Charges/Coding Visit Charges Inpatient E&M: 23206 Subs Hosp L3
[2020-12-26] MEDS: Azelastine HCl NASAL.SRY 1 SPRAY NASAL ×2 (08:32→20:26)
[2020-12-26] MEDS: Potassium Chloride Oral Tablet 20 MEQ 40 MEQ PO ×2 (08:32→20:28)
[2020-12-26] MEDS: Loratadine 10 MG Tablet PO (08:32)
[2020-12-26] MEDS: Escitalopram Oxalate 20 MG Tablet PO (08:33)
[2020-12-26] MEDS: Pantoprazole Sodium 20 MG Tablet PO (08:35)
[2020-12-26] MEDS: dexAMETHasone 2 MG TABLET 6 MG PO (08:36)
[2020-12-26] MEDS: Fluticasone 0.05% 1 SPRAY NASAL.SRY NASAL ×2 (08:36→20:27)
[2020-12-26] MEDS: Acetaminophen 325 MG Tablet 650 MG PO ×2 (08:41→22:22)
[2020-12-26] MEDS: Furosemide 40 MG/4 ML Vial IV (08:41)
[2020-12-26] MEDS: LORazepam 0.5 MG Tablet PO ×2 (08:41→22:23)
[2020-12-26] MEDS: guaiFENesin 10 ML UDC (200MG/10ML) 20 ML PO ×2 (08:42→22:22)
[2020-12-26] MEDS: APIXABAN 5 MG TABLET PO ×2 (09:18→20:29)
[2020-12-26] MEDS: Ceftriaxone 1 GM/50 ML BAG IV (09:18)
--- NOTE | 2020-12-26 10:16 | PN.HOSP_ITS ---
Subjective Subjective Patient seen and examined. She was lethargic, but had no active complaints. She remains on AirVo. Review of systems otherwise negative. She is tachypneic. She has remained hemodynamically stable otherwise. Objective Data Objective Data Vital Signs: Vital Signs Temp Pulse Resp BP Pulse Ox 97.8 F 75 30 H 105/61 92 12/26/20 08:00 12/26/20 10:00 12/26/20 10:00 12/26/20 10:00 12/26/20 10:00 Oxygen Flow Rate (L/min) [ 5 AMBULATING with Oxygen #2] Oxygen Flow Rate (L/min) [ 4 AMBULATING with Oxygen #1] Oxygen Flow Rate (L/min) [ 0 AMBULATING on Room Air] Oxygen Flow Rate (L/min) [At 0 REST on Room Air] Oxygen Flow Rate (L/min) 60 Oxygen Delivery Method Airvo Weight: 267 lb 3.204 oz Body Mass Index (BMI) 51.4 Intake & Output: Intake and Output for Last 24 Hours 12/24/20 12/25/20 12/26/20 23:59 23:59 23:59 Intake Total 1680 / 1920 890 / 1130 480 / 480 Output Total 2400 / 2950 950 / 950 550 / 550 Balance -720 / -1030 -60 / 180 -70 / -70 Lab / Micro Data Result Diagrams: 12/26/20 04:00 12/26/20 04:00 Labs: Laboratory Results - last 24 hr 12/25/20 12:32: POC Glucose 109 12/25/20 16:25: POC Glucose 146 H 12/25/20 22:11: POC Glucose 164 H 12/26/20 04:00: WBC 9.0, RBC 4.65, Hgb 14.0, Hct 42.7, MCV 91.8, MCH 30.1, MCHC 32.8, RDW Std Deviation 46.3 H, RDW Coeff of Mansi 13.6, Plt Count 427, MPV 9.7, Immature Gran % (Auto) 1.300 H, Neut % (Auto) 80.1 H, Lymph % (Auto) 11.2 L, [place] % (Auto) 6.0, Eos % (Auto) 1.2, Baso % (Auto) 0.2, Absolute Neuts (auto) 7 .2, Absolute Lymphs (auto) 1.00, Nucleated RBC % 0 12/26/20 04:00: Sodium 139, Potassium 3.3 L, Chloride 103, Carbon Dioxide 29.0, Anion Gap 7, BUN 18, Creatinine 0.82, Estim Creat Clear Calc 59.18, Est GFR (MDRD) Af Amer 94, Est GFR (MDRD) Non-Af 77, BUN/Creatinine Ratio 22.0 H, Glucose 124 H, Calcium 8.4 L Micro: Microbiology 12/21/20 10:40 Sputum, Expectorated/Coughed Gram Stain - Final 12/21/20 10:40 Sputum, Expectorated/Coughed Respiratory Culture - Final Staphylococcus aureus Presumptive C albicans Streptococcus agalactiae (B) 12/17/20 22:30 Blood Culture (Wb) - Left Hand Blood Culture - Final No growth in 5 days. 12/17/20 00:28 Blood Culture (Wb) - Right Hand Blood Culture - Final No growth in 5 days. 12/18/20 00:28 Urine, Random Urine Culture - Final Mixed Gram Pos & Gram Neg Org 12/18/20 03:35 Mucosa - Nose Respiratory Panel (PCR) - Final 12/18/20 00:28 Urine, Clean Catch Legionella Antigen - Final 12/18/20 00:28 Urine, Clean Catch Streptococcus pneumoniae Antigen (M - Final 12/17/20 22:40 Interface Orders SARS-CoV-2 Antigen (Rapid) - Final SARS-CoV-2 (COVID 19) Rhythm Strip Rhythm Strip: Sinus Rhythm Rate: 83 Ectopy: None Physical Exam Const alert, oriented x3 and no apparent distress Orientation / Consciousness: lethargic Exam Limitations: no limitations HEENT head/scalp atraumatic, moist oral mucous membranes, oropharynx normal and gingiva normal Head and Scalp: normocephalic Eyes PERRL, EOMs intact bilaterally and conjunctivae normal Resp Resp Narrative: tachypneic, breath sounds reduced bilaterally, no wheezes or crackles. On AirVo Cardio regular rate, regular rhythm, S1 normal heart sound, S2 normal heart sound and no murmurs GI normal to inspection, nondistended, normoactive bowel sounds, soft to palpation, non-tender and non-distended Extremity normal to inspection, full ROM and no clubbing, cyanosis or edema Peripheral Pulses: Yes pulses 2+ throughout Skin no rashes or lesions noted Neuro oriented x3, CN's II-XII intact bilaterally and moves all extremities Sensorium / Orientation: awake and alert Psych affect normal Assessment & Plan Assessment/Plan (1) Acute respiratory failure with hypoxia: (2) Pulmonary embolus: (3) Pneumonia due to COVID-19 virus: PLAN: #Acute hypoxic respiratory failure due to COVID 19 infection and staph pneumonia * on AirVo * titrate oxygen to maintain sats >90% * completed a course of remdesivir. On decadron * sputum cultured MSSA and Strep Agalactiae, so now on rocephin. to complete a 10 day course of antibiotics. * on breathing treatment with bronchodilators * titrate oxygen to maintain sats >90% * on intermittent lasix. * #Type 2 diabetes mellitus: on insulin lantus 40 units qhs. ISS. Accuchecks ACHS #GERD: on PPI #Depression and anxiety: on escitalopram DVT prophylaxis: on eliquis o/a of PPI Charges/Coding Visit Charges Inpatient E&M: 96271 Subs Hosp L3
[2020-12-26] MEDS: Insulin Lispro 100 UNIT/ML INSULN.PEN SC ×3 (11:19→20:42)
[2020-12-26 11:26] LABS: Bedside Glucose 306 mg/dL (70-110)
[2020-12-26 17:36] LABS: Bedside Glucose 229 mg/dL (70-110)
[2020-12-26 21:41] LABS: Bedside Glucose 197 mg/dL (70-110)
[2020-12-27] VITALS (33 sets, daily range): BP systolic 90–136; BP diastolic 57–79; PULSE 54–91; RESP 12–39; TEMP 36.2–36.7; O2SAT 85–99
[2020-12-27] MEDS: guaiFENesin 10 ML UDC (200MG/10ML) 20 ML PO ×2 (03:20→21:18)
[2020-12-27 04:07] LABS: Anion Gap 7 (5-15); BUN 16 mg/dL (7-18); BUN/Creat Ratio 21.7 RATIO (10-20); Calcium,Total 8.9 mg/dL (8.5-10.1); Chloride 104 mmol/L (98-107); Creatinine, Serum 0.74 mg/dL (0.55-1.02); EST Glomerular Filtration Rate 87 mL/min (>60); Est Glom Filt Rate - Afr Amer 106 mL/min (>60); Estimated Creatinine Clearance 65.58 ml/min; Glucose 139 mg/dL (74-106); Potassium 3.6 mmol/L (3.5-5.1); Sodium Level 138 mmol/L (136-145)
[2020-12-27 04:13] LABS: Absolute Lymphocyte Count 0.63 X10^3/uL (0.83-4.51); Absolute Neutrophil Count 8.5 X10^3/uL (2.0-7.7); Basophil# 0.03 X10^3/uL; Basophil% 0.3 % (0-1); Eosinophil# 0.09 X10^3/uL; Eosinophils% 0.9 % (0-5); Hematocrit 45.1 % (37-47); Hemoglobin 14.2 g/dL (12.0-15.0); Lymphocyte # 0.63 X10^3/ul (0.83-4.51); Lymphocyte % 6.5 % (19-41); Mean Corp Hgb Conc 31.5 g/dL (32-36); Mean Corpuscular Hgb 29.1 pg (27.0-32.0); Mean Corpuscular Volume 92.4 fL (81-99); Mean Platelet Vol. 9.6 fl (6.2-12.0); Monocyte# 0.36 X10^3/uL; Monocyte% 3.7 % (0-10); NRBC Flagged by Analyzer 0 % (0-5); Neutrophil # 8.51 X10^3/uL (2.7-7.7); Neutrophil % 87.6 % (47-70); Platelet Count 428 K/mm3 (150-450); RBC Distribution Width CV 13.2 % (11.6-14.6); RBC Distribution Width SD 45.2 fl (35.1-43.9); Red Blood Count 4.88 M/mm3 (4.2-5.4); White Blood Count 9.7 K/mm3 (4.4-11.0)
--- NOTE | 2020-12-27 07:07 | PCM.PN.INT ---
Assessment & Plan Assessment/Plan (1) Acute respiratory failure with hypoxia: (2) Pneumonia due to COVID-19 virus: PLAN: RECOMMENDATIONS: 1. Continue a combination of Airvo/BIPAP as tolerated to maintain saturations at or above 90%. 2. Continue Decadron to complete 10-day treatment course. 3. Continue antimicrobials to complete 7-day treatment course. 4. Continue Eliquis as ordered. 5. Obtain repeat chest x-ray this morning. IMPRESSIONS: 1. Acute hypoxemic respiratory failure secondary to COVID-19 pneumonia/MSSA pneumonia The patient continues to have a high oxygen requirement, despite having completed a treatment course of remdesivir. The patient will be continued on Decadron to complete 10 days of treatment. In addition, she will be continued on antimicrobials to complete a 7-day treatment course. Eliquis twice daily will be continued. Plan to continue the patient on heated high flow as tolerated. Wean FiO2 to maintain oxygen saturations at or above 90%. Encourage incentive spirometer use and mobilize patient as tolerated. Continue attempts at gentle diuresis as tolerated by hemodynamics and renal function. Given crepitus noted on today's exam, will obtain chest x-ray. 2. Diabetes mellitus/obesity/depression/anxiety/GERD Complicates care, management, recovery and prognosis. Continue Lantus and sliding scale insulin coverage. This note was generated with [employer] dictation software. It may contain incorrect words, spelling, and punctuation that were not noted in checking the note before signing. Subjective Subjective The patient was seen and examined at the bedside this morning. Events from the last 24 hours have been reviewed. The patient is currently afebrile, hemodynamically stable and maintaining appropriate oxygen saturations on BiPAP with an FiO2 requirement of 75%. The patient is currently documented to be overall net +1.3 L for the hospital admission. She remains on antimicrobials, Decadron and Eliquis. She has already completed a treatment course of remdesivir. Objective Data Objective Data The patient's most recent lab work, culture data and imaging studies have all been personally reviewed. Rapid coronavirus antigen testing was positive on December 17. Sputum culture from December 21 was positive for MSSA. Vital Signs: Vital Signs Temp Pulse Resp BP Pulse Ox 97.3 F L 62 30 H 114/70 88 12/27/20 00:00 12/27/20 06:00 12/27/20 06:00 12/27/20 06:00 12/27/20 06:00 Oxygen Flow Rate (L/min) [ 5 AMBULATING with Oxygen #2] Oxygen Flow Rate (L/min) [ 4 AMBULATING with Oxygen #1] Oxygen Flow Rate (L/min) [ 0 AMBULATING on Room Air] Oxygen Flow Rate (L/min) [At 0 REST on Room Air] Oxygen Flow Rate (L/min) 60 Oxygen Delivery Method Bi-pap Weight: 117.39 kg Body Mass Index (BMI) 51.4 Intake & Output: Intake and Output for Last 24 Hours 12/25/20 12/26/20 12/27/20 23:59 23:59 23:59 Intake Total 890 / 1130 790 / 790 Output Total 950 / 950 3100 / 3100 Balance -60 / 180 -2310 / -2310 Lab / Micro Data Attestation: I reviewed the patient's lab results. Result Diagrams: 12/28/20 04:40 12/28/20 04:40 Labs: Laboratory Results - last 24 hr 12/26/20 11:17: POC Glucose 306 H 12/26/20 15:20: POC Glucose 229 H 12/26/20 20:24: POC Glucose 197 H 12/27/20 03:45: Sodium 138, Potassium 3.6, Chloride 104, Carbon Dioxide 27.0, Anion Gap 7, BUN 16, Creatinine 0.74, Estim Creat Clear Calc 65.58, Est GFR (MDRD) Af Amer 106, Est GFR (MDRD) Non-Af 87, BUN/Creatinine Ratio 21.7 H, Glucose 139 H, Calcium 8.9 12/27/20 04:05: WBC 9.7, RBC 4.88, Hgb 14.2, Hct 45.1, MCV 92.4, MCH 29.1, MCHC 31.5 L, RDW Std Deviation 45.2 H, RDW Coeff of Mansi 13.2, Plt Count 428, MPV 9.6, Immature Gran % (Auto) 1.000 H, Neut % (Auto) 87.6 H, Lymph % (Auto) 6.5 L, [place] % (Auto) 3.7, Eos % (Auto) 0.9, Baso % (Auto) 0.3, Absolute Neuts (auto) 8.5 H, Absolute Lymphs (auto) 0.63 L, Nucleated RBC % 0 Micro: Microbiology 12/21/20 10:40 Sputum, Expectorated/Coughed Gram Stain - Final 12/21/20 10:40 Sputum, Expectorated/Coughed Respiratory Culture - Final Staphylococcus aureus Presumptive C albicans Streptococcus agalactiae (B) 12/17/20 22:30 Blood Culture (Wb) - Left Hand Blood Culture - Final No growth in 5 days. 12/17/20 00:28 Blood Culture (Wb) - Right Hand Blood Culture - Final No growth in 5 days. 12/18/20 00:28 Urine, Random Urine Culture - Final Mixed Gram Pos & Gram Neg Org 12/18/20 03:35 Mucosa - Nose Respiratory Panel (PCR) - Final 12/18/20 00:28 Urine, Clean Catch Legionella Antigen - Final 12/18/20 00:28 Urine, Clean Catch Streptococcus pneumoniae Antigen (M - Final 12/17/20 22:40 Interface Orders SARS-CoV-2 Antigen (Rapid) - Final SARS-CoV-2 (COVID 19) Rhythm Strip Rhythm Strip: Sinus Rhythm Rate: 83 Ectopy: None Physical Exam Const alert and no apparent distress Constitutional Narrative: Sitting in bedside recliner. General Appearance: cooperative and ill appearing Nutritional Appearance: morbidly obese HEENT normocephalic and head/scalp atraumatic Eyes PERRL, EOMs intact bilaterally and conjunctivae normal Neck supple Neck Narrative: Mild cervical crepitus noted. General: trachea midline Chest inspection of chest normal Resp Effort and Inspection: tachypneic Auscultation: diminished lung sounds; Negative for rales, rhonchi or wheezes Cardio regular rate and regular rhythm GI normal to inspection, nondistended, normoactive bowel sounds Extremity no clubbing, cyanosis or edema Skin no rashes or lesions noted Neuro no focal motor deficits Psych Mood & Affect: flat affect Charges/Coding Visit Charges Inpatient E&M: 17082 [facility] Hosp L3
--- NOTE | 2020-12-27 08:41 | RAD_ITS ---
STUDY: X-RAY CHEST REASON FOR EXAM: Female, 55 years old. Fever and cough TECHNIQUE: Single AP portable view of the chest. COMPARISON: 12/17/2020 FINDINGS: EKG leads overlie the chest The lungs are expanded, persistent and essentially unchanged interstitial and airspace opacifications noted in both lung kam. New since the previous study has been development of pneumomediastinum and subcutaneous emphysema noted in the neck. Normal size heart. Normal mediastinum and deysi. Normal visualized pulmonary arteries. Normal visualized aortic arch and descending thoracic aorta. There are diffuse degenerative changes of the visualized thoracic spine. Normal visualized ribs, clavicles, and shoulders. There is no demonstrated abnormality of the visualized soft tissue structures of the upper abdomen. RAD/Chest 1 View (Portable) IMPRESSION: Persistent interstitial and airspace opacifications in both lung kam without significant change or improvement since the previous study. Pattern of opacification is again suspicious for Covid pneumonia Development of pneumomediastinum and subcutaneous emphysema in the neck since the previous study. Electronically Signed: Gerald Sewell MD at 10:30 EDT , Service support ,
[2020-12-27] MEDS: CHLORHEXIDINE GLUC 2% CLOTH 1 EACH TOWELETTE TOPICAL (08:55)
[2020-12-27] MEDS: Ceftriaxone 1 GM/50 ML BAG IV (09:44)
[2020-12-27] MEDS: Azelastine HCl NASAL.SRY 1 SPRAY NASAL ×2 (09:56→21:17)
[2020-12-27] MEDS: Pantoprazole Sodium 20 MG Tablet PO (09:57)
[2020-12-27] MEDS: Escitalopram Oxalate 20 MG Tablet PO (09:57)
[2020-12-27] MEDS: APIXABAN 5 MG TABLET PO ×2 (09:57→21:20)
[2020-12-27] MEDS: dexAMETHasone 2 MG TABLET 6 MG PO (09:57)
[2020-12-27] MEDS: Loratadine 10 MG Tablet PO (09:57)
[2020-12-27] MEDS: Fluticasone 0.05% 1 SPRAY NASAL.SRY NASAL ×2 (09:57→21:17)
[2020-12-27 11:46] LABS: Bedside Glucose 113 mg/dL (70-110)
[2020-12-27] MEDS: Insulin Lispro 100 UNIT/ML INSULN.PEN SC ×3 (12:04→21:16)
[2020-12-27] MEDS: LORazepam 0.5 MG Tablet PO ×2 (13:17→21:18)
[2020-12-27] MEDS: 0.9% Saline Lock 10 ML Syringe IV ×2 (13:22→21:18)
[2020-12-27] MEDS: Furosemide 40 MG/4 ML Vial IV (13:22)
--- NOTE | 2020-12-27 13:32 | CASEMGMT ---
Addendum entered by Anna Wu 12/27/20 16:09: SW spoke w/pt in room, offered support to pt in regard to her illness and her 's. SW will continue to follow for supportive and discharge needs. [facility] Original Note: SW called daughter, offered support. Daughter expressed being overwhelmed with all that is going on. She has three younger brothers who are all COVID+ so cannot come in to the hospital. SW let daughter know SW is here should she need anything, gave her this SW's number to call today or Saturday when this SW is here. SW let her know on the days this SW is not here she can call the ICU and they will put her in touch with whomever is covering the ICU that day. Daughter states understanding. Pt's is also very ill, pt is aware that he is very ill at this time. SW explained will be available to assist with any discharge planning as needed for pt as well. SW will continue to follow and remains available for support to family. [facility]
[2020-12-27 14:26] LABS: Bedside Glucose 257 mg/dL (70-110)
--- NOTE | 2020-12-27 15:07 | PN.HOSP_ITS ---
Subjective Subjective Patient seen and examined. SHe looked more short of breath and tired, and complained of pain across her upper chest. She is still coughing, but denied any palpitations, dizziness, nausea or vomiting. Review of systems is otherwise negative. She remains tachypneic. Objective Data Objective Data Vital Signs: Vital Signs Temp Pulse Resp BP Pulse Ox 97.5 F L 74 34 H 116/68 93 12/27/20 14:00 12/27/20 14:00 12/27/20 14:00 12/27/20 14:00 12/27/20 14:00 Oxygen Flow Rate (L/min) [ 5 AMBULATING with Oxygen #2] Oxygen Flow Rate (L/min) [ 4 AMBULATING with Oxygen #1] Oxygen Flow Rate (L/min) [ 0 AMBULATING on Room Air] Oxygen Flow Rate (L/min) [At 0 REST on Room Air] Oxygen Flow Rate (L/min) 60 Oxygen Delivery Method Airvo Weight: 258 lb 12.8 oz Body Mass Index (BMI) 51.4 Intake & Output: Intake and Output for Last 24 Hours 12/25/20 12/26/20 12/27/20 23:59 23:59 23:59 Intake Total 890 / 1130 790 / 790 550 / 550 Output Total 950 / 950 3100 / 3100 500 / 500 Balance -60 / 180 -2310 / -2310 50 / 50 Lab / Micro Data Result Diagrams: 12/27/20 04:05 12/27/20 03:45 Labs: Laboratory Results - last 24 hr 12/26/20 15:20: POC Glucose 229 H 12/26/20 20:24: POC Glucose 197 H 12/27/20 03:45: Sodium 138, Potassium 3.6, Chloride 104, Carbon Dioxide 27.0, Anion Gap 7, BUN 16, Creatinine 0.74, Estim Creat Clear Calc 65.58, Est GFR (MDRD) Af Amer 106, Est GFR (MDRD) Non-Af 87, BUN/Creatinine Ratio 21.7 H, Glucose 139 H, Calcium 8.9 12/27/20 04:05: WBC 9.7, RBC 4.88, Hgb 14.2, Hct 45.1, MCV 92.4, MCH 29.1, MCHC 31.5 L, RDW Std Deviation 45.2 H, RDW Coeff of Mansi 13.2, Plt Count 428, MPV 9.6, Immature Gran % (Auto) 1.000 H, Neut % (Auto) 87.6 H, Lymph % (Auto) 6.5 L, [place] % (Auto) 3.7, Eos % (Auto) 0.9, Baso % (Auto) 0.3, Absolute Neuts (auto) 8.5 H, Absolute Lymphs (auto) 0.63 L, Nucleated RBC % 0 12/27/20 08:47: POC Glucose 113 H 12/27/20 12:02: POC Glucose 257 H Micro: Microbiology 12/21/20 10:40 Sputum, Expectorated/Coughed Gram Stain - Final 12/21/20 10:40 Sputum, Expectorated/Coughed Respiratory Culture - Final Staphylococcus aureus Presumptive C albicans Streptococcus agalactiae (B) 12/17/20 22:30 Blood Culture (Wb) - Left Hand Blood Culture - Final No growth in 5 days. 12/17/20 00:28 Blood Culture (Wb) - Right Hand Blood Culture - Final No growth in 5 days. 12/18/20 00:28 Urine, Random Urine Culture - Final Mixed Gram Pos & Gram Neg Org 12/18/20 03:35 Mucosa - Nose Respiratory Panel (PCR) - Final 12/18/20 00:28 Urine, Clean Catch Legionella Antigen - Final 12/18/20 00:28 Urine, Clean Catch Streptococcus pneumoniae Antigen (M - Final 12/17/20 22:40 Interface Orders SARS-CoV-2 Antigen (Rapid) - Final SARS-CoV-2 (COVID 19) ABG Data ABG results: ABG 12/25/20 08:19 Vent Mode TNP Radiography Diagnostic Testing: Radiology Impression Chest X-Ray 12/27/20 08:41 IMPRESSION: Persistent interstitial and airspace opacifications in both lung kam without significant change or improvement since the previous study. Pattern of opacification is again suspicious for Covid pneumonia Development of pneumomediastinum and subcutaneous emphysema in the neck since the previous study. Electronically Signed: Gerald Sewell MD at 10:30 EDT , Service support , Rhythm Strip Rhythm Strip: Sinus Rhythm Rate: 83 Ectopy: None Physical Exam Const alert, oriented x3 and no apparent distress General Appearance: cooperative and in distress Positive for mild Orientation / Consciousness: lethargic Exam Limitations: no limitations Nutritional Appearance: morbidly obese HEENT normocephalic, head/scalp atraumatic, moist oral mucous membranes, oropharynx normal and gingiva normal Head and Scalp: normocephalic Eyes PERRL, EOMs intact bilaterally and conjunctivae normal Neck supple and no JVD Resp Resp Narrative: tachypneic, breath sounds reduced bilaterally, no wheezes or crackles. On AirVo Auscultation: diminished lung sounds; Negative for crackles, rales, rhonchi or wheezes Cardio regular rate, regular rhythm, S1 normal heart sound, S2 normal heart sound, no murmurs, no rub, no gallops, no clicks and no JVD GI normal to inspection, nondistended, normoactive bowel sounds, soft to palpation, non-tender and non-distended; Negative for hepatosplenomegaly Extremity normal to inspection, full ROM and no clubbing, cyanosis or edema Peripheral Pulses: Yes pulses 2+ throughout Skin no rashes or lesions noted Neuro oriented x3, CN's II-XII intact bilaterally, moves all extremities, no focal motor deficits and no sensory deficits noted Sensorium / Orientation: awake and alert Speech: speech normal Psych Psych Narrative: Affect flat, Appearance: appropriate Mood & Affect: flat affect Assessment & Plan Assessment/Plan (1) Acute respiratory failure with hypoxia: (2) Pulmonary embolus: (3) Pneumonia due to COVID-19 virus: PLAN: #Acute hypoxic respiratory failure due to COVID 19 infection and staph pneumonia * on AirVo * titrate oxygen to maintain sats >90% * completed a course of remdesivir. On decadron * sputum cultured MSSA and Strep Agalactiae, so now on rocephin. to complete a 10 day course of antibiotics. * CXR today showed persistent interstitial and airspace opacifications in both lung kam with development of pneumomediastinum and subcutaneous emphysema i n the neck since the previous study. * on breathing treatment with bronchodilators * titrate oxygen to maintain sats >90% * on intermittent lasix. * to hold off on BIPAP usage due to subcutaneous emphysema * #Pneumomediastinum and subcutaneous emphysema * CXR as noted above * likely iatrogenic, from BIPAP usage. * hold off on BIPAP use for now #Type 2 diabetes mellitus: on insulin lantus 40 units qhs. ISS. Accuchecks ACHS #GERD: on PPI #Depression and anxiety: on escitalopram DVT prophylaxis: on eliquis Charges/Coding Visit Charges Inpatient E&M: 30266 Subs Hosp L3
[2020-12-27 17:15] LABS: Bedside Glucose 291 mg/dL (70-110)
[2020-12-27] MEDS: Acetaminophen 325 MG Tablet 650 MG PO (21:19)
[2020-12-27 22:31] LABS: Bedside Glucose 249 mg/dL (70-110)
[2020-12-28] VITALS (29 sets, daily range): BP systolic 96–144; BP diastolic 54–91; PULSE 56–86; RESP 17–43; TEMP 36–36.7; O2SAT 84–97
--- NOTE | 2020-12-28 01:16 | NURSING ---
12/28/20 @ 0030- Patient notified that next door is not doing well and that her daughter was called into the hospital. Patient stated to this nurse that she just wants her to be made comfortable and that she wanted to withdraw all care. ICU3 nurse, Arabella CARRILLO and RT Christensen notified.
[2020-12-28] MEDS: Acetaminophen 325 MG Tablet 650 MG PO ×2 (03:41→21:20)
[2020-12-28 04:45] LABS: Absolute Neutrophil Count 7.6 X10^3/uL (2.0-7.7); Basophil# 0.02 X10^3/uL; Basophil% 0.2 % (0-1); Eosinophil# 0.03 X10^3/uL; Eosinophils% 0.3 % (0-5); Hemoglobin 14.4 g/dL (12.0-15.0); Lymphocyte % 5.8 % (19-41); Mean Corpuscular Hgb 29.6 pg (27.0-32.0); Mean Corpuscular Volume 92.4 fL (81-99); Mean Platelet Vol. 9.7 fl (6.2-12.0); Monocyte# 0.39 X10^3/uL; Monocyte% 4.5 % (0-10); NRBC Flagged by Analyzer 0 % (0-5); Neutrophil # 7.58 X10^3/uL (2.7-7.7); Neutrophil % 88.5 % (47-70); POSITIVE DIFFERENTIAL YES; Platelet Count 431 K/mm3 (150-450); RBC Distribution Width CV 13.3 % (11.6-14.6); RBC Distribution Width SD 45.2 fl (35.1-43.9); Red Blood Count 4.87 M/mm3 (4.2-5.4); White Blood Count 8.6 K/mm3 (4.4-11.0)
[2020-12-28 04:50] LABS: Differential Indicated SCAN CRITERIA MET
[2020-12-28 04:59] LABS: Anion Gap 6 (5-15); BUN 22 mg/dL (7-18); BUN/Creat Ratio 25.8 RATIO (10-20); Calcium,Total 9.2 mg/dL (8.5-10.1); Chloride 102 mmol/L (98-107); Creatinine, Serum 0.85 mg/dL (0.55-1.02); EST Glomerular Filtration Rate 74 mL/min (>60); Est Glom Filt Rate - Afr Amer 89 mL/min (>60); Estimated Creatinine Clearance 57.09 ml/min; Glucose 143 mg/dL (74-106); Potassium 3.5 mmol/L (3.5-5.1); Sodium Level 138 mmol/L (136-145)
[2020-12-28 05:37] LABS: Differential Comment SCANNED
--- NOTE | 2020-12-28 06:39 | PCM.PN.INT ---
Assessment & Plan Assessment/Plan (1) Acute respiratory failure with hypoxia: (2) Pneumonia due to COVID-19 virus: PLAN: RECOMMENDATIONS: 1. Continue a combination of Airvo/BIPAP as tolerated to maintain saturations at or above 90%. 2. Continue Decadron to complete 10-day treatment course. 3. Continue antimicrobials to complete 7-day treatment course. 4. Continue Eliquis as ordered. 5. Continue IV Lasix as needed to maintain euvolemic state. IMPRESSIONS: 1. Acute hypoxemic respiratory failure secondary to COVID-19 pneumonia/MSSA pneumonia The patient continues to have a high oxygen requirement, despite having completed a treatment course of remdesivir. The patient will be continued on Decadron to complete 10 days of treatment. In addition, she will be continued on antimicrobials to complete a 7-day treatment course. Eliquis twice daily will be continued. Plan to continue the patient on heated high flow as tolerated. Wean FiO2 to maintain oxygen saturations at or above 90%. Encourage incentive spirometer use and mobilize patient as tolerated. Continue attempts at gentle diuresis as tolerated by hemodynamics and renal function. 2. Pneumomediastinum Complication of PAP therapy and frequent coughing. Attempt to avoid reinstitution of noninvasive positive pressure ventilatory support, if feasible. Continue supportive measures. 3. Diabetes mellitus/obesity/depression/anxiety/GERD Complicates care, management, recovery and prognosis. Continue Lantus and sliding scale insulin coverage. This note was generated with [employer] dictation software. It may contain incorrect words, spelling, and punctuation that were not noted in checking the note before signing. Subjective Subjective The patient was seen and examined at the bedside this morning. Events from the last 24 hours have been reviewed. The patient is currently afebrile, hemodynamically stable and maintaining appropriate oxygen saturations on airvo heated high flow with an FiO2 requirement of 85% and flow rate of 60 L/min. She is currently documented to be overall net even for the hospital admission. The patient remains on antimicrobials, Decadron and Eliquis. She has already completed a treatment course of remdesivir. Objective Data Objective Data The patient's most recent lab work, culture data and imaging studies have all been personally reviewed. Rapid coronavirus antigen testing was positive on December 17. Sputum culture from December 21 was positive for MSSA. Vital Signs: Vital Signs Temp Pulse Resp BP Pulse Ox 96.8 F L 69 31 H 96/54 L 94 12/28/20 00:00 12/28/20 05:17 12/28/20 05:17 12/28/20 05:00 12/28/20 05:17 Oxygen Flow Rate (L/min) [ 5 AMBULATING with Oxygen #2] Oxygen Flow Rate (L/min) [ 4 AMBULATING with Oxygen #1] Oxygen Flow Rate (L/min) [ 0 AMBULATING on Room Air] Oxygen Flow Rate (L/min) [At 0 REST on Room Air] Oxygen Flow Rate (L/min) 60 Oxygen Delivery Method Airvo Weight: 117.39 kg Body Mass Index (BMI) 51.4 Intake & Output: Intake and Output for Last 24 Hours 12/26/20 12/27/20 12/28/20 23:59 23:59 23:59 Intake Total 790 / 790 730 / 730 Output Total 3100 / 3100 1700 / 1700 200 / 200 Balance -2310 / -2310 -970 / -970 -200 / -200 Lab / Micro Data Attestation: I reviewed the patient's lab results. Result Diagrams: 12/28/20 04:40 12/28/20 04:40 Labs: Laboratory Results - last 24 hr 12/27/20 08:47: POC Glucose 113 H 12/27/20 12:02: POC Glucose 257 H 12/27/20 17:08: POC Glucose 291 H 12/27/20 21:13: POC Glucose 249 H 12/28/20 04:40: WBC 8.6, RBC 4.87, Hgb 14.4, Hct 45.0, MCV 92.4, MCH 29.6, MCHC 32.0, RDW Std Deviation 45.2 H, RDW Coeff of Mansi 13.3, Plt Count 431, MPV 9.7, Immature Gran % (Auto) 0.700, Neut % (Auto) 88.5 H, Lymph % (Auto) 5.8 L, [place] % (Auto) 4.5, Eos % (Auto) 0.3, Baso % (Auto) 0.2, Absolute Neuts (auto) 7.6, Absolute Lymphs (auto) 0.50 L, Nucleated RBC % 0, Differential Comment SCANNED 12/28/20 04:40: Sodium 138, Potassium 3.5, Chloride 102, Carbon Dioxide 30.0, Anion Gap 6, BUN 22 H, Creatinine 0.85, Estim Creat Clear Calc 57.09, Est GFR (MDRD) Af Amer 89, Est GFR (MDRD) Non-Af 74, BUN/Creatinine Ratio 25.8 H, Glucose 143 H, Calcium 9.2 Micro: Microbiology 12/21/20 10:40 Sputum, Expectorated/Coughed Gram Stain - Final 12/21/20 10:40 Sputum, Expectorated/Coughed Respiratory Culture - Final Staphylococcus aureus Presumptive C albicans Streptococcus agalactiae (B) 12/17/20 22:30 Blood Culture (Wb) - Left Hand Blood Culture - Final No growth in 5 days. 12/17/20 00:28 Blood Culture (Wb) - Right Hand Blood Culture - Final No growth in 5 days. 12/18/20 00:28 Urine, Random Urine Culture - Final Mixed Gram Pos & Gram Neg Org 12/18/20 03:35 Mucosa - Nose Respiratory Panel (PCR) - Final 12/18/20 00:28 Urine, Clean Catch Legionella Antigen - Final 12/18/20 00:28 Urine, Clean Catch Streptococcus pneumoniae Antigen (M - Final 12/17/20 22:40 Interface Orders SARS-CoV-2 Antigen (Rapid) - Final SARS-CoV-2 (COVID 19) ABG Data ABG results: ABG 12/25/20 08:19 Vent Mode TNP Radiography Diagnostic Testing: Radiology Impression Chest X-Ray 12/27/20 08:41 IMPRESSION: Persistent interstitial and airspace opacifications in both lung kam without significant change or improvement since the previous study. Pattern of opacification is again suspicious for Covid pneumonia Development of pneumomediastinum and subcutaneous emphysema in the neck since the previous study. Electronically Signed: Gerald Sewell MD at 10:30 EDT , Service support , Rhythm Strip Rhythm Strip: Sinus Rhythm Rate: 83 Ectopy: None Physical Exam Const alert and no apparent distress Constitutional Narrative: Sitting in bedside recliner. General Appearance: cooperative and ill appearing Nutritional Appearance: morbidly obese HEENT normocephalic and head/scalp atraumatic Eyes PERRL, EOMs intact bilaterally and conjunctivae normal Neck supple Neck Narrative: Mild cervical crepitus noted. General: trachea midline Chest inspection of chest normal Resp Effort and Inspection: tachypneic Auscultation: diminished lung sounds; Negative for rales, rhonchi or wheezes Cardio regular rate and regular rhythm GI normal to inspection, nondistended, normoactive bowel sounds Extremity no clubbing, cyanosis or edema Skin no rashes or lesions noted Neuro no focal motor deficits Psych Mood & Affect: flat affect Charges/Coding Visit Charges Inpatient E&M: 63862 Subs Hosp L3
[2020-12-28] MEDS: dexAMETHasone 2 MG TABLET 6 MG PO (08:22)
[2020-12-28] MEDS: Fluticasone 0.05% 1 SPRAY NASAL.SRY NASAL ×2 (08:22→21:19)
[2020-12-28] MEDS: Azelastine HCl NASAL.SRY 1 SPRAY NASAL ×2 (08:22→21:19)
[2020-12-28] MEDS: Pantoprazole Sodium 20 MG Tablet PO (08:23)
[2020-12-28] MEDS: Loratadine 10 MG Tablet PO (08:23)
[2020-12-28] MEDS: Escitalopram Oxalate 20 MG Tablet PO (08:23)
[2020-12-28] MEDS: APIXABAN 5 MG TABLET PO ×2 (08:23→21:19)
[2020-12-28] MEDS: 0.9% Saline Lock 10 ML Syringe IV (08:24)
[2020-12-28] MEDS: Senna/Docusate Sodium 1 Tablet 2 TABLET PO (08:41)
[2020-12-28] MEDS: LORazepam 0.5 MG Tablet PO ×2 (08:41→21:19)
[2020-12-28] MEDS: guaiFENesin 10 ML UDC (200MG/10ML) 20 ML PO ×2 (08:44→18:34)
[2020-12-28] MEDS: Ceftriaxone 1 GM/50 ML BAG IV (09:05)
--- NOTE | 2020-12-28 11:11 | PN.HOSP_ITS ---
Subjective Subjective Patient seen and examined this morning. Patient was quite sad this morning because her last night. She felt her shortness of breath was the same and had not worsened in any way. Review of systems otherwise negative. She remained on AirVo at time of review. She remained in cumulative positive balance by 250 mils. Objective Data Objective Data Vital Signs: Vital Signs Temp Pulse Resp BP Pulse Ox 97.6 F L 80 30 H 109/76 90 12/28/20 08:00 12/28/20 09:00 12/28/20 09:00 12/28/20 09:00 12/28/20 09:00 Oxygen Flow Rate (L/min) [ 5 AMBULATING with Oxygen #2] Oxygen Flow Rate (L/min) [ 4 AMBULATING with Oxygen #1] Oxygen Flow Rate (L/min) [ 0 AMBULATING on Room Air] Oxygen Flow Rate (L/min) [At 0 REST on Room Air] Oxygen Flow Rate (L/min) 60 Oxygen Delivery Method Airvo Weight: 258 lb 12.8 oz Body Mass Index (BMI) 51.4 Intake & Output: Intake and Output for Last 24 Hours 12/26/20 12/27/20 12/28/20 23:59 23:59 23:59 Intake Total 790 / 790 730 / 730 120 / 120 Output Total 3100 / 3100 1700 / 1700 200 / 200 Balance -2310 / -2310 -970 / -970 -80 / -80 Lab / Micro Data Result Diagrams: 12/28/20 04:40 12/28/20 04:40 Labs: Laboratory Results - last 24 hr 12/27/20 08:47: POC Glucose 113 H 12/27/20 12:02: POC Glucose 257 H 12/27/20 17:08: POC Glucose 291 H 12/27/20 21:13: POC Glucose 249 H 12/28/20 04:40: WBC 8.6, RBC 4.87, Hgb 14.4, Hct 45.0, MCV 92.4, MCH 29.6, MCHC 32.0, RDW Std Deviation 45.2 H, RDW Coeff of Mansi 13.3, Plt Count 431, MPV 9.7, Immature Gran % (Auto) 0.700, Neut % (Auto) 88.5 H, Lymph % (Auto) 5.8 L, [place] % (Auto) 4.5, Eos % (Auto) 0.3, Baso % (Auto) 0.2, Absolute Neuts (auto) 7.6, Absolute Lymphs (auto) 0.50 L, Nucleated RBC % 0, Differential Comment SCANNED 12/28/20 04:40: Sodium 138, Potassium 3.5, Chloride 102, Carbon Dioxide 30.0, Anion Gap 6, BUN 22 H, Creatinine 0.85, Estim Creat Clear Calc 57.09, Est GFR (MDRD) Af Amer 89, Est GFR (MDRD) Non-Af 74, BUN/Creatinine Ratio 25.8 H, Glucose 143 H, Calcium 9.2 Micro: Microbiology 12/21/20 10:40 Sputum, Expectorated/Coughed Gram Stain - Final 12/21/20 10:40 Sputum, Expectorated/Coughed Respiratory Culture - Final Staphylococcus aureus Presumptive C albicans Streptococcus agalactiae (B) 12/17/20 22:30 Blood Culture (Wb) - Left Hand Blood Culture - Final No growth in 5 days. 12/17/20 00:28 Blood Culture (Wb) - Right Hand Blood Culture - Final No growth in 5 days. 12/18/20 00:28 Urine, Random Urine Culture - Final Mixed Gram Pos & Gram Neg Org 12/18/20 03:35 Mucosa - Nose Respiratory Panel (PCR) - Final 12/18/20 00:28 Urine, Clean Catch Legionella Antigen - Final 12/18/20 00:28 Urine, Clean Catch Streptococcus pneumoniae Antigen (M - Final 12/17/20 22:40 Interface Orders SARS-CoV-2 Antigen (Rapid) - Final SARS-CoV-2 (COVID 19) Rhythm Strip Rhythm Strip: Sinus Rhythm Rate: 83 Ectopy: None Physical Exam Const alert, oriented x3 and no apparent distress General Appearance: cooperative and in distress Positive for mild Orientation / Consciousness: lethargic Exam Limitations: no limitations Nutritional Appearance: morbidly obese HEENT normocephalic, head/scalp atraumatic, moist oral mucous membranes, oropharynx normal and gingiva normal Head and Scalp: normocephalic Eyes PERRL, EOMs intact bilaterally and conjunctivae normal Neck supple and no JVD Resp normal respiratory effort, no retractions, no use of accessory muscles and clear to auscultation bilaterally Resp Narrative: tachypneic, breath sounds reduced bilaterally, no wheezes or crackles. Still on AirVo Auscultation: diminished lung sounds; Negative for crackles, rales, rhonchi or wheezes Cardio regular rate, regular rhythm, S1 normal heart sound, S2 normal heart sound, no murmurs, no rub, no gallops, no clicks and no JVD GI normal to inspection, nondistended, normoactive bowel sounds, soft to palpation, non-tender and non-distended; Negative for hepatosplenomegaly Extremity normal to inspection, full ROM and no clubbing, cyanosis or edema Peripheral Pulses: Yes pulses 2+ throughout Skin no rashes or lesions noted Neuro oriented x3, CN's II-XII intact bilaterally, moves all extremities, no focal motor deficits and no sensory deficits noted Sensorium / Orientation: awake and alert Speech: speech normal Psych Psych Narrative: Affect flat Appearance: appropriate Mood & Affect: flat affect Assessment & Plan Assessment/Plan (1) Acute respiratory failure with hypoxia: (2) Pulmonary embolus: (3) Pneumonia due to COVID-19 virus: PLAN: #Acute hypoxic respiratory failure due to COVID 19 infection and staph pneumonia * still on AirVo * titrate oxygen to maintain sats >90% * completed a course of remdesivir. On decadron * sputum cultured MSSA and Strep Agalactiae, so now on rocephin. to complete a 10 day course of antibiotics. * CXR today showed persistent interstitial and airspace opacifications in both lung kam with development of pneumomediastinum and subcutaneous emphysema in the neck since the previous study. * on breathing treatment with bronchodilators * titrate oxygen to maintain sats >90% * on intermittent lasix. * to hold off on BIPAP usage due to subcutaneous emphysema * #Pneumomediastinum and subcutaneous emphysema * CXR as noted above * likely iatrogenic, from BIPAP usage. * hold off on BIPAP use for now #Type 2 diabetes mellitus: on insulin lantus 40 units qhs. ISS. Accuchecks ACHS #GERD: on PPI #Depression and anxiety: on escitalopram DVT prophylaxis: on eliquis Charges/Coding Visit Charges Inpatient E&M: 65334 [facility] Hosp L3
--- NOTE | 2020-12-28 12:02 | CPS ---
ABG RESULTS WERE REPORTED TO DR. SMITH
--- NOTE | 2020-12-28 12:04 | CPS ---
ABG RESULTS WERE REPORTED TO DR. SMITH
[2020-12-28 12:30] LABS: Bedside Glucose 199 mg/dL (70-110)
[2020-12-28] MEDS: Insulin Lispro 100 UNIT/ML INSULN.PEN SC ×3 (12:37→21:20)
[2020-12-28] MEDS: CHLORHEXIDINE GLUC 2% CLOTH 1 EACH TOWELETTE TOPICAL (12:37)
[2020-12-28 13:11] LABS: Bedside Glucose 120 mg/dL (70-110)
--- NOTE | 2020-12-28 13:29 | CASEMGMT ---
Social Work PT , who was also at [facility], early this morning. SW met with pt and offered support. Pt is tearful but appreciative of SW visit. Pt stating her family has been supportive and she is communicating with them on the phone. Pt states her daughter was in overnight and pt was able to face time with her and say goodbye to him. SW provided emotional support and pt aware that SW will remain available if she would like to talk. FILI Hickey
--- NOTE | 2020-12-28 14:00 | NURSING ---
PICC RN at bedside performing PICC at this time
--- NOTE | 2020-12-28 14:59 | CASEMGMT ---
Palliative screening tool completed for [facility]. Patient does not meet criteria for palliative consult at this time.
[2020-12-28 17:10] LABS: Bedside Glucose 266 mg/dL (70-110)
[2020-12-28 21:41] LABS: Bedside Glucose 274 mg/dL (70-110)
[2020-12-29] VITALS (32 sets, daily range): BP systolic 91–121; BP diastolic 54–95; PULSE 55–88; RESP 12–46; TEMP 36.1–37.9; O2SAT 88–96
[2020-12-29] MEDS: Acetaminophen 325 MG Tablet 650 MG PO ×4 (04:22→21:27)
[2020-12-29] MEDS: guaiFENesin 10 ML UDC (200MG/10ML) 20 ML PO ×3 (04:22→21:29)
[2020-12-29 04:38] LABS: Absolute Lymphocyte Count 0.82 X10^3/uL (0.83-4.51); Absolute Neutrophil Count 10.5 X10^3/uL (2.0-7.7); Basophil# 0.02 X10^3/uL; Basophil% 0.2 % (0-1); Eosinophil# 0.06 X10^3/uL; Eosinophils% 0.5 % (0-5); Hematocrit 41.9 % (37-47); Hemoglobin 13.7 g/dL (12.0-15.0); Lymphocyte # 0.82 X10^3/ul (0.83-4.51); Lymphocyte % 6.8 % (19-41); Mean Corp Hgb Conc 32.7 g/dL (32-36); Mean Corpuscular Hgb 29.9 pg (27.0-32.0); Mean Corpuscular Volume 91.5 fL (81-99); Mean Platelet Vol. 9.7 fl (6.2-12.0); Monocyte# 0.51 X10^3/uL; Monocyte% 4.2 % (0-10); NRBC Flagged by Analyzer 0 % (0-5); Neutrophil # 10.52 X10^3/uL (2.7-7.7); Neutrophil % 87.6 % (47-70); Platelet Count 484 K/mm3 (150-450); RBC Distribution Width CV 13.3 % (11.6-14.6); RBC Distribution Width SD 44.9 fl (35.1-43.9); Red Blood Count 4.58 M/mm3 (4.2-5.4)
[2020-12-29 05:08] LABS: Anion Gap 6 (5-15); BUN 20 mg/dL (7-18); BUN/Creat Ratio 24.8 RATIO (10-20); Calcium,Total 8.9 mg/dL (8.5-10.1); Chloride 101 mmol/L (98-107); Creatinine, Serum 0.81 mg/dL (0.55-1.02); EST Glomerular Filtration Rate 78 mL/min (>60); Est Glom Filt Rate - Afr Amer 95 mL/min (>60); Estimated Creatinine Clearance 59.91 ml/min; Glucose 125 mg/dL (74-106); Potassium 3.3 mmol/L (3.5-5.1); Sodium Level 139 mmol/L (136-145)
--- NOTE | 2020-12-29 05:53 | CPS ---
Pt has a 100% NRB mask over AIRVO setting 60L .94 fio2
--- NOTE | 2020-12-29 07:49 | PCM.PN.INT ---
Assessment & Plan Assessment/Plan (1) Acute respiratory failure with hypoxia: (2) Pneumonia due to COVID-19 virus: PLAN: RECOMMENDATIONS: 1. Continue a combination of Airvo/BIPAP as tolerated to maintain saturations at or above 90%. 2. Continue Eliquis as ordered. 3. Continue IV Lasix as needed to maintain euvolemic state. IMPRESSIONS: 1. Acute hypoxemic respiratory failure secondary to COVID-19 pneumonia/MSSA pneumonia The patient continues to have a high oxygen requirement, despite having completed a treatment course of remdesivir, Decadron and antimicrobials. Eliquis twice daily will be continued. Plan to continue the patient on heated high flow as tolerated. Wean FiO2 to maintain oxygen saturations at or above 90%. Encourage incentive spirometer use and mobilize patient as tolerated. Continue attempts at gentle diuresis as tolerated by hemodynamics and renal function. 2. Pneumomediastinum Complication of PAP therapy and frequent coughing. Attempt to avoid reinstitution of noninvasive positive pressure ventilatory support, if feasible. Continue supportive measures. 3. Diabetes mellitus/obesity/depression/anxiety/GERD Complicates care, management, recovery and prognosis. Continue Lantus and sliding scale insulin coverage. This note was generated with [employer] dictation software. It may contain incorrect words, spelling, and punctuation that were not noted in checking the note before signing. Subjective Subjective The patient was seen and examined at the bedside this morning. Events from the last 24 hours have been reviewed. The patient remains afebrile and hemodynamically stable. She has been maintained on a combination of Airvo heated high flow with an FiO2 requirement of 93% and flow rate of 60 L along with a nonrebreather mask. Unfortunately, the patient continues to desaturate, despite the aforementioned, with cough and any form of movement. Therefore, this morning, she was placed back on noninvasive positive pressure ventilatory support. She is currently documented to be overall net even for the hospitalization. The patient has now completed a 5-day course of remdesivir, 10 days of Decadron and 7 days of antimicrobials. Objective Data Objective Data The patient's most recent lab work, culture data and imaging studies have all been personally reviewed. Rapid coronavirus antigen testing was positive on December 17. Sputum culture from December 21 was positive for MSSA. Vital Signs: Vital Signs Temp Pulse Resp BP Pulse Ox 97.8 F 63 23 H 102/65 91 09/09/21 04:00 12/29/20 06:55 12/29/20 06:00 12/29/20 06:00 12/29/20 06:00 Oxygen Flow Rate (L/min) [ 5 AMBULATING with Oxygen #2] Oxygen Flow Rate (L/min) [ 4 AMBULATING with Oxygen #1] Oxygen Flow Rate (L/min) [ 0 AMBULATING on Room Air] Oxygen Flow Rate (L/min) [At 0 REST on Room Air] Oxygen Flow Rate (L/min) 62 Oxygen Delivery Method Airvo Weight: 117.39 kg Body Mass Index (BMI) 51.4 Intake & Output: Intake and Output for Last 24 Hours 12/27/20 12/28/20 12/29/20 23:59 23:59 23:59 Intake Total 730 / 730 550 / 550 100 / 100 Output Total 1700 / 1700 775 / 775 200 / 200 Balance -970 / -970 -225 / -225 -100 / -100 Lab / Micro Data Attestation: I reviewed the patient's lab results. Result Diagrams: 12/29/20 04:15 12/29/20 04:15 Labs: Laboratory Results - last 24 hr 12/28/20 08:21: POC Glucose 120 H 12/28/20 12:23: POC Glucose 199 H 12/28/20 16:51: POC Glucose 266 H 12/28/20 21:17: POC Glucose 274 H 12/29/20 04:15: WBC 12.0 H, RBC 4.58, Hgb 13.7, Hct 41.9, MCV 91.5, MCH 29.9, MCHC 32.7, RDW Std Deviation 44.9 H, RDW Coeff of Mansi 13.3, Plt Count 484 H, MPV 9.7, Immature Gran % (Auto) 0.700, Neut % (Auto) 87.6 H, Lymph % (Auto) 6.8 L, [place] % (Auto) 4.2, Eos % (Auto) 0.5, Baso % (Auto) 0.2, Absolute Neuts (auto) 10.5 H, Absolute Lymphs (auto) 0.82 L, Nucleated RBC % 0 12/29/20 04:15: Sodium 139, Potassium 3.3 L, Chloride 101, Carbon Dioxide 32.0, Anion Gap 6, BUN 20 H, Creatinine 0.81, Estim Creat Clear Calc 59.91, Est GFR (MDRD) Af Amer 95, Est GFR (MDRD) Non-Af 78, BUN/Creatinine Ratio 24.8 H, Glucose 125 H, Calcium 8.9 Micro: Microbiology 12/21/20 10:40 Sputum, Expectorated/Coughed Gram Stain - Final 12/21/20 10:40 Sputum, Expectorated/Coughed Respiratory Culture - Final Staphylococcus aureus Presumptive C albicans Streptococcus agalactiae (B) 12/17/20 22:30 Blood Culture (Wb) - Left Hand Blood Culture - Final No growth in 5 days. 12/17/20 00:28 Blood Culture (Wb) - Right Hand Blood Culture - Final No growth in 5 days. 12/18/20 00:28 Urine, Random Urine Culture - Final Mixed Gram Pos & Gram Neg Org 12/18/20 03:35 Mucosa - Nose Respiratory Panel (PCR) - Final 12/18/20 00:28 Urine, Clean Catch Legionella Antigen - Final 12/18/20 00:28 Urine, Clean Catch Streptococcus pneumoniae Antigen (M - Final 12/17/20 22:40 Interface Orders SARS-CoV-2 Antigen (Rapid) - Final SARS-CoV-2 (COVID 19) Rhythm Strip Rhythm Strip: Sinus Rhythm Rate: 83 Ectopy: None Physical Exam Const alert and no apparent distress Constitutional Narrative: Sitting in bedside recliner. General Appearance: cooperative and ill appearing Nutritional Appearance: morbidly obese HEENT normocephalic and head/scalp atraumatic Eyes PERRL, EOMs intact bilaterally and conjunctivae normal Neck supple Neck Narrative: Mild cervical crepitus noted. General: trachea midline Chest inspection of chest normal Resp Effort and Inspection: tachypneic Auscultation: diminished lung sounds; Negative for rales, rhonchi or wheezes Cardio regular rate and regular rhythm GI normal to inspection, nondistended, normoactive bowel sounds Extremity no clubbing, cyanosis or edema Skin no rashes or lesions noted Neuro no focal motor deficits Psych Mood & Affect: flat affect Charges/Coding Visit Charges Inpatient E&M: 57885 Subs Hosp L3
[2020-12-29] MEDS: 0.9% Saline Lock 10 ML Syringe IV ×2 (08:31→16:57)
[2020-12-29] MEDS: Furosemide 40 MG/4 ML Vial IV ×2 (08:31→16:57)
[2020-12-29 10:01] LABS: Bedside Glucose 89 mg/dL (70-110)
[2020-12-29] MEDS: Pantoprazole Sodium 20 MG Tablet PO (10:06)
[2020-12-29] MEDS: Loratadine 10 MG Tablet PO (10:06)
[2020-12-29] MEDS: Escitalopram Oxalate 20 MG Tablet PO (10:06)
[2020-12-29] MEDS: Azelastine HCl NASAL.SRY 1 SPRAY NASAL ×2 (10:06→21:26)
[2020-12-29] MEDS: Fluticasone 0.05% 1 SPRAY NASAL.SRY NASAL ×2 (10:06→21:26)
[2020-12-29] MEDS: APIXABAN 5 MG TABLET PO ×2 (10:06→21:27)
[2020-12-29] MEDS: LORazepam 0.5 MG Tablet PO ×2 (10:07→21:27)
--- NOTE | 2020-12-29 10:57 | CASEMGMT ---
Social Work SW placed call to pt dgt Petey and offered support. Petey openly expressing feelings surrounding loss of father and fear with mother's illness. Pt has four children, Petey, Pradip (27), Asa (20) and Chalo (19). Petey states pt sent a text to each child this morning that felt like a goodbye note. Petey is concerned pt is giving up. Time spent on the phone with Petey and emotional support provided. SW reassured Petey that SW will meet with pt for support as well. SW also informed her that Dough Catcher is available if pt would like. Petey does feel pt would appreciate a visit from the gel coater. Referral made. SW attempted to meet with pt although she is resting at this time. SW will attempt to meet with pt later in the day. FILI Hickey
[2020-12-29] MEDS: CHLORHEXIDINE GLUC 2% CLOTH 1 EACH TOWELETTE TOPICAL (12:35)
[2020-12-29] MEDS: Senna/Docusate Sodium 1 Tablet 2 TABLET PO (13:42)
--- NOTE | 2020-12-29 14:10 | CASEMGMT ---
Addendum entered by Mirian Lamar 12/29/20 14:36: Pt dgt Petey also dropped some supplies off for pt including some art things and pt has them near her and states she enjoys this and will also use to help with coping. Supplies are within reach. FILI Hickey Original Note: Social Work SW met with pt in room. PT openly able to express feelings surrounding loss of spouse, her own illness and children. 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 Able to express pride in her children and appreciation for them. Pt also speaking of her illness and difficulty with breathing and the fear and anxiety that this induces. Pt able to identify breathing techniques to help calm her. SW offered support and encouraged verbalization of feelings. Pt made aware that this SW is not here tomorrow but will ask another SW to stop in to see her. Pt states she will like this. SW to continue to follow. FILI Hickey
--- NOTE | 2020-12-29 14:39 | CHAPLAIN ---
Type of Pastoral Visit ___ Initial Visit ___ Follow-up Visit ___ On-call Visit ___ General Patient Visit ___ Spiritual Assessment ___ Family Conference _x__ Bereavement ___ Rapid Response ___ Code Blue ___ Other (describe below) Pastoral Care Referral From _x__ Patient _x__ Family ___ Nurse ___ Physician _x__ Supervisor [place] ___ Tow Car Driver ___ Other (describe below) Sacrament/Intervention _x__ Active listening ___ Anointing ___ Latter Day _x__ Bereavement ___ Communion _x__ Vicki exploration ___ _x__ Life review _x__ Prayer ___ Reconciliation ___ Sacrament of Sick _x__ Supportive presence ___ Wedding ___ Other (describe below) Pastoral Comments patient is very willing to talk and discuss her grief at of just less than 48 hours ago in this same hospital unit; pt shows a strong vicki in God and that she had to let him go to get his reward in [facility] and that it was his time; pt speaks of her vicki, family, and of the belief that God has more for her to do in her life; pt appears realistic about the seriousness of her illness and yet speaks about the future; pt has family of young adults and has concern for these family members; pt welcomes the conversation of spiritual support and the prayer offered with her
--- NOTE | 2020-12-29 15:59 | PCM.PN.HOSP ---
Subjective Subjective Patient seen and examined. She complained of pain beneath the clavicle and up on the sides of her neck. She still remains on air Vo. She does not feel like her condition is improving. Review of systems otherwise negative. Objective Data Objective Data Vital Signs: Vital Signs Temp Pulse Resp BP Pulse Ox 99.9 F H 82 23 H 111/66 89 12/29/20 14:00 12/29/20 15:00 12/29/20 15:00 12/29/20 15:00 12/29/20 15:00 Oxygen Flow Rate (L/min) [ 5 AMBULATING with Oxygen #2] Oxygen Flow Rate (L/min) [ 4 AMBULATING with Oxygen #1] Oxygen Flow Rate (L/min) [ 0 AMBULATING on Room Air] Oxygen Flow Rate (L/min) [At 0 REST on Room Air] Oxygen Flow Rate (L/min) 60 Oxygen Delivery Method Airvo Weight: 258 lb 12.8 oz Body Mass Index (BMI) 51.4 Intake & Output: Intake and Output for Last 24 Hours 12/27/20 12/28/20 12/29/20 23:59 23:59 23:59 Intake Total 730 / 730 550 / 550 400 / 400 Output Total 1700 / 1700 775 / 775 1400 / 1400 Balance -970 / -970 -225 / -225 -1000 / -1000 Lab / Micro Data Result Diagrams: 12/29/20 04:15 12/29/20 04:15 Labs: Laboratory Results - last 24 hr 12/28/20 16:51: POC Glucose 266 H 12/28/20 21:17: POC Glucose 274 H 12/29/20 04:15: WBC 12.0 H, RBC 4.58, Hgb 13.7, Hct 41.9, MCV 91.5, MCH 29.9, MCHC 32.7, RDW Std Deviation 44.9 H, RDW Coeff of Mansi 13.3, Plt Count 484 H, MPV 9.7, Immature Gran % (Auto) 0.700, Neut % (Auto) 87.6 H, Lymph % (Auto) 6.8 L, [place] % (Auto) 4.2, Eos % (Auto) 0.5, Baso % (Auto) 0.2, Absolute Neuts (auto) 10.5 H, Absolute Lymphs (auto) 0.82 L, Nucleated RBC % 0 12/29/20 04:15: Sodium 139, Potassium 3.3 L, Chloride 101, Carbon Dioxide 32.0, Anion Gap 6, BUN 20 H, Creatinine 0.81, Estim Creat Clear Calc 59.91, Est GFR (MDRD) Af Amer 95, Est GFR (MDRD) Non-Af 78, BUN/Creatinine Ratio 24.8 H, Glucose 125 H, Calcium 8.9 12/29/20 08:09: POC Glucose 89 Micro: Microbiology 12/21/20 10:40 Sputum, Expectorated/Coughed Gram Stain - Final 12/21/20 10:40 Sputum, Expectorated/Coughed Respiratory Culture - Final Staphylococcus aureus Presumptive C albicans Streptococcus agalactiae (B) 12/17/20 22:30 Blood Culture (Wb) - Left Hand Blood Culture - Final No growth in 5 days. 12/17/20 00:28 Blood Culture (Wb) - Right Hand Blood Culture - Final No growth in 5 days. 12/18/20 00:28 Urine, Random Urine Culture - Final Mixed Gram Pos & Gram Neg Org 12/18/20 03:35 Mucosa - Nose Respiratory Panel (PCR) - Final 12/18/20 00:28 Urine, Clean Catch Legionella Antigen - Final 12/18/20 00:28 Urine, Clean Catch Streptococcus pneumoniae Antigen (M - Final 12/17/20 22:40 Interface Orders SARS-CoV-2 Antigen (Rapid) - Final SARS-CoV-2 (COVID 19) Rhythm Strip Rhythm Strip: Sinus Rhythm Rate: 83 Ectopy: None Physical Exam Const alert, oriented x3 and no apparent distress General Appearance: cooperative and in distress Positive for mild Orientation / Consciousness: lethargic Exam Limitations: no limitations Nutritional Appearance: morbidly obese HEENT normocephalic, head/scalp atraumatic, moist oral mucous membranes, oropharynx normal and gingiva normal Head and Scalp: normocephalic Eyes PERRL, EOMs intact bilaterally and conjunctivae normal Neck supple and no JVD Resp normal respiratory effort, no retractions, no use of accessory muscles and clear to auscultation bilaterally Resp Narrative: tachypneic, breath sounds reduced bilaterally, no wheezes or crackles. Still on AirVo; has crepitus on palpation along the sides of her neck and infraclavicular region Auscultation: diminished lung sounds; Negative for crackles, rales, rhonchi or wheezes Cardio regular rate, regular rhythm, S1 normal heart sound, S2 normal heart sound, no murmurs, no rub, no gallops, no clicks and no JVD GI normal to inspection, nondistended, normoactive bowel sounds, soft to palpation, non-tender and non-distended; Negative for hepatosplenomegaly Extremity normal to inspection, full ROM and no clubbing, cyanosis or edema Peripheral Pulses: Yes pulses 2+ throughout Skin no rashes or lesions noted Neuro oriented x3, CN's II-XII intact bilaterally, moves all extremities, no focal motor deficits and no sensory deficits noted Sensorium / Orientation: awake and alert Speech: speech normal Psych Psych Narrative: flat affect Appearance: appropriate Mood & Affect: flat affect Assessment & Plan Assessment/Plan (1) Acute respiratory failure with hypoxia: (2) Pulmonary embolus: (3) Pneumonia due to COVID-19 virus: PLAN: #Acute hypoxic respiratory failure due to COVID 19 infection and staph pneumonia still on AirVo titrate oxygen to maintain sats >90% completed a course of remdesivir. On decadron sputum cultured MSSA and Strep Agalactiae, so now on rocephin. to complete a 10 day course of antibiotics. CXR showed persistent interstitial and airspace opacifications in both lung kam with development of pneumomediastinum and subcutaneous emphysema in the neck since the previous study. on breathing treatment with bronchodilators titrate oxygen to maintain sats >90% on intermittent lasix. #Pneumomediastinum and subcutaneous emphysema CXR as noted above likely iatrogenic, from BIPAP usage. did have some BIPAP usage overnight o/a of hypoxia, which may have contributed to her having worsening neck pain and infraclavicular pain. #Type 2 diabetes mellitus: on insulin lantus 40 units qhs. ISS. Accuchecks ACHS #GERD: on PPI #Depression and anxiety: on escitalopram DVT prophylaxis: on eliquis Charges/Coding Visit Charges Inpatient E&M: 27681 [facility] Hosp L3
[2020-12-29 16:50] LABS: Bedside Glucose 92 mg/dL (70-110)
[2020-12-29 18:16] LABS: Bedside Glucose 114 mg/dL (70-110)
[2020-12-29] MEDS: Insulin Lispro 100 UNIT/ML INSULN.PEN SC (21:28)
[2020-12-29 22:31] LABS: Base Excess 9 mmol/L (-2 to +2); Bicarbonate 31.5 mmol/L (22-26); Blood Gas Specimen Type ART; Comment AirVo 60 lpm; FI02 90; O2 Delivery Device Vapotherm; PO2 50 mmHG (75-100); SITE L Radial; SO2 89 % (95-99); Total Carbon Dioxide 33 mmol/L; pCO2 36.8 mmHg (35-45); pH 7.54 (7.35-7.45)
--- NOTE | 2020-12-29 22:32 | NURSING ---
2225- Dr. Swanson is at bedside assessing and speaking with patient. ABG has been drawn and awaiting results. Dr. Swanson is speaking with patient about her status and the need for intubation. Patient is currently maintaining sats at 88-90% maxed on Airvo 60L/93%. Patient is unable to tolerate Bipap due to pneumomediastinum and subcutaneous emphysema. 2230-Dr. Swanson is on the phone with patient's daughter Petey about patient's status and need for intubation. Petey and patient's sons are getting ready to come in now to see patient and make decision about intubation/code status.
[2020-12-29 22:45] LABS: Bedside Glucose 161 mg/dL (70-110)
[2020-12-30] VITALS (31 sets, daily range): BP systolic 87–126; BP diastolic 53–88; PULSE 61–109; RESP 25–41; TEMP 37.1–38.7; O2SAT 86–97
[2020-12-30] MEDS: Acetaminophen 325 MG Tablet 650 MG PO ×3 (03:25→21:45)
[2020-12-30] MEDS: LORazepam 0.5 MG Tablet PO ×2 (03:25→21:45)
[2020-12-30 04:08] LABS: Absolute Lymphocyte Count 0.94 X10^3/uL (0.83-4.51); Basophil# 0.03 X10^3/uL; Basophil% 0.3 % (0-1); Hematocrit 42.6 % (37-47); Hemoglobin 13.7 g/dL (12.0-15.0); Lymphocyte # 0.94 X10^3/ul (0.83-4.51); Lymphocyte % 9.4 % (19-41); Mean Corp Hgb Conc 32.2 g/dL (32-36); Mean Corpuscular Hgb 29.4 pg (27.0-32.0); Mean Corpuscular Volume 91.4 fL (81-99); Mean Platelet Vol. 9.5 fl (6.2-12.0); Monocyte# 0.57 X10^3/uL; Monocyte% 5.7 % (0-10); NRBC Flagged by Analyzer 0 % (0-5); Neutrophil # 8.04 X10^3/uL (2.7-7.7); Neutrophil % 80.8 % (47-70); Platelet Count 436 K/mm3 (150-450); RBC Distribution Width CV 13.3 % (11.6-14.6); RBC Distribution Width SD 45.5 fl (35.1-43.9); Red Blood Count 4.66 M/mm3 (4.2-5.4)
[2020-12-30 04:29] LABS: Anion Gap 6 (5-15); BUN 22 mg/dL (7-18); BUN/Creat Ratio 22.5 RATIO (10-20); Calcium,Total 9.1 mg/dL (8.5-10.1); Chloride 97 mmol/L (98-107); Creatinine, Serum 0.98 mg/dL (0.55-1.02); EST Glomerular Filtration Rate 63 mL/min (>60); Est Glom Filt Rate - Afr Amer 76 mL/min (>60); Estimated Creatinine Clearance 49.52 ml/min; Glucose 135 mg/dL (74-106); Potassium 3.1 mmol/L (3.5-5.1); Sodium Level 137 mmol/L (136-145)
--- NOTE | 2020-12-30 06:55 | PCM.PN.INT ---
Assessment & Plan Assessment/Plan (1) Acute respiratory failure with hypoxia: (2) Pneumonia due to COVID-19 virus: PLAN: RECOMMENDATIONS: 1. Continue a combination of Airvo/BIPAP as tolerated to maintain saturations at or above 90%. 2. Continue Eliquis as ordered. 3. Continue IV Lasix as needed to maintain euvolemic state. 4. Encourage incentive spirometer use and mobilize patient as tolerated. IMPRESSIONS: 1. Acute hypoxemic respiratory failure secondary to COVID-19 pneumonia/MSSA pneumonia The patient continues to have a high oxygen requirement, despite having completed a treatment course of remdesivir, Decadron and antimicrobials. Eliquis twice daily will be continued. Plan to continue the patient on heated high flow as tolerated. Wean FiO2 to maintain oxygen saturations at or above 90%. Encourage incentive spirometer use and mobilize patient as tolerated. Continue attempts at gentle diuresis as tolerated by hemodynamics and renal function. 2. Pneumomediastinum Complication of PAP therapy and frequent coughing. Attempt to avoid reinstitution of noninvasive positive pressure ventilatory support, if feasible. Continue supportive measures. 3. Diabetes mellitus/obesity/depression/anxiety/GERD Complicates care, management, recovery and prognosis. Continue Lantus and sliding scale insulin coverage. CODE STATUS updated to DNR CCA without intubation. This note was generated with [employer] dictation software. It may contain incorrect words, spelling, and punctuation that were not noted in checking the note before signing. Subjective Subjective The patient was seen and examined at the bedside this morning. Events from the last 24 hours have been reviewed. The patient remains afebrile and hemodynamically stable. Overnight, the patient decompensated from a respiratory perspective. Family was called into the bedside. After the patient was able to meet with her family, she decided to make herself a DNR CCA without intubation. She remains on Airvo heated high flow with an FiO2 requirement of 93% and flow rate of 60 L/min. She is currently documented to be overall net -1.1 L for the hospital admission. The patient has now completed a 5-day course of remdesivir, 10 days of Decadron and 7 days of antimicrobials. Potassium is low this morning at 3.1. Bicarbonate is elevated at 34. Creatinine is stable. Objective Data Objective Data The patient's most recent lab work, culture data and imaging studies have all been personally reviewed. Rapid coronavirus antigen testing was positive on December 17. Sputum culture from December 21 was positive for MSSA. Vital Signs: Vital Signs Temp Pulse Resp BP Pulse Ox 100.6 F H 75 30 H 109/62 93 12/30/20 00:00 12/30/20 04:00 12/30/20 03:00 12/30/20 03:00 12/30/20 03:00 Oxygen Flow Rate (L/min) [ 5 AMBULATING with Oxygen #2] Oxygen Flow Rate (L/min) [ 4 AMBULATING with Oxygen #1] Oxygen Flow Rate (L/min) [ 0 AMBULATING on Room Air] Oxygen Flow Rate (L/min) [At 0 REST on Room Air] Oxygen Flow Rate (L/min) 60 Oxygen Delivery Method Airvo Weight: 117.39 kg Body Mass Index (BMI) 51.4 Intake & Output: Intake and Output for Last 24 Hours 12/28/20 12/29/20 12/30/20 23:59 23:59 23:59 Intake Total 550 / 550 580 / 580 Output Total 775 / 775 1850 / 1850 Balance -225 / -225 -1270 / -1270 Lab / Micro Data Attestation: I reviewed the patient's lab results. Result Diagrams: 12/30/20 03:55 12/30/20 03:55 Labs: Laboratory Results - last 24 hr 12/29/20 08:09: POC Glucose 89 12/29/20 12:26: POC Glucose 92 12/29/20 16:53: POC Glucose 114 H 12/29/20 21:25: POC Glucose 161 H 12/30/20 03:55: WBC 10.0, RBC 4.66, Hgb 13.7, Hct 42.6, MCV 91.4, MCH 29.4, MCHC 32.2, RDW Std Deviation 45.5 H, RDW Coeff of Mansi 13.3, Plt Count 436, MPV 9.5, Immature Gran % (Auto) 0.800, Neut % (Auto) 80.8 H, Lymph % (Auto) 9.4 L, [place] % (Auto) 5.7, Eos % (Auto) 3.0, Baso % (Auto) 0.3, Absolute Neuts (auto) 8.0 H, Absolute Lymphs (auto) 0.94, Nucleated RBC % 0 12/30/20 03:55: Sodium 137, Potassium 3.1 L, Chloride 97 L, Carbon Dioxide 34.0 H, Anion Gap 6, BUN 22 H, Creatinine 0.98, Estim Creat Clear Calc 49.52, Est GFR (MDRD) Af Amer 76, Est GFR (MDRD) Non-Af 63, BUN/Creatinine Ratio 22.5 H, Glucose 135 H, Calcium 9.1 Micro: Microbiology 12/21/20 10:40 Sputum, Expectorated/Coughed Gram Stain - Final 12/21/20 10:40 Sputum, Expectorated/Coughed Respiratory Culture - Final Staphylococcus aureus Presumptive C albicans Streptococcus agalactiae (B) 12/17/20 22:30 Blood Culture (Wb) - Left Hand Blood Culture - Final No growth in 5 days. 12/17/20 00:28 Blood Culture (Wb) - Right Hand Blood Culture - Final No growth in 5 days. 12/18/20 00:28 Urine, Random Urine Culture - Final Mixed Gram Pos & Gram Neg Org 12/18/20 03:35 Mucosa - Nose Respiratory Panel (PCR) - Final 12/18/20 00:28 Urine, Clean Catch Legionella Antigen - Final 12/18/20 00:28 Urine, Clean Catch Streptococcus pneumoniae Antigen (M - Final 12/17/20 22:40 Interface Orders SARS-CoV-2 Antigen (Rapid) - Final SARS-CoV-2 (COVID 19) ABG Data ABG results: ABG 12/29/20 22:24 Specimen Type ART Sample Site L Radial pH 7.54 H Bicarbonate Actual 31.5 H Total CO2 33 Base Excess 9 H O2 Saturation 89 L O2 % 90 ABG pCO2 36.8 ABG pO2 50 L Lexx Test N/A O2 Delivery Device Vapotherm Clinical Comments AirVo 60 lpm Rhythm Strip Rhythm Strip: Sinus Rhythm Rate: 83 Ectopy: None Physical Exam Const alert Constitutional Narrative: Sitting in bedside recliner. General Appearance: cooperative and ill appearing Nutritional Appearance: morbidly obese HEENT normocephalic and head/scalp atraumatic Eyes PERRL, EOMs intact bilaterally and conjunctivae normal Neck supple Neck Narrative: Mild cervical crepitus noted. General: trachea midline Chest inspection of chest normal Resp Effort and Inspection: tachypneic Auscultation: diminished lung sounds; Negative for rales, rhonchi or wheezes Cardio regular rate and regular rhythm GI normal to inspection, nondistended, normoactive bowel sounds Extremity no clubbing, cyanosis or edema Skin no rashes or lesions noted Neuro no focal motor deficits Psych Mood & Affect: anxious and flat affect Charges/Coding Visit Charges Inpatient E&M: 21003 Subs Hosp L3
[2020-12-30] MEDS: Potassium Chloride 10mEq/100mL 10 MEQ/100 ML IV.SOLN. 100 MEQ IV BOLUS ×4 (08:15→11:56)
[2020-12-30] MEDS: Potassium Chloride Oral Tablet 20 MEQ 40 MEQ PO (08:16)
[2020-12-30] MEDS: Furosemide 40 MG/4 ML Vial IV (08:16)
[2020-12-30 08:31] LABS: Bedside Glucose 102 mg/dL (70-110)
[2020-12-30] MEDS: Azelastine HCl NASAL.SRY 1 SPRAY NASAL ×2 (09:13→21:44)
[2020-12-30] MEDS: Fluticasone 0.05% 1 SPRAY NASAL.SRY NASAL ×2 (09:15→21:45)
[2020-12-30] MEDS: Loratadine 10 MG Tablet PO (10:22)
[2020-12-30] MEDS: Pantoprazole Sodium 20 MG Tablet PO (10:22)
[2020-12-30] MEDS: APIXABAN 5 MG TABLET PO ×2 (10:22→21:44)
[2020-12-30] MEDS: CHLORHEXIDINE GLUC 2% CLOTH 1 EACH TOWELETTE TOPICAL (10:22)
[2020-12-30] MEDS: Escitalopram Oxalate 20 MG Tablet PO (10:22)
[2020-12-30 10:41] LABS: Bedside Glucose 127 mg/dL (70-110)
--- NOTE | 2020-12-30 10:43 | CASEMGMT ---
Addendum entered by Anna Wu 12/30/20 12:31: SW called daughter Petey, offered support. SW will continue to follow. [facility] Original Note: SW met w/pt in room briefly, offered support. Pt speaking in short sentences, on airvo at present, so SW kept conversation brief. SW let her know if she is feeling better later and would like to speak w/SW further that SW can come back in. SW remains available. [facility]
[2020-12-30] MEDS: Insulin Lispro 100 UNIT/ML INSULN.PEN SC (15:28)
--- NOTE | 2020-12-30 15:33 | PN.HOSP_ITS ---
Subjective Subjective Patient seen and examined. She remained on AirVO. SHe changed her code status to DNRCCA no intubation. She still remains short of breath. Review of systems otherwise negative. Objective Data Objective Data Vital Signs: Vital Signs Temp Pulse Resp BP Pulse Ox 100.1 F H 77 25 H 91/59 L 86 12/30/20 15:00 12/30/20 15:00 12/30/20 15:00 12/30/20 15:00 12/30/20 15:00 Oxygen Flow Rate (L/min) [ 5 AMBULATING with Oxygen #2] Oxygen Flow Rate (L/min) [ 4 AMBULATING with Oxygen #1] Oxygen Flow Rate (L/min) [ 0 AMBULATING on Room Air] Oxygen Flow Rate (L/min) [At 0 REST on Room Air] Oxygen Flow Rate (L/min) 60 Oxygen Delivery Method Airvo Weight: 256 lb 7.984 oz Body Mass Index (BMI) 51.4 Intake & Output: Intake and Output for Last 24 Hours 12/28/20 12/29/20 12/30/20 23:59 23:59 23:59 Intake Total 550 / 550 580 / 580 875 / 875 Output Total 775 / 775 1850 / 1850 1935 / 1935 Balance -225 / -225 -1270 / -1270 -1060 / -1060 Lab / Micro Data Result Diagrams: 12/30/20 03:55 12/30/20 03:55 Labs: Laboratory Results - last 24 hr 12/29/20 12:26: POC Glucose 92 12/29/20 16:53: POC Glucose 114 H 12/29/20 21:25: POC Glucose 161 H 12/30/20 03:55: WBC 10.0, RBC 4.66, Hgb 13.7, Hct 42.6, MCV 91.4, MCH 29.4, MCHC 32.2, RDW Std Deviation 45.5 H, RDW Coeff of Mansi 13.3, Plt Count 436, MPV 9.5, Immature Gran % (Auto) 0.800, Neut % (Auto) 80.8 H, Lymph % (Auto) 9.4 L, [place] % (Auto) 5.7, Eos % (Auto) 3.0, Baso % (Auto) 0.3, Absolute Neuts (auto) 8.0 H, Absolute Lymphs (auto) 0.94, Nucleated RBC % 0 12/30/20 03:55: Sodium 137, Potassium 3.1 L, Chloride 97 L, Carbon Dioxide 34.0 H, Anion Gap 6, BUN 22 H, Creatinine 0.98, Estim Creat Clear Calc 49.52, Est GFR (MDRD) Af Amer 76, Est GFR (MDRD) Non-Af 63, BUN/Creatinine Ratio 22.5 H, Glucose 135 H, Calcium 9.1 12/30/20 08:20: POC Glucose 102 12/30/20 10:27: POC Glucose 127 H Micro: Microbiology 12/21/20 10:40 Sputum, Expectorated/Coughed Gram Stain - Final 12/21/20 10:40 Sputum, Expectorated/Coughed Respiratory Culture - Final Staphylococcus aureus Presumptive C albicans Streptococcus agalactiae (B) 12/17/20 22:30 Blood Culture (Wb) - Left Hand Blood Culture - Final No growth in 5 days. 12/17/20 00:28 Blood Culture (Wb) - Right Hand Blood Culture - Final No growth in 5 days. 12/18/20 00:28 Urine, Random Urine Culture - Final Mixed Gram Pos & Gram Neg Org 12/18/20 03:35 Mucosa - Nose Respiratory Panel (PCR) - Final 12/18/20 00:28 Urine, Clean Catch Legionella Antigen - Final 12/18/20 00:28 Urine, Clean Catch Streptococcus pneumoniae Antigen (M - Final 12/17/20 22:40 Interface Orders SARS-CoV-2 Antigen (Rapid) - Final SARS-CoV-2 (COVID 19) ABG Data ABG results: ABG 12/29/20 22:24 Specimen Type ART Sample Site L Radial pH 7.54 H Bicarbonate Actual 31.5 H Total CO2 33 Base Excess 9 H O2 Saturation 89 L O2 % 90 ABG pCO2 36.8 ABG pO2 50 L Lexx Test N/A O2 Delivery Device Vapotherm Clinical Comments AirVo 60 lpm Rhythm Strip Rhythm Strip: Sinus Rhythm Rate: 83 Ectopy: None Physical Exam Const alert, oriented x3 and no apparent distress General Appearance: cooperative and in distress Positive for mild Orientation / Consciousness: lethargic Exam Limitations: no limitations Nutritional Appearance: morbidly obese HEENT normocephalic, head/scalp atraumatic, moist oral mucous membranes, oropharynx normal and gingiva normal Head and Scalp: normocephalic Eyes PERRL, EOMs intact bilaterally and conjunctivae normal Neck supple and no JVD Resp Resp Narrative: tachypneic, breath sounds reduced bilaterally, no wheezes or crackles. Still on AirVo; still has crepitus on palpation along the sides of her neck and infraclavicular region Auscultation: diminished lung sounds Cardio regular rate, regular rhythm, S1 normal heart sound, S2 normal heart sound, no murmurs, no rub, no gallops, no clicks and no JVD GI normal to inspection, nondistended, normoactive bowel sounds, soft to palpation, non-tender and non-distended; Negative for hepatosplenomegaly Extremity normal to inspection, full ROM and no clubbing, cyanosis or edema Skin no rashes or lesions noted Neuro oriented x3, CN's II-XII intact bilaterally, moves all extremities, no focal motor deficits and no sensory deficits noted Sensorium / Orientation: awake and alert Speech: speech normal Psych affect normal Psych Narrative: flat affect Appearance: appropriate Mood & Affect: flat affect Assessment & Plan Assessment/Plan (1) Acute respiratory failure with hypoxia: (2) Pulmonary embolus: (3) Pneumonia due to COVID-19 virus: PLAN: #Acute hypoxic respiratory failure due to COVID 19 infection and s taph pneumonia * still on AirVo * titrate oxygen to maintain sats >90% * completed a course of remdesivir. On decadron * sputum cultured MSSA and Strep Agalactiae, so now on rocephin. to complete a 10 day course of antibiotics. * CXR showed persistent interstitial and airspace opacifications in both lung kam with development of pneumomediastinum and subcutaneous emphysema in the neck since the previous study. * on breathing treatment with bronchodilators * titrate oxygen to maintain sats >90% * on intermittent lasix. * #Pneumomediastinum and subcutaneous emphysema * CXR as noted above * likely iatrogenic, from BIPAP usage. * to try to avoid BIPAP usage as much as possible #Type 2 diabetes mellitus: on insulin lantus 40 units qhs. ISS. Accuchecks ACHS #GERD: on PPI #Depression and anxiety: on escitalopram DVT prophylaxis: on eliquis Code status: DNRCCA no intubation. Patient changed code status to DNRCCA no intubation yesterday. Prognosis: guarded Charges/Coding Visit Charges Inpatient E&M: 22521 Subs Hosp L3
[2020-12-30 17:25] LABS: Bedside Glucose 203 mg/dL (70-110)
[2020-12-30] MEDS: guaiFENesin 10 ML UDC (200MG/10ML) 20 ML PO (21:46)
[2020-12-31] VITALS (33 sets, daily range): BP systolic 93–143; BP diastolic 52–82; PULSE 71–115; RESP 18–41; TEMP 37.3–38.6; O2SAT 86–95
[2020-12-31 00:31] LABS: Bedside Glucose 127 mg/dL (70-110)
[2020-12-31 03:43] LABS: Absolute Lymphocyte Count 0.92 X10^3/uL (0.83-4.51); Absolute Neutrophil Count 9.4 X10^3/uL (2.0-7.7); Basophil# 0.03 X10^3/uL; Basophil% 0.3 % (0-1); Eosinophil# 0.26 X10^3/uL; Eosinophils% 2.3 % (0-5); Hematocrit 42.4 % (37-47); Hemoglobin 13.6 g/dL (12.0-15.0); Lymphocyte # 0.92 X10^3/ul (0.83-4.51); Lymphocyte % 8.2 % (19-41); Mean Corp Hgb Conc 32.1 g/dL (32-36); Mean Corpuscular Hgb 29.6 pg (27.0-32.0); Mean Corpuscular Volume 92.4 fL (81-99); Mean Platelet Vol. 9.7 fl (6.2-12.0); Monocyte% 5.3 % (0-10); NRBC Flagged by Analyzer 0 % (0-5); Neutrophil # 9.39 X10^3/uL (2.7-7.7); Neutrophil % 83.2 % (47-70); Platelet Count 362 K/mm3 (150-450); RBC Distribution Width CV 13.3 % (11.6-14.6); RBC Distribution Width SD 45.1 fl (35.1-43.9); Red Blood Count 4.59 M/mm3 (4.2-5.4); White Blood Count 11.3 K/mm3 (4.4-11.0)
[2020-12-31 04:17] LABS: Anion Gap 5 (5-15); BUN 18 mg/dL (7-18); BUN/Creat Ratio 21.9 RATIO (10-20); Calcium,Total 9.3 mg/dL (8.5-10.1); Chloride 98 mmol/L (98-107); Creatinine, Serum 0.82 mg/dL (0.55-1.02); EST Glomerular Filtration Rate 77 mL/min (>60); Est Glom Filt Rate - Afr Amer 93 mL/min (>60); Estimated Creatinine Clearance 59.18 ml/min; Glucose 129 mg/dL (74-106); Potassium 3.8 mmol/L (3.5-5.1); Sodium Level 136 mmol/L (136-145)
--- NOTE | 2020-12-31 07:26 | PCM.PN.INT ---
Assessment & Plan Assessment/Plan (1) Acute respiratory failure with hypoxia: (2) Pneumonia due to COVID-19 virus: PLAN: RECOMMENDATIONS: 1. Continue a combination of Airvo/BIPAP as tolerated to maintain saturations at or above 90%. 2. Continue Eliquis as ordered. 3. Continue IV Lasix as needed to maintain euvolemic state. 4. Encourage incentive spirometer use and mobilize patient as tolerated. IMPRESSIONS: 1. Acute hypoxemic respiratory failure secondary to COVID-19 pneumonia/MSSA pneumonia The patient continues to have a high oxygen requirement, despite having completed a treatment course of remdesivir, Decadron and antimicrobials. Eliquis twice daily will be continued. Plan to continue the patient on heated high flow as tolerated. Wean FiO2 to maintain oxygen saturations at or above 90%. Encourage incentive spirometer use and mobilize patient as tolerated. Continue attempts at gentle diuresis as tolerated by hemodynamics and renal function. 2. Pneumomediastinum Complication of PAP therapy and frequent coughing. Attempt to avoid reinstitution of noninvasive positive pressure ventilatory support, if feasible. Continue supportive measures. 3. Diabetes mellitus/obesity/depression/anxiety/GERD Complicates care, management, recovery and prognosis. Continue Lantus and sliding scale insulin coverage. CODE STATUS updated to DNR CCA without intubation. This note was generated with [employer] dictation software. It may contain incorrect words, spelling, and punctuation that were not noted in checking the note before signing. Subjective Subjective The patient was seen and examined at the bedside this morning. Events from the last 24 hours have been reviewed. No overnight issues were identified by the nursing staff. The patient remains afebrile and hemodynamically stable. She remains on Airvo heated high flow with an FiO2 requirement of 93% and flow rate of 60 L/min. She is currently documented to be overall net -2 L for the hospital admission. The patient has now completed a 5-day course of remdesivir, 10 days of Decadron and 7 days of antimicrobials. Creatinine is stable. Objective Data Objective Data The patient's most recent lab work, culture data and imaging studies have all been personally reviewed. Rapid coronavirus antigen testing was positive on December 17. Sputum culture from December 21 was positive for MSSA. Vital Signs: Vital Signs Temp Pulse Resp BP Pulse Ox 99.1 F 72 38 H 109/82 H 94 12/31/20 03:00 12/31/20 05:00 12/31/20 05:00 12/31/20 05:00 12/31/20 05:00 Oxygen Flow Rate (L/min) [ 5 AMBULATING with Oxygen #2] Oxygen Flow Rate (L/min) [ 4 AMBULATING with Oxygen #1] Oxygen Flow Rate (L/min) [ 0 AMBULATING on Room Air] Oxygen Flow Rate (L/min) [At 0 REST on Room Air] Oxygen Flow Rate (L/min) 60 Oxygen Delivery Method Airvo Weight: 116.346 kg Body Mass Index (BMI) 51.4 Intake & Output: Intake and Output for Last 24 Hours 12/29/20 12/30/20 12/31/20 23:59 23:59 23:59 Intake Total 580 / 580 1210 / 1460 250 / 250 Output Total 1850 / 1850 2110 / 2360 250 / 250 Balance -1270 / -1270 -900 / -900 0 / 0 Lab / Micro Data Attestation: I reviewed the patient's lab results. Result Diagrams: 12/31/20 03:35 12/31/20 03:35 Labs: Laboratory Results - last 24 hr 12/30/20 08:20: POC Glucose 102 12/30/20 10:27: POC Glucose 127 H 12/30/20 15:24: POC Glucose 203 H 12/30/20 21:39: POC Glucose 127 H 12/31/20 03:35: WBC 11.3 H, RBC 4.59, Hgb 13.6, Hct 42.4, MCV 92.4, MCH 29.6, MCHC 32.1, RDW Std Deviation 45.1 H, RDW Coeff of Mansi 13.3, Plt Count 362, MPV 9.7, Immature Gran % (Auto) 0.700, Neut % (Auto) 83.2 H, Lymph % (Auto) 8.2 L, [place] % (Auto) 5.3, Eos % (Auto) 2.3, Baso % (Auto) 0.3, Absolute Neuts (auto) 9.4 H, Absolute Lymphs (auto) 0.92, Nucleated RBC % 0 12/31/20 03:35: Sodium 136, Potassium 3.8, Chloride 98, Carbon Dioxide 33.0 H, Anion Gap 5, BUN 18, Creatinine 0.82, Estim Creat Clear Calc 59.18, Est GFR (MDRD) Af Amer 93, Est GFR (MDRD) Non-Af 77, BUN/Creatinine Ratio 21.9 H, Glucose 129 H, Calcium 9.3 Micro: Microbiology 12/21/20 10:40 Sputum, Expectorated/Coughed Gram Stain - Final 12/21/20 10:40 Sputum, Expectorated/Coughed Respiratory Culture - Final Staphylococcus aureus Presumptive C albicans Streptococcus agalactiae (B) 12/17/20 22:30 Blood Culture (Wb) - Left Hand Blood Culture - Final No growth in 5 days. 12/17/20 00:28 Blood Culture (Wb) - Right Hand Blood Culture - Final No growth in 5 days. 12/18/20 00:28 Urine, Random Urine Culture - Final Mixed Gram Pos & Gram Neg Org 12/18/20 03:35 Mucosa - Nose Respiratory Panel (PCR) - Final 12/18/20 00:28 Urine, Clean Catch Legionella Antigen - Final 12/18/20 00:28 Urine, Clean Catch Streptococcus pneumoniae Antigen (M - Final 12/17/20 22:40 Interface Orders SARS-CoV-2 Antigen (Rapid) - Final SARS-CoV-2 (COVID 19) Rhythm Strip Rhythm Strip: Sinus Rhythm Rate: 83 Ectopy: None Physical Exam Const alert Constitutional Narrative: Sitting in bedside recliner. General Appearance: cooperative and ill appearing Nutritional Appearance: morbidly obese HEENT normocephalic and head/scalp atraumatic Eyes PERRL, EOMs intact bilaterally and conjunctivae normal Neck supple Neck Narrative: Mild cervical crepitus noted. General: trachea midline Chest inspection of chest normal Resp Effort and Inspection: tachypneic Auscultation: diminished lung sounds; Negative for rales, rhonchi or wheezes Cardio regular rate and regular rhythm GI normal to inspection, nondistended, normoactive bowel sounds Extremity no clubbing, cyanosis or edema Skin no rashes or lesions noted Neuro no focal motor deficits Psych Mood & Affect: flat affect Charges/Coding Visit Charges Inpatient E&M: 09754 Subs Hosp L3
[2020-12-31] MEDS: Acetaminophen 325 MG Tablet 650 MG PO ×3 (09:10→20:43)
[2020-12-31] MEDS: Pantoprazole Sodium 20 MG Tablet PO (09:11)
[2020-12-31] MEDS: Escitalopram Oxalate 20 MG Tablet PO (09:11)
[2020-12-31] MEDS: APIXABAN 5 MG TABLET PO ×2 (09:11→20:42)
[2020-12-31] MEDS: Loratadine 10 MG Tablet PO (09:11)
[2020-12-31] MEDS: Azelastine HCl NASAL.SRY 1 SPRAY NASAL ×2 (09:12→21:51)
[2020-12-31] MEDS: CHLORHEXIDINE GLUC 2% CLOTH 1 EACH TOWELETTE TOPICAL (09:13)
[2020-12-31] MEDS: Fluticasone 0.05% 1 SPRAY NASAL.SRY NASAL ×2 (09:13→21:51)
[2020-12-31] MEDS: LORazepam 0.5 MG Tablet PO ×3 (09:17→22:11)
[2020-12-31 09:51] LABS: Bacteria 0 SEEN /hpf (None Seen); Mucous, Urine 0 SEEN /hpf (<or=2+); Squamous Epithelial Cells - UA 0 SEEN /hpf (5-10)
[2020-12-31 09:53] LABS: Color, Urine Yellow (Yellow); Glucose, Dipstick Normal (Normal); Ketone-Dipstick 15 mg/dl (Negative); Leukocyte Esterase-Dipstick 100 /ul (Negative); Nitrite-Dipstick Negative (Negative); Occult Blood-Urine 250 /ul (Negative); Protein-Dipstick 100 mg/dl (Negative); Urine Bilirubin Dipstick Negative (Negative); Urine Clarity Sl. Cloudy (Clear); Urine Urobilinogen Normal (Normal)
[2020-12-31 10:02] LABS: Red Blood Cells-Urine > 100 SEEN /hpf (0-5); White Blood Cells 0-5 SEEN /hpf (0-5)
[2020-12-31 10:22] LABS: Bedside Glucose 117 mg/dL (70-110)
[2020-12-31] MEDS: Insulin Lispro 100 UNIT/ML INSULN.PEN SC (12:30)
[2020-12-31 12:55] LABS: Bedside Glucose 173 mg/dL (70-110)
[2020-12-31] MEDS: Gabapentin 300 MG Capsule PO (13:50)
--- NOTE | 2020-12-31 14:17 | PN.HOSP_ITS ---
Subjective Subjective Patient seen and examined. She complained of bladder spasms with the catheter in place. She remains on AirVo. Pain over the upper chest from crepitus is much better now. Objective Data Objective Data Vital Signs: Vital Signs Temp Pulse Resp BP Pulse Ox 100.4 F H 90 40 H 126/58 H 88 12/31/20 10:53 12/31/20 13:00 12/31/20 13:00 12/31/20 13:00 12/31/20 13:00 Oxygen Flow Rate (L/min) [ 5 AMBULATING with Oxygen #2] Oxygen Flow Rate (L/min) [ 4 AMBULATING with Oxygen #1] Oxygen Flow Rate (L/min) [ 0 AMBULATING on Room Air] Oxygen Flow Rate (L/min) [At 0 REST on Room Air] Oxygen Flow Rate (L/min) 60 Oxygen Delivery Method Airvo Weight: 256 lb 7.984 oz Body Mass Index (BMI) 51.4 Intake & Output: Intake and Output for Last 24 Hours 12/29/20 12/30/20 12/31/20 23:59 23:59 23:59 Intake Total 580 / 580 1210 / 1460 400 / 400 Output Total 1850 / 1850 2110 / 2360 900 / 900 Balance -1270 / -1270 -900 / -900 -500 / -500 Lab / Micro Data Result Diagrams: 12/31/20 03:35 12/31/20 03:35 Labs: Laboratory Results - last 24 hr 12/30/20 15:24: POC Glucose 203 H 12/30/20 21:39: POC Glucose 127 H 12/31/20 03:35: WBC 11.3 H, RBC 4.59, Hgb 13.6, Hct 42.4, MCV 92.4, MCH 29.6, MCHC 32.1, RDW Std Deviation 45.1 H, RDW Coeff of Mansi 13.3, Plt Count 362, MPV 9.7, Immature Gran % (Auto) 0.700, Neut % (Auto) 83.2 H, Lymph % (Auto) 8.2 L, [place] % (Auto) 5.3, Eos % (Auto) 2.3, Baso % (Auto) 0.3, Absolute Neuts (auto) 9.4 H, Absolute Lymphs (auto) 0.92, Nucleated RBC % 0 12/31/20 03:35: Sodium 136, Potassium 3.8, Chloride 98, Carbon Dioxide 33.0 H, Anion Gap 5, BUN 18, Creatinine 0.82, Estim Creat Clear Calc 59.18, Est GFR (MDRD) Af Amer 93, Est GFR (MDRD) Non-Af 77, BUN/Creatinine Ratio 21.9 H, Glucose 129 H, Calcium 9.3 12/31/20 09:00: POC Glucose 117 H 12/31/20 09:10: Urine Color Yellow, Urine Clarity Sl. Cloudy, Urine pH 6.0, Ur Specific [place] 1.020, Urine Protein 100 H, Urine Glucose (UA) Normal, Urine Ketones 15 H, Urine Occult Blood 250 H, Urine Nitrite Negative, Urine Bilirubin Negative, Urine Urobilinogen Normal, Ur Leukocyte Esterase 100 H, Urine RBC > 100 SEEN, Urine WBC 0-5 SEEN, Ur Squamous Epith Cells 0 SEEN, Urine Bacteria 0 SEEN, Urine Mucus 0 SEEN 12/31/20 12:28: POC Glucose 173 H Micro: Microbiology 12/21/20 10:40 Sputum, Expectorated/Coughed Gram Stain - Final 12/21/20 10:40 Sputum, Expectorated/Coughed Respiratory Culture - Final Staphylococcus aureus Presumptive C albicans Streptococcus agalactiae (B) 12/17/20 22:30 Blood Culture (Wb) - Left Hand Blood Culture - Final No growth in 5 days. 12/17/20 00:28 Blood Culture (Wb) - Right Hand Blood Culture - Final No growth in 5 days. 12/18/20 00:28 Urine, Random Urine Culture - Final Mixed Gram Pos & Gram Neg Org 12/18/20 03:35 Mucosa - Nose Respiratory Panel (PCR) - Final 12/18/20 00:28 Urine, Clean Catch Legionella Antigen - Final 12/18/20 00:28 Urine, Clean Catch Streptococcus pneumoniae Antigen (M - Final 12/17/20 22:40 Interface Orders SARS-CoV-2 Antigen (Rapid) - Final SARS-CoV-2 (COVID 19) Rhythm Strip Rhythm Strip: Sinus Rhythm Rate: 83 Ectopy: None Physical Exam Const alert, oriented x3 and no apparent distress General Appearance: cooperative and in distress Positive for mild Orientation / Consciousness: lethargic Exam Limitations: no limitations Nutritional Appearance: morbidly obese HEENT normocephalic, head/scalp atraumatic, moist oral mucous membranes, oropharynx normal and gingiva normal Head and Scalp: normocephalic Eyes PERRL, EOMs intact bilaterally and conjunctivae normal Neck supple and no JVD Resp normal respiratory effort, no retractions, no use of accessory muscles and clear to auscultation bilaterally Resp Narrative: tachypneic, breath sounds reduced bilaterally, no wheezes or crackles. Still on AirVo; crepitus has improved markedly Auscultation: diminished lung sounds Cardio regular rate, regular rhythm, S1 normal heart sound, S2 normal heart sound, no murmurs, no rub, no gallops, no clicks and no JVD GI normal to inspection, nondistended, normoactive bowel sounds, soft to palpation, non-tender and non-distended; Negative for hepatosplenomegaly Extremity normal to inspection, full ROM and no clubbing, cyanosis or edema Peripheral Pulses: Yes pulses 2+ throughout Skin no rashes or lesions noted Neuro oriented x3, CN's II-XII intact bilaterally, moves all extremities, no focal motor deficits and no sensory deficits noted Sensorium / Orientation: awake and alert Speech: speech normal Psych Psych Narrative: flat affect Appearance: appropriate Mood & Affect: flat affect Assessment & Plan Assessment/Plan (1) Acute respiratory failure with hypoxia: (2) Pulmonary embolus: (3) Pneumonia due to COVID-19 virus: PLAN: #Acute hypoxic respiratory failure due to COVID 19 infection and staph pneumonia * still on AirVo * titrate oxygen to maintain sats >90% * completed a course of remdesivir. On decadron * sputum cultured MSSA and Strep Agalactiae,and she completed a course of rocephin. * on breathing treatment with bronchodilators * titrate oxygen to maintain sats >90% * on intermittent lasix. * #Pneumomediastinum and subcutaneous emphysema * has improved. Crepitus over chest has resolved. * likely iatrogenic, from BIPAP usage. * to try to avoid BIPAP usage as much as possible #Type 2 diabetes mellitus: on insulin lantus 40 units qhs. ISS. Accuchecks ACHS #GERD: on PPI #Depression and anxiety: on escitalopram DVT prophylaxis: on eliquis Patient changed code status to DNRCCA no intubation yesterday. Prognosis: guarded Charges/Coding Visit Charges Inpatient E&M: 43839 Subs Hosp L3
--- NOTE | 2020-12-31 14:57 | CASEMGMT ---
SW Note Referral Source: ICU SW Referral Reason: ICU support SW went to ICU. Spoke to ICU nurse who voiced she is not aware of any needs for patient. SW advised that if patient has social work needs the RN can contact this underwriter. SW remains available. Plan: IAN attempted to provide support Suzette VASQUES
[2020-12-31] MEDS: guaiFENesin 10 ML UDC (200MG/10ML) 20 ML PO ×2 (15:51→20:42)
[2020-12-31 17:36] LABS: Bedside Glucose 118 mg/dL (70-110)
[2020-12-31 22:06] LABS: Bedside Glucose 157 mg/dL (70-110)
[2021-01-01] VITALS (40 sets, daily range): BP systolic 102–145; BP diastolic 47–107; PULSE 73–114; RESP 26–44; TEMP 35.9–38.8; O2SAT 65–94
--- NOTE | 2021-01-01 03:09 | NURSING ---
OXYGEN SATS DOWN TO 65% ON AIRVO (60L/93%) UPON ENTERING ROOM, PT REPORTS SHE HAD AWAKENED & COUGHED A LITTLE BIT. NRB PLACED OVER TOP OF AIRVO TO ASSIST WITH OXYGENATION. 02 SATS SLOWLY INCREASING TO MID 80'S AT THIS TIME. RT PAGED.
[2021-01-01] MEDS: LORazepam 0.5 MG Tablet PO ×3 (04:23→20:49)
[2021-01-01] MEDS: Acetaminophen 325 MG Tablet 650 MG PO ×2 (04:23→13:55)
[2021-01-01] MEDS: 0.9% Saline Lock 10 ML Syringe IV ×2 (04:29→11:11)
[2021-01-01 04:49] LABS: Absolute Lymphocyte Count 0.77 X10^3/uL (0.83-4.51); Basophil# 0.04 X10^3/uL; Basophil% 0.3 % (0-1); Eosinophil# 0.28 X10^3/uL; Eosinophils% 2.2 % (0-5); Hematocrit 41.3 % (37-47); Hemoglobin 13.2 g/dL (12.0-15.0); Lymphocyte # 0.77 X10^3/ul (0.83-4.51); Lymphocyte % 5.9 % (19-41); Mean Corpuscular Hgb 29.6 pg (27.0-32.0); Mean Corpuscular Volume 92.6 fL (81-99); Mean Platelet Vol. 9.9 fl (6.2-12.0); Monocyte# 0.76 X10^3/uL; Monocyte% 5.9 % (0-10); NRBC Flagged by Analyzer 0 % (0-5); Neutrophil # 11.02 X10^3/uL (2.7-7.7); Neutrophil % 84.9 % (47-70); Platelet Count 359 K/mm3 (150-450); RBC Distribution Width CV 13.2 % (11.6-14.6); RBC Distribution Width SD 45.3 fl (35.1-43.9); Red Blood Count 4.46 M/mm3 (4.2-5.4)
[2021-01-01 05:06] LABS: ALB/GLOB Ratio 0.4 RATIO (0.9-2.4); AST(SGOT) 29 U/L (15-37); Alanine Aminotransfer ALT/SGPT 33 U/L (13-56); Alkaline Phosphatase 101 U/L (45-117); Anion Gap 7 (5-15); BUN 17 mg/dL (7-18); BUN/Creat Ratio 21.4 RATIO (10-20); Chloride 97 mmol/L (98-107); EST Glomerular Filtration Rate 80 mL/min (>60); Est Glom Filt Rate - Afr Amer 97 mL/min (>60); Estimated Creatinine Clearance 60.66 ml/min; Globulin 5.6 g/dL (2.2-4.2); Glucose 130 mg/dL (74-106); Potassium 3.6 mmol/L (3.5-5.1); Protein, Total 7.6 g/dL (6.4-8.2); Sodium Level 137 mmol/L (136-145)
--- NOTE | 2021-01-01 05:38 | NURSING ---
PT HAS REQUIRED SUPPLEMENTAL NRB OVER TOP AIRVO MOST OF THE NIGHT D/T OXYGEN SATS DROPPING WITH ACTIVITY AND COUGHING.
--- NOTE | 2021-01-01 05:45 | CPS ---
Pt. currently wearing AirVo with a non-rebreather to maintain SpO2 > 90%
[2021-01-01] MEDS: guaiFENesin 10 ML UDC (200MG/10ML) 20 ML PO (06:47)
--- NOTE | 2021-01-01 07:58 | CPS ---
Patient has NRB on over the AIRVO
[2021-01-01] MEDS: Azelastine HCl NASAL.SRY 1 SPRAY NASAL ×2 (08:27→20:39)
[2021-01-01] MEDS: Loratadine 10 MG Tablet PO (08:28)
[2021-01-01] MEDS: APIXABAN 5 MG TABLET PO ×2 (08:28→20:41)
[2021-01-01] MEDS: Fluticasone 0.05% 1 SPRAY NASAL.SRY NASAL ×2 (08:28→20:39)
[2021-01-01] MEDS: Escitalopram Oxalate 20 MG Tablet PO (08:28)
[2021-01-01] MEDS: Pantoprazole Sodium 20 MG Tablet PO (08:28)
[2021-01-01] MEDS: CHLORHEXIDINE GLUC 2% CLOTH 1 EACH TOWELETTE TOPICAL (08:30)
[2021-01-01 10:36] LABS: Bedside Glucose 112 mg/dL (70-110)
--- NOTE | 2021-01-01 10:39 | PN.CC_ITS ---
Assessment & Plan Assessment/Plan (1) Acute respiratory failure with hypoxia: (2) Pneumonia due to COVID-19 virus: PLAN: RECOMMENDATIONS: 1. Continue a combination of Airvo/BIPAP as tolerated to maintain saturations at or above 90%. 2. Continue Eliquis as ordered. 3. Continue IV Lasix as needed to maintain euvolemic state. 4. Encourage incentive spirometer use and mobilize patient as tolerated. 5. Will add codeine to help as a cough suppressant 6. Decadron will be reinitiated IMPRESSIONS: 1. Acute hypoxemic respiratory failure secondary to COVID-19 pneumonia/MSSA pneumonia The patient continues to have a high oxygen requirement, despite having completed a treatment course of remdesivir, Decadron and antimicrobials. Eliquis twice daily will be continued. Plan to continue the patient on heated high flow as tolerated. Wean FiO2 to maintain oxygen saturations at or above 90%. Encourage incentive spirometer use and mobilize patient as tolerated. Continue attempts at gentle diuresis as tolerated by hemodynamics and renal function. Overall prognosis is severely guarded given patient's CODE STATUS. We will reinitiate Decadron. Do not believe inhaled corticosteroids will be effective given her acute condition. 2. Pneumomediastinum Complication of PAP therapy and frequent coughing. Day #5 since development of pneumomediastinum. Attempt to avoid reinstitution of noninvasive positive pressure ventilatory support, if feasible. Continue supportive measures. 3. Diabetes mellitus/obesity/depression/anxiety/GERD Complicates care, management, recovery and prognosis. Continue Lantus and sliding scale insulin coverage. CODE STATUS updated to DNR CCA without intubation. This note was generated with [employer] dictation software. It may contain incorrect words, spelling, and punctuation that were not noted in checking the note before signing. Subjective Subjective Patient did okay overnight. Patient continues to have marginal oxygenation on Airvo despite addition of a nonrebreather. Patient has been spiking fevers overnight. Patient is very depressed today. Patient was reading her 's obituary shortly before my evaluation. Objective Data Objective Data Vital Signs: Vital Signs Temp Pulse Resp BP Pulse Ox 38.2 C H 96 44 H 124/54 H 89 01/01/21 10:00 01/01/21 10:00 01/01/21 10:00 01/01/21 10:01/01/21 10:00 Oxygen Flow Rate (L/min) [ 5 AMBULATING with Oxygen #2] Oxygen Flow Rate (L/min) [ 4 AMBULATING with Oxygen #1] Oxygen Flow Rate (L/min) [ 0 AMBULATING on Room Air] Oxygen Flow Rate (L/min) [At 0 REST on Room Air] Oxygen Flow Rate (L/min) 60 Oxygen Delivery Method Airvo Weight: 116.346 kg Body Mass Index (BMI) 51.4 Intake & Output: Intake and Output for Last 24 Hours 12/30/20 12/31/20 01/01/21 23:59 23:59 23:59 Intake Total 1210 / 1460 400 / 500 100 / 100 Output Total 2110 / 2360 1225 / 1475 550 / 550 Balance -900 / -900 -825 / -975 -450 / -450 Lab / Micro Data Result Diagrams: 01/01/21 04:30 01/01/21 04:30 Labs: Laboratory Results - last 24 hr 12/31/20 12:28: POC Glucose 173 H 12/31/20 16:50: POC Glucose 118 H 12/31/20 21:46: POC Glucose 157 H 01/01/21 04:30: WBC 13.0 H, RBC 4.46, Hgb 13.2, Hct 41.3, MCV 92.6, MCH 29.6, MCHC 32.0, RDW Std Deviation 45.3 H, RDW Coeff of Mansi 13.2, Plt Count 359, MPV 9.9, Immature Gran % (Auto) 0.800, Neut % (Auto) 84.9 H, Lymph % (Auto) 5.9 L, [place] % (Auto) 5.9, Eos % (Auto) 2.2, Baso % (Auto) 0.3, Absolute Neuts (auto) 11.0 H, Absolute Lymphs (auto) 0.77 L, Nucleated RBC % 0 01/01/21 04:30: Sodium 137, Potassium 3.6, Chloride 97 L, Carbon Dioxide 33.0 H, Anion Gap 7, BUN 17, Creatinine 0.80, Estim Creat Clear Calc 60.66, Est GFR (MDRD) Af Amer 97, Est GFR (MDRD) Non-Af 80, BUN/Creatinine Ratio 21.4 H, Glucose 130 H, Calcium 9.0, Total Bilirubin 0.60, AST 29, ALT 33, Alkaline Phosphatase 101, Total Protein 7.6, Albumin 2.0 L, Globulin 5.6 H, Albumin/G lobulin Ratio 0.4 L 01/01/21 08:25: POC Glucose 112 H Micro: Microbiology 12/21/20 10:40 Sputum, Expectorated/Coughed Gram Stain - Final 12/21/20 10:40 Sputum, Expectorated/Coughed Respiratory Culture - Final Staphylococcus aureus Presumptive C albicans Streptococcus agalactiae (B) 12/17/20 22:30 Blood Culture (Wb) - Left Hand Blood Culture - Final No growth in 5 days. 12/17/20 00:28 Blood Culture (Wb) - Right Hand Blood Culture - Final No growth in 5 days. 12/18/20 00:28 Urine, Random Urine Culture - Final Mixed Gram Pos & Gram Neg Org 12/18/20 03:35 Mucosa - Nose Respiratory Panel (PCR) - Final 12/18/20 00:28 Urine, Clean Catch Legionella Antigen - Final 12/18/20 00:28 Urine, Clean Catch Streptococcus pneumoniae Antigen (M - Final 12/17/20 22:40 Interface Orders SARS-CoV-2 Antigen (Rapid) - Final SARS-CoV-2 (COVID 19) Rhythm Strip Rhythm Strip: Sinus Rhythm Rate: 83 Ectopy: None Physical Exam Const alert Constitutional Narrative: Sitting in bedside recliner. General Appearance: cooperative and ill appearing Nutritional Appearance: morbidly obese HEENT normocephalic and head/scalp atraumatic Eyes PERRL, EOMs intact bilaterally and conjunctivae normal Neck supple Neck Narrative: No cervical crepitus noted. General: trachea midline Chest inspection of chest normal Resp Effort and Inspection: tachypneic Auscultation: diminished lung sounds; Negative for rales, rhonchi or wheezes Cardio regular rate and regular rhythm GI normal to inspection, nondistended, normoactive bowel sounds Extremity no clubbing, cyanosis or edema Skin no rashes or lesions noted Neuro no focal motor deficits Psych Mood & Affect: flat affect Charges/Coding Visit Charges Inpatient E&M: 07660 Subs Hosp L3
[2021-01-01] MEDS: dexAMETHasone 10 MG/ML Vial 6 MG IV (11:11)
[2021-01-01] MEDS: Insulin Lispro 100 UNIT/ML INSULN.PEN SC ×3 (11:19→20:40)
[2021-01-01 11:40] LABS: Bedside Glucose 192 mg/dL (70-110)
[2021-01-01] MEDS: guaiFENesin/Codeine 5 ML UDC PO ×2 (13:54→20:49)
[2021-01-01 16:25] LABS: Bedside Glucose 300 mg/dL (70-110)
--- NOTE | 2021-01-01 16:34 | PN.HOSP_ITS ---
Subjective Subjective Patient seen and examined. She had no active complaints today and still felt the same way. Review of systems otherwise negative. She remains on air Vo. Objective Data Objective Data Vital Signs: Vital Signs Temp Pulse Resp BP Pulse Ox 101.1 F H 98 35 H 118/51 L 91 01/01/21 15:00 01/01/21 16:00 01/01/21 15:22 01/01/21 16:00 01/01/21 16:00 Oxygen Flow Rate (L/min) [ 5 AMBULATING with Oxygen #2] Oxygen Flow Rate (L/min) [ 4 AMBULATING with Oxygen #1] Oxygen Flow Rate (L/min) [ 0 AMBULATING on Room Air] Oxygen Flow Rate (L/min) [At 0 REST on Room Air] Oxygen Flow Rate (L/min) 60 Oxygen Delivery Method Airvo Weight: 256 lb 7.984 oz Body Mass Index (BMI) 51.4 Intake & Output: Intake and Output for Last 24 Hours 12/30/20 12/31/20 01/01/21 23:59 23:59 23:59 Intake Total 1210 / 1460 400 / 500 340 / 340 Output Total 2110 / 2360 1225 / 1475 850 / 850 Balance -900 / -900 -825 / -975 -510 / -510 Lab / Micro Data Result Diagrams: 01/01/21 04:30 01/01/21 04:30 Labs: Laboratory Results - last 24 hr 12/31/20 16:50: POC Glucose 118 H 12/31/20 21:46: POC Glucose 157 H 01/01/21 04:30: WBC 13.0 H, RBC 4.46, Hgb 13.2, Hct 41.3, MCV 92.6, MCH 29.6, MCHC 32.0, RDW Std Deviation 45.3 H, RDW Coeff of Mansi 13.2, Plt Count 359, MPV 9.9, Immature Gran % (Auto) 0.800, Neut % (Auto) 84.9 H, Lymph % (Auto) 5.9 L, [place] % (Auto) 5.9, Eos % (Auto) 2.2, Baso % (Auto) 0.3, Absolute Neuts (auto) 11.0 H, Absolute Lymphs (auto) 0.77 L, Nucleated RBC % 0 01/01/21 04:30: Sodium 137, Potassium 3.6, Chloride 97 L, Carbon Dioxide 33.0 H, Anion Gap 7, BUN 17, Creatinine 0.80, Estim Creat Clear Calc 60.66, Est GFR (MDRD) Af Amer 97, Est GFR (MDRD) Non-Af 80, BUN/Creatinine Ratio 21.4 H, Glucose 130 H, Calcium 9.0, Total Bilirubin 0.60, AST 29, ALT 33, Alkaline Phosphatase 101, Total Protein 7.6, Albumin 2.0 L, Globulin 5.6 H, Albumin/Globulin Ratio 0.4 L 01/01/21 08:25: POC Glucose 112 H 01/01/21 11:18: POC Glucose 192 H 01/01/21 16:07: POC Glucose 300 H Micro: Microbiology 12/21/20 10:40 Sputum, Expectorated/Coughed Gram Stain - Final 12/21/20 10:40 Sputum, Expectorated/Coughed Respiratory Culture - Final Staphylococcus aureus Presumptive C albicans Streptococcus agalactiae (B) 12/17/20 22:30 Blood Culture (Wb) - Left Hand Blood Culture - Final No growth in 5 days. 12/17/20 00:28 Blood Culture (Wb) - Right Hand Blood Culture - Final No growth in 5 days. 12/18/20 00:28 Urine, Random Urine Culture - Final Mixed Gram Pos & Gram Neg Org 12/18/20 03:35 Mucosa - Nose Respiratory Panel (PCR) - Final 12/18/20 00:28 Urine, Clean Catch Legionella Antigen - Final 12/18/20 00:28 Urine, Clean Catch Streptococcus pneumoniae Antigen (M - Final 12/17/20 22:40 Interface Orders SARS-CoV-2 Antigen (Rapid) - Final SARS-CoV-2 (COVID 19) Rhythm Strip Rhythm Strip: Sinus Rhythm Rate: 83 Ectopy: None Physical Exam Const alert, oriented x3 and no apparent distress General Appearance: cooperative and in distress Positive for mild Orientation / Consciousness: lethargic Exam Limitations: no limitations Nutritional Appearance: morbidly obese HEENT normocephalic, head/scalp atraumatic, moist oral mucous membranes, oropharynx normal and gingiva normal Eyes PERRL, EOMs intact bilaterally and conjunctivae normal Neck supple and no JVD Resp normal respiratory effort, no retractions, no use of accessory muscles and clear to auscultation bilaterally Resp Narrative: tachypneic, breath sounds reduced bilaterally, no wheezes or crackles. Remains on AirVo; crepitus has largely resolved. Auscultation: diminished lung sounds Cardio regular rate, regular rhythm, S1 normal heart sound, S2 normal heart sound, no murmurs, no rub, no gallops, no clicks and no JVD GI normal to inspection, nondistended, normoactive bowel sounds, soft to palpation, non-tender and non-distended; Negative for hepatosplenomegaly Extremity normal to inspection, full ROM and no clubbing, cyanosis or edema Peripheral Pulses: Yes pulses 2+ throughout Skin no rashes or lesions noted Neuro oriented x3, CN's II-XII intact bilaterally, moves all extremities, no focal motor deficits and no sensory deficits noted Sensorium / Orientation: awake and alert Speech: speech normal Psych Psych Narrative: flat affect Appearance: appropriate Mood & Affect: flat affect Assessment & Plan Assessment/Plan (1) Acute respiratory failure with hypoxia: (2) Pulmonary embolus: (3) Pneumonia due to COVID-19 virus: PLAN: #Acute hypoxic respiratory failure due to COVID 19 infection and staph pneumonia * still remains on AirVo * titrate oxygen to maintain sats >90% * completed a course of remdesivir. On decadron * sputum cultured MSSA and Strep Agalactiae,and she completed a course of rocephin. * on breathing treatment with bronchodilators * titrate oxygen to maintain sats >90% * on intermittent lasix. * #Pneumomediastinum and subcutaneous emphysema * has improved markedly. Crepitus over chest has resolved. * likely iatrogenic, from BIPAP usage. * to try to avoid BIPAP usage as much as possible #Type 2 diabetes mellitus: on insulin lantus 40 units qhs. ISS. Accuchecks ACHS #GERD: on PPI #Depression and anxiety: on escitalopram DVT prophylaxis: on eliquis Patient changed code status to DNRCCA no intubation yesterday. Prognosis: guarded Charges/Coding Visit Charges Inpatient E&M: 75403 Subs Hosp L3
--- NOTE | 2021-01-01 18:11 | CPS ---
15L NRB over the airvo with max settings.
[2021-01-01 21:01] LABS: Bedside Glucose 269 mg/dL (70-110)
[2021-01-01] MEDS: Albuterol 2.5 MG/3 ML VIAL.NEB. INHALATION (23:44)
[2021-01-02] VITALS (34 sets, daily range): BP systolic 79–137; BP diastolic 32–73; PULSE 76–101; RESP 12–49; TEMP 37.2–37.8; O2SAT 74–96
[2021-01-02] MEDS: Albuterol 2.5 MG/3 ML VIAL.NEB. INHALATION (02:18)
--- NOTE | 2021-01-02 02:57 | NURSING ---
assumed care of patient at this time. resting in recliner. responds to verbal stimuli, alert. currently on AIRVO 60L/93%, 137/63, 86, 41 & 80%
--- NOTE | 2021-01-02 03:52 | CPS ---
Patient with no improvement on AirVo 60L/93%. DISPATCHER RADIO placed patient on V60+ High Flow. Settings to start were 70L/100%. Machine triggering errors and not able to reach set flow. DISPATCHER RADIO gave patient saline bullet to clear nostrils suspecting blockage and two moderately sized clots came out of nose. Patient said her air intake seemed improved. This process took 3-5 mins to clear nostrils which patient did not have oxygen on. Patient was then placed back on V60+ high flow with increased settings to 80L/100% with better machine flow intake. Patient's pulse ox was reading 55% after initially being put on, but slowly came up to 75% with 10 mins. Will give adequate time for patient to recovery before reassignment of pulse ox.
[2021-01-02] MEDS: guaiFENesin/Codeine 5 ML UDC PO ×2 (05:38→12:59)
--- NOTE | 2021-01-02 05:48 | NURSING ---
unable to draw off picc line this am. RT placing pt back on bipap per new order from dr campbell. pt unable to tolerate the bipap. pt was placed back on AIRVO 60l/93%.
--- NOTE | 2021-01-02 05:55 | RAD_ITS ---
STUDY: X-RAY CHEST REASON FOR EXAM: Female, 55 years old. Hypoxia TECHNIQUE: Portable, upright, AP chest radiograph COMPARISON: 12/27/2020 FINDINGS: Right upper extremity PICC terminates over the upper right atrium. Similar appearance of diffuse pulmonary infiltrative opacities. There is no demonstrated pleural abnormality. Normal size heart. Normal mediastinum and deysi. Normal visualized pulmonary arteries. Normal visualized aortic arch and descending thoracic aorta. There are diffuse degenerative changes of the visualized thoracic spine. Normal visualized ribs, clavicles, and shoulders. There is no demonstrated abnormality of the visualized soft tissue structures of the upper abdomen. RAD/Chest 1 View (Portable) IMPRESSION: Similar bilateral pulmonary infiltrates. Electronically Signed: Rafita Mcguire MD at 6:59 EDT Tel , Service support ,
--- NOTE | 2021-01-02 05:56 | CPS ---
Patient was tried on BiPAP (home settings) per . Patient wasn't able to tolerate with respirations in the 60s and 70s. Patient was then tried on lower pressure 02/02, 03/29 with no relief in SOB. Patient was yelling to take mask off. CREASING MACHINE OPERATOR placed patient back on 80L/100% V60+ High Flow with better tolerance. Pulse ox still remaining in the 70s. Physician aware, family being called.
[2021-01-02] MEDS: LORazepam 0.5 MG Tablet PO ×2 (06:07→11:46)
[2021-01-02] MEDS: Acetaminophen 325 MG Tablet 650 MG PO (06:07)
[2021-01-02] MEDS: Furosemide 40 MG/4 ML Vial IV (07:09)
--- NOTE | 2021-01-02 07:20 | PN.CC_ITS ---
Assessment & Plan Assessment/Plan (1) Acute respiratory failure with hypoxia: (2) Pneumonia due to COVID-19 virus: PLAN: RECOMMENDATIONS: 1. Continue a combination of Airvo/BIPAP as tolerated to maintain saturations at or above 90%. 2. Continue Eliquis as ordered. 3. Initiate Lasix. Possible BiPAP trial afterwards 4. Encourage incentive spirometer use and mobilize patient as tolerated. 5. Continue codeine to help as a cough suppressant 6. Decadron will be continued 7. If patient unable to tolerate BiPAP, anticipate transition to palliative measures after discussion with the family IMPRESSIONS: 1. Acute hypoxemic respiratory failure secondary to COVID-19 pneumonia/MSSA pneumonia The patient continues to have a high oxygen requirement, despite having completed a treatment course of remdesivir, Decadron and antimicrobials. Eliquis twice daily will be continued. Plan to continue the patient on heated high flow as tolerated. Wean FiO2 to maintain oxygen saturations at or above 90%. Encourage incentive spirometer use and mobilize patient as tolerated. Patient with continued worsening. Chest x-ray does show some fluid in the right fissure. Patient will be given Lasix. Will attempt BiPAP in an hour or so. Patient is unable to tolerate BiPAP, palliative measures would be recommended. 2. Pneumomediastinum Complication of PAP therapy and frequent coughing. Day #6 since development of pneumomediastinum. Hopefully, patient has healed enough that repeat BiPAP will not lead to recurrence of pneumomediastinum. Continue supportive measures. 3. Diabetes mellitus/obesity/depression/anxiety/GERD Complicates care, management, recovery and prognosis. Continue Lantus and sliding scale insulin coverage. CODE STATUS updated to DNR CCA without intubation. TIME: 33 minutes of critical care time spent addressing patient's acute hypoxic respiratory failure, diabetes mellitus, family discussion, review of all data and collaboration with care team (5:20 AM to 6:20 AM) Subjective Subjective Patient with significant issues overnight. Patient has had significant hypoxia despite Airvo in nonrebreather mask. Patient was attempted on BiPAP this morning, but was unable to tolerate, so family was called to be at her bedside. They were updated by myself. They understand the grim prognosis. Objective Data Objective Data Vital Signs: Vital Signs Temp Pulse Resp BP Pulse Ox 37.7 C H 94 41 H 125/68 H 89 01/02/21 06:00 01/02/21 06:00 01/02/21 06:00 01/02/21 06:00 01/02/21 06:00 Oxygen Flow Rate (L/min) [ 5 AMBULATING with Oxygen #2] Oxygen Flow Rate (L/min) [ 4 AMBULATING with Oxygen #1] Oxygen Flow Rate (L/min) [ 0 AMBULATING on Room Air] Oxygen Flow Rate (L/min) [At 0 REST on Room Air] Oxygen Flow Rate (L/min) 60 Oxygen Delivery Method Airvo Weight: 116.346 kg Body Mass Index (BMI) 51.4 Intake & Output: Intake and Output for Last 24 Hours 12/31/20 01/01/21 01/02/21 23:59 23:59 23:59 Intake Total 400 / 500 580 / 580 Output Total 1225 / 1475 850 / 1450 950 / 950 Balance -825 / -975 -270 / -870 -950 / -950 Lab / Micro Data Result Diagrams: 01/01/21 04:30 01/01/21 04:30 Labs: Laboratory Results - last 24 hr 01/01/21 08:25: POC Glucose 112 H 01/01/21 11:18: POC Glucose 192 H 01/01/21 16:07: POC Glucose 300 H 01/01/21 20:38: POC Glucose 269 H Micro: Microbiology 12/21/20 10:40 Sputum, Expectorated/Coughed Gram Stain - Final 12/21/20 10:40 Sputum, Expectorated/Coughed Respiratory Culture - Final Staphylococcus aureus Presumptive C albicans Streptococcus agalactiae (B) 12/17/20 22:30 Blood Culture (Wb) - Left Hand Blood Culture - Final No growth in 5 days. 12/17/20 00:28 Blood Culture (Wb) - Right Hand Blood Culture - Final No growth in 5 days. 12/18/20 00:28 Urine, Random Urine Culture - Final Mixed Gram Pos & Gram Neg Org 12/18/20 03:35 Mucosa - Nose Respiratory Panel (PCR) - Final 12/18/20 00:28 Urine, Clean Catch Legionella Antigen - Final 12/18/20 00:28 Urine, Clean Catch Streptococcus pneumoniae Antigen (M - Fi nal 12/17/20 22:40 Interface Orders SARS-CoV-2 Antigen (Rapid) - Final SARS-CoV-2 (COVID 19) Radiography Diagnostic Testing: Radiology Impression Chest X-Ray 01/02/21 05:55 IMPRESSION: Similar bilateral pulmonary infiltrates. Electronically Signed: Rafita Mcguire MD at 6:59 EDT Tel , Service support , Rhythm Strip Rhythm Strip: Sinus Rhythm Rate: 83 Ectopy: None Physical Exam Const Constitutional Narrative: Sitting in bedside recliner. Opens eyes to voice General Appearance: well developed and lethargic Nutritional Appearance: morbidly obese HEENT moist oral mucous membranes Neck full ROM and no lymphadenopathy Neck Narrative: No cervical crepitus noted. Chest Chest: symmetrical chest wall rise; Negative for crepitus Resp Resp Narrative: Little conversational effort Effort and Inspection: symmetric chest movement Auscultation: rales and diminished lung sounds; Negative for rhonchi or wheezes Percussion: Negative for dullness Cardio S1 normal heart sound, S2 normal heart sound, no murmurs, no rub and no gallops no CVA tenderness Extremity General Extremity: edema bilateral (1+) lower extremity; Negative for clubbing or cyanosis Neuro CN's II-XII intact bilaterally, moves all extremities and no focal motor deficits Psych cooperative and affect normal Charges/Coding Procedures Hospitalists Procedures: 85032 Critial Care 1st Hr
[2021-01-02] MEDS: fentaNYL 100 MCG/2 ML Ampul 50 MCG IV (08:21)
[2021-01-02 08:45] LABS: Bedside Glucose 174 mg/dL (70-110)
[2021-01-02] MEDS: Insulin Lispro 100 UNIT/ML INSULN.PEN SC ×4 (09:24→21:17)
[2021-01-02] MEDS: dexAMETHasone 10 MG/ML Vial 6 MG IV (09:26)
[2021-01-02] MEDS: APIXABAN 5 MG TABLET PO ×2 (09:27→21:18)
[2021-01-02] MEDS: Fluticasone 0.05% 1 SPRAY NASAL.SRY NASAL ×2 (09:27→21:19)
[2021-01-02] MEDS: Loratadine 10 MG Tablet PO (09:27)
[2021-01-02] MEDS: Escitalopram Oxalate 20 MG Tablet PO (09:27)
[2021-01-02] MEDS: Pantoprazole Sodium 20 MG Tablet PO (09:27)
[2021-01-02] MEDS: Alteplase 2 MG/2 ML Vial IV ×2 (10:30→11:50)
[2021-01-02 11:46] LABS: Bedside Glucose 241 mg/dL (70-110)
[2021-01-02] MEDS: Haloperidol Lactate 5 MG/ML Vial IV (12:36)
--- NOTE | 2021-01-02 12:52 | CASEMGMT ---
Social Work Pt daughter and three sons are present with pt in room. SW entered room and offered support to pt and to family. Pt dgt accepting of visit and shares openly with SW. SW will remain available for additional needs. FILI Hickey
--- NOTE | 2021-01-02 14:59 | PCM.PN.HOSP ---
Subjective Subjective Placed on BiPAP. Family at bedside. Objective Data Objective Data Vital Signs: Vital Signs Temp Pulse Resp BP Pulse Ox 37.3 C H 77 35 H 106/62 94 01/02/21 14:00 01/02/21 14:00 01/02/21 14:00 01/02/21 14:00 01/02/21 14:00 Oxygen Flow Rate (L/min) [ 5 AMBULATING with Oxygen #2] Oxygen Flow Rate (L/min) [ 4 AMBULATING with Oxygen #1] Oxygen Flow Rate (L/min) [ 0 AMBULATING on Room Air] Oxygen Flow Rate (L/min) [At 0 REST on Room Air] Oxygen Flow Rate (L/min) 60 Oxygen Delivery Method Bi-pap Weight: 116.346 kg Body Mass Index (BMI) 51.4 Intake & Output: Intake and Output for Last 24 Hours 12/31/20 01/01/21 01/02/21 23:59 23:59 23:59 Intake Total 400 / 500 580 / 580 Output Total 1225 / 1475 850 / 1450 950 / 950 Balance -825 / -975 -270 / -870 -950 / -950 Lab / Micro Data Result Diagrams: 01/01/21 04:30 01/01/21 04:30 Labs: Laboratory Results - last 24 hr 01/01/21 16:07: POC Glucose 300 H 01/01/21 20:38: POC Glucose 269 H 01/02/21 08:29: POC Glucose 174 H 01/02/21 11:23: POC Glucose 241 H Micro: Microbiology 12/21/20 10:40 Sputum, Expectorated/Coughed Gram Stain - Final 12/21/20 10:40 Sputum, Expectorated/Coughed Respiratory Culture - Final Staphylococcus aureus Presumptive C albicans Streptococcus agalactiae (B) 12/17/20 22:30 Blood Culture (Wb) - Left Hand Blood Culture - Final No growth in 5 days. 12/17/20 00:28 Blood Culture (Wb) - Right Hand Blood Culture - Final No growth in 5 days. 12/18/20 00:28 Urine, Random Urine Culture - Final Mixed Gram Pos & Gram Neg Org 12/18/20 03:35 Mucosa - Nose Respiratory Panel (PCR) - Final 12/18/20 00:28 Urine, Clean Catch Legionella Antigen - Final 12/18/20 00:28 Urine, Clean Catch Streptococcus pneumoniae Antigen (M - Final 12/17/20 22:40 Interface Orders SARS-CoV-2 Antigen (Rapid) - Final SARS-CoV-2 (COVID 19) Radiography Diagnostic Testing: Radiology Impression Chest X-Ray 01/02/21 05:55 IMPRESSION: Similar bilateral pulmonary infiltrates. Electronically Signed: Rafita Mcguire MD at 6:59 EDT Tel , Service support , Rhythm Strip Rhythm Strip: Sinus Rhythm Rate: 83 Ectopy: None Physical Exam Narrative on BIPAP. anxious. Resp Resp Narrative: coarse breath sounds bilaterally. Cardio regular rate, regular rhythm, S1 normal heart sound and S2 normal heart sound GI normal to inspection, nondistended, normoactive bowel sounds, soft to palpation, non-tender and non-distended Assessment & Plan Assessment/Plan (1) Acute respiratory failure with hypoxia: (2) Pulmonary embolus: QUALIFIERS: Pulmonary embolism type: unspecified Chronicity: chronic Acute cor pulmonale presence: unspecified Qualified Code(s): I27.82 - Chronic pulmonary embolism (3) Pneumonia due to COVID-19 virus: (4) Pneumomediastinum: PLAN: 1. acute hypoxic respiratory failure 2/2 COVID 19 and MSSA pneumonia currently on BiPAP poor prognosis 2. COVID 19 onset 12/14 started on 2nd round of dexamethasone started on 01/01 completed remdesivir 3. MSSA pneumonia Vancomycin completed 4. DM2 uncontrolled Glargine 40 QHS and SSI 5. CPETH on apixaban follow up pulm outpt pending overall clinical course 6. VTE prophylaxis: anticoagulated. Charges/Coding Visit Charges Inpatient E&M: 44036 Subs Hosp L2
[2021-01-02 15:02] LABS: ALB/GLOB Ratio 0.3 RATIO (0.9-2.4); AST(SGOT) 32 U/L (15-37); Alanine Aminotransfer ALT/SGPT 33 U/L (13-56); Alkaline Phosphatase 121 U/L (45-117); Anion Gap 6 (5-15); BUN 20 mg/dL (7-18); BUN/Creat Ratio 21.3 RATIO (10-20); Calcium,Total 9.2 mg/dL (8.5-10.1); Chloride 97 mmol/L (98-107); Creatinine, Serum 0.94 mg/dL (0.55-1.02); EST Glomerular Filtration Rate 66 mL/min (>60); Est Glom Filt Rate - Afr Amer 80 mL/min (>60); Estimated Creatinine Clearance 51.63 ml/min; Glucose 172 mg/dL (74-106); Potassium 3.5 mmol/L (3.5-5.1); Sodium Level 136 mmol/L (136-145)
[2021-01-02 15:11] LABS: Absolute Lymphocyte Count 0.79 X10^3/uL (0.83-4.51); Absolute Neutrophil Count 13.2 X10^3/uL (2.0-7.7); Basophil# 0.02 X10^3/uL; Basophil% 0.1 % (0-1); Eosinophil# 0.04 X10^3/uL; Eosinophils% 0.3 % (0-5); Hemoglobin 13.5 g/dL (12.0-15.0); Lymphocyte # 0.79 X10^3/ul (0.83-4.51); Lymphocyte % 5.2 % (19-41); Mean Corp Hgb Conc 32.1 g/dL (32-36); Mean Corpuscular Hgb 29.7 pg (27.0-32.0); Mean Corpuscular Volume 92.3 fL (81-99); Mean Platelet Vol. 10.2 fl (6.2-12.0); Monocyte# 1.02 X10^3/uL; Monocyte% 6.7 % (0-10); NRBC Flagged by Analyzer 0 % (0-5); Neutrophil # 13.23 X10^3/uL (2.7-7.7); Platelet Count 361 K/mm3 (150-450); RBC Distribution Width CV 13.2 % (11.6-14.6); RBC Distribution Width SD 44.6 fl (35.1-43.9); Red Blood Count 4.55 M/mm3 (4.2-5.4); White Blood Count 15.2 K/mm3 (4.4-11.0)
[2021-01-02 16:41] LABS: Bedside Glucose 156 mg/dL (70-110)
[2021-01-02] MEDS: Azelastine HCl NASAL.SRY 1 SPRAY NASAL (21:19)
[2021-01-02] MEDS: Haloperidol Lactate 5 MG/ML Vial 3 MG IV (21:27)
[2021-01-02 21:35] LABS: Bedside Glucose 176 mg/dL (70-110)
[2021-01-03] VITALS (32 sets, daily range): BP systolic 98–119; BP diastolic 48–71; PULSE 70–97; RESP 12–47; TEMP 37.2–37.8; O2SAT 89–96
[2021-01-03 04:53] LABS: Absolute Lymphocyte Count 0.87 X10^3/uL (0.83-4.51); Absolute Neutrophil Count 11.6 X10^3/uL (2.0-7.7); Basophil# 0.03 X10^3/uL; Basophil% 0.2 % (0-1); Eosinophil# 0.14 X10^3/uL; Hematocrit 42.6 % (37-47); Hemoglobin 13.5 g/dL (12.0-15.0); Lymphocyte # 0.87 X10^3/ul (0.83-4.51); Lymphocyte % 6.4 % (19-41); Mean Corp Hgb Conc 31.7 g/dL (32-36); Mean Corpuscular Hgb 29.5 pg (27.0-32.0); Mean Corpuscular Volume 93.2 fL (81-99); Mean Platelet Vol. 9.7 fl (6.2-12.0); Monocyte% 7.3 % (0-10); NRBC Flagged by Analyzer 0 % (0-5); Neutrophil # 11.56 X10^3/uL (2.7-7.7); Neutrophil % 84.6 % (47-70); Platelet Count 351 K/mm3 (150-450); RBC Distribution Width CV 13.2 % (11.6-14.6); RBC Distribution Width SD 45.2 fl (35.1-43.9); Red Blood Count 4.57 M/mm3 (4.2-5.4); White Blood Count 13.7 K/mm3 (4.4-11.0)
[2021-01-03] MEDS: Haloperidol Lactate 5 MG/ML Vial 3 MG IV ×3 (05:03→21:01)
[2021-01-03 05:22] LABS: ALB/GLOB Ratio 0.3 RATIO (0.9-2.4); AST(SGOT) 34 U/L (15-37); Alanine Aminotransfer ALT/SGPT 33 U/L (13-56); Alkaline Phosphatase 115 U/L (45-117); Anion Gap 6 (5-15); BUN 26 mg/dL (7-18); Calcium,Total 9.3 mg/dL (8.5-10.1); Chloride 99 mmol/L (98-107); Creatinine, Serum 0.93 mg/dL (0.55-1.02); EST Glomerular Filtration Rate 67 mL/min (>60); Est Glom Filt Rate - Afr Amer 81 mL/min (>60); Estimated Creatinine Clearance 52.18 ml/min; Globulin 5.9 g/dL (2.2-4.2); Glucose 118 mg/dL (74-106); Protein, Total 7.9 g/dL (6.4-8.2); Sodium Level 139 mmol/L (136-145)
--- NOTE | 2021-01-03 10:30 | PCM.PN.INT ---
Assessment & Plan Assessment/Plan (1) Acute respiratory failure with hypoxia: (2) Pneumonia due to COVID-19 virus: PLAN: RECOMMENDATIONS: 1. Continue a combination of Airvo/BIPAP as tolerated to maintain saturations at or above 90%. Use Airvo to facilitate eating 2. Continue Eliquis as ordered. 3. Continue with Lasix as labs allow. 4. Encourage incentive spirometer use and mobilize patient as tolerated. 5. Continue codeine to help as a cough suppressant 6. Decadron will be continued 7. If patient unable to tolerate BiPAP, anticipate transition to palliative measures after discussion with the family IMPRESSIONS: 1. Acute hypoxemic respiratory failure secondary to COVID-19 pneumonia/MSSA pneumonia/PE The patient continues to have a high oxygen requirement, despite having completed a treatment course of remdesivir, Decadron and antimicrobials. Eliquis twice daily will be continued. Plan to continue the patient on heated high flow as tolerated. Wean FiO2 to maintain oxygen saturations at or above 90%. Encourage incentive spirometer use and mobilize patient as tolerated. Patient appears to be tolerating BiPAP at this time at her baseline settings. No recurrence of pneumomediastinum has been noted. Patient will remain on full anticoagulation at this time. Some concern for consistent BiPAP therapy, but patient is not open to intubation. We'll continue to use Haldol as necessary to facilitate BiPAP. Discontinue Ativan. 2. Pneumomediastinum Complication of PAP therapy and frequent coughing. Day #6 since development of pneumomediastinum. Hopefully, patient has healed enough that repeat BiPAP will not lead to recurrence of pneumomediastinum. Continue supportive measures. 3. Diabetes mellitus/obesity/depression/anxiety/GERD Complicates care, management, recovery and prognosis. Continue Lantus and sliding scale insulin coverage. CODE STATUS updated to DNR CCA without intubation. TIME: 31 minutes of critical care time spent addressing patient's acute hypoxic respiratory failure, diabetes mellitus, family discussion, review of all data and collaboration with care team (7 AM to 8 AM) Subjective Subjective Patient did okay overnight. Patient did require Haldol to facilitate tolerance of BiPAP. Oxygenation has remained relatively stable. Patient has not been febrile. Patient was denying any pain this morning. Patient reiterated that she does not want to be intubated. Objective Data Objective Data Vital Signs: Vital Signs Temp Pulse Resp BP Pulse Ox 37.6 C H 85 37 H 98/64 94 01/03/21 07:00 01/03/21 10:18 01/03/21 10:18 01/03/21 07:00 01/03/21 10:18 Oxygen Flow Rate (L/min) [ 5 AMBULATING with Oxygen #2] Oxygen Flow Rate (L/min) [ 4 AMBULATING with Oxygen #1] Oxygen Flow Rate (L/min) [ 0 AMBULATING on Room Air] Oxygen Flow Rate (L/min) [At 0 REST on Room Air] Oxygen Flow Rate (L/min) 60 Oxygen Delivery Method Bi-pap Weight: 116.346 kg Body Mass Index (BMI) 51.4 Intake & Output: Intake and Output for Last 24 Hours 01/01/21 01/02/21 01/03/21 23:59 23:59 23:59 Intake Total 580 / 580 Output Total 850 / 1450 1850 / 1850 425 / 425 Balance -270 / -870 -1850 / -1850 -425 / -425 Lab / Micro Data Result Diagrams: 01/03/21 04:40 01/03/21 04:40 Labs: Laboratory Results - last 24 hr 01/02/21 05:55: WBC 15.2 H, RBC 4.55, Hgb 13.5, Hct 42.0, MCV 92.3, MCH 29.7, MCHC 32.1, RDW Std Deviation 44.6 H, RDW Coeff of Mansi 13.2, Plt Count 361, MPV 10.2, Immature Gran % (Auto) 0.700, Neut % (Auto) 87.0 H, Lymph % (Auto) 5.2 L, [place] % (Auto) 6.7, Eos % (Auto) 0.3, Baso % (Auto) 0.1, Absolute Neuts (auto) 13.2 H, Absolute Lymphs (auto) 0.79 L, Nucleated RBC % 0 01/02/21 11:23: POC Glucose 241 H 01/02/21 12:40: Sodium 136, Potassium 3.5, Chloride 97 L, Carbon Dioxide 33.0 H, Anion Gap 6, BUN 20 H, Creatinine 0.94, Estim Creat Clear Calc 51.63, Est GFR (MDRD) Af Amer 80, Est GFR (MDRD) Non-Af 66, BUN/Creatinine Ratio 21.3 H, Glucose 172 H, Calcium 9.2, Total Bilirubin 0.30, AST 32, ALT 33, Alkaline Phosphatase 121 H, Total Protein 8.0, Albumin 2.0 L, Globulin 6.0 H, Albumin/Globulin Ratio 0.3 L 01/02/21 16:29: POC Glucose 156 H 01/02/21 21:13: POC Glucose 176 H 01/03/21 04:40: WBC 13.7 H, RBC 4.57, Hgb 13.5, Hct 42.6, MCV 93.2, MCH 29.5, MCHC 31.7 L, RDW Std Deviation 45.2 H, RDW Coeff of Mansi 13.2, Plt Count 351, MPV 9.7, Immature Gran % (Auto) 0.500, Neut % (Auto) 84.6 H, Lymph % (Auto) 6.4 L, [place] % (Auto) 7.3, Eos % (Auto) 1.0, Baso % (Auto) 0.2, Absolute Neuts (auto) 11.6 H, Absolute Lymphs (auto) 0.87, Nucleated RBC % 0 01/03/21 04:40: Sodium 139, Potassium 4.0, Chloride 99, Carbon Dioxide 34.0 H, Anion Gap 6, BUN 26 H, Creatinine 0.93, Estim Creat Clear Calc 52.18, Est GFR (MDRD) Af Amer 81, Est GFR (MDRD) Non-Af 67, BUN/Creatinine Ratio 28.0 H, Glucose 118 H, Calcium 9.3, Total Bilirubin 0.40, AST 34, ALT 33, Alkaline Phosphatase 115, Total Protein 7.9, Albumin 2.0 L, Globulin 5.9 H, Albumin/Globulin Ratio 0.3 L Micro: Microbiology 12/21/20 10:40 Sputum, Expectorated/Coughed Gram Stain - Final 12/21/20 10:40 Sputum, Expectorated/Coughed Respiratory Culture - Final Staphylococcus aureus Presumptive C albicans Streptococcus agalactiae (B) 12/17/20 22:30 Blood Culture (Wb) - Left Hand Blood Culture - Final No growth in 5 days. 12/17/20 00:28 Blood Culture (Wb) - Right Hand Blood Culture - Final No growth in 5 days. 12/18/20 00:28 Urine, Random Urine Culture - Final Mixed Gram Pos & Gram Neg Org 12/18/20 03:35 Mucosa - Nose Respiratory Panel (PCR) - Final 12/18/20 00:28 Urine, Clean Catch Legionella Antigen - Final 12/18/20 00:28 Urine, Clean Catch Streptococcus pneumoniae Antigen (M - Final 12/17/20 22:40 Interface Orders SARS-CoV-2 Antigen (Rapid) - Final SARS-CoV-2 (COVID 19) Rhythm Strip Rhythm Strip: Sinus Rhythm Rate: 83 Ectopy: None Physical Exam Const Constitutional Narrative: Sitting in bedside recliner. Opens eyes to voice General Appearance: well developed, lethargic and on BiPAP Nutritional Appearance: morbidly obese HEENT moist oral mucous membranes Neck full ROM and no lymphadenopathy Neck Narrative: No cervical crepitus noted. Chest Chest: symmetrical chest wall rise; Negative for crepitus Resp Resp Narrative: Little conversational effort Effort and Inspection: symmetric chest movement Auscultation: rales and diminished lung sounds; Negative for rhonchi or wheezes Percussion: Negative for dullness Cardio S1 normal heart sound, S2 normal heart sound, no murmurs, no rub and no gallops no CVA tenderness Extremity General Extremity: edema bilateral (1+) lower extremity; Negative for clubbing or cyanosis Neuro CN's II-XII intact bilaterally, moves all extremities and no focal motor deficits Psych cooperative and affect normal Charges/Coding Procedures Hospitalists Procedures: [id number] Critial Care 1st Hr
[2021-01-03] MEDS: dexAMETHasone 10 MG/ML Vial 6 MG IV (11:01)
[2021-01-03] MEDS: Furosemide 40 MG/4 ML Vial IV (11:01)
[2021-01-03] MEDS: 0.9% Saline Lock 10 ML Syringe IV ×2 (11:02→21:02)
--- NOTE | 2021-01-03 11:11 | CASEMGMT ---
SW participate in ICU rounds, pt's sister in law Nga participated via telephone. SW called sister in law Nga after rounds to offer support. Nga states that she has been the spokesperson for the family, as pt's brother Babatunde(Nga's ) and mother Mar [place] wanted her to be, as she is a nurse and understands what is going on medically better than them. She states pt's mother is staying w/Babatunde and Nga, the best way to reach her if needed is going to be through Nga, as pt's mother does not answer her cell phone usually. Pt's mother is staying with them since a hospital stay last month, where she had Covid also. Nga states she is starting to do better, weaning down on oxygen and completing ADL's more on her own. Nga states that pt's father in May, commented that it's been a really tough year. Support given to Nga. SW remains available for support to family as needed. [facility]
[2021-01-03] MEDS: CHLORHEXIDINE GLUC 2% CLOTH 1 EACH TOWELETTE TOPICAL (11:18)
[2021-01-03 11:20] LABS: Bedside Glucose 135 mg/dL (70-110)
--- NOTE | 2021-01-03 11:57 | CASEMGMT ---
Addendum entered by Anna Wu 01/03/21 12:17: SW called sister in law Nga to let her know pt has had a change in condition. Family on their way. [facility] Original Note: SW participated in ICU rounds. Pt has been sleeping, and is on bipap so SW has not met w/pt today. SW called daughter Petey to offer support. Petey did have some questions around her brother's insurance and pt's insurance, both Medicaid products. SW encouraged daughter to call [facility] directly to inquire, number given. SW will continue to follow.[facility]
--- NOTE | 2021-01-03 13:21 | CASEMGMT ---
Addendum entered by Anna Wu 01/03/21 13:34: Pt's daughter Petey and Petey's here now, SW said hello to pt and family, let them know SW is here should she need anything. [facility] Original Note: SW participated in ICU rounds. Pt has been sleeping, and is on bipap so SW has not met w/pt today. SW called daughter Petey to offer support. Petey did have some questions around her brother's insurance and pt's insurance, both Medicaid products. SW encouraged daughter to call [facility] directly to inquire, number given. SW will continue to follow.[facility]
--- NOTE | 2021-01-03 13:37 | PN.HOSP_ITS ---
Subjective Subjective Desats quickly with brief removal of BiPAP. Receiving haloperidol to calm her while on BiPAP. Objective Data Objective Data Vital Signs: Vital Signs Temp Pulse Resp BP Pulse Ox 37.6 C H 91 44 H 108/59 L 91 01/03/21 12:00 01/03/21 12:10 01/03/21 12:00 01/03/21 12:00 01/03/21 12:00 Oxygen Flow Rate (L/min) [ 5 AMBULATING with Oxygen #2] Oxygen Flow Rate (L/min) [ 4 AMBULATING with Oxygen #1] Oxygen Flow Rate (L/min) [ 0 AMBULATING on Room Air] Oxygen Flow Rate (L/min) [At 0 REST on Room Air] Oxygen Flow Rate (L/min) 60 Oxygen Delivery Method Bi-pap Weight: 116.346 kg Body Mass Index (BMI) 51.4 Intake & Output: Intake and Output for Last 24 Hours 01/01/21 01/02/21 01/03/21 23:59 23:59 23:59 Intake Total 580 / 580 Output Total 850 / 1450 1850 / 1850 975 / 975 Balance -270 / -870 -1850 / -1850 -975 / -975 Lab / Micro Data Result Diagrams: 01/03/21 04:40 01/03/21 04:40 Labs: Laboratory Results - last 24 hr 01/02/21 05:55: WBC 15.2 H, RBC 4.55, Hgb 13.5, Hct 42.0, MCV 92.3, MCH 29.7, MCHC 32.1, RDW Std Deviation 44.6 H, RDW Coeff of Mansi 13.2, Plt Count 361, MPV 10.2, Immature Gran % (Auto) 0.700, Neut % (Auto) 87.0 H, Lymph % (Auto) 5.2 L, [place] % (Auto) 6.7, Eos % (Auto) 0.3, Baso % (Auto) 0.1, Absolute Neuts (auto) 13.2 H, Absolute Lymphs (auto) 0.79 L, Nucleated RBC % 0 01/02/21 12:40: Sodium 136, Potassium 3.5, Chloride 97 L, Carbon Dioxide 33.0 H, Anion Gap 6, BUN 20 H, Creatinine 0.94, Estim Creat Clear Calc 51.63, Est GFR (MDRD) Af Amer 80, Est GFR (MDRD) Non-Af 66, BUN/Creatinine Ratio 21.3 H, Glucose 172 H, Calcium 9.2, Total Bilirubin 0.30, AST 32, ALT 33, Alkaline Phosphatase 121 H, Total Protein 8.0, Albumin 2.0 L, Globulin 6.0 H, Albumin/Globulin Ratio 0.3 L 01/02/21 16:29: POC Glucose 156 H 01/02/21 21:13: POC Glucose 176 H 01/03/21 04:40: WBC 13.7 H, RBC 4.57, Hgb 13.5, Hct 42.6, MCV 93.2, MCH 29.5, MCHC 31.7 L, RDW Std Deviation 45.2 H, RDW Coeff of Mansi 13.2, Plt Count 351, MPV 9.7, Immature Gran % (Auto) 0.500, Neut % (Auto) 84.6 H, Lymph % (Auto) 6.4 L, [place] % (Auto) 7.3, Eos % (Auto) 1.0, Baso % (Auto) 0.2, Absolute Neuts (auto) 11.6 H, Absolute Lymphs (auto) 0.87, Nucleated RBC % 0 01/03/21 04:40: Sodium 139, Potassium 4.0, Chloride 99, Carbon Dioxide 34.0 H, Anion Gap 6, BUN 26 H, Creatinine 0.93, Estim Creat Clear Calc 52.18, Est GFR (MDRD) Af Amer 81, Est GFR (MDRD) Non-Af 67, BUN/Creatinine Ratio 28.0 H, Glucose 118 H, Calcium 9.3, Total Bilirubin 0.40, AST 34, ALT 33, Alkaline Phosphatase 115, Total Protein 7.9, Albumin 2.0 L, Globulin 5.9 H, Albumin/Globulin Ratio 0.3 L 01/03/21 11:06: POC Glucose 135 H Micro: Microbiology 12/21/20 10:40 Sputum, Expectorated/Coughed Gram Stain - Final 12/21/20 10:40 Sputum, Expectorated/Coughed Respiratory Culture - Final Staphylococcus aureus Presumptive C albicans Streptococcus agalactiae (B) 12/17/20 22:30 Blood Culture (Wb) - Left Hand Blood Culture - Final No growth in 5 days. 12/17/20 00:28 Blood Culture (Wb) - Right Hand Blood Culture - Final No growth in 5 days. 12/18/20 00:28 Urine, Random Urine Culture - Final Mixed Gram Pos & Gram Neg Org 12/18/20 03:35 Mucosa - Nose Respiratory Panel (PCR) - Final 12/18/20 00:28 Urine, Clean Catch Legionella Antigen - Final 12/18/20 00:28 Urine, Clean Catch Streptococcus pneumoniae Antigen (M - Final 12/17/20 22:40 Interface Orders SARS-CoV-2 Antigen (Rapid) - Final SARS-CoV-2 (COVID 19) Rhythm Strip Rhythm Strip: Sinus Rhythm Rate: 83 Ectopy: None Physical Exam Narrative Up in chair. Anxious on BiPAP. Const alert Constitutional Narrative: tachypneic. Resp normal respiratory effort and no retractions GI normal to inspection, nondistended, normoactive bowel sounds, soft to palpation, non-tender and non-distended Assessment & Plan Assessment/Plan (1) Acute respiratory failure with hypoxia: (2) Pulmonary embolus: QUALIFIERS: Pulmonary embolism type: unspecified Chronicity: chronic Acute cor pulmonale presence: unspecified Qualified Code(s): I27.82 - Chronic pulmonary embolism (3) Pneumonia due to COVID-19 virus: (4) Pneumomediastinum: PLAN: 1. acute hypoxic respiratory failure 2/2 COVID 19 and MSSA pneumonia currently on BiPAP w 100% FiO2 poor prognosis 2. COVID 19 onset 12/14 started on 2nd round of dexamethasone started on 01/01 completed remdesivir 3. MSSA pneumonia Vancomycin completed 4. DM2 uncontrolled Glargine 40 QHS and SSI 5. CPETH on apixaban follow up pulm outpt pending overall clinical course 6. VTE prophylaxis: anticoagulated. Charges/Coding Visit Charges Inpatient E&M: 15021 Subs Hosp L2
[2021-01-03] MEDS: Insulin Lispro 100 UNIT/ML INSULN.PEN SC ×2 (16:58→21:12)
[2021-01-03 17:06] LABS: Bedside Glucose 213 mg/dL (70-110)
[2021-01-03] MEDS: APIXABAN 5 MG TABLET PO (21:19)
[2021-01-04] VITALS (30 sets, daily range): BP systolic 104–136; BP diastolic 61–94; PULSE 74–126; RESP 12–75; TEMP 36.6–37.4; O2SAT 73–93
[2021-01-04] MEDS: Haloperidol Lactate 5 MG/ML Vial 3 MG IV ×4 (02:34→19:45)
[2021-01-04 04:12] LABS: Absolute Neutrophil Count 9.6 X10^3/uL (2.0-7.7); Basophil# 0.02 X10^3/uL; Basophil% 0.2 % (0-1); Eosinophil# 0.04 X10^3/uL; Eosinophils% 0.4 % (0-5); Hematocrit 42.7 % (37-47); Hemoglobin 13.3 g/dL (12.0-15.0); Lymphocyte % 5.4 % (19-41); Mean Corp Hgb Conc 31.1 g/dL (32-36); Mean Corpuscular Hgb 29.3 pg (27.0-32.0); Mean Corpuscular Volume 94.1 fL (81-99); Mean Platelet Vol. 9.9 fl (6.2-12.0); Monocyte# 0.72 X10^3/uL; Monocyte% 6.5 % (0-10); NRBC Flagged by Analyzer 0 % (0-5); Neutrophil # 9.58 X10^3/uL (2.7-7.7); POSITIVE DIFFERENTIAL YES; Platelet Count 344 K/mm3 (150-450); RBC Distribution Width CV 13.2 % (11.6-14.6); Red Blood Count 4.54 M/mm3 (4.2-5.4)
[2021-01-04 04:25] LABS: ALB/GLOB Ratio 0.4 RATIO (0.9-2.4); AST(SGOT) 35 U/L (15-37); Alanine Aminotransfer ALT/SGPT 35 U/L (13-56); Albumin, Serum 2.1 g/dL (3.2-5.0); Alkaline Phosphatase 122 U/L (45-117); Anion Gap 4 (5-15); BUN 35 mg/dL (7-18); Calcium,Total 9.6 mg/dL (8.5-10.1); Chloride 99 mmol/L (98-107); Creatinine, Serum 0.92 mg/dL (0.55-1.02); EST Glomerular Filtration Rate 67 mL/min (>60); Est Glom Filt Rate - Afr Amer 82 mL/min (>60); Estimated Creatinine Clearance 52.75 ml/min; Globulin 5.9 g/dL (2.2-4.2); Glucose 155 mg/dL (74-106); Potassium 3.9 mmol/L (3.5-5.1); Sodium Level 140 mmol/L (136-145)
[2021-01-04 04:26] LABS: Differential Indicated SCAN CRITERIA MET
[2021-01-04 04:38] LABS: Differential Comment SCANNED
[2021-01-04] MEDS: 0.9% Saline Lock 10 ML Syringe IV (05:25)
[2021-01-04] MEDS: Furosemide 40 MG/4 ML Vial IV (05:25)
[2021-01-04 06:56] LABS: Bedside Glucose 142 mg/dL (70-110)
[2021-01-04] MEDS: Albuterol 2.5 MG/3 ML VIAL.NEB. INHALATION (06:59)
--- NOTE | 2021-01-04 07:08 | PCM.PN.INT ---
Assessment & Plan Assessment/Plan (1) Acute respiratory failure with hypoxia: (2) Pneumonia due to COVID-19 virus: PLAN: RECOMMENDATIONS: 1. Continue a combination of Airvo/BIPAP as tolerated to maintain saturations at or above 90%. Use Airvo to facilitate eating 2. Continue Eliquis as ordered. 3. Continue with Lasix as labs allow. 4. Encourage incentive spirometer use and mobilize patient as tolerated. Attempt short BiPAP breaks for pulmonary toileting 5. Continue codeine to help as a cough suppressant 6. Decadron will be continued 7. If patient unable to tolerate BiPAP, anticipate transition to palliative measures after discussion with the family IMPRESSIONS: 1. Acute hypoxemic respiratory failure secondary to COVID-19 pneumonia/MSSA pneumonia/PE The patient continues to have a high oxygen requirement, despite having completed a treatment course of remdesivir, Decadron and antimicrobials. Eliquis twice daily will be continued. Plan to continue the patient on heated high flow as tolerated. Wean FiO2 to maintain oxygen saturations at or above 90%. Encourage incentive spirometer use and mobilize patient as tolerated. Patient appears to be tolerating BiPAP at this time at her baseline settings. No recurrence of pneumomediastinum has been noted. Patient will remain on full anticoagulation at this time. Some concern for consistent BiPAP therapy, but patient is not open to intubation. We'll continue to use Haldol as necessary to facilitate BiPAP. Will attempt to take patient off of BiPAP for short periods of time to allow for pulmonary toileting. 2. Pneumomediastinum Appears resolved. Complication of PAP therapy and frequent coughing. Hopefully, patient has healed enough that repeat BiPAP will not lead to recurrence of pneumomediastinum. Continue supportive measures. 3. Diabetes mellitus/obesity/depression/anxiety/GERD Complicates care, management, recovery and prognosis. Continue Lantus and sliding scale insulin coverage. CODE STATUS updated to DNR CCA without intubation. Addendum 4 PM: Patient is asking for hospice services. Discussed with hospice, but they are not willing to take the patient while on BiPAP therapy. Discussed this with the family. They are unhappy with this decision as they feel that hospice center would be a better place for this to happen. However, they are more interested in the patient being comfortable and are willing to move forward with palliative measures here. With discussions with the family, if patient is able to survive overnight, may readdress hospice services. Orders have been placed. TIME: 33 minutes of critical care time spent addressing patient's acute hypoxic respiratory failure, diabetes mellitus, family discussion, review of all data and collaboration with care team (5:45 AM to 6:45 AM) Subjective Subjective Patient did okay overnight. Patient has been essentially BiPAP dependent. Patient has had some coughing. Patient subjectively feels no change compared to previous. Objective Data Objective Data Vital Signs: Vital Signs Temp Pulse Resp BP Pulse Ox 36.9 C 101 H 41 H 122/64 H 90 01/04/21 07:00 01/04/21 07:03 01/04/21 07:03 01/04/21 07:00 01/04/21 07:03 Oxygen Flow Rate (L/min) [ 5 AMBULATING with Oxygen #2] Oxygen Flow Rate (L/min) [ 4 AMBULATING with Oxygen #1] Oxygen Flow Rate (L/min) [ 0 AMBULATING on Room Air] Oxygen Flow Rate (L/min) [At 0 REST on Room Air] Oxygen Flow Rate (L/min) 60 Oxygen Delivery Method Bi-pap Weight: 116.346 kg Body Mass Index (BMI) 51.4 Intake & Output: Intake and Output for Last 24 Hours 01/02/21 01/03/21 01/04/21 23:59 23:59 23:59 Output Total 1850 / 1850 1350 / 1700 790 / 790 Balance -1850 / -1850 -1350 / -1700 -790 / -790 Lab / Micro Data Result Diagrams: 01/04/21 03:50 01/04/21 03:50 Labs: Laboratory Results - last 24 hr 01/03/21 11:06: POC Glucose 135 H 01/03/21 16:55: POC Glucose 213 H 01/04/21 03:50: WBC 11.0, RBC 4.54, Hgb 13.3, Hct 42.7, MCV 94.1, MCH 29.3, MCHC 31.1 L, RDW Std Deviation 46.0 H, RDW Coeff of Mansi 13.2, Plt Count 344, MPV 9.9, Immature Gran % (Auto) 0.500, Neut % (Auto) 87.0 H, Lymph % (Auto) 5.4 L, [place] % (Auto) 6.5, Eos % (Auto) 0.4, Baso % (Auto) 0.2, Absolute Neuts (auto) 9.6 H, Absolute Lymphs (auto) 0.60 L, Nucleated RBC % 0, Differential Comment SCANNED 01/04/21 03:50: Sodium 140, Potassium 3.9, Chloride 99, Carbon Dioxide 37.0 H, Anion Gap 4 L, BUN 35 H, Creatinine 0.92, Estim Creat Clear Calc 52.75, Est GFR (MDRD) Af Amer 82, Est GFR (MDRD) Non-Af 67, BUN/Creatinine Ratio 38.0 H, Glucose 155 H, Calcium 9.6, Total Bilirubin 0.50, AST 35, ALT 35, Alkaline Phosphatase 122 H, Total Protein 8.0, Albumin 2.1 L, Globulin 5.9 H, Albumin/Globulin Ratio 0.4 L 01/04/21 06:29: POC Glucose 142 H Micro: Microbiology 12/21/20 10:40 Sputum, Expectorated/Coughed Gram Stain - Final 12/21/20 10:40 Sputum, Expectorated/Coughed Respiratory Culture - Final Staphylococcus aureus Presumptive C albicans Streptococcus agalactiae (B) 12/17/20 22:30 Blood Culture (Wb) - Left Hand Blood Culture - Final No growth in 5 days. 12/17/20 00:28 Blood Culture (Wb) - Right Hand Blood Culture - Final No growth in 5 days. 12/18/20 00:28 Urine, Random Urine Culture - Final Mixed Gram Pos & Gram Neg Org 12/18/20 03:35 Mucosa - Nose Respiratory Panel (PCR) - Final 12/18/20 00:28 Urine, Clean Catch Legionella Antigen - Final 12/18/20 00:28 Urine, Clean Catch Streptococcus pneumoniae Antigen (M - Final 12/17/20 22:40 Interface Orders SARS-CoV-2 Antigen (Rapid) - Final SARS-CoV-2 (COVID 19) Rhythm Strip Rhythm Strip: Sinus Rhythm Rate: 83 Ectopy: None Physical Exam Const Constitutional Narrative: Sitting in bedside recliner. Opens eyes to voice General Appearance: well developed, lethargic and on BiPAP Nutritional Appearance: morbidly obese HEENT moist oral mucous membranes Neck full ROM and no lymphadenopathy Neck Narrative: No cervical crepitus noted. Chest Chest: symmetrical chest wall rise; Negative for crepitus Resp Resp Narrative: Little conversational effort Effort and Inspection: symmetric chest movement Auscultation: rales and diminished lung sounds; Negative for rhonchi or wheezes Percussion: Negative for dullness Cardio S1 normal heart sound, S2 normal heart sound, no murmurs, no rub and no gallops no CVA tenderness Extremity General Extremity: edema bilateral (1+) lower extremity; Negative for clubbing or cyanosis Neuro CN's II-XII intact bilaterally, moves all extremities and no focal motor deficits Psych cooperative and affect normal Charges/Coding Procedures Hospitalists Procedures: [id number] Critial Care 1st Hr
[2021-01-04 08:05] LABS: Bedside Glucose 218 mg/dL (70-110)
[2021-01-04] MEDS: dexAMETHasone 10 MG/ML Vial 6 MG IV (08:47)
--- NOTE | 2021-01-04 10:25 | NURSING ---
PT RESTING IN CHAIR. REPORTS FEELING ANXIOUS. SPO2=LOW 80'S, RR UPPER 50'S-60'S. HALDOL GIVEN AT 0730. PT NOTIFIED TOO SOON FOR MORE HALDOL. ASSISTED TO SWAB MOUTH FOR C/O OF DRY MOUTH/NEEDING WATER. PT TOOK 2 SMALL SIPS WATER BEFORE PLACING BIPAP BACK IN PLACE. REPORTS FEELING SL BETTER. WILL CONT TO MONITOR. DR LONNY BOX.
--- NOTE | 2021-01-04 11:16 | NURSING ---
SPOKE W/DANNY,DAUGHTER ON PHONE. ASKED IF DANNY WOULD LIKE TO VISIT TODAY. DANNY STATES HER AND AT LEAST ONE BROTHER WILL COME IN TO VISIT. ALSO UPDATED DANNY ON PT STATUS, PT STILL ON BIPAP AT 100%, NOT ABLE TO TAKE BIPAP OFF. DANNY ASKING WHERE WE GO FROM HERE, WHAT THE PLANS MIGHT BE. INFORMED DANNY THAT THE NEXT THING TO START THINKING ABOUT IS HOSPICE PT DOES NOT WANT TO BE PLACED ON THE VENTILATOR. DANNY AGREEABLE TO MEETING WITH ARCHITECTURAL RENDERER AND ENERGY DIRECTOR TO DISCUSS OPTION OF HOSPICE. BARBARCHITECTURAL RENDERER NOTIFIED.
[2021-01-04] MEDS: Insulin Lispro 100 UNIT/ML INSULN.PEN SC (12:07)
--- NOTE | 2021-01-04 13:23 | NURSING ---
FAMILY PRESENT AT BEDSIDE. DR MUKHERJEE SPOKE W/FAMILY ABOUT PT STATUS AND NEXT STEPS. THIS NURSE MEDICATED PT FOR ANXIETY AND GAVE SMALL SIPS WATER. OVER THE HORIZON TARGETING SUPERVISOR NOW PRESENT SPEAKING W/FAMILY.
--- NOTE | 2021-01-04 13:36 | CHAPLAIN ---
Type of Pastoral Visit ___ Initial Visit _x__ Follow-up Visit ___ On-call Visit ___ General Patient Visit ___ Spiritual Assessment ___ Family Conference ___ Bereavement ___ Rapid Response ___ Code Blue ___ Other (describe below) Pastoral Care Referral From _x__ Patient _x__ Family ___ Nurse ___ Physician ___ Fishing Tool Technician [employer] ___ Gravel Hauler ___ Other (describe below) Sacrament/Intervention ___ Active listening ___ Anointing ___ Oriental Orthodox ___ Bereavement ___ Communion ___ Vicki exploration ___ ___ Life review _x__ Prayer ___ Reconciliation ___ Sacrament of Sick _x__ Supportive presence ___ Wedding ___ Other (describe below) Pastoral Comments met two sons and with daughter Petey in patient's room; pt is on Bi-Pap and decision has been made to transfer to hospice; pt indicates by nod that she is okay; supported family being present in room; offer of prayer and received by pt; pt gives 'thumbs up' sign; daughter expresses confidence in decision for comfort care and for spiritual care;
--- NOTE | 2021-01-04 13:39 | PCM.PN.HOSP ---
Subjective Subjective Still on max settings with BiPAP. Denies any pain. Objective Data Objective Data Vital Signs: Vital Signs Temp Pulse Resp BP Pulse Ox 37.3 C H 107 H 47 H 112/74 92 01/04/21 13:00 01/04/21 13:00 01/04/21 13:00 01/04/21 13:00 01/04/21 13:00 Oxygen Flow Rate (L/min) [ 5 AMBULATING with Oxygen #2] Oxygen Flow Rate (L/min) [ 4 AMBULATING with Oxygen #1] Oxygen Flow Rate (L/min) [ 0 AMBULATING on Room Air] Oxygen Flow Rate (L/min) [At 0 REST on Room Air] Oxygen Flow Rate (L/min) 60 Oxygen Delivery Method Bi-pap Weight: 116.346 kg Body Mass Index (BMI) 51.4 Intake & Output: Intake and Output for Last 24 Hours 01/02/21 01/03/21 01/04/21 23:59 23:59 23:59 Intake Total 150 / 150 Output Total 1850 / 1850 1350 / 1700 1340 / 1340 Balance -1850 / -1850 -1350 / -1700 -1190 / -1190 Lab / Micro Data Result Diagrams: 01/04/21 03:50 01/04/21 03:50 Labs: Laboratory Results - last 24 hr 01/03/21 16:55: POC Glucose 213 H 01/03/21 21:12: POC Glucose 218 H 01/04/21 03:50: WBC 11.0, RBC 4.54, Hgb 13.3, Hct 42.7, MCV 94.1, MCH 29.3, MCHC 31.1 L, RDW Std Deviation 46.0 H, RDW Coeff of Mansi 13.2, Plt Count 344, MPV 9.9, Immature Gran % (Auto) 0.500, Neut % (Auto) 87.0 H, Lymph % (Auto) 5.4 L, [place] % (Auto) 6.5, Eos % (Auto) 0.4, Baso % (Auto) 0.2, Absolute Neuts (auto) 9.6 H, Absolute Lymphs (auto) 0.60 L, Nucleated RBC % 0, Differential Comment SCANNED 01/04/21 03:50: Sodium 140, Potassium 3.9, Chloride 99, Carbon Dioxide 37.0 H, Anion Gap 4 L, BUN 35 H, Creatinine 0.92, Estim Creat Clear Calc 52.75, Est GFR (MDRD) Af Amer 82, Est GFR (MDRD) Non-Af 67, BUN/Creatinine Ratio 38.0 H, Glucose 155 H, Calcium 9.6, Total Bilirubin 0.50, AST 35, ALT 35, Alkaline Phosphatase 122 H, Total Protein 8.0, Albumin 2.1 L, Globulin 5.9 H, Albumin/Globulin Ratio 0.4 L 01/04/21 06:29: POC Glucose 142 H Micro: Microbiology 12/21/20 10:40 Sputum, Expectorated/Coughed Gram Stain - Final 12/21/20 10:40 Sputum, Expectorated/Coughed Respiratory Culture - Final Staphylococcus aureus Presumptive C albicans Streptococcus agalactiae (B) 12/17/20 22:30 Blood Culture (Wb) - Left Hand Blood Culture - Final No growth in 5 days. 12/17/20 00:28 Blood Culture (Wb) - Right Hand Blood Culture - Final No growth in 5 days. 12/18/20 00:28 Urine, Random Urine Culture - Final Mixed Gram Pos & Gram Neg Org 12/18/20 03:35 Mucosa - Nose Respiratory Panel (PCR) - Final 12/18/20 00:28 Urine, Clean Catch Legionella Antigen - Final 12/18/20 00:28 Urine, Clean Catch Streptococcus pneumoniae Antigen (M - Final 12/17/20 22:40 Interface Orders SARS-CoV-2 Antigen (Rapid) - Final SARS-CoV-2 (COVID 19) Rhythm Strip Rhythm Strip: Sinus Rhythm Rate: 83 Ectopy: None Physical Exam Const alert Constitutional Narrative: on BiPAP in chair. Resp normal respiratory effort, no retractions, no use of accessory muscles and clear to auscultation bilaterally Cardio regular rate, regular rhythm, S1 normal heart sound and S2 normal heart sound GI normal to inspection, nondistended, normoactive bowel sounds, soft to palpation, non-tender and non-distended Assessment & Plan Assessment/Plan (1) Acute respiratory failure with hypoxia: (2) Pulmonary embolus: QUALIFIERS: Pulmonary embolism type: unspecified Chronicity: chronic Acute cor pulmonale presence: unspecified Qualified Code(s): I27.82 - Chronic pulmonary embolism (3) Pneumonia due to COVID-19 virus: (4) Pneumomediastinum: PLAN: 1. acute hypoxic respiratory failure 2/2 COVID 19 and MSSA pneumonia currently on BiPAP w 100% FiO2 poor prognosis 2. COVID 19 onset 12/14 started on 2nd round of dexamethasone started on 01/01 completed remdesivir 3. MSSA pneumonia Vancomycin completed 4. DM2 uncontrolled Glargine 40 QHS and SSI 5. CPETH on apixaban follow up pulm outpt pending overall clinical course 6. VTE prophylaxis: anticoagulated. Family to visit today. Charges/Coding Visit Charges Inpatient E&M: 07738 Subs Hosp L2
--- NOTE | 2021-01-04 13:59 | CASEMGMT ---
Addendum entered by Mirian Lamar 01/04/21 15:13: Social Work [facility] hospice here and met with pt and pt dgt Petey. Physician to Physician call to Dr. Chan at [facility] is required. Dr. Arndt informed and able to complete call. If Dr. Chan approves, pt can transfer to Inpatient Hospice Unit today. FILI Hickey Original Note: Social Work SW met with pt, pt dgt Petey and two sons in pt room and discussed plan of care. Petey confirms that they have spoke with physician and plan is to transition to Hospice care and would like to go to the inpatient unit. Pt on Bipap but is able to confirm with a nod that this is what she wants. Phone call to [facility] and referral made to Elisabeth. Clinical information faxed. Elisabeth will call Petey and will then call this SW back to confirm acceptance. Nursing updated. FILI Hickey
[2021-01-04 14:35] LABS: Bedside Glucose 200 mg/dL (70-110)
[2021-01-04] MEDS: CHLORHEXIDINE GLUC 2% CLOTH 1 EACH TOWELETTE TOPICAL (15:08)
--- NOTE | 2021-01-04 16:42 | CASEMGMT ---
Social Work IAN spoke with [facility] in [facility] who states pt can be admitted to [facility] if she is off the bipap and stable. SW met with pt dgt Petey and son Iván outside the room to explain. Discussed pt end of life wishes including no intubation. Support provided to pt family as they process pt options and pt prognosis. Pt is currently alert and oriented and SW encouraged family that next steps in care are up to pt and family can support pt decisions. Nursing updated on discussion with hospice and with family. SW to remain available. FILI Hickey
[2021-01-04] MEDS: LORazepam 2 MG/ML Syringe IV ×2 (17:06→18:30)
--- NOTE | 2021-01-04 17:20 | NURSING ---
PT RESTING IN CHAIR. DAUGHTER AND SON PRESENT AT BEDSIDE. ATIVAN GIVEN FOR ANXIETY. PT REMAINS ON BIPAP AT THIS TIME. SIPS WATER GIVEN PER PT REQUEST. PT REQUESTING FOOD. INFORMED PT THAT WHEN SHE'S READY TO COME OFF BIPAP FOOD CAN BE GIVEN. EXPLAINED RISKS OF ASPIRATION WHEN FOOD IS GIVEN ON BIPAP. PT AGREEABLE TO WAIT UNTIL SHE'S READY TO ATTEMPT TO TRANSITION OFF BIPAP.
--- NOTE | 2021-01-04 18:30 | NURSING ---
PT ASSISTED TO BED FROM CHAIR. [facility] DONE. BACK WIPED DOWN. ATIVAN GIVEN FOR ANXIETY PER PT REQUEST. FAMILY AT BEDSIDE.
--- NOTE | 2021-01-04 19:47 | NURSING ---
pt has been taken off bipap and placed on 100% nonrebreather mask. Family all around pt. Haldol iv given per request of family. Family asked if she gets scared can we put it back on. ask yes if that is want she wants. We can try several times if wishes.
[2021-01-04] MEDS: Morphine 2 MG/ML Syringe IV ×2 (20:42→21:40)
--- NOTE | 2021-01-04 20:53 | NURSING ---
daughter has requested this nurse to not take her off the bipap anymore. They will like to try it again in am.
[2021-01-04] MEDS: LORazepam 2 MG/ML Syringe 1 MG IV (21:40)
[2021-01-05] VITALS (7 sets, daily range): PULSE 102–136; RESP 12–50; TEMP 37.4; O2SAT 84–89
[2021-01-05] MEDS: Morphine 2 MG/ML Syringe IV ×6 (00:44→14:13)
[2021-01-05] MEDS: 0.9% Saline Lock 10 ML Syringe IV ×5 (00:45→10:39)
[2021-01-05] MEDS: LORazepam 2 MG/ML Syringe 1 MG IV ×2 (00:45→05:45)
[2021-01-05] MEDS: Haloperidol Lactate 5 MG/ML Vial 3 MG IV (03:54)
--- NOTE | 2021-01-05 08:04 | PN.CC_ITS ---
Assessment & Plan Assessment/Plan (1) Acute respiratory failure with hypoxia: (2) Pneumonia due to COVID-19 virus: PLAN: RECOMMENDATIONS: 1. Anticipate increased symptom control once family arrives 2. Nonessential medications have been discontinued along with lab draws 3. Anticipate cessation of BiPAP today once symptoms controlled. IMPRESSIONS: 1. Acute hypoxemic respiratory failure secondary to COVID-19 pneumonia/MSSA pneumonia/PE Long discussion with the family yesterday. Family is requesting hospice measures. Overnight, family had requested to go home and plan for aggressive control of symptoms today. If patient survives 24 hours, referral to hospice is an option. Anticipate rapid decline after removal of BiPAP. Symptomatic medications have been ordered and will be initiated once family arrives. Nonessential investigations and medications have been discontinued. 2. Pneumomediastinum Appears resolved. Complication of PAP therapy and frequent coughing. Hopefully, patient has healed enough that repeat BiPAP will not lead to recurrence of pneumomediastinum. Continue supportive measures. 3. Diabetes mellitus/obesity/depression/anxiety/GERD Complicates care, management, recovery and prognosis. Continue Lantus and sliding scale insulin coverage. CODE STATUS updated to DNR CCA without intubation. Subjective Subjective Family had elected for comfort measures yesterday. Patient desaturates quickly when BiPAP mask is removed. Family has asked that they been given the opportunity to go home and get some rest. Patient has received some medications overnight, but remains on BiPAP. Objective Data Objective Data Vital Signs: Vital Signs Temp Pulse Resp BP Pulse Ox 37.4 C H 121 H 42 H 136/94 H 86 01/05/21 04:41 01/05/21 05:41 01/05/21 05:41 01/04/21 23:57 01/05/21 05:41 Oxygen Flow Rate (L/min) [ 5 AMBULATING with Oxygen #2] Oxygen Flow Rate (L/min) [ 4 AMBULATING with Oxygen #1] Oxygen Flow Rate (L/min) [ 0 AMBULATING on Room Air] Oxygen Flow Rate (L/min) [At 0 REST on Room Air] Oxygen Flow Rate (L/min) 15 Oxygen Delivery Method Bi-pap Weight: 116.346 kg Body Mass Index (BMI) 51.4 Intake & Output: Intake and Output for Last 24 Hours 01/03/21 01/04/21 01/05/21 23:59 23:59 23:59 Intake Total 390 / 390 340 / 340 Output Total 1350 / 1700 1790 / 1790 600 / 600 Balance -1350 / -1700 -1400 / -1400 -260 / -260 Lab / Micro Data Result Diagrams: 01/04/21 03:50 01/04/21 03:50 Labs: Laboratory Results - last 24 hr 01/03/21 21:12: POC Glucose 218 H 01/04/21 12:06: POC Glucose 200 H Micro: Microbiology 12/21/20 10:40 Sputum, Expectorated/Coughed Gram Stain - Final 12/21/20 10:40 Sputum, Expectorated/Coughed Respiratory Culture - Final Staphylococcus aureus Presumptive C albicans Streptococcus agalactiae (B) 12/17/20 22:30 Blood Culture (Wb) - Left Hand Blood Culture - Final No growth in 5 days. 12/17/20 00:28 Blood Culture (Wb) - Right Hand Blood Culture - Final No growth in 5 days. 12/18/20 00:28 Urine, Random Urine Culture - Final Mixed Gram Pos & Gram Neg Org 12/18/20 03:35 Mucosa - Nose Respiratory Panel (PCR) - Final 12/18/20 00:28 Urine, Clean Catch Legionella Antigen - Final 12/18/20 00:28 Urine, Clean Catch Streptococcus pneumoniae Antigen (M - F inal 12/17/20 22:40 Interface Orders SARS-CoV-2 Antigen (Rapid) - Final SARS-CoV-2 (COVID 19) Rhythm Strip Rhythm Strip: Sinus Rhythm Rate: 83 Ectopy: None Physical Exam Const Constitutional Narrative: In bed. Opens eyes to voice General Appearance: well developed, lethargic and on BiPAP Nutritional Appearance: morbidly obese HEENT moist oral mucous membranes Neck full ROM and no lymphadenopathy Neck Narrative: No cervical crepitus noted. Chest Chest: symmetrical chest wall rise; Negative for crepitus Resp Resp Narrative: Little conversational effort Effort and Inspection: symmetric chest movement, tachypneic and respiratory distress Auscultation: rales and diminished lung sounds; Negative for rhonchi or wheezes Percussion: Negative for dullness Cardio S1 normal heart sound, S2 normal heart sound, no murmurs, no rub and no gallops no CVA tenderness Extremity General Extremity: edema bilateral (1+) lower extremity; Negative for clubbing or cyanosis Neuro CN's II-XII intact bilaterally, moves all extremities and no focal motor deficits Psych cooperative and affect normal Charges/Coding Visit Charges Inpatient E&M: 38770 Subs Hosp L2
--- NOTE | 2021-01-05 10:27 | CASEMGMT ---
Social Work Pt's four children and two spouses here to be with pt with plan to remove bipap. SW met with Petey and offered support. SW also met with pt son Chalo and provided emotional support. Family is appropriately grieving prognosis of pt and supportive of one another. SW will allow time for family to be in room with pt alone. Family and nursing aware that SW is available for support. FILI Hickey
[2021-01-05] MEDS: LORazepam 2 MG/ML Syringe IV ×3 (10:38→14:14)
--- NOTE | 2021-01-05 12:20 | PCM.PN.HOSP ---
Subjective Subjective Put back on BiPAP, but quickly desats when taken off. Objective Data Objective Data Vital Signs: Vital Signs Temp Pulse Resp BP Pulse Ox 37.4 C H 136 H 48 H 136/94 H 84 01/05/21 04:41 01/05/21 10:18 01/05/21 07:00 01/04/21 23:57 01/05/21 10:18 Oxygen Flow Rate (L/min) [ 5 AMBULATING with Oxygen #2] Oxygen Flow Rate (L/min) [ 4 AMBULATING with Oxygen #1] Oxygen Flow Rate (L/min) [ 0 AMBULATING on Room Air] Oxygen Flow Rate (L/min) [At 0 REST on Room Air] Oxygen Flow Rate (L/min) 15 Oxygen Delivery Method Bi-pap Weight: 116.346 kg Body Mass Index (BMI) 51.4 Intake & Output: Intake and Output for Last 24 Hours 01/03/21 01/04/21 01/05/21 23:59 23:59 23:59 Intake Total 390 / 390 340 / 340 Output Total 1350 / 1700 1790 / 1790 600 / 600 Balance -1350 / -1700 -1400 / -1400 -260 / -260 Lab / Micro Data Result Diagrams: 01/04/21 03:50 01/04/21 03:50 Labs: Laboratory Results - last 24 hr 01/04/21 12:06: POC Glucose 200 H Micro: Microbiology 12/21/20 10:40 Sputum, Expectorated/Coughed Gram Stain - Final 12/21/20 10:40 Sputum, Expectorated/Coughed Respiratory Culture - Final Staphylococcus aureus Presumptive C albicans Streptococcus agalactiae (B) 12/17/20 22:30 Blood Culture (Wb) - Left Hand Blood Culture - Final No growth in 5 days. 12/17/20 00:28 Blood Culture (Wb) - Right Hand Blood Culture - Final No growth in 5 days. 12/18/20 00:28 Urine, Random Urine Culture - Final Mixed Gram Pos & Gram Neg Org 12/18/20 03:35 Mucosa - Nose Respiratory Panel (PCR) - Final 12/18/20 00:28 Urine, Clean Catch Legionella Antigen - Final 12/18/20 00:28 Urine, Clean Catch Streptococcus pneumoniae Antigen (M - Final 12/17/20 22:40 Interface Orders SARS-CoV-2 Antigen (Rapid) - Final SARS-CoV-2 (COVID 19) Rhythm Strip Rhythm Strip: Sinus Rhythm Rate: 83 Ectopy: None Physical Exam Const Constitutional Narrative: sedated. on BiPAP. Resp normal respiratory effort, no retractions, no use of accessory muscles and clear to auscultation bilaterally Cardio Cardio Narrative: tachycardic Assessment & Plan Assessment/Plan (1) Acute respiratory failure with hypoxia: (2) Pulmonary embolus: QUALIFIERS: Pulmonary embolism type: unspecified Chronicity: chronic Acute cor pulmonale presence: unspecified Qualified Code(s): I27.82 - Chronic pulmonary embolism (3) Pneumonia due to COVID-19 virus: (4) Pneumomediastinum: PLAN: 1. acute hypoxic respiratory failure 2/2 COVID 19 and MSSA pneumonia currently on BiPAP w 100% FiO2 poor prognosis 2. COVID 19 onset 12/14 started on 2nd round of dexamethasone started on 01/01 completed remdesivir 3. MSSA pneumonia Vancomycin completed 4. DM2 uncontrolled Glargine 40 QHS and SSI 5. CPETH on apixaban follow up pulm outpt pending overall clinical course 6. VTE prophylaxis: anticoagulated. Family present. Plan for palliation. Charges/Coding Visit Charges Inpatient E&M: 30124 Subs Hosp L2
--- NOTE | 2021-01-05 13:50 | CHAPLAIN ---
Type of Pastoral Visit ___ Initial Visit ___ Follow-up Visit ___ On-call Visit ___ General Patient Visit ___ Spiritual Assessment _x__ Family Conference ___ Bereavement ___ Rapid Response ___ Code Blue ___ Other (describe below) Pastoral Care Referral From ___ Patient _x__ Family ___ Nurse ___ Physician _x__ Line Installation Supervisor ___ Audioprosthologist ___ Other (describe below) Sacrament/Intervention _x__ Active listening ___ Anointing ___ Episcopalian ___ Bereavement ___ Communion ___ Vicki exploration ___ ___ Life review _x__ Prayer ___ Reconciliation ___ Sacrament of Sick _x__ Supportive presence ___ Wedding ___ Other (describe below) Pastoral Comments met with family of four children and their spouses or significant others; family is preparing to have bi-pap removed sometime later today; offered presence, supportive words, affirmation of their presence and encouragement to make these moments matter with their words, presence, and mutual support; will remain available as needed for this patient and family
--- NOTE | 2021-01-05 14:46 | NURSING ---
Family stated they would be in waiting room while we removed the Bipap to make her comfortable. Bipap removed. One time order of morphine [address] Hurst's orders. Will continue to support patient.
--- NOTE | 2021-01-05 14:56 | CASEMGMT ---
Social Work SW has met with pt family several times throughout they day providing support. Family in waiting room as nursing cares for pt. Torts Law Professor notified as well as pt and family have expressed appreciation and importance of Spiritual care. SW brittaney remain available for further needs. FILI Hickey
--- NOTE | 2021-01-05 15:40 | PCM.DEATH ---
Preliminary Cause of Preliminary Cause of Preliminary Cause of : COVID 19 Date of Admission: 12/18/20 Principle Diagnosis Problem List: Active and Suspected Problems (Updated 01/02/21 @ 15:[address] Sky Arndt DO) Pneumomediastinum (Acute) Acute respiratory failure with hypoxia (Acute) Pulmonary embolus (Acute) Transaminitis (Acute) Hypoxia (Acute) Pneumonia due to COVID-19 virus (Acute) History of pulmonary embolism (Acute) stop eliquis 3 days prior, lovenox in preop, and resueme liquis postop Hospital Course 55-year-old female presents on February 17 with shortness of breath cough. Patient presented to the emergency room on 17 December with a 3-day history of fever, chills, headache his other was a myriad of symptoms. Patient with apparently exposed to her spouse who was hospitalized. Patient was unvaccinated for COVID-19. Respiratory status continued decline and patient was put on BiPAP. In addition to remdesivir and dexamethasone, patient was started on antibiotics. He was transferred to the intensive care unit on December 25. Patient did have methicillin sensitive staph aureus pneumonia complicating her respiratory status. Patient subsequently developed a pneumomediastinum on December 27 has a combination of positive airway pressure and frequent coughing. Attempts are made to initiate passive oxygen. Patient's CODE STATUS was changed to DNR Comfort Care arrest no intubation on the . Decadron was reinstated on the after previously completing that. Patient was subsequently placed back on the BiPAP and was on maximal oxygenation. Family was permitted to see the patient and plan was to proceed with hospice on the . I spoke with the hospice physician who want the patient off BiPAP before she could be excepted. Patient could not tolerate that. Decision was made to make comfortable in the hospital and then to remove the BiPAP and transition over to oxygen. That occurred on the . Patient at 1519 on 01/05/2021. Assessment & Plan Assessment/Plan (1) Acute respiratory failure with hypoxia: (2) Pulmonary embolus: QUALIFIERS: Pulmonary embolism type: unspecified Chronicity: chronic Acute cor pulmonale presence: unspecified Qualified Code(s): I27.82 - Chronic pulmonary embolism (3) Pneumonia due to COVID-19 virus: (4) Pneumomediastinum: (5) MSSA (methicillin susceptible Staphylococcus aureus) pneumonia: PLAN: 1. acute hypoxic respiratory failure 2/2 COVID 19 and MSSA pneumonia currently on BiPAP w 100% FiO2 1519 on . COVID 19 onset 12/14 started on 2nd round of dexamethasone started on 01/01 completed remdesivir 3. MSSA pneumonia Vancomycin completed 4. DM2 uncontrolled Glargine 40 QHS and SSI 5. CPETH on apixaban follow up pulm outpt pending overall clinical course 6. VTE prophylaxis: anticoagulated. Family present. Plan for palliation. Visit Charges Inpatient E&M: 70890 Disch Hosp
[2021-01-05] MEDS: Morphine 4 MG/ML Syringe 6 MG IV (15:41)
--- NOTE | 2021-01-05 15:50 | CHAPLAIN ---
Type of Pastoral Visit ___ Initial Visit ___ Follow-up Visit ___ On-call Visit ___ General Patient Visit ___ Spiritual Assessment ___ Family Conference _x__ Bereavement ___ Rapid Response ___ Code Blue ___ Other (describe below) Pastoral Care Referral From ___ Patient _x__ Family _x__ Nurse ___ Physician _x__ Sales Technician ___ Stenciler ___ Other (describe below) Sacrament/Intervention _x__ Active listening ___ Anointing ___ Cheondoism _x__ Bereavement ___ Communion ___ Vicki exploration ___ _x__ Life review _x__ Prayer ___ Reconciliation ___ Sacrament of Sick _x__ Supportive presence ___ Wedding ___ Other (describe below) Pastoral Comments sat with family members in waiting area while end of life care was given to patient; reviewed life of their mother; offered support presence and calm affirmation of family and vicki; also came to bedside of pt as she was at end of life; two RN's are also at bedside; prayer and comforting words given for patient; after was presence with family and offered gifts and prayer
--- NOTE | 2021-01-05 16:27 | CM.ED ---
SW Note SW Referal Source: ICU Etch Operator [employer] SW Referral Reason: Provide support if needed. SW was called by ICU SW Mirian who indicated that patient is dying and she has provided family support and power generation engineer is with family. Mirian advised she will give the ICU family dentist this procedure writer's phone number if additional support or issues arise. IAN called and spoke to family dentist Kate. She advised patient had . She advised no additional social work support needed at this time. SW will remain available if additional needs arise. Plan: Emotional Support as needed Suzette VASQUES
== END 2021-01-05 15:19 | DRG 137 ==
LOC: ED 22:31 → PCU 12-18 01:37 → ICU 12-25 09:23
PROVIDERS: Family Medicine; Internal Medicine; Internal Medicine Critical Care Medicine; Student in an Organized Health Care Education/Training Program; Admitting Provider Family Medicine; Emergency Provider Emergency Medicine; PCP Family Medicine
DX: U07.1 COVID-19 (principal); J12.82 Pneumonia due to coronavirus disease 2019; J96.01 Acute respiratory failure with hypoxia; J15.211 Pneumonia due to Methicillin susceptible Staphylococcus aureus; Z68.43 Body mass index [BMI] 50.0-59.9, adult; J44.0 Chronic obstructive pulmonary disease with (acute) lower respiratory infection; J98.2 Interstitial emphysema; B95.4 Other streptococcus as the cause of diseases classified elsewhere; I95.9 Hypotension, unspecified; I27.82 Chronic pulmonary embolism; E11.65 Type 2 diabetes mellitus with hyperglycemia; K76.0 Fatty (change of) liver, not elsewhere classified; J30.9 Allergic rhinitis, unspecified; G47.33 Obstructive sleep apnea (adult) (pediatric); E66.01 Morbid (severe) obesity due to excess calories; K21.9 Gastro-esophageal reflux disease without esophagitis; F32.9 Major depressive disorder, single episode, unspecified; F41.9 Anxiety disorder, unspecified; Z79.899 Other long term (current) drug therapy
CPT/HCPCS: 36415; 36569; 36600; 71045; 71275; 80048; 80053; 80202; 81001; 82728; 82803; 82962; 83036; 83605; 83615; 83735; 83880; 84100; 84145; 84484; 85025; 85027; 85379; 85384; 86140; 87040; 87070; 87077; 87086; 87088; 87186; 87205; 87426; 87449; 87633; 93005; 94002; 94003; 94640; 94660; 97110; 97116; 97162; 97165; 97530; 97535; 99251; 99285; J2997; J7030; J7040; J7050; Q9967; A4216; G0463; J1940